=== PATIENT | female | born 1935 | race Caucasian/White ===

== ENCOUNTER → 2017-08-31 | Outpatient (CLI) | payer OTHER ==
[~2017-08-31] MED LIST: ASPI1TAB2 PO; CHOL1TAB2 PO; CORACAP6 PO; CRG625 PO; HYDR12.55 PO; LOSA100T65 PO; MULT-190 PO; MULT1TAB32 PO; NRV5 PO; OMEG10007 PO; OMEP20CA9 PO; PRAV40TA2 PO
--- NOTE | 2017-08-31 10:50 | DIAGNOSTIC IMAGING REPORT ---
GI SERIES W/AIR ROUTINE CLINICAL HISTORY: COUGH COMPARISON STUDY: None. FLUOROSCOPY TIME: 2.0 minutes. 25 images submitted. FINDINGS: The patient swallowed barium without difficulty. The esophagus is normal in course, caliber, and motility. No hiatus hernia. No gastroesophageal reflux. No gastric ulcerations. The duodenal bulb and duodenal C sweep are within normal limits. IMPRESSION: Normal upper GI series. Electronically signed by: Mango Joseph M.D. 08/31/2017 10:48 AM Dictated Date/Time: 08/31/2017 10:47 AM
== END | disposition home or self-care (01) ==
LOC: C.RAD 10:06
PROVIDERS: ATTEND Family Medicine
DX: R06.09 Other forms of dyspnea (principal); R05 Cough

== ENCOUNTER 2023-06-04 09:54 | Inpatient (IN) ==
[2023-06-04] MEDS ORDERED: ALBUT/IPRATROP 3MG/0.5MG NEB 3 ML VIAL NEB STA ×2 (10:30→12:24)
[2023-06-04] MEDS ORDERED: SODIUM CHLORIDE 0.9% 1,000 ML IV SCH (10:30)
[2023-06-04] MEDS ORDERED: ONDANSETRON INJ 2 MG/ML 2 ML VIAL IV STA (10:30)
[2023-06-04] MEDS ORDERED: methylPREDNISolone 125 MG/2 ML VIAL IV STA (10:30)
--- NOTE | 2023-06-04 10:43 | Emergency Department Note ---
Impression & Plan COVID, Hypoxia ED Provider Note Diagnosis: COVID, hypoxia, bronchospasms Disposition: Admission CHIEF COMPLAINT: Shortness of breath, nausea vomiting diarrhea HPI: Patient is an 88-year-old female presenting with complaint of shortness of breath. Patient states her symptoms started overnight. Patient states this time yesterday she was feeling of her normal health. Patient states she has been having nausea and vomiting with 2 episodes without any blood present. Patient has had also 2 episodes of diarrhea without blood present. Patient does not complain of any abdominal pain on presentation. Patient denies any fevers. Patient denies any sick contacts. Patient denies any active chest pain. PAST MEDICAL HISTORY: See Below PAST SURGICAL HISTORY: See Below SOCIAL HISTORY: See Below HOME MEDICATIONS: See Below ALLERGIES: See Below VITALS: See Below PHYSICAL EXAMINATION: GENERAL: Well appearing, well nourished, NAD, non-toxic. EYE EXAM: Normal conjunctiva. OROPHARYNX: Moist mucus membranes. Grossly normal dentition. NECK: Supple, LUNGS: Wheezing bilaterally HEART: NSR ABDOMEN: Abdomen soft, non-tender, normo-active bowel sounds, no masses, no rebound or guarding BACK: No CVA TTP. SKIN: No rashes and no bruising. UPPER EXTREMITIES: Upper extremities are grossly normal LOWER EXTREMITIES: Grossly normal, no edema. NEURO EXAM: A&O x3,, normal speech, moves all 4 extremities PSYCH: Cooperative MEDICAL DECISION MAKING: Reviewed external documents: Pulmonary office visit August 2020 for groundglass opacity follow-up History obtained from: Patient, neighbor bedside ER Course: Patient is a 88-year-old female presenting with shortness of breath. Patient states that last night she had a choking episode and then acutely felt short of breath. Patient in the emergency room had multiple episodes of bronchospasms where she would have desaturation of her oxygen levels. Patient responded well to nonrebreather oxygen support. Patient found to be COVID-positive. Patient was given DuoNebs and steroids. Patient has slightly elevated troponin with no signs of ischemia on EKG. Patient due to her hypoxia and COVID will be admitted to the hospital service further treatment and evaluation Labs (independently interpreted) are significant for: COVID-positive, no leukocytosis, no electrolyte abnormalities, slight elevation of troponin Imaging results (independently interpreted): Chest x-ray negative for pneumonia EKG interpretation (independently interpreted): Sinus rhythm no ST segment elevation or depression Medications given: DuoNeb, steroids Consultants: Hospitalist agreed except patient further treatment evaluation Triage Nursing notes reviewed and agree them. Vital Signs: reviewed and remarkable for: Hypoxia Past Med/Surg History Social History (Updated 06/04/23 @ 14:36 by Dorinda Paul PA-C) Smoking Status: Never smoker Second Hand Exposure: Yes ( smoked); Hx Alcohol Use: No Hx Substance Use: No Preferred Language: Macedonian marital status: / Current Living Situation: Alone Feels Safe at Home: Yes Allergies Allergies Allergy/AdvReac Type Severity Reaction Status Date / Time adhesive Allergy Unknown SKIN TEAR Verified 06/04/23 12:27 bee venom protein (honey bee) Allergy Unknown Verified 06/04/23 12:28 lisinopril AdvReac Unknown DRY MOUTH Verified 06/04/23 12:27 morphine AdvReac Unknown vomiting Verified 06/04/23 12:27 oxycodone AdvReac Unknown STRANGE Verified 06/04/23 12:27 DREAMS guaifenesin [From Mucinex] AdvReac vomiting, Verified 06/04/23 12:28 diarrhea Home Meds Home Medications Medication Instructions Recorded Confirmed calcium carbonate 600 mg calcium 0 mg PO DAILY 06/04/23 06/04/23 (1,500 mg) tablet (Calcium) carvedilol 6.25 mg tablet 3.125 mg PO QPM 06/04/23 06/04/23 carvedilol 6.25 mg tablet 6.25 mg PO QAM 06/04/23 06/04/23 diclofenac sodium 1 % topical gel 2 g topical DIRECTED PRN Pain 06/04/23 06/04/23 doxazosin 2 mg tablet 2 mg PO HS 06/04/23 06/04/23 losartan 50 mg tablet 50 mg PO DAILY 06/04/23 06/04/23 pravastatin 40 mg tablet 40 mg PO DAILY 06/04/23 06/04/23 vitamins A,C,U-bvaf-cgcscq 2,148 2 tab PO QAM 06/04/23 06/04/23 mcg-113 mg-45 mg-17.4 mg tablet (PreserVision AREDS) Results & Data (ED) Vital Signs Vital Signs - 24 hr 06/04/23 09:59 06/04/23 10:24 06/04/23 11:00 Temperature 36.8 C Temperature Source Oral Pulse Rate 74 67 68 Pulse Rate from SpO2 Sensor 68 Respiratory Rate 18 24 Respiratory Effort / Characteristics Non-Labored Spontaneous Respiratory Depth Normal Respiratory Pattern Regular Blood Pressure 112/84 Blood Pressure Mean 93 Blood Pressure Position Sitting Pulse Oximetry 94 99 Oxygen Delivery Method Room Air Nebulizer Oxygen Flow Rate Sepsis Recent Fever Within 48 Hours No Sepsis New/Unexplained Change in Mental Status No Sepsis Action Taken by Nursing No Action Required 06/04/23 11:00 06/04/23 11:30 06/04/23 11:32 Temperature Temperature Source Pulse Rate 70 76 Pulse Rate from SpO2 Sensor 70 73 Respiratory Rate 20 21 Respiratory Effort / Characteristics Respiratory Depth Respiratory Pattern Blood Pressure 152/68 H Blood Pressure Mean 112 Blood Pressure Position Pulse Oximetry 100 97 Oxygen Delivery Method Room Air Room Air Oxygen Flow Rate Sepsis Recent Fever Within 48 Hours Sepsis New/Unexplained Change in Mental Status Sepsis Action Taken by Nursing 06/04/23 11:32 06/04/23 12:00 06/04/23 12:00 Temperature Temperature Source Pulse Rate 73 Pulse Rate from SpO2 Sensor 72 Respiratory Rate 22 Respiratory Effort / Characteristics Respiratory Depth Respiratory Pattern Blood Pressure 171/78 H 144/69 H Blood Pressure Mean 94 119 Blood Pressure Position Pulse Oximetry 93 Oxygen Delivery Method Room Air Oxygen Flow Rate Sepsis Recent Fever Within 48 Hours Sepsis New/Unexplained Change in Mental Status Sepsis Action Taken by Nursing 06/04/23 12:15 06/04/23 12:15 06/04/23 12:30 Temperature Temperature Source Pulse Rate 69 67 Pulse Rate from SpO2 Sensor 69 66 Respiratory Rate 22 19 Respiratory Effort / Characteristics Respiratory Depth Respiratory Pattern Blood Pressure Blood Pressure Mean Blood Pressure Position Pulse Oximetry 100 59 L 99 Oxygen Delivery Method Non-rebreather Nasal Cannula Oxygen Flow Rate 4 Sepsis Recent Fever Within 48 Hours Sepsis New/Unexplained Change in Mental Status Sepsis Action Taken by Nursing 06/04/23 12:30 06/04/23 12:45 06/04/23 12:49 Temperature Temperature Source Pulse Rate 65 72 Pulse Rate from SpO2 Sensor 65 74 Respiratory Rate 20 22 Respiratory Effort / Characteristics Respiratory Depth Respiratory Pattern Blood Pressure 182/98 H Blood Pressure Mean 138 Blood Pressure Position Pulse Oximetry 100 99 Oxygen Delivery Method Oxygen Flow Rate Sepsis Recent Fever Within 48 Hours Sepsis New/Unexplained Change in Mental Status Sepsis Action Taken by Nursing 06/04/23 12:49 06/04/23 13:00 06/04/23 13:01 Temperature Temperature Source Pulse Rate 79 82 Pulse Rate from SpO2 Sensor 82 85 Respiratory Rate 21 21 Respiratory Effort / Characteristics Respiratory Depth Respiratory Pattern Blood Pressure 188/81 H Blood Pressure Mean 130 Blood Pressure Position Pulse Oximetry 97 97 Oxygen Delivery Method Oxygen Flow Rate Sepsis Recent Fever Within 48 Hours Sepsis New/Unexplained Change in Mental Status Sepsis Action Taken by Nursing 06/04/23 13:01 06/04/23 13:34 06/04/23 13:45 Temperature Temperature Source Pulse Rate 96 H 95 H Pulse Rate from SpO2 Sensor 98 H 96 H Respiratory Rate 17 24 Respiratory Effort / Characteristics Respiratory Depth Respiratory Pattern Blood Pressure 160/103 H Blood Pressure Mean 148 Blood Pressure Position Pulse Oximetry 96 94 Oxygen Delivery Method Oxygen Flow Rate Sepsis Recent Fever Within 48 Hours Sepsis New/Unexplained Change in Mental Status Sepsis Action Taken by Nursing 06/04/23 13:53 06/04/23 13:53 06/04/23 14:00 Temperature Temperature Source Pulse Rate 114 H 73 Pulse Rate from SpO2 Sensor 111 H 73 Respiratory Rate 18 20 Respiratory Effort / Characteristics Respiratory Depth Respiratory Pattern Blood Pressure 208/121 H Blood Pressure Mean 137 Blood Pressure Position Pulse Oximetry 100 100 Oxygen Delivery Method Oxygen Flow Rate Sepsis Recent Fever Within 48 Hours Sepsis New/Unexplained Change in Mental Status Sepsis Action Taken by Nursing 06/04/23 14:01 06/04/23 14:01 06/04/23 14:14 Temperature Temperature Source Pulse Rate 77 Pulse Rate from SpO2 Sensor 75 Respiratory Rate 25 H Respiratory Effort / Characteristics Respiratory Depth Respiratory Pattern Blood Pressure 171/71 H Blood Pressure Mean 101 Blood Pressure Position Pulse Oximetry 100 96 Oxygen Delivery Method Nasal Cannula Oxygen Flow Rate 3 Sepsis Recent Fever Within 48 Hours Sepsis New/Unexplained Change in Mental Status Sepsis Action Taken by Nursing 06/04/23 14:15 06/04/23 14:23 06/04/23 14:30 Temperature Temperature Source Pulse Rate 77 86 75 Pulse Rate from SpO2 Sensor 76 75 Respiratory Rate 20 17 Respiratory Effort / Characteristics Respiratory Depth Respiratory Pattern Blood Pressure Blood Pressure Mean Blood Pressure Position Pulse Oximetry 98 97 Oxygen Delivery Method Oxygen Flow Rate Sepsis Recent Fever Within 48 Hours Sepsis New/Unexplained Change in Mental Status Sepsis Action Taken by Nursing 06/04/23 14:30 06/04/23 14:45 06/04/23 15:00 Temperature Temperature Source Pulse Rate 84 88 Pulse Rate from SpO2 Sensor 84 85 Respiratory Rate 20 22 Respiratory Effort / Characteristics Respiratory Depth Respiratory Pattern Blood Pressure 177/75 H Blood Pressure Mean 95 Blood Pressure Position Pulse Oximetry 98 97 Oxygen Delivery Method Oxygen Flow Rate Sepsis Recent Fever Within 48 Hours Sepsis New/Unexplained Change in Mental Status Sepsis Action Taken by Nursing 06/04/23 15:00 06/04/23 15:15 Temperature Temperature Source Pulse Rate 95 H Pulse Rate from SpO2 Sensor 93 H Respiratory Rate 24 Respiratory Effort / Characteristics Respiratory Depth Respiratory Pattern Blood Pressure 191/82 H Blood Pressure Mean 117 Blood Pressure Position Pulse Oximetry 99 Oxygen Delivery Method Oxygen Flow Rate Sepsis Recent Fever Within 48 Hours Sepsis New/Unexplained Change in Mental Status Sepsis Action Taken by Nursing Laboratory Data 06/04/23 10:17 06/04/23 10:17 Lab Results 06/04/23 06/04/23 06/04/23 Range/Units 10:10 10:17 11:03 WBC 6.24 (4.8-10.8) K/ul RBC 4.51 (4.20-5.40) M/uL Hgb 13.2 (12.0-16.0) g/dl Hct 37.9 (37.0-47.0) % MCV 84.0 (80.0-100.0) fL MCH 29.3 (25.0-34.0) pg MCHC 34.8 (32.0-36.0) g/dL RDW Std Deviation 42.2 (36.4-46.3) fL RDW Coeff of Meggan 13.6 (11.5-14.5) % Plt Count 188 (130-400) K/uL MPV 9.4 (9.4-12.4) fL Immature Gran % (Auto) 0.3 % Neut % (Auto) 76.2 % Lymph % (Auto) 13.5 % School[place] % (Auto) 9.8 % Eos % (Auto) 0.0 % Baso % (Auto) 0.2 % Neut # (Auto) 4.76 (1.40-6.50) K/uL Lymph # (Auto) 0.84 L (1.20-3.40) K/uL [place] # (Auto) 0.61 H (0.11-0.59) K/uL Eos # (Auto) 0.00 (0.00-0.50) K/uL Baso # (Auto) 0.01 (0.00-0.20) K/uL Immature Gran # (Auto) 0.02 (0.01-0.20) K/uL ABG pH (7.35-7.45) ABG pCO2 (35-46) mmHg ABG pO2 (80-95) mmHg ABG HCO3 (19-24) mmol/L ABG O2 Saturation (90-95) % ABG Base Excess (-9-1.8) mEq/L Rodri Test (Pos) Oxygen Given Sodium 138 (136-145) mmol/L Potassium 4.3 (3.5-5.1) mmol/L Chloride 107 (98-107) mmol/L Carbon Dioxide 24 (21-32) mmol/L Anion Gap 7 (3-11) BUN 25 H (6-23) mg/dl Creatinine 1.31 H (0.6-1.2) mg/dl Est Cr Clr Drug Dosing Not Reportable Est GFR ( Amer) 42.3 ml/min Est GFR (Non-Af Amer) 36.5 ml/min BUN/Creatinine Ratio 19.1 (10-20) Glucose 118 H (70-99(Fasting)) mg/dl Lactate 0.9 (0.4-2.0) mmol/L Calcium 9.7 (8.6-10.3) mg/dl Magnesium 2.3 (1.7-2.4) mg/dl Total Bilirubin 0.5 (0.2-1.0) mg/dl Direct Bilirubin 0.0 (0-0.2) mg/dl AST 17 (13-39) U/L ALT 11 (7-52) U/L Alkaline Phosphatase 64 (34-104) U/L Troponin I High Sens 15.6 H (0-14) pg/ml Total Protein 6.8 (6.0-8.3) gm/dl Albumin 4.1 (3.4-5.0) gm/dl Procalcitonin < 0.05 (0-0.5) ng/ml SARS-CoV-2 (PCR) POSITIVE A* (Negative) Influenza Type A (PCR) Negative (Neg) Influenza Type B (PCR) Negative (Neg) RSV (RT-PCR) Negative (Neg) 06/04/23 Range/Units 14:20 WBC (4.8-10.8) K/ul RBC (4.20-5.40) M/uL Hgb (12.0-16.0) g/dl Hct (37.0-47.0) % MCV (80.0-100.0) fL MCH (25.0-34.0) pg MCHC (32.0-36.0) g/dL RDW Std Deviation (36.4-46.3) fL RDW Coeff of Meggan (11.5-14.5) % Plt Count (130-400) K/uL MPV (9.4-12.4) fL Immature Gran % (Auto) % Neut % (Auto) % Lymph % (Auto) % [place] % (Auto) % Eos % (Auto) % Baso % (Auto) % Neut # (Auto) (1.40-6.50) K/uL Lymph # (Auto) (1.20-3.40) K/uL [place] # (Auto) (0.11-0.59) K/uL Eos # (Auto) (0.00-0.50) K/uL Baso # (Auto) (0.00-0.20) K/uL Immature Gran # (Auto) (0.01-0.20) K/uL ABG pH 7.35 (7.35-7.45) ABG pCO2 37 (35-46) mmHg ABG pO2 98 H (80-95) mmHg ABG HCO3 20 (19-24) mmol/L ABG O2 Saturation 98.4 H (90-95) % ABG Base Excess -4.7 (-9-1.8) mEq/L Rodri Test Pos (Pos) Oxygen Given 3L Sodium (136-145) mmol/L Potassium (3.5-5.1) mmol/L Chloride (98-107) mmol/L Carbon Dioxide (21-32) mmol/L Anion Gap (3-11) BUN (6-23) mg/dl Creatinine (0.6-1.2) mg/dl Est Cr Clr Drug Dosing Est GFR ( Amer) ml/min Est GFR (Non-Af Amer) ml/min BUN/Creatinine Ratio (10-20) Glucose (70-99(Fasting)) mg/dl Lactate (0.4-2.0) mmol/L Calcium (8.6-10.3) mg/dl Magnesium (1.7-2.4) mg/dl Total Bilirubin (0.2-1.0) mg/dl Direct Bilirubin (0-0.2) mg/dl AST (13-39) U/L ALT (7-52) U/L Alkaline Phosphatase (34-104) U/L Troponin I High Sens 16.2 H (0-14) pg/ml Total Protein (6.0-8.3) gm/dl Albumin (3.4-5.0) gm/dl Procalcitonin (0-0.5) ng/ml SARS-CoV-2 (PCR) (Negative) Influenza Type A (PCR) (Neg) Influenza Type B (PCR) (Neg) RSV (RT-PCR) (Neg) Administered Medications Discontinued Medications Albuterol (Albut/Ipratrop 3mg/0.5mg Neb 3 Ml Vial) 3 ml NEB NOW STA; Protocol Stop: 06/04/23 10:31 Last Admin: 06/04/23 10:45 Dose: 3 ml Documented By: HS Albuterol (Albut/Ipratrop 3mg/0.5mg Neb 3 Ml Vial) 3 ml NEB NOW STA; Protocol Stop: 06/04/23 12:25 Last Admin: 06/04/23 12:48 Dose: 3 ml Documented By: YOUSUF Furosemide (Furosemide Inj 20 Mg/2 Ml Vial) 10 mg IV NOW STA Stop: 06/04/23 14:46 Last Admin: 06/04/23 15:33 Dose: 10 mg Documented By: YOUSUF Sodium Chloride (Nss) 1,000 mls @ 999 mls/hr IV .Q1H1M KIRA Stop: 06/04/23 11:30 Last Infusion: 06/04/23 12:41 Dose: Infused Documented By: Admin: 06/04/23 10:45 Dose: 999 mls/hr Documented By: KATHRINE Ioversol (Optiray 320 500ml) 112 ml IV ONCE ONE Stop: 06/04/23 13:27 Last Admin: 06/04/23 13:26 Dose: 112 ml Documented By: TOAN Methylprednisolone (Methylprednisolone 125 Mg/2 Ml Vial) 125 mg IV NOW STA Stop: 06/04/23 10:31 Last Admin: 06/04/23 10:45 Dose: 125 mg Documented By: KATHRINE Ondansetron HCl (Ondansetron Inj 2 Mg/Ml 2 Ml Vial) 4 mg IV NOW STA Stop: 06/04/23 10:31 Last Admin: 06/04/23 10:45 Dose: 4 mg Documented By: HS Imaging Data Radiologist's Impression: Chest X-Ray 06/04/23 10:30 XR chest 1V portable CLINICAL HISTORY: Sepsis TECHNIQUE: Single frontal radiograph of the chest was obtained. Comparison: Comparison is made to chest radiograph 10/26/2022 FINDINGS: No lines and tubes are seen. Cardiomegaly is noted. The aortic arch is calcified. The lungs are clear. No evidence of pleural effusion or pneumothorax. IMPRESSION: No acute abnormalities and in particular no radiographic evidence of pneumonia. ACT 112: Negative or not required by law. Electronically signed by: Mahendra Middleton M.D. 06/04/2023 10:46 AM Chest X-Ray 06/04/23 12:17 XR chest 1V portable CLINICAL HISTORY: acute hypoxia TECHNIQUE: Single frontal radiograph of the chest was obtained. Comparison: Comparison is made to chest radiograph 06/04/2023 FINDINGS: No lines and tubes are seen. Calcified aortic knob is seen. The lungs are clear. No evidence of pleural effusion or pneumothorax. IMPRESSION: Cardiomegaly without acute abnormality. In particular no evidence of pneumonia. ACT 112: Negative or not required by law. Electronically signed by: Mahendra Middleton M.D. 06/04/2023 1:27 PM Chest CTA 06/04/23 12:24 CHEST CTA for PULMONARY ARTERIES CT DOSE: 552.16 mGy.cm HISTORY: covid, hypoxia, r/o PE, room air 02 50% TECHNIQUE: Multiaxial CT images of the chest were performed following the intravenous administration of contrast to evaluate the pulmonary arteries. 3D/Maximal intensity projection images were also obtained. Sagittal and coronal reformations were also reviewed. A dose lowering technique was utilized adhering to the principles of ALARA. COMPARISON STUDY: Chest CTA 10/26/2022. FINDINGS: Focal 50% narrowing within the proximal left subclavian artery due to the calcified plaque. Normal caliber thoracic aorta with no evidence for a dissection. The heart remains mildly enlarged. No pleural or pericardial effusions. No filling defects within the pulmonary arteries to suggest a pulmonary embolus. No mediastinal or hilar lymphadenopathy. The visualized liver, spleen, and adrenal glands are unremarkable. Normal esophagus. No acute fractures identified. No pneumothorax. The central airways are patent. A few bibasilar linear and patchy densities favor subsegmental atelectasis/dependent change. Otherwise, no focal lung consolidations to suggest a pneumonia. IMPRESSION: 1. No evidence for a pulmonary embolus. 2. Bibasilar densities favor subsegmental atelectasis/dependent change. 3. Otherwise, no focal lung consolidations to suggest a pneumonia. 4. Mild cardiomegaly, unchanged ACT 112: Negative or not required by law. Electronically signed by: Mango Joseph M.D. 06/04/2023 1:42 PM Discharge Plan Visit Data Chief Complaint: Illness Stated Complaint: SOB, DIZZINESS, NAUSEA, VOMITING, DIARRHEA ED Provider: Cyrus Salazar Discharge Problem: COVID, Hypoxia Forms Stand Alone Forms: My [facility] Prescriptions Prescriptions: No Action losartan 50 mg tablet 50 mg PO DAILY carvedilol 6.25 mg tablet 6.25 mg PO QAM carvedilol 6.25 mg tablet 3.125 mg PO QPM pravastatin 40 mg tablet 40 mg PO DAILY doxazosin 2 mg tablet 2 mg PO HS diclofenac sodium [Voltaren] 1 % Gel 2 g TOPICAL DIRECTED PRN (Reason: Pain) calcium carbonate [Calcium 600] 600 mg calcium (1,500 mg) Tablet 0 mg PO DAILY PreserVision AREDS 2,148 mcg-113 mg-45 mg-17.4mg Tablet 2 tab PO QAM Rx Instructions: administer with AM meal Referrals Referrals: Nima Erickson MD [Primary Care Provider] -
--- NOTE | 2023-06-04 10:48 | XRay Report ---
XR chest 1V portable CLINICAL HISTORY: Sepsis TECHNIQUE: Single frontal radiograph of the chest was obtained. Comparison: Comparison is made to chest radiograph 10/26/2022 FINDINGS: No lines and tubes are seen. Cardiomegaly is noted. The aortic arch is calcified. The lungs are clear . No evidence of pleural effusion or pneumothorax. IMPRESSION: No acute abnormalities and in particular no radiographic evidence of pneumonia. ACT 112: Negative or not required by law. Electronically signed by: Mahendra Middleton M.D. 06/04/2023 10:46 AM
[2023-06-04 10:54] LABS: Basophils # (auto) 0.01 K/uL (0.00-0.20); Basophils % (auto) 0.2 %; Hematocrit (blood only) 37.9 % (37.0-47.0); Hemoglobin 13.2 g/dl (12.0-16.0); Immature Granulocytes # (auto) 0.02 K/uL (0.01-0.20); Immature Granulocytes % (auto) 0.3 %; Lymphocytes # (auto) 0.84 K/uL (1.20-3.40); Lymphocytes % (auto) 13.5 %; Mean Corpuscular Hemoglobin 29.3 pg (25.0-34.0); Mean Corpuscular Hgb Conc 34.8 g/dL (32.0-36.0); Mean Platelet Volume 9.4 fL (9.4-12.4); Monocytes # (auto) 0.61 K/uL (0.11-0.59); Monocytes % (auto) 9.8 %; Neutrophils # (auto) 4.76 K/uL (1.40-6.50); Neutrophils % (auto) 76.2 %; Platelet Count 188 K/uL (130-400); RDW Coefficient of Variation 13.6 % (11.5-14.5); RDW Standard Deviation 42.2 fL (36.4-46.3); Red Blood Count 4.51 M/uL (4.20-5.40); White Blood Count 6.24 K/ul (4.8-10.8)
[2023-06-04 11:12] LABS: Alanine Aminotransferase 11 U/L (7-52); Albumin Level 4.1 gm/dl (3.4-5.0); Alkaline Phosphatase 64 U/L (34-104); Anion Gap 7 (3-11); Aspartate Aminotransferase 17 U/L (13-39); BUN Creatinine Ratio 19.1 (10-20); Bilirubin,Total 0.5 mg/dl (0.2-1.0); Blood Urea Nitrogen 25 mg/dl (6-23); Calcium 9.7 mg/dl (8.6-10.3); Carbon Dioxide 24 mmol/L (21-32); Chloride 107 mmol/L (98-107); Est GFR (African American) 42.3 ml/min; Est GFR (Non-African American) 36.5 ml/min; Glucose 118 mg/dl (70-99(Fasting)); Magnesium 2.3 mg/dl (1.7-2.4); Potassium 4.3 mmol/L (3.5-5.1); Sodium 138 mmol/L (136-145); Total Protein 6.8 gm/dl (6.0-8.3)
[2023-06-04 11:16] LABS: Troponin I High Sensitivity 15.6 pg/ml (0-14)
[2023-06-04 11:30] LABS: Influenza A virus by PCR Negative (Neg); Influenza B virus by PCR Negative (Neg); RSV by PCR Negative (Neg)
[2023-06-04 11:41] LABS: SARS CoV2 RNA(COVID-19) Ceph POSITIVE (Negative)
[2023-06-04] MEDS ORDERED: OPTIRAY 320 500ml IV ONE (13:26)
--- NOTE | 2023-06-04 13:29 | XRay Report ---
XR chest 1V portable CLINICAL HISTORY: acute hypoxia TECHNIQUE: Single frontal radiograph of the chest was obtained. Comparison: Comparison is made to chest radiograph 06/04/2023 FINDINGS: No lines and tubes are seen. Calcified aortic knob is seen. The lungs are clear. No evidence of pleur al effusion or pneumothorax. IMPRESSION: Cardiomegaly without acute abnormality. In particular no evidence of pneumonia. ACT 112: Negative or not required by law. Electronically signed by: Mahendra Middleton M.D. 06/04/2023 1:27 PM
--- NOTE | 2023-06-04 13:43 | CT Scan Report ---
CHEST CTA for PULMONARY ARTERIES CT DOSE: 552.16 mGy.cm HISTORY: covid, hypoxia, r/o PE, room air 02 50% TECHNIQUE: Multiaxial CT images of the chest were performed following the intravenous administration of contrast to evaluate the pulmonary arteries. 3D/Maximal intensity projection images were also obta ined. Sagittal and coronal reformations were also reviewed. A dose lowering technique was utilized a dhering to the principles of ALARA. COMPARISON STUDY: Chest CTA 10/26/2022. FINDINGS: Focal 50% narrowing within the proximal left subclavian artery due to the calcified plaque. Normal caliber thoracic aorta with no evidence for a dissection. The heart remains mildly enlarged. No pleural or pericardial effusions. No filling defects within the pulmonary arteries to suggest a pu lmonary embolus. No mediastinal or hilar lymphadenopathy. The visualized liver, spleen, and adrenal g lands are unremarkable. Normal esophagus. No acute fractures identified. No pneumothorax. The central airways are patent. A few bibasilar linear and patchy densities favor subsegmental atelectasis/depen dent change. Otherwise, no focal lung consolidations to suggest a pneumonia. IMPRESSION: 1. No evidence for a pulmonary embolus. 2. Bibasilar densities favor subsegmental atelectasis/dependent change. 3. Otherwise, no focal lung consolidations to suggest a pneumonia. 4. Mild cardiomegaly, unchanged ACT 112: Negative or not required by law. Electronically signed by: Mango Joseph M.D. 06/04/2023 1:42 PM
[2023-06-04 14:31] LABS: Allen Test Pos (Pos); Base Excess ABG -4.7 mEq/L (-9-1.8); HCO3 ABG 20 mmol/L (19-24); Oxygen Saturation ABG 98.4 % (90-95); PCO2 ABG 37 mmHg (35-46); PO2 ABG 98 mmHg (80-95); pH ABG 7.35 (7.35-7.45)
--- NOTE | 2023-06-04 14:38 | History & Physical Report ---
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 Acute hypoxic respiratory failure Acute Covid-19 --Chest CTA: 1. No evidence for a pulmonary embolus.2. Bibasilar densities favor subsegmental atelectasis/dependent change.3. Otherwise, no focal lung consolidations to suggest a pneumonia.4. Mild cardiomegaly, unchanged continue oxygen IV dexamethasone 6mg daily, received 125mg IV solumedrol pulmonary hygeine with flutter valve, incentive spirometer Prn Albuteroal, pt states nebs tend to make her spasm more Muccinex, tessalon prn PT/OT IV remdesivir ordered given severity of illness Chronic HFpEF possible component of acute CHF on top viral illness give low dose lasix 10mg to naive pt to trial given no improvement with nebs daily weight, strict I and O CKD-3 chronic, stable bun/cr 25 and 1.31 baseline 1.2-1.3 HTN BP elevated, pt missed morning meds continue losartan, coreg HLD chronic, stable continue statin DVT ppx: SQ Heparin given renal fxn FULL CODE PCP: Dre Dispo: admit to PCU Pt was seen and examined in collaboration with Dr. Avendano, please see addendum History of Present Illness Chief Complaint: SOB, n/v/d x few days. 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 She has otherwise had ongoing sx for 1.5 weeks. "I just had no ambition." She chronically has a dry throat. She has been having increased SOB with exertion, even climbing a flight of steps along with a productive purulent cough. She has been having episodes of where she becomes acutely short of breath and having wheezing. She feels this in her throat. She is a stomach sleeper and denies any issues with this. She has had off and on hoarseness and voice change in the last week. Her voice tends to change when she gets sick. She denies any lower extremity swelling, PND, orthopnea. She denies f/c/s, dizziness, lightheaded, dysuria, increased urg/freq with urination, melena or hematochezia. She denies prior hx of COPD/Asthma. Previously she saw pulmonology, Dr. Hays for shortness of breath. No known sick contacts. She did have a one time episode of diarrhea and vomiting this morning, but otherwise this has resolved. She states she has had pneumonia 5 other times in the past. In ED patient would have episodes where she would desaturate. She will get acute episodes of wheezing and become short of breath. This would resolve with oxygen. Her CBC and CMP is unremarkable except for mild elevated creatinine at 1.30 which is her baseline. She did have a mildly elevated troponin at 15.6 and repeat in 2 hours was 16.2. Her procalcitonin was negative. She did test positive for SARS-CoV-2. Chest x-ray and chest CTA negative for PE and consolidation. CTA of chest did not subsegmental atelectasis. Pt jeffrey Patel is at bedside who helps elicit history. She lives alone in 2 story house. At baseline she is very independent. Allergies Allergy/AdvReac Type Severity Reaction Status Date / Time adhesive Allergy Unknown SKIN TEAR Verified 06/04/23 12:27 bee venom protein (honey bee) Allergy Unknown Verified 06/04/23 12:28 lisinopril AdvReac Unknown DRY MOUTH Verified 06/04/23 12:27 morphine AdvReac Unknown vomiting Verified 06/04/23 12:27 oxycodone AdvReac Unknown STRANGE Verified 06/04/23 12:27 DREAMS guaifenesin [From Mucinex] AdvReac vomiting, Verified 06/04/23 12:28 diarrhea Home Medications Medication Instructions Recorded Confirmed Type calcium carbonate 600 mg calcium 0 mg PO DAILY 06/04/23 06/04/23 History (1,500 mg) tablet (Calcium) carvedilol 6.25 mg tablet 3.125 mg PO QPM 06/04/23 06/04/23 History carvedilol 6.25 mg tablet 6.25 mg PO QAM 06/04/23 06/04/23 History diclofenac sodium 1 % topical gel 2 g topical DIRECTED PRN Pain 06/04/23 06/04/23 History doxazosin 2 mg tablet 2 mg PO HS 06/04/23 06/04/23 History losartan 50 mg tablet 50 mg PO DAILY 06/04/23 06/04/23 History pravastatin 40 mg tablet 40 mg PO DAILY 06/04/23 06/04/23 History vitamins A,C,J-bpvo-lharwo 2,148 2 tab PO QAM 06/04/23 06/04/23 History mcg-113 mg-45 mg-17.4 mg tablet (PreserVision AREDS) Past Med/Surg History Medical History (Updated 06/04/23 @ 17:34 by Dorinda Paul PA-C) Essential tremor HLD (hyperlipidemia) Chronic heart failure with preserved ejection fraction (HFpEF) Indeterminate pulmonary nodules Chronic renal disease, stage 3, moderately decreased glomerular filtration rate between 30-59 mL/min/1.73 square meter Chronic renal disease Hypertensive cardiovascular disease Diastolic dysfunction Aortic regurgitation Mitral regurgitation COPD (chronic obstructive pulmonary disease) with chronic bronchitis Surgical History (Updated 06/04/23 @ 15:46 by Dorinda Paul PA-C) Hx of hernia repair Hx of colonoscopy History of carpal tunnel surgery Family History Other Cancer Diabetes Social History (Updated 06/04/23 @ 14:36 by Dorinda Paul PA-C) Smoking Status: Never smoker Second Hand Exposure: Yes ( smoked); Hx Alcohol Use: No Hx Substance Use: No Preferred Language: Arabic Communication Ability: Effective Mesh Cutter Required: No Beliefs That Will Affect Care: None marital status: / Current Living Situation: Alone Other Information That Helps Us Care for You: No Feels Safe at Home: Yes Safety Concerns: Feels Safe At This Time Assistive Devices: Denture - Upper, Denture - Lower, Glasses and Hearing Aid - Bilateral Review of Systems Review of Systems: All systems reviewed & are unremarkable except as noted in HPI & below Physical Exam Physical Exam: please refer to Dr. Avendano addendum for physical exam findings. Results & Data Results & Data Vital Signs (Past 12 Hours) Vital Signs Temp Pulse Resp BP Pulse Ox O2 Del Method O2 Flow Rate 06/04/23 14:23 86 06/04/23 14:14 96 Nasal Cannula 3 06/04/23 14:01 77 25 H 100 06/04/23 14:01 171/71 H 06/04/23 14:00 73 20 100 06/04/23 13:53 208/121 H 06/04/23 13:53 114 H 18 100 06/04/23 13:45 95 H 24 94 06/04/23 13:34 96 H 17 96 06/04/23 13:01 160/103 H 06/04/23 13:01 82 21 97 06/04/23 13:00 79 21 97 06/04/23 12:49 188/81 H 06/04/23 12:49 72 22 99 06/04/23 12:45 65 20 100 06/04/23 12:30 182/98 H 06/04/23 12:30 67 19 99 06/04/23 12:15 69 22 100 Non-rebreather 06/04/23 12:00 73 22 93 Room Air 06/04/23 12:00 144/69 H 06/04/23 11:32 171/78 H 06/04/23 11:32 76 21 97 Room Air 06/04/23 11:30 70 20 100 Room Air 06/04/23 11:00 152/68 H 06/04/23 11:00 68 24 99 Nebulizer 06/04/23 10:24 67 06/04/23 09:59 36.8 C 74 18 112/84 94 Room Air Diagnostic Findings Chest X-Ray 06/04/23 10:30 XR chest 1V portable CLINICAL HISTORY: Sepsis TECHNIQUE: Single frontal radiograph of the chest was obtained. Comparison: Comparison is made to chest radiograph 10/26/2022 FINDINGS: No lines and tubes are seen. Cardiomegaly is noted. The aortic arch is calcified. The lungs are clear. No evidence of pleural effusion or pneumothorax. IMPRESSION: No acute abnormalities and in particular no radiographic evidence of pneumonia. ACT 112: Negative or not required by law. Electronically signed by: Mahendra Middleton M.D. 06/04/2023 10:46 AM Chest X-Ray 06/04/23 12:17 XR chest 1V portable CLINICAL HISTORY: acute hypoxia TECHNIQUE: Single frontal radiograph of the chest was obtained. Comparison: Comparison is made to chest radiograph 06/04/2023 FINDINGS: No lines and tubes are seen. Calcified aortic knob is seen. The lungs are clear. No evidence of pleural effusion or pneumothorax. IMPRESSION: Cardiomegaly without acute abnormality. In particular no evidence of pneumonia. ACT 112: Negative or not required by law. Electronically signed by: Mahendra Middleton M.D. 06/04/2023 1:27 PM Chest CTA 06/04/23 12:24 CHEST CTA for PULMONARY ARTERIES CT DOSE: 552.16 mGy.cm HISTORY: covid, hypoxia, r/o PE, room air 02 50% TECHNIQUE: Multiaxial CT images of the chest were performed following the intravenous administration of contrast to evaluate the pulmonary arteries. 3D/Maximal intensity projection images were also obtained. Sagittal and coronal reformations were also reviewed. A dose lowering technique was utilized adhering to the principles of ALARA. COMPARISON STUDY: Chest CTA 10/26/2022. FINDINGS: Focal 50% narrowing within the proximal left subclavian artery due to the calcified plaque. Normal caliber thoracic aorta with no evidence for a dissection. The heart remains mildly enlarged. No pleural or pericardial effusions. No filling defects within the pulmonary arteries to suggest a pulmonary embolus. No mediastinal or hilar lymphadenopathy. The visualized liver, spleen, and adrenal glands are unremarkable. Normal esophagus. No acute fractures identified. No pneumothorax. The central airways are patent. A few bibasilar linear and patchy densities favor subsegmental atelectasis/dependent change. Otherwise, no focal lung consolidations to suggest a pneumonia. IMPRESSION: 1. No evidence for a pulmonary embolus. 2. Bibasilar densities favor subsegmental atelectasis/dependent change. 3. Otherwise, no focal lung consolidations to suggest a pneumonia. 4. Mild cardiomegaly, unchanged ACT 112: Negative or not required by law. Electronically signed by: Mango Joseph M.D. 06/04/2023 1:42 PM Medications Administered Medication List Discontinued Medications Albuterol (Albut/Ipratrop 3mg/0.5mg Neb 3 Ml Vial) 3 ml NEB NOW STA; Protocol Stop: 06/04/23 10:31 Last Admin: 06/04/23 10:45 Dose: 3 ml Documented By: HS Albuterol (Albut/Ipratrop 3mg/0.5mg Neb 3 Ml Vial) 3 ml NEB NOW STA; Protocol Stop: 06/04/23 12:25 Last Admin: 06/04/23 12:48 Dose: 3 ml Documented By: YOUSUF Sodium Chloride (Nss) 1,000 mls @ 999 mls/hr IV .Q1H1M KIRA Stop: 06/04/23 11:30 Last Infusion: 06/04/23 12:41 Dose: Infused Documented By: Admin: 06/04/23 10:45 Dose: 999 mls/hr Documented By: HS Ioversol (Optiray 320 500ml) 112 ml IV ONCE ONE Stop: 06/04/23 13:27 Last Admin: 06/04/23 13:26 Dose: 112 ml Documented By: TOAN Methylprednisolone (Methylprednisolone 125 Mg/2 Ml Vial) 125 mg IV NOW STA Stop: 06/04/23 10:31 Last Admin: 06/04/23 10:45 Dose: 125 mg Documented By: HS Ondansetron HCl (Ondansetron Inj 2 Mg/Ml 2 Ml Vial) 4 mg IV NOW STA Stop: 06/04/23 10:31 Last Admin: 06/04/23 10:45 Dose: 4 mg Documented By: HS ECG Rate (beats per minute): 72 COVID-19 Results Results COVID-19 Adm Lab Results: RBC 4.51 M/uL (4.20-5.40) 06/04/23 WBC 6.24 K/ul (4.8-10.8) 06/04/23 Hgb 13.2 g/dl (12.0-16.0) 06/04/23 Hct 37.9 % (37.0-47.0) 06/04/23 Plt Count 188 K/uL (130-400) 06/04/23 Neutrophils (%) (Auto) 76.2 % 06/04/23 Lymphocytes (%) (Auto) 13.5 % 06/04/23 Monocytes # (Auto) 0.61 K/uL (0.11-0.59) H 06/04/23 Eosinophils # (Auto) 0.00 K/uL (0.00-0.50) 06/04/23 Immature Granulocyte % (Auto) 0.3 % 06/04/23 Neutrophils # (Auto) 4.76 K/uL (1.40-6.50) 06/04/23 Lymphocytes # (Auto) 0.84 K/uL (1.20-3.40) L 06/04/23 Monocytes # (Auto) 0.61 K/uL (0.11-0.59) H 06/04/23 Eosinophils # (Auto) 0.00 K/uL (0.00-0.50) 06/04/23 Basophils # (Auto) 0.01 K/uL (0.00-0.20) 06/04/23 Immature Granulocyte # (Auto) 0.02 K/uL (0.01-0.20) 3 Na 138 mmol/L (136-145) 06/04/23 K 4.3 mmol/L (3.5-5.1) 06/04/23 Cl 107 mmol/L (98-107) 06/04/23 CO2 24 mmol/L (21-32) 06/04/23 Anion Gap 7 (3-11) 06/04/23 BUN 25 mg/dl (6-23) H 06/04/23 Creatinine 1.31 mg/dl (0.6-1.2) H 06/04/23 BUN/Creatinine Ratio 19.1 (10-20) 06/04/23 Glucose Level 118 mg/dl (70-99(Fasting)) H 06/04/23 Ca 9.7 mg/dl (8.6-10.3) 06/04/23 Total Bilirubin 0.5 mg/dl (0.2-1.0) 06/04/23 Direct Bilirubin 0.0 mg/dl (0-0.2) 06/04/23 AST/SGOT 17 U/L (13-39) 06/04/23 ALT/SGPT 11 U/L (7-52) 06/04/23 Alkaline Phosphatase 64 U/L (34-104) 06/04/23 Total Protein 6.8 gm/dl (6.0-8.3) 06/04/23 Albumin 4.1 gm/dl (3.4-5.0) 06/04/23 Procalcitonin < 0.05 ng/ml (0-0.5) 06/04/23 COVID-19 PCR POSITIVE (Negative) A* 06/04/23 Influenza Virus Type A (PCR) Negative (Neg) 06/04/23 Influenza Virus Type B (PCR) Negative (Neg) 06/04/23 ABG pH 7.35 (7.35-7.45) 06/04/23 ABG pCO2 37 mmHg (35-46) 06/04/23 ABG pO2 98 mmHg (80-95) H 06/04/23 ABG HCO3 20 mmol/L (19-24) 06/04/23 ABG O2 Saturation 98.4 % (90-95) H 06/04/23 ABG Base Excess -4.7 mEq/L (-9-1.8) 06/04/23 Chest X-Ray 06/04/23 Code Status & VTE Plan Code Status FULL CODE Supervising Physician Co-Signing Physician Notes I have seen and discussed the case with the collaborating LIZZ. I agree with the above H&P. I have reviewed and confirmed the patients medical history, the findings on physical examination, and the patients diagnosis and treatment plan with Beverly ZAMUDIO and agree with the information documented. In short, Ms. 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 She is mostly with GARCIA and a rancorous cough on ambulation. She reports that nothing has really helped with her symptoms. CTA negative for PE and stable cardiomegaly. Duonebs precipitated increased coughing fit, prompting NRB with 8L; but seemed to respond to IV lasix and methylpred. #Acute hypoxic resp. failure, COVID -Start dexamethasone for hypoxia -Remdesivir IV (borderline symptom range, will trial given severity of symptoms) Rest of plan as above
[2023-06-04] MEDS ORDERED: FUROSEMIDE INJ 20 MG/2 ML VIAL IV STA (14:45)
[2023-06-04] MEDS ORDERED: carvediloL 6.25 MG TAB PO STA (15:35)
[2023-06-04] MEDS ORDERED: LOSARTAN POTASSIUM 50 MG TAB PO STA (15:35)
--- NOTE | 2023-06-04 16:19 | Electrocardiogram Report ---
Test Reason : Blood Pressure : / mmHG Vent. Rate : 072 BPM Atrial Rate : 000 BPM P-R Int : 000 ms QRS Dur : 076 ms QT Int : 412 ms P-R-T Axes : 000 -21 043 degrees QTc Int : 451 ms Poor data quality, interpretation may be adversely affected Artifact Sinus rhythm Abnormal ECG When compared with ECG of 26-OCT-2022 08:41, No significant change Confirmed by Nima Dunlap ([id number]) on 06/04/2023 4:18:35 PM Referred By: REFERRED SELF Confirmed By:Nima Dunlap
[2023-06-04] MEDS ORDERED: ACETAMINOPHEN 325 MG TAB PO PRN (16:48)
[2023-06-04] MEDS ORDERED: MAGNESIUM HYDROXIDE SUSP 30 ML UDC PO PRN (16:48)
[2023-06-04] MEDS ORDERED: BENZONATATE 100 MG CAPSULE PO PRN (16:48)
[2023-06-04] MEDS ORDERED: POLYETHYLENE (MIRALAX) 17 GM PACK PO PRN (16:48)
[2023-06-04] MEDS ORDERED: ALUMINUM/MAGNESIUM SUSP 30 ML UDC PO PRN (16:48)
[2023-06-04] MEDS ORDERED: ONDANSETRON INJ 2 MG/ML 2 ML VIAL IV PRN (16:48)
[2023-06-04] MEDS ORDERED: REMDESIVIR 200 MG in SODIUM CHLORIDE 0.9% 210 ML IV STA (17:41)
[2023-06-04] MEDS: carvediloL 3.125 MG TAB PO SCH (20:58)
[2023-06-04] MEDS: guaiFENesin 600 MG TABCR PO SCH (21:00)
[2023-06-04] MEDS: DOXAZosin MESYLATE TAB 2 MG TAB PO SCH (21:01)
[2023-06-04] MEDS: HEPARIN SOD 5,000 UNIT/0.5 ML VIAL SQ SCH (21:01)
[2023-06-04] MEDS: FLUTICASONE PROPIONATE NA SPR 16 GM BTL SCH (21:01)
[2023-06-04] MEDS ORDERED: MELATONIN 3 MG TAB PO PRN ×2 (21:19→21:24)
[2023-06-04 22:23] LABS: Appearance Urine Clear (Clear); Bacteria Urine Automated Negative (Negative); Bilirubin Urine Negative (Negative); Blood Urine Trace (Negative); Cast Urine Automated 0 /lpf (0-5); Color Urine Yellow; Glucose Urine UA Negative (Negative); Ketones Urine Negative (Negative); Leukocyte Esterase Urine Negative (Negative); Nitrite Urine Negative (Negative); Protein Urine Trace (Negative); RBC Urine Automated 0-4 /hpf (0-4); Specific Gravity Urine 1.022 (1.000-1.030); Urobilinogen Urine Negative (Negative); WBC Urine Automated 0 /hpf (0-5); pH Urine 5.5 (4.5-7.5)
[2023-06-05] MEDS: HEPARIN SOD 5,000 UNIT/0.5 ML VIAL SQ SCH ×3 (05:47→21:05)
[2023-06-05] MEDS: ALBUTEROL HFA 8 GM INHALER INH PRN ×2 (06:12→15:52)
[2023-06-05 07:46] LABS: Hematocrit (blood only) 37.7 % (37.0-47.0); Hemoglobin 12.7 g/dl (12.0-16.0); Immature Granulocytes # (auto) 0.01 K/uL (0.01-0.20); Immature Granulocytes % (auto) 0.2 %; Lymphocytes # (auto) 0.95 K/uL (1.20-3.40); Lymphocytes % (auto) 16.6 %; Mean Corpuscular Hemoglobin 29.1 pg (25.0-34.0); Mean Corpuscular Hgb Conc 33.7 g/dL (32.0-36.0); Mean Corpuscular Volume 86.3 fL (80.0-100.0); Mean Platelet Volume 9.9 fL (9.4-12.4); Monocytes % (auto) 12.2 %; Neutrophils # (auto) 4.08 K/uL (1.40-6.50); Platelet Count 189 K/uL (130-400); RDW Coefficient of Variation 13.9 % (11.5-14.5); RDW Standard Deviation 43.9 fL (36.4-46.3); Red Blood Count 4.37 M/uL (4.20-5.40); White Blood Count 5.74 K/ul (4.8-10.8)
[2023-06-05] MEDS: PRAVASTATIN SOD 40 MG TAB PO SCH (07:49)
[2023-06-05] MEDS: CEROVITE ADV FORMULA TAB PO SCH (07:49)
[2023-06-05] MEDS: guaiFENesin 600 MG TABCR PO SCH ×2 (07:50→20:59)
[2023-06-05] MEDS: LOSARTAN POTASSIUM 50 MG TAB PO SCH (07:50)
[2023-06-05] MEDS: FLUTICASONE PROPIONATE NA SPR 16 GM BTL SCH (07:50)
[2023-06-05] MEDS: dexAMETHasone 6 MG in SYRINGE 0 ML IV SCH (07:50)
[2023-06-05] MEDS: carvediloL 6.25 MG TAB PO SCH (07:50)
[2023-06-05 08:01] LABS: Albumin Globulin Ratio 1.6 (0.9-2); Albumin Level 3.9 gm/dl (3.4-5.0); BUN Creatinine Ratio 16.5 (10-20); Bilirubin,Total 0.3 mg/dl (0.2-1.0); Calcium 9.3 mg/dl (8.6-10.3); Est GFR (African American) 39.4 ml/min; Globulin 2.5 gm/dl (2.5-4.0); Magnesium 2.2 mg/dl (1.7-2.4); Potassium 4.4 mmol/L (3.5-5.1); Total Protein 6.4 gm/dl (6.0-8.3)
--- NOTE | 2023-06-05 08:56 | Electrocardiogram Report ---
Test Reason : Blood Pressure : / mmHG Vent. Rate : 073 BPM Atrial Rate : 073 BPM P-R Int : 152 ms QRS Dur : 082 ms QT Int : 398 ms P-R-T Axes : 054 -26 024 degrees QTc Int : 438 ms Normal sinus rhythm Normal ECG When compared with ECG of 04-JUN-2023 09:59, No significant change was found Confirmed by Nima Dunlap ([id number]) on 06/05/2023 8:56:04 AM Referred By: REFERRED SELF Confirmed By:Nima Dunlap
[2023-06-05] MEDS ORDERED: CHLORASEPTIC 1.4% SOLN 180 ML BTL MT PRN (09:05)
[2023-06-05 10:22] LABS: Estimated Average Glucose 123 mg/dl; Hemoglobin A1C 5.9 % (4.5-5.6)
[2023-06-05] MEDS: FAMOTIDINE 10 MG TABLET PO SCH ×2 (11:42→21:01)
--- NOTE | 2023-06-05 15:26 | Hospitalist Progress Note ---
Date of Service June 05, 2023 Assessment & Plan (1) Acute hypoxic respiratory failure: (2) COVID-19: (3) Elevated troponin: (4) Chronic renal disease, stage 3, moderately decreased glomerular filtration rate between 30-59 mL/min/1.73 square meter: (5) Chronic heart failure with preserved ejection fraction (HFpEF): (6) HTN (hypertension): (7) HLD (hyperlipidemia): Plan Patient is an 88 yr female with H/O Chronic HFpEF, HTN, HLD, exudative age- related macular degeneration of the left eye, GERD with esophagitis, CKD stage IIIb, essential tremor and JUAN MANUEL who presents to ED secondary to shortness of breath, nausea, vomiting, diarrhea and for a few days. Acute hypoxic respiratory failure Acute Covid-19 --Chest CTA: No evidence for a pulmonary embolus. Bibasilar densities favor subsegmental atelectasis/dependent change.. Otherwise, no focal lung cons olidations to suggest a pneumonia. Mild cardiomegaly, unchanged -- Serology positive for COVID-19. Negative for influenza, RSV -- Blood cultures negative to date Check CRP, procalcitonin Started on Remdesivir, Solu-Medrol Day #2 pulmonary hygiene with flutter valve, incentive spirometer Albuterol as needed PT/OT Weaned off of supplemental oxygen Will consider antibiotics if needed Chronic HFpEF Possible component of acute CHF on top viral illness Monitor daily weight, strict I and O Lasix as needed CKD-3 Baseline 1.2-1.3 Monitor renal function Avoid nephrotoxic agents as able HTN continue losartan, coreg Monitor BP Adjust medications as needed HLD chronic, stable continue statin Prediabetes HbA1c 5.9 DVT Px: SQ Heparin Code Status FULL CODE Disposition PT/OT prior to discharge Admission and Anticipated Discharge Date Admission Date: June 04, 2023 Subjective Patient is seen and examined at bedside States feeling better today Still has cough Dyspnea much improved No nausea, vomiting, abdominal pain, diarrhea today Saturating well on room air No other complaints Review of Systems Review of Systems: All systems reviewed & are unremarkable except as noted in Subjective Physical Exam Physical Exam: Physical Exam: Vitals signs as noted above General Appearance:Moderately built and nourished, no apparent distress, elderly Head: normocephalic, Atraumatic Eyes: normal inspection, EOMI Neck: supple, Trachea midline Respiratory/Chest: Decreased breath sounds, scattered rhonchi, No accessory muscle use Cardiovascular: S1, S2, No murmur Abdomen/GI:Soft, Non tender, Bowel sounds present Extremities/Musculoskeletal:normal inspection, no edema Neurologic/Psych:AAOX3, grossly no focal neurological deficits, +hearing impairment Skin: normal color, warm Results & Data Results & Data Vital Signs (Past 12 Hours) Vital Signs Temp Pulse Pulse Resp BP Pulse Ox O2 Del Method 06/05/23 14:48 36.6 C 57 L 14 155/73 H 95 Room Air 06/05/23 11:41 36.6 C 53 L 16 125/66 94 Room Air 06/05/23 08:00 Nasal Cannula 06/05/23 08:00 52 L 06/05/23 07:44 36.8 C 59 L 16 146/74 H 99 Nasal Cannula 06/05/23 06:12 18 98 Nasal Cannula O2 Flow Rate 06/05/23 14:48 06/05/23 11:41 06/05/23 08:00 2 06/05/23 08:00 06/05/23 07:44 2 06/05/23 06:12 3 Laboratory Results Short CBC 06/05/23 Range/Units 06:20 WBC 5.74 (4.8-10.8) K/ul Hgb 12.7 (12.0-16.0) g/dl Hct 37.7 (37.0-47.0) % Plt Count 189 (130-400) K/uL BMP 06/05/23 06:20 Sodium 140 Potassium 4.4 Chloride 108 H Carbon Dioxide 26 BUN 23 Creatinine 1.39 H Glucose 98 Calcium 9.3 Liver Function 06/05/23 Range/Units 06:20 Total Bilirubin 0.3 (0.2-1.0) mg/dl AST 16 (13-39) U/L ALT 12 (7-52) U/L Alkaline Phosphatase 53 (34-104) U/L Albumin 3.9 (3.4-5.0) gm/dl Urine 06/04/23 Range/Units 20:57 Urine Color Yellow Urine Appearance Clear (Clear) Urine pH 5.5 (4.5-7.5) Ur Specific Faith 1.022 (1.000-1.030) Urine Protein Trace H (Negative) Urine Glucose (UA) Negative (Negative)
[2023-06-05] MEDS ORDERED: FUROSEMIDE INJ 20 MG/2 ML VIAL IV ONE (15:32)
[2023-06-05] MEDS ORDERED: REMDESIVIR 100 MG in SODIUM CHLORIDE 0.9% 230 ML IV SCH (17:45)
[2023-06-05] MEDS: DOXAZosin MESYLATE TAB 2 MG TAB PO SCH (21:00)
[2023-06-05] MEDS: carvediloL 3.125 MG TAB PO SCH (21:00)
[2023-06-06] MEDS: HEPARIN SOD 5,000 UNIT/0.5 ML VIAL SQ SCH ×2 (05:23→12:51)
[2023-06-06 06:16] LABS: Hemoglobin 12.8 g/dl (12.0-16.0); Mean Corpuscular Hemoglobin 29.2 pg (25.0-34.0); Mean Corpuscular Hgb Conc 33.7 g/dL (32.0-36.0); Mean Corpuscular Volume 86.6 fL (80.0-100.0); Mean Platelet Volume 9.8 fL (9.4-12.4); Platelet Count 185 K/uL (130-400); RDW Coefficient of Variation 13.8 % (11.5-14.5); RDW Standard Deviation 44.2 fL (36.4-46.3); Red Blood Count 4.39 M/uL (4.20-5.40); White Blood Count 7.02 K/ul (4.8-10.8)
[2023-06-06 07:14] LABS: Calcium 9.3 mg/dl (8.6-10.3); Magnesium 2.2 mg/dl (1.7-2.4); Potassium 4.2 mmol/L (3.5-5.1)
[2023-06-06 07:20] LABS: C Reactive Protein 2.23 mg/dl (0-0.5); Creatinine Clr Calc Pharmacy 26.7 ml/min; Est GFR (African American) 37.4 ml/min; Est GFR (Non-African American) 32.3 ml/min
--- OUTSIDE RECORDS SUMMARY | 2023-06-06 07:22 | External Medical Summary | Summary of Care ---
Author Name Unknown Organization [facility] Address [address] [facility] [place] [address] Phone [phone] Care Team Providers Care Die Inspector Name Role Phone Nima Erickson MD Primary Care Provider [phone] Reason for Visit * Reason Onset Date Comments Follow Up Pt here for 6 mo nth follow up Medication Administration 04/10/2023 Flu an d/or Pneumo Inj Encounter Details Date Type Department Care Team Description 04/10/2023 Office Visit [facility] [address] [place] [address] Nima Erickson MD [address] [place] [address] Chronic heart failure with preserved ejection fraction (HCC)*; Dyslipidemia; Exudative age-related macular degeneration, left eye, with active choroidal neovascularization (HCC); Gastroesophageal reflux disease with esophagitis without hemorrhage; Stage 3b chronic kidney disease (HCC); Essential tremor; Overweight (BMI 25.0-29.9); Need for prophylactic vaccination and inoculation against influenza; HTN, goal below 150/90; Vitamin D deficiency Allergies Active Allergy Reactions Severity Noted Date Comments Adhesive Tape Other (Please comment) 10/04/2012 Pt reports "it took some skin off" Bee Venom 03/13/2022 Lisinopril Cough Low 03/27/2009 Morphine 08/29/2020 Other reaction(s): vomiting Guaifenesin Er Diarrhea,Nausea/vomi tin g,Neuro complications (Please comment) 09/08/2017 Oxycodone 08/29/2020 Other reaction(s): STRANGE DREAMS Oxycodone-Acetaminophe n Other (Please comment) 05/28/2010 [place] funny on medication documented as of this encounter (statuses as of 04/10/2023) Medications Medication Sig Dispensed Refills Start Date End Date Status CORAL CALCIUM 1000 (390 CA) MG PO TABS 1200 mg 1 tab daily 0 Active Multiple Vitamins-Minerals (PRESERVISION AREDS) Tablet Take 2 Tablets by mouth in the morning. 0 Active Diclofenac Sodium 1 % External Gel (Voltaren) Apply topically to affected area 2 g in the morning AND 2 g before bedtime. Apply to foot. 150 g 3 10/01/2021 Active hydroCHLOROthiazi de 12.5 MG Oral Capsule (Hydrodiuril) Take one tab 5 days/week 90 Capsule 3 10/01/2021 Active Pravastatin Sodium 40 MG Oral Tablet (Pravachol)Indica tions:Dyslipidemi a, goal to be determined Take 1 tablet by mouth once daily 100 Tablet 3 02/17/2022 Active Carvedilol 6.25 MG Oral Tablet (Coreg) Take one in the morning, 1/2 in the evening 135 Tablet 11 11/05/2022 Active Doxazosin Mesylate 2 MG Oral Tablet (Cardura)Indicati ons:Chronic heart failure with preserved ejection fraction (HCC) TAKE 2 TABLETS BY MOUTH AT BEDTIME 180 Tablet 3 03/03/2023 Active Losartan Potassium 50 MG Oral Tablet (Cozaar)Indicatio ns:HTN, goal below 150/90 Take 1 Tablet by mouth in the morning. 90 Tablet 3 04/10/2023 Active ASPIRIN 81 MG OR CHEW Take 1 Tablet by mouth every other day. 0 04/11/2003 3 Discontinued OMEGA-3 FATTY ACIDS 600 MG PO CAPS 2 tabs each day 0 01/27/2006 3 Discontinued Pantoprazole Sodium 40 MG Oral Tablet Delayed Release (Protonix)Indicat ions:Gastroesopha geal reflux disease with esophagitis without hemorrhage Take by mouth 1 Tablet in the morning. 30 minutes before the first meal of the day. Do not crush, split or chew the tablet. 30 Tablet 5 04/07/2022 3 Discontinued Losartan Potassium 50 MG Oral Tablet (Cozaar)Indicatio ns:HTN, goal below 150/90 Take 1 tablet by mouth once daily 90 Tablet 3 09/12/2022 3 Discontinued documented as of this encounter (statuses as of 04/10/2023) Active Problems Problem Noted Date Overweight (BMI 25.0-29.9) 10/06/2022 Stage 3b chronic kidney disease 05/28/20 Overview: Per CKD protocol - Based on GFR of 52.0 on 06/04/07. Exudative age-related macula r degeneration, left eye, with active choroidal neovascularization 06/27/2019 (HFpEF) heart failure with preserved eje ction fraction 11/24/2017 Gastroesophageal reflux disease with eso phagitis 11/24/2017 Dyslipidemia 06/28/2009 Overview: Per Lipid Taxonomy. HTN, goal below 150/90 06/30/2001 Essential tremor documented as of this encounter (statuses as of 04/10/2023) Resolved Problems Problem Noted Date Resolved Date Chronic heart failure with preserved ejection fr action 08/08/2022 10/06/2022 Hypertensive kidney disease with stage 3b chronic kidney disease 03/26/2022 04/07/2022 Mass of hand, left 02/01/2021 04/22/2021 Chronic kidney disease, stage 3b 11/27/2020 04/22/2021 Overview: Per CKD protocol Carpal tunnel syndrome, left 11/23/202010/2020 Trigger middle finger of left hand 11/23/2020 04/22/2021 Trigger finger of left thumb 11/23/202010/2020 Hypertensive heart and kidne y disease with chronic diastolic congestive heart failure and stage 3b chronic kidney disease 05/28/2020 04/22/2021 Overview: Per CKD protocol COPD, group C, by GOLD 2017 classification 09/2504/22/2021 Overview: Per COPD GOLD Classification COPD, mild 09/07/2019 09/29/2019 Overview: Per COPD GOLD Classification Primary open-angle glaucoma, bilateral, stage un specified 07/27/2019 10/06/2022 History of colon polyps 12/15/2018 09/14/19 20 Hypertensive heart and kidne y disease with chronic diastolic congestive heart failure and stage 3 chronic kidney disease 12/15/2018 05/31/2020 Overview: Per CKD protocol Non-rheumatic mitral regurgitation 06/07/2018 09/14/2019 Hx of actinic keratosis 03/10/2018 09/14/19 20 Hoarseness 10/19/2017 09/14/2019 GERD (gastroesophageal reflux disease) 5 12/04/2017 Hx of malignant melanoma 03/28/2013 020 Overview: L upper arm 0.35 mmm 09/2012 Historical. Hx of basal cell carcinoma 05/19/201109/14 Overview: L upper cutaneous lip - BCC, 09/2010 Incisional hernia 05/11/2008 02/19/2017 Kidney disease, chronic, stage III (GFR 30-59 ml /min) 08/12/2007 05/31/2020 Overview: Based on GFR of 52.0 on 06/04/07. ADVANCE DIRECTIVE INFORMATION 06/02/2006 Overview: Information given previously. BENIGN NEOPLASM LG BOWEL 04/03/2003 019 Mitral valve disorder 12/09/2002 08/16/2007 Overview: mod severe MR Aortic valve disorder 12/09/2002 08/16/2007 Overview: mild AI Ischemic mitral regurgitation 11/23/2002 Dyslipidemia, goal to be determined 07/14/2001 06/28/2009 Overview: Per Lipid Taxonomy. Edema 06/30/2001 08/12/2006 Menopause 06/19/1999 05/13/2006 Other specified glaucoma 020 Overview: More specific code in use. Aortic valve insufficiency 09/14 Mitral and aortic incompetence 0 04/07/2022 documented as of this encounter (statuses as of 04/10/2023) Immunizations Name Administration Dates Next Due COVID-19 mRNA, LNP-s, No Pre serve, 2-Dose Series (Moderna) 09/22/2020,08/18/2020 COVID-19, mRNA, LNP-s, PF, B ooster, 100mcg/0.5mg (Moderna) 09/30/2021,05/23/2021 Pneumococcal Conjugate Vacc, 13 Valent (Prevnar) 01/17/2020,08/03/2014 Pneumococcal Polysaccharide PPV23 (Pneumovax) 12/08/2006 Season Influenza, Quad, PF, Adjuvanted, 65+ Yrs, IM (FLUAD) 04/03/2020 Seasonal Influenza, PF, 6 mo ns & Above, IM , (Flulaval) 03/26/2018 Seasonal Influenza, Quadriva lent Hd (Fluzone Hd) 04/10/2023,04/07/2022,04/03/2021 Seasonal Influenza, Quadriva lent, No Preserve, IM 04/02/2017,04/18/2016 Seasonal Influenza, Split, I IV3, With Preserve, Inj 04/02/2015,03/27/2014,04/27/2013,04/22,04/17/2011,04/16/2010,03/28/2009 ,05/18/2008,04/26/2007,05/12/2006 Seasonal Influenza, Trivalen t, Adjuvanted, 65+ yrs 04/04/2019 TD, Preservative Free 09/29/2011 TDAP (age 10 and older)(Boostrix) 05/14/2018 Varicella Zoster Vaccine (Adult) 09/29/2011 Zoster Vaccine Recombinant (Shingrix) 06/25/2018 ,03/26/2018 documented as of this encounter Social History Tobacco Use Types Packs/Day Years Used Date Smoking Tobacco: Never Smokeless Tobacco: Never Alcohol Use Standard Drinks/Week Comments No 0 (1 standard drink = 0.6 oz pur e alcohol) Food Insecurity Answer Date Recorded Within the past 12 months, y ou worried that your food would run out before you got money to buy more. Never true 01/26/2023 Within the past 12 months, t he food you bought just didn't last and you didn't have money to get more. Never true 01/26/2023 Sex Assigned at Date Recorded Female 09/07/2019 8:[address] Job Start Date Occupation Industry Not on file Not on file Not on file documented as of this encounter Last Filed Vital Signs Vital Sign Reading Time Taken Comments Blood Pressure 122/58 04/10/2023 10:05 AM EDT Pulse 64 04/10/2023 10:05 AM EDT Temperature 36.2 C (97.2 F) 04/10/2023 10:05 AM E DT Respiratory Rate 18 04/10/2023 10:05 AM EDT Oxygen Saturation - - Inhaled Oxygen Concentration - - Weight 74.4 kg (164 lb) 04/10/2023 10:05 AM EDT Height 164.6 cm (5' 4.8") 04/10/2023 10:05 AM ED T Body Mass Index 27.46 04/10/2023 10:05 AM EDT documented in this encounter Progress Notes * Nima Erickson MD - 04/10/2023 2:02 PM EDT SUBJECTIVE: Katarina Peacock is a 87 year old female. Chief Complaint Patient presents with Follow Up Pt here for 6 month follow up Medication Administration Flu and/or Pneumo Inj HPI: Katarina is a very pleasant and active 87 year old female here for follow up on multiple medical issues. She walks 1-3 miles a day. No shortness of breath or chest pain. No palpitations. She is compliant with all of her medication. Labs and medications reviewed. 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 Stage 3b chronic kidney disease (HCC) N18.32 Overweight (BMI 25.0-29.9) E66.3 Current Outpatient Medications Medication Sig Dispense Refill CORAL CALCIUM 1000 (390 CA) MG PO TABS 1200 mg 1 tab daily Multiple Vitamins-Minerals (PRESERVISION AREDS) Tablet Take 2 Tablets by mouth in the morning. Diclofenac Sodium 1 % External Gel (Voltaren) Apply topically to affected area 2 g in the morning AND 2 g before bedtime. Apply to foot. 150 g 3 hydroCHLOROthiazide 12.5 MG Oral Capsule (Hydrodiuril) Take one tab 5 days/week 90 Capsule 3 Pravastatin Sodium 40 MG Oral Tablet (Pravachol) Take 1 tablet by mouth once daily 100 Tablet 3 Carvedilol 6.25 MG Oral Tablet (Coreg) Take one in the morning, 1/2 in the evening 135 Tablet 11 Doxazosin Mesylate 2 MG Oral Tablet (Cardura) TAKE 2 TABLETS BY MOUTH AT BEDTIME 180 Tablet 3 Losartan Potassium 50 MG Oral Tablet (Cozaar) Take 1 Tablet by mouth in the morning. 90 Tablet 3 No current facility-administered medications for this visit. Allergy: Review of patient's allergies indicates: Allergen Reactions Adhesive Tape Other (Please comment) Pt reports "it took some skin off" Bee Venom Morphine Other reaction(s): vomiting Mucinex [Guaifenesin Er] Diarrhea, Nausea/vomiting and Neuro complications (Please comment) Oxycodone Other reaction(s): STRANGE DREAMS Percocet [Oxycodone-Acetaminophen] Other (Please comment) [place] funny on medication Lisinopril Cough OBJECTIVE: BP 122/58 (BP Site: Left Arm, BP Position: Sitting, BP Cuff Size: Regular) | Pulse 64 | Temp 36.2 C (97.2 F) (Tympanic) | Resp 18 | Ht 1.646 m (5' 4.8") | Wt 74.4 kg (164 lb) | BMI 27.46 kg/m |BSA 1.84 m General: alert, healthy, and no distress Head: Normocephalic, No masses, lesions, tenderness or abnormalities Neck: supple, no adenopathy, no bruits, thyroid normal size, non-tender, without nodularity Lungs: chest symmetric with normal AP diameter, no chest deformities noted, no chest wall tenderness, lungs clear to auscultation Heart: regular rate & rhythm, no murmur, and no gallops Extremities: less than 2 second capillary refill, no joint deformities, effusion, or inflammation Neuro Exam: alert & oriented x 3 with fluent speech, no focal motor/sensory deficits, gait normal, reflexes normal and symmetric ASSESSMENT AND PLAN: (I50.32) Chronic heart failure with preserved ejection fraction (HCC) (primary encounter diagnosis) Plan: continue current rx and follow up with cardiology (E78.5) Dyslipidemia Plan: stable (H35.3221) Exudative age-related macular degeneration, left eye, with active choroidal neovascularization (HCC) Plan: stable (K21.00) Gastroesophageal reflux disease with esophagitis without hemorrhage Plan: stable (N18.32) Stage 3b chronic kidney disease (HCC) Plan: PHOSPHORUS, BASIC METABOLIC PANEL HTN - stable (G25.0) Essential tremor Plan: stable (E66.3) Overweight (BMI 25.0-29.9) Plan: healthy weight; active and walks daily (Z23) Need for prophylactic vaccination and inoculation against influenza Plan: INFLUENZA VACC, QUAD, HIGH DOSE (FLUZONE HD) Follow up in 6 month(s). No other complaints were offered at this time. Nima Erickson MD * Katherin Narayan LPN - 04/10/2023 10:03 AM EDT PRE - ADMINISTRATION DOCUMENTATION Are you experiencing any cold symptoms or fever? No Have you had Guillain-Elverson Syndrome (an illness that causes paralysis) within the last 6 weeks? No Have you had the flu shot in the past? YES Have you ever had a reaction to the flu shot? No Katherin Narayan LPN, 04/10/2023 10:03 AM Immunization Administration Documentation Time Out Procedure Performed: Yes Patient Identified (Ask Name/Date of ): Yes Does the patient have a fever greater than 101 degrees today? No Patient allergic to latex? No VFC Stock: No Immunization(s) verified: Yes, Immunization Name: Flu, VIS Sheet(s) given: Yes Verified Side and Site: Yes Verified Shot(s) with Parent(s)/Patient: Yes documented in this encounter Nursing Notes * Katherin Narayan LPN - 04/10/2023 10:05 AM EDT The patient has been properly identified by confirmation of name and date of . Chief Complaint Patient presents with Follow Up Pt here for 6 month follow up Medication Administration Flu and/or Pneumo Inj documented in this encounter Plan of Treatment Upcoming Encounters Date Type Specialty Care Team Description 07/29/2023 Office Visit Cardiology Kim Valerio CRNP [address] [place] [id number] 09/22/2023 Office Visit Dermatology Blanca Iyer PA-C [address] [place] [address] [place] [address] 01/29/2024 Nurse Only Ancillary Caesar, Nurse [facility] [address] [place] [address] Pending Results Name Type Priority Associated Diagnoses Date /Time PHOSPHORUS Lab Routine Stage 3b chronic kidney disease (HCC) 04/10/2023 10:32 AM EDT 25-HYDROXY VITAMIN D Lab Routine Vitamin D deficiency 04/10/2023 10:32 AM EDT Scheduled Orders Name Type Priority Associated Diagnoses Orde r Schedule PHOSPHORUS Lab Routine Stage 3b chronic kidney disease (HCC) Expected: 04/10/2023 (Approximate), Expires: 04/09/2024 25-HYDROXY VITAMIN D Lab Routine Vitamin D deficiency Expected: 04/10/2023 (Approximate), Expires: 04/09/2024 Health Maintenance Due Date Last Done Comments COVID-19 Vaccine (5 - Moderna series) 11/25/2021 09/30/2021, 05/23/2021, 09/22/2020, Additional history exists CKD PHOS USE SMARTSET 83931 04/07/202303/20, 04/03/2021, 04/19/2020, Additional history exists Depression Screening 01/27/2024 01/26/2023 Albumin/Creatinine Ratio 02/06/20242 023, 04/03/2021, 02/19/2017, Additional history exists CKD HGB USE SMARTSET 53380 02/06/202402/05, 02/05/2023, 11/13/2021, Additional history exists DTaP,Tdap,and Td Vaccines (2 - Td or Tdap) 05/14/2028 05/14/2018, 09/29/2011 Zoster Vaccines Completed 06/25/2018, 01/2018, 09/29/2011 Pneumococcal Vaccine: 65+ Years Completed 01/17/2020, 08/03/2014, 12/08/2006, Additional history exists Influenza Vaccine (FLU shot) Completed , 04/07/2022, 04/03/2021, Additional history exists GARDASIL-HPV IMMUNIZATION SERIES Aged Out No longer eligible based on patient's age to complete this topic Hepatitis B Aged Out No longer eligi ble based on patient's age to complete this topic MENINGOCOCCAL (MENACTRA/MENVEO) Aged Out No longer eligible based on patient's age to complete this topic documented as of this encounter Medical Devices Not on filedocumented as of this encounter Results * (ABNORMAL) BASIC METABOLIC PANEL (04/10/2023 10:32 AM EDT) BUN 33(H) 6 - 20 mg/dL 04/10/2023 11:47 AM EDT [facility] Creatinine 1.4(H) 0.5 - 1.0 mg/dL 04/10/2023 11:47 AM EDT [facility] Estimated Glomerular Filtration Rate 35(L) >=60 mL/min 04/10/2023 11:47 AM EDT [facility] Comment:eGFR is calculated b ased on the CKD-EPI 2020 equation Sodium 143 135 - 146 mmol/L 04/10/2023 11:47 AM EDT [facility] Potassium 4.9 3.5 - 5.1 mmol/L 04/10/2023 11:47 AM EDT [facility] Chloride 107 98 - 107 mmol/L 04/10/2023 11:47 AM EDT [facility] CO2 25 22 - 32 mmol/L 04/10/2023 11:47 AM EDT [facility] Anion Gap 11 7 - 15 mmol/L 04/10/2023 11:47 AM EDT [facility]10 Glucose 92 70 - 120 mg/dL 04/10/2023 11:47 AM EDT [facility]10 Calcium 9.9 8.4 - 10.2 mg/dL 04/10/2023 11:47 AM EDT [facility]10 Blood Venous blood specimen / Unknown Venipuncture / Unknown 04/10/2023 10:32 AM EDT 04/10/2023 10:32 AM EDT Nima Erickson MD LAB BLOOD ORDERAB LES [facility] [address] [place] [phone] documented in this encounter Visit Diagnoses Diagnosis Chronic heart failure with preserved ejection fraction (HCC)- Primary Dyslipidemia Other and unspecified hyperlipidemia Exudative age-related macular degeneration, left eye, with active choroidal neovascularization (HCC) Gastroesophageal reflux disease with esophagitis without hemorrhage Stage 3b chronic kidney disease (HCC) Essential tremor Essential and other specified forms of tremor Overweight (BMI 25.0-29.9) Overweight Need for prophylactic vaccination and inoculation against influenza HTN, goal below 150/90 Vitamin D deficiency Unspecified vitamin D deficiency documented in this encounter Care Teams Die Inspector Relationship Specialty Start Date End Date Nima Erickson MD [address] [place] [address] PCP - General Family Medicine 09/16/19 documented as of this encounter
--- OUTSIDE RECORDS SUMMARY | 2023-06-06 07:22 | External Medical Summary | Summary of Care ---
Author Name Unknown Organization [facility] Address [address] [place] [address] Phone [phone] Care Team Providers Care Records Clerk Name Role Phone Nima Erickson MD Primary Care Provider [phone] Reason for Visit * Reason Comments Outpatient Testing Encounter Details Date Type Department Care Team Description 04/10/2023 Laboratory Laboratory, [facility] [address] [place] [address] [facility] [address] [place] [address] Stage 3b chronic kidney disease (HCC); Vitamin D deficiency Allergies Active Allergy Reactions Severity Noted Date Comments Adhesive Tape Other (Please comment) 10/04/2012 Pt reports "it took some skin off" Bee Venom 03/13/2022 Lisinopril Cough Low 03/27/2009 Morphine 08/29/2020 Other reaction(s): vomiting Guaifenesin Er Diarrhea,Nausea/vomi tin g,Neuro complications (Please comment) 09/08/2017 Oxycodone 08/29/2020 Other reaction(s): STRANGE DREAMS Oxycodone-Acetaminophe n Other (Please comment) 05/28/2010 [place] funny on medication documented as of this [...] to foot. 150 g 3 10/01/2021 Active hydroCHLOROthiazide 12.5 MG Oral Capsule (Hydrodiuril) Take one tab 5 days/week 90 Capsule 3 10/01/2021 Active Pravastatin Sodium 40 MG Oral Tablet (Pravachol)Indicati ons:Dyslipidemia, goal to be determined Take 1 tablet by mouth once daily 100 Tablet 3 02/17/2022 Active Carvedilol 6.25 MG Oral Tablet (Coreg) Take one in the morning, 1/2 in the evening 135 Tablet 11 11/05/2022 Active Doxazosin Mesylate 2 MG Oral Tablet (Cardura)Indication s:Chronic heart failure with preserved ejection fraction (HCC) TAKE 2 TABLETS BY MOUTH AT BEDTIME 180 Tablet 3 03/03/2023 Active Losartan Potassium 50 MG Oral Tablet (Cozaar)Indications :HTN, goal below 150/90 Take 1 Tablet by mouth in the morning. 90 Tablet 3 04/10/2023 Active documented as of this encounter (statuses as [...] 11/24/2017 Dyslipidemia 06/28/2009 Overview: Per Lipid Taxonomy. Essential tremor documented as of this encounter [...] determined 07/14/2001 06/28/2009 Overview: Per Lipid Taxonomy. BENIGN HYPERTENSION 06/30/2001 08/16/2007 Edema 06/30/2001 08/12/2006 Menopause 06/19/1999 05/13/2006 Other [...] on file documented as of this encounter Plan of Treatment Upcoming Encounters Date Type Specialty Care Team Description 07/29/2023 Office Visit Cardiology Kim Valerio CRNP [address] [place] [phone] 09/22/2023 Office Visit Dermatology Blanca Iyer PA-C [address] [place] [address] [place] [phone] 01/29/2024 Nurse Only Ancillary Caesar, Nurse [facility] [address] [place] [address] Pending Results Name Type Priority Associated Diagnoses Date /Time PHOSPHORUS Lab Routine Stage 3b chronic kidney disease (HCC) 04/10/2023 10:32 AM EDT BASIC METABOLIC PANEL Lab Routine Stage 3b chronic kidney disease (HCC) 04/10/2023 10:32 AM EDT 25-HYDROXY VITAMIN D Lab Routine Vitamin D deficiency 04/10/2023 10:32 AM EDT Health Maintenance Due Date Last Done Comments COVID-19 Vaccine (5 - Moderna series) 11/25/2021 09/30/2021, 05/23/2021, 09/22/2020, Additional history exists CKD PHOS USE SMARTSET 57719 04/07/202303/20, 04/03/2021, 04/19/2020, Additional history exists Depression Screening 01/27/2024 01/26/2023 Albumin/Creatinine Ratio 02/06/2024 023, 04/03/2021, 02/19/2017, Additional history exists CKD HGB USE SMARTSET 57180 02/06/202402/05, 02/05/2023, 11/13/2021, Additional history exists DTaP,Tdap,and [...] Not on filedocumented as of this encounter Visit Diagnoses Diagnosis Stage 3b chronic kidney disease (HCC) Vitamin D deficiency Unspecified vitamin D deficiency documented in this encounter Care Teams Records Clerk Relationship Specialty Start Date End Date Nima Erickson MD [address] [place] [address] PCP - General Family Medicine 09/16/19 documented as of this encounter
--- OUTSIDE RECORDS SUMMARY | 2023-06-06 07:22 | External Medical Summary | Summary of Care ---
Author Name Unknown Organization [facility] Address [address] [place] [facility] [place] [place] [address] Phone [phone] Care Team Providers Care Contact Finger Assembler Name Role Phone Nima Erickson MD Primary Care Provider [phone] Reason for Visit * Reason Comments Lump Pt has lump on R for earm that she noticed a week ago. Pt also states lately she has "loss her confidence" pt appears to be anxious Encounter Details Date Type Department Care Team Description 04/21/2023 Office Visit Family Practice [facility] [address] [place] [address] Nima Erickson MD [address] [place] [address] Behavior concern* Allergies Active Allergy Reactions Severity Noted Date Comments Adhesive Tape Other (Please comment) 10/04/2012 Pt reports "it took some skin off" Bee Venom 03/13/2022 Lisinopril Cough Low 03/27/2009 Morphine 08/29/2020 Other reaction(s): vomiting Guaifenesin Er Diarrhea,Nausea/vomi tin g,Neuro complications (Please comment) 09/08/2017 Oxycodone 08/29/2020 Other reaction(s): STRANGE DREAMS Oxycodone-Acetaminophe n Other (Please comment) 05/28/2010 [place] funny on medication documented as of this encounter (statuses as of 04/21/2023) Medications Medication Sig Dispensed Refills Start Date [...] as of this encounter (statuses as of 04/21/2023) Active Problems Problem Noted Date JUAN MANUEL (generalized anxiety disorder) 04/21 Overweight (BMI 25.0-29.9) 10/06/2022 Stage 3b chronic [...] as of this encounter (statuses as of 04/21/2023) Resolved Problems Problem Noted Date Resolved Date [...] as of this encounter (statuses as of 04/21/2023) Immunizations Name Administration Dates Next Due COVID-19 mRNA, LNP-s, No Pre serve, 2-Dose Series (Moderna) 09/22/2020,08/18/2020 COVID-19, mRNA, LNP-s, PF, B ooster, 100mcg/0.5mg (Moderna) 09/30/2021,05/23/2021 Pneumococcal Conjugate Vacc, 13 Valent (Prevnar) 01/17/2020,08/03/2014 Pneumococcal Polysaccharide PPV23 (Pneumovax) 12/08/2006 SEASONAL INFLUENZA, PF, 6 M & Above, IM , (FLULAVAL or FLUZONE) 03/26/2018 Season Influenza, Quad, PF, Adjuvanted, 65+ Yrs, IM (FLUAD) 04/03/2020 Seasonal Influenza, Quadriva lent Hd (Fluzone Hd) [...] Sign Reading Time Taken Comments Blood Pressure 120/56 04/21/2023 3:13 PM EDT Pulse 64 04/21/2023 3:13 PM EDT Temperature 37.4 C (99.3 F) 04/21/2023 3:13 PM ED T Respiratory Rate 18 04/21/2023 3:13 PM EDT Oxygen Saturation - - Inhaled Oxygen Concentration - - Weight 75.3 kg (166 lb) 04/21/2023 3:13 PM EDT Height 164.6 cm (5' 4.8") 04/21/2023 3:13 PM EDT Body Mass Index 27.79 04/21/2023 3:13 PM EDT documented in this encounter Progress Notes * Nima Erickson MD - 04/21/2023 5:18 PM EDT SUBJECTIVE: Katarina R Armstrong is a 87 year old female. Chief Complaint Patient presents with Lump Pt has lump on R forearm that she noticed a week ago. Pt also states lately she has "loss her confidence" pt appears to be anxious HPI: Katarina is a pleasant 87 year old female who is very well known to me who is here today more or lessfor some reassurance. 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 It is not painful. Benign exam. In addition, she feels she has "less confidence" about doing some of the tasks she used to be able to do with more ease in the past. She denies anxiety or depression. She is quite active and walks 2 miles a day. I recently saw her for her routine exam. Patient Active Problem List Diagnosis Code HTN, goal below 150/90 I10 Essential tremor G25.0 Dyslipidemia E78.5 (HFpEF) heart failure with preserved ejection fraction (HCC) I50.30 Gastroesophageal reflux disease with esophagitis K21.00 Exudative age-related macular degeneration, left eye, with active choroidal neovascularization (HCC) H35.3221 Stage 3b chronic kidney disease (HCC) N18.32 Overweight (BMI 25.0-29.9) E66.3 JUAN MANUEL (generalized anxiety disorder) F41.1 Current Outpatient Medications Medication Sig Dispense Refill [...] STRANGE DREAMS Percocet [Oxycodone-Acetaminophen] Other (Please comment) [place] funny on medication Lisinopril Cough OBJECTIVE: BP 120/56 | Pulse 64 | Temp 37.4 C (99.3 F) (Tympanic) | Resp 18 | Ht 1.646 m (5' 4.8") | Wt 75.3 kg (166 lb) | BMI 27.79 kg/m | BSA 1.86 m Gen: nad Psych: initially anxious but consolable ASSESSMENT AND PLAN: (R46.89) Behavior concern (primary encounter diagnosis) Plan: long discussion with patient about expected activity level at her age and that her ability todo things that require fine motor skills may slowly decline over the next few years Follow up as needed. No other complaints were offered at this time. Nima Erickson MD documented in this encounter Nursing Notes * Katherin Narayan LPN - 04/21/2023 3:13 PM EDT The patient has been properly identified by confirmation of name and date of . Chief Complaint Patient presents with Lump Pt has lump on R forearm that she noticed a week ago. Pt also states lately she has "loss her confidence" pt appears to be anxious documented in this encounter Plan of Treatment Upcoming Encounters Date Type Specialty Care Team Description 07/29/2023 Office Visit Cardiology Kim Valerio CRNP [address] [place] [address] 09/22/2023 Office Visit Dermatology Blanca Iyer PA-C [address] [place] [address] [place] [id number] 01/29/2024 Nurse Only Ancillary Nurse [facility] [address] [place] [address] Health Maintenance Due Date Last Done Comments COVID-19 Vaccine ( season) 2023 09/30/2021, 05/23/2021, 09/22/2020, Additional history exists Depression Screening 01/27/2024 01/26/2023 Albumin/Creatinine Ratio 02/06/2024 023, 04/03/2021, 02/19/2017, Additional history exists CKD HGB USE SMARTSET 39474 02/06/202402/05, 02/05/2023, 11/13/2021, Additional history exists CKD PHOS USE SMARTSET 36958 04/10/202403/21, 04/07/2022, 04/03/2021, Additional history exists DTaP,Tdap,and Td Vaccines (2 [...] as of this encounter Visit Diagnoses Diagnosis Behavior concern- Primary Unspecified mental or behavioral problem documented in this encounter Care Teams Contact Finger Assembler Relationship Specialty Start Date End Date Nima Erickson MD [address] [place] [address] PCP - General Family Medicine 09/16/19 documented as of this encounter
--- OUTSIDE RECORDS SUMMARY | 2023-06-06 07:22 | External Medical Summary ---
Author Name Unknown Address Unknown Organization K01:[facility] [address] [place] [id number] Laboratory Report Ordering Provider Test Date Status YISEL LAZAR 04/10/2023 10:32:40 Final Observation Date Value Abnormality Reference (Units ) Status Phosphate 04/10/2023 10:32:40 4.0 2.5-4.8 (m g/dL) Final Performing Location [facility] - [address] [place] [id number]
--- OUTSIDE RECORDS SUMMARY | 2023-06-06 07:23 | External Medical Summary ---
Author Name Unknown Address Unknown Organization K0G:[facility] - [address] [place] [id number] Laboratory Report Ordering Provider Test Date Status YISEL LAZAR 04/10/2023 10:32:40 Final Observation Date Value Abnormality Reference (Units ) Status BUN 04/10/2023 10:32:40 33 Above high normal 6-20 (mg/dL) Final Creatinine 04/10/2023 10:32:40 1.4 Above high normal 0.5-1.0 (mg/dL) Final Glomerular filtration rate/1.73 sq M.predicted [Volume Rate/Area] in Serum, Plasma or Blood by Creatinine-based formula (CKD-EPI) 04/10/2023 10:32:40 35 Below low normal >=60 (mL/min) Final eGFR is calculated based on the CKD-EPI 2020 equation SODIUM 04/10/2023 10:32:40 143 135-146 (m mol/L) Final Potassium 04/10/2023 10:32:40 4.9 3.5-5.1 (m mol/L) Final Cl 04/10/2023 10:32:40 107 98-107 (mm ol/L) Final CO2 04/10/2023 10:32:40 25 22-32 (mmo l/L) Final Anion gap 04/10/2023 10:32:40 11 7-15 (mmol /L) Final Glucose 04/10/2023 10:32:40 92 70-120 (mg /dL) Final Calcium 04/10/2023 10:32:40 9.9 8.4-10.2 ( mg/dL) Final Performing Location [facility] [place] [id number]
--- OUTSIDE RECORDS SUMMARY | 2023-06-06 07:23 | External Medical Summary | Summary of Care ---
Author Name Unknown Organization [facility] Address [address] [place] [address] Phone [phone] Care Team Providers Care Sustainability Project Coordinator Name Role Phone Nima Erickson MD Primary Care Provider [phone] Reason for Visit * Reason Comments Skin Check 1 yr melanoma skin c heck. H/o SCC, AKs. Has some AKs on L jawline that's not fully resolved s/p cryotherapy. Encounter Details Date Type Department Care Team Description 03/26/2023 Office [facility] [address] [facility] [place] [address] Susan Cruz [facility] [address] [facility] [address] Scar conditions and fibrosis of skin*; History of malignant melanoma of skin; Skin neoplasm; Skin lesion Allergies Active Allergy Reactions Severity Noted Date Comments Adhesive Tape Other (Please comment) 10/04/2012 Pt reports "it took some skin off" Bee Venom 03/13/2022 Lisinopril Cough Low 03/27/2009 Morphine 08/29/2020 Other reaction(s): vomiting Guaifenesin Er Diarrhea,Nausea/vomi tin g,Neuro complications (Please comment) 09/08/2017 Oxycodone 08/29/2020 Other reaction(s): STRANGE DREAMS Oxycodone-Acetaminophe n Other (Please comment) 05/28/2010 [place] funny on medication documented as of this encounter (statuses as of 03/30/2023) Medications Medication Sig Dispensed Refills Start Date End Date Status ASPIRIN 81 MG OR CHEW Take 1 Tablet by mouth every other day. 0 04/11/2003 Active OMEGA-3 FATTY ACIDS 600 MG PO CAPS 2 tabs each day 0 01/27/2006 Activ e CORAL CALCIUM 1000 (390 CA) MG PO [...] once daily 100 Tablet 3 02/17/2022 Active Pantoprazole Sodium 40 MG Oral Tablet Delayed Release (Protonix)Indicatio ns:Gastroesophageal reflux disease with esophagitis without hemorrhage Take by mouth 1 Tablet in the morning. 30 minutes before the first meal of the day. Do not crush, split or chew the tablet. 30 Tablet 5 04/07/2022 Active Additional Information Patient not taking.Reported on 01/26/2023 Losartan Potassium 50 MG Oral Tablet (Cozaar)Indications :HTN, goal below 150/90 Take 1 tablet by mouth once daily 90 Tablet 3 09/12/2022 Active Carvedilol 6.25 MG Oral Tablet (Coreg) Take one in the morning, 1/2 in the evening 135 Tablet 11 11/05/2022 Active Doxazosin Mesylate 2 MG Oral Tablet (Cardura)Indication s:Chronic heart failure with preserved ejection fraction (HCC) TAKE 2 TABLETS BY MOUTH AT BEDTIME 180 Tablet 3 03/03/2023 Active documented as of this encounter (statuses as of 03/30/2023) Active Problems Problem Noted Date Overweight (BMI [...] as of this encounter (statuses as of 03/30/2023) Resolved Problems Problem Noted Date Resolved Date [...] as of this encounter (statuses as of 03/30/2023) Immunizations Name Administration Dates Next Due COVID-19 [...] Seasonal Influenza, Quadriva lent Hd (Fluzone Hd) 04/07/2022,04/03/2021 Seasonal Influenza, Quadriva lent, No Preserve, IM [...] on file documented as of this encounter Patient Instructions * Patient Instructions* Reg Monteiro MD - 03/26/2023 10:16 AM EDT SUNSCREEN USE AND SUN PROTECTION: 1. The best protection is sun avoidance. Seek shade if you can, especially between 9am to 5pm (peaksun hours). 2. Use sunscreen with a Sun Protection Factor (SPF) of 30 or more that protects from Ultraviolet A (UVA) and Ultraviolet B (UVB) wavelength light. This is referred to as broad spectrum sun protection. Unfortunately, even though the protection is broad it is not complete, therefore making sun avoidance the best protection. UVB and UVA have both been implicated in causing skin cancers. Older sunscreens only protected from UVB and sunscreens with added UVA protection should contain Titanium dioxide, Zinc oxide, Mexoryl or Parsol 1789, also known as Avobenzone. 3. Use sun protection daily. Apply 20-30 minutes before going out and reapply every 2 hours. No sunscreen is truly water ''proof'' and it will wash away with sweat, swimming and rubbing. 4. Wear tightly woven, loose fitting (cooler) long sleeved clothing, UV-blocking clothing is best and sun glasses (eyes need protection as well) and wide-brimmed hat (no straw hats with holes becauselight still gets through). HOW TO CHECK YOUR MOLES: 1. Check moles every month and have a relative/friend check your back if possible. The use of a handheld mirror can help as well. The most common place for melanoma in women are the back and legs, and for men is the back. 2. Look for the ABCD's of melanoma: Asymmetry (strange shape - not round or oval), Borders (notched, scalloped or irregular edges), Color (very black or multi-colored), Diameter (size greater than 5mm or the size greater than a pencil eraser). 3. Changes in old moles and growths of new ones in relation to the ABCD's are the most important factors. 4. Some people have many moles that fit the ABCD criteria. At times the best thing is to look for the ''Ugly Duckling'' mole - the one that stands out the most. 5. If there are any questions on a mole please do not hesitate in calling our office at [phone] to have it evaluated. documented in this encounter Progress Notes * Reg Monteiro MD - 03/26/2023 10:14 AM EDT Katarina Peacock [id number] Chief Complaint: Chief Complaint Patient presents with Skin Check 1 yr melanoma skin check. H/o SCC, AKs. Has some AKs on L jawline that's not fully resolved s/p cryotherapy. Katarina Peacock is a 87 year old female with history of malignant melanoma, seen today to be monitored for recurrence at previously treated sites and to be evaluated for the development of new lesions. 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 All other systems are negative for the problems addressed today. Integument: Other itching, bleeding, or changing skin lesions currently? No Constitutional: Change in overall health, weight, weakness, fatigue, fevers, sweats, chills? No Neurologic: New seizures, stroke, or other neurologic deficit? No Psychiatric: New confusion or mood change? No Gastrointestinal: New jaundice, abdominal pain, blood in stool? No Genitourinary: New blood in the urine? No Lymphatic: New enlarged nodes? No Cardiovascular: New chest pain or edema? No Respiratory: New cough or shortness of breath? No Past Medical History: Diagnosis Date Aortic valve insufficiency BENIGN NEOPLASM LG BOWEL 04/03/2003 Dyslipidemia, goal to be determined Essential and other specified forms of tremor History of colon polyps 12/15/2018 HTN, goal below 140/90 Hx of basal cell carcinoma 05/19/2011 L upper cutaneous lip - BCC, 09/2010 Mitral and aortic incompetence moderate 2+ 05/26 Overweight (BMI 25.0-29.9) 10/06/2022 Current Outpatient Medications Medication Sig Dispense Refill ASPIRIN 81 MG OR CHEW Take 1 Tablet by mouth every other day. OMEGA-3 FATTY ACIDS 600 MG PO CAPS 2 tabs each day 0 CORAL CALCIUM 1000 (390 CA) MG PO [...] by mouth once daily 100 Tablet 3 Pantoprazole Sodium 40 MG Oral Tablet Delayed Release (Protonix) Take by mouth 1 Tablet in the morning. 30 minutes before the first meal of the day. Do not crush, split or chew the tablet. (Patient not taking: Reported on 01/26/2023) 30 Tablet 5 Losartan Potassium 50 MG Oral Tablet (Cozaar) Take 1 tablet by mouth once daily 90 Tablet 3 Carvedilol 6.25 MG Oral Tablet (Coreg) Take one in the morning, 1/2 in the evening 135 Tablet 11 Doxazosin Mesylate 2 MG Oral Tablet (Cardura) TAKE 2 TABLETS BY MOUTH AT BEDTIME 180 Tablet 3 No current facility-administered medications for this visit. Past Surgical History: Procedure Laterality Date CARPAL TUNNEL SURGERY Left 11/28/2020 NEUROPLASTY MEDIAN NERVE AT CARPAL TUNNEL performed by Reg Elaine MD at [facility] COLONOSCOPY W/ BIOPSY (RECTUM) 08/15/08 repeat in 10 yrs EGD, FLEXIBLE, DIAGNOSTIC 11/07/2014 normal/ESOPHAGOGASTRODUODENOSCOPY (EGD), FLEXIBLE, TRANSORAL, DIAGNOSTIC performed by Precious Lobato MD at [facility] EGD, FLEXIBLE, DIAGNOSTIC 10/08/2017 Richardson's esophagitis/ESOPHAGOGASTRODUODENOSCOPY (EGD), FLEXIBLE, TRANSORAL, DIAGNOSTIC performed by Zak Barber MD at [facility] EXPLORATION OF ABDOMEN 12/01/12 Laparoscopy exploratory lap, removal atrium mesh, lysis of adhesive loop down the right lwoer quadrant, repair recurrent incisional hernia 12/01/12 Dr. Madrigal at [facility] [employer] Supervisor Jonah Monreal PA-C INCISIONAL HERNIA REPAIR, LAP, REDUCIBLE 11/23/12 Laparoscopic repair of hernia 11/23/12 Dr. Madrigal at [facility] [employer] Supervisor Jonah Monreal PA-C REPAIR INITIAL INCISIONAL OR VENTRAL HERNIA; REDUCIBLE 05/05/08 Resection of incarcerated fat and incisional hernia 05/05/[address] Madrigal TENDON SHEATH INCISION, FINGER Left 11/28/2020 TRIGGER FINGER RELEASE performed by Reg Elaine MD at [facility] Family History Problem Relation Age of Onset Heart Disorder Mother No Known Problems Father Lung Disorder Sister Allergies Sister from anaphylactic rxn Cancer Sister Blood Disorder Sister Heart Disorder Sister Diabetes Brother Social History Tobacco Use Smoking status: Never Smokeless tobacco: Never Vaping Use Vaping Use: Never used Substance Use Topics Alcohol use: No Drug use: No Review of patient's allergies indicates: Allergen Reactions Adhesive Tape Other (Please comment) Pt reports "it took some skin off" Bee Venom Morphine Other reaction(s): vomiting Mucinex [Guaifenesin Er] Diarrhea, Nausea/vomiting and Neuro complications (Please comment) Oxycodone Other reaction(s): STRANGE DREAMS Percocet [Oxycodone-Acetaminophen] Other (Please comment) [place] funny on medication Lisinopril Cough Physical Examination: Constitutional: Patient is well-appearing and in no acute distress. Eyes: No scleral icterus. ENT: No cyanosis of lips. No pigmented lesions in oral cavity detected. Respiratory: Normal respiratory effort. Psychiatric: Patient mood and behavior are appropriate to situation. Neuro: Patient is alert and oriented. No apparent weakness or focal signs. Lymph Nodes: Lymph nodes in head, neck, supraclavicular, axillary, and inguinal areas show no lymphadenopathy. Skin: Exam of the scalp, face, conjunctivae, oral mucosa, neck, chest, back, abdomen, and all four extremities is performed. All areas are normal except for the following findings. - Left cheek - pink smooth papule with few possible follicular plugging - Right forearm - angulated superficial ulceration with overlying crust - There is a well-healed primary site with no evidence of disease. Patient declined groin/buttock exam. ASSESSMENT and PLAN: History of Melanoma. - History was obtained regarding new or changing moles. - Patient counseled on self-examination for new or changing moles. - Advised age appropriate cancer screening The signs and symptoms of skin cancer were reviewed and the patient was advised to practice sun protection and sun avoidance, use daily sunscreen, and perform regular self-skin and lymph node exams on a monthly basis. I reviewed changes to watch for including changes in the A-B-C-D's, asymmetry of a lesion, changes in border, color or diameter as well as non healing lesions. I instructed the patie nt to call if any new lesions appear or current lesions change. Additional Problems: Scar - Well healed. No evidence of disease. Skin neoplasm A. Left cheek - pink smooth papule with few possible follicular plugging; AK vs SCC - Tangential biopsy of the lesion noted above to remove and confirm diagnosis. The procedure, risks, benefits, alternatives and expected outcomes were discussed with the patient and consent was obtained. Time out called. Patient identified, procedure verified, site identified and verified. Patient and staff present in agreement. Area prepped with alcohol and anesthetized using 0.2% ropivacaine. Shave of lesion performed. 20% AlCl and bandaging applied. Specimen sent to pathology. Patient instructed in routine post-op care. Skin lesion, right forearm - Favor traumatic. Advised let us know if does not resolve within 1 month to consider biopsy. Follow up high priority melanoma clinic 12 months. However, the patient should seek an early evaluation by a medical provider if any suspicious lesions develop. There were no barriers to learning and no other pain was related to today's visit. The patient demonstrates understanding of the visit and treatment. Patient evaluated with Dr. Cruz. Reg Monteiro MD 03/26/2023 10:16 AM CC: Ref: SELF[[id number]] NO STREET ADDRESS AVAILABLE None (office) None (fax) documented in this encounter Nursing Notes * HI Cordova - 03/26/2023 10:06 AM EDT Chief Complaint Patient presents with Skin Check 1 yr melanoma skin check. H/o SCC, AKs. Has some AKs on L jawline that's not fully resolved s/p cryotherapy. documented in this encounter Plan of Treatment Upcoming Encounters Date Type Specialty Care Team Description 04/10/2023 Office Visit Family Medicine Nima Erickson MD [address] [place] [id number] 04/15/2023 Office Visit Cardiology Claudette Stubbs PA-C [address] [place] [address] 09/22/2023 Office Visit Dermatology Blanca Iyer PA-C [address] [place] [address] [place] [address] 01/29/2024 Nurse Only Ancillary Maynard, Nurse Annual Wellness Dima [address] [place] [address] Health Maintenance Due Date Last Done Comments COVID-19 Vaccine (5 - Moderna series) 11/25/2021 09/30/2021, 05/23/2021, 09/22/2020, Additional history exists Influenza Vaccine (FLU shot) (#1) 2023 04/07/2022, 04/03/2021, 04/03/2020, Additional history exists CKD PHOS USE SMARTSET 94282 04/07/202303/20, 04/03/2021, 04/19/2020, Additional history exists Depression Screening 01/27/2024 01/26/2023 Albumin/Creatinine Ratio 02/06/2024 023, 04/03/2021, 02/19/2017, Additional history exists CKD HGB USE SMARTSET 35916 02/06/202402/05, 02/05/2023, 11/13/2021, Additional history exists DTaP,Tdap,and Td Vaccines (2 - Td or Tdap) 05/14/2028 05/14/2018, 09/29/2011 Zoster Vaccines Completed 06/25/2018, 01/2018, 09/29/2011 Pneumococcal Vaccine: 65+ Years Completed 01/17/2020, 08/03/2014, 12/08/2006, Additional history exists GARDASIL-HPV IMMUNIZATION SERIES Aged [...] Not on filedocumented as of this encounter Procedures Procedure Name Priority Date/Time Associated Diagnosis Comments SURGICAL PATHOLOGY Routine 03/26/2023 10 :44 AM EDT Skin neoplasm documented in this encounter Results * SURGICAL PATHOLOGY (03/26/2023 10:44 AM EDT) Final Diagnosis A. Skin, Left cheek, shave: Actinic keratosis, focally bowenoid. 03/27/2023 3:18 PM EDT [facility] Clinical History See Order Comments 03/27/2023 3:18 PM EDT [facility] Order Comments A. Left cheek - pink smooth papule with few possible follicular plugging; AK vs SCC 03/27/2023 3:18 PM EDT [facility] Gross Description A. Skin. shave Received in formalin with a container labeled with "Katarina Peacock", "[id number]", "1935" and " left cheek". Received is a 0.7 x 0.5 cm skin shave. The skin surface is bianchi to brown focally roughened and flaky. The underlying tissue is inked. The specimen is bisected and submitted in cassette A1. Gross By: MR 03/27/2023 3:18 PM EDT [facility] Sign Out Location Pathologist sign out performed at [facility] ([facility]), [address] [place] [address]. 03/27/2023 3:18 PM EDT [facility] Photographic images and diagrams represent etienne findings in this case; they are not intended to replace a complete review of the final diagnostic report. The following statement applies to Flow Cytometry, Histology, In situ Hybridization Assays and Molecular Genetics. This test was developed and performed at [facility] and its performance characteristics determined by [facility]. It has not been cleared or approved by the U.S. Food and Drug Administration. The FDA has determined that such clearance or approval is not necessary. This test is used for clinical purposes. It should not be regarded as investigational or for research. Special stains, including histochemical stains, and studies using immunologic and MARCELINA methodology (where applicable) are performed with appropriate positive and negative control reactions. 03/27/2023 3:18 PM EDT LABORATORY [facility] Tissue Skin structure / Unknown 03/26/2023 10:44 AM EDT 03/26/2023 10:44 AM EDT Comment:A. Left cheek - pink smooth papule with few possible follicular plugging; AK vs SCC Reg Monteiro MD LAB PATHOLO GY ORDERABLES [facility] [address] [place] [address] documented in this encounter Visit Diagnoses Diagnosis Scar conditions and fibrosis of skin- Primary Scar condition and fibrosis of skin History of malignant melanoma of skin Personal history of malignant melanoma of skin Skin neoplasm Neoplasm of unspecified nature of bone, soft tissue, and skin Skin lesion Unspecified disorder of skin and subcutaneous tissue documented in this encounter Care Teams Sustainability Project Coordinator Relationship Specialty Start Date End Date Nima Erickson MD [address] [place] [address] PCP - General Family Medicine 09/16/19 documented as of this encounter
--- OUTSIDE RECORDS SUMMARY | 2023-06-06 07:23 | External Medical Summary ---
Author Name Unknown Address Unknown Organization K01:[facility] - [address] [place] [address] Laboratory Report Ordering Provider Test Date Status YISEL LAZAR 02/05/2023 10:46:08 Final Observation Date Value Abnormality Reference (Units ) Status WBC, Total 02/05/2023 10:46:08 5.43 4.00-10.80 (K/uL) Final RBC 02/05/2023 10:46:08 4.45 3.85-5.15 (M/uL) Final Hemoglobin 02/05/2023 10:46:08 13.0 12.0-15.3 (g/dL) Final HCT 02/05/2023 10:46:08 40.2 36.0-45.2 (%) Final MCV 02/05/2023 10:46:08 90.3 81.5-97.5 (fL) Final MCH 02/05/2023 10:46:08 29.2 27.0-34.0 (pg) Final MCHC 02/05/2023 10:46:08 32.3 32.0-36.0 (g/dL) Final RDW 02/05/2023 10:46:08 14.3 11.5-15.5 (%) Final Platelets 02/05/2023 10:46:08 212 140-400 (K/uL) Final MPV 02/05/2023 10:46:08 9.9 6.6-11.1 (fL) Final Nucleated erythrocytes/100 leukocytes [Ratio] in Blood by Automated count 02/05/2023 10:46:08 0 <=0 (/100 WBCs) Final Performing Location [facility] - [address] [place] [address]
--- OUTSIDE RECORDS SUMMARY | 2023-06-06 07:23 | External Medical Summary | Summary of Care ---
Author Name Unknown Organization [facility] Address [address] [place] [address] Phone [phone] Care Team Providers Care Tube Builder Name Role Phone Nima Erickson MD Primary Care Provider [phone] Reason for Visit * Reason Onset Date Comments Test Results Biopsy 03/30/2023 Encounter Details Date Type Department Care Team Description 03/30/2023 Telephone Dermatology [facility] [address] [place] [address] Susan Cruz MD [address] [facility] [address] Test Results Biopsy Allergies Active Allergy Reactions Severity Noted Date Comments Adhesive Tape Other (Please comment) 10/04/2012 Pt reports "it took some skin off" Bee Venom 03/13/2022 Lisinopril Cough Low 03/27/2009 Morphine 08/29/2020 Other reaction(s): vomiting Guaifenesin Er Diarrhea,Nausea/vomi tin g,Neuro complications (Please comment) 09/08/2017 Oxycodone 08/29/2020 Other reaction(s): STRANGE DREAMS Oxycodone-Acetaminophe n Other (Please comment) 05/28/2010 [place] funny on medication documented as of this [...] on file documented as of this encounter Miscellaneous Notes * Telephone Encounter - Kristie Her LPN - 03/30/2023 12:44 PM EDT I called and spoke with Katarina and gave her results. She verbalized understanding Kristie Her LPN 03/30/2023 12:44 PM * Telephone Encounter - Kristie Her LPN - 03/30/2023 12:44 PM EDT ----- Message from Susan Cruz MD sent at 03/30/2023 10:31 AM EDT ----- Please let pt know precancer on face, will be monitored at her F/U visits Patient Phone Numbers A. Skin, Left cheek, shave: Actinic keratosis, focally bowenoid. documented in this encounter Plan of Treatment Upcoming Encounters Date Type Specialty Care Team Description 04/10/2023 Office Visit Family Medicine Nima Erickson MD [address] [place] [address] 04/15/2023 Office Visit Cardiology Claudette Stubbs PA-C [address] [place] [address] 09/22/2023 Office Visit Dermatology Blanca Iyer PA-C [address] [place] [address] [place] [address] 01/29/2024 Nurse Only Ancillary Caesar, Nurse Annual Wellness Dima [address] [place] [address] Health Maintenance Due Date Last Done Comments COVID-19 Vaccine (5 - Moderna series) 11/25/2021 09/30/2021, 05/23/2021, 09/22/2020, Additional history exists Influenza Vaccine (FLU shot) (#1) 2023 04/07/2022, 04/03/2021, 04/03/2020, Additional history exists CKD PHOS USE SMARTSET 91605 04/07/202303/20, 04/03/2021, 04/19/2020, Additional history exists Depression Screening 01/27/2024 01/26/2023 Albumin/Creatinine Ratio 02/06/2024 023, 04/03/2021, 02/19/2017, Additional history exists CKD HGB USE SMARTSET 52133 02/06/202402/05, 02/05/2023, 11/13/2021, Additional history exists DTaP,Tdap,and [...] Not on filedocumented as of this encounter Care Teams Tube Builder Relationship Specialty Start Date End Date Nima Erickson MD [address] [place] [address] PCP - General Family Medicine 09/16/19 documented as of this encounter
--- OUTSIDE RECORDS SUMMARY | 2023-06-06 07:23 | External Medical Summary | Summary of Care ---
Author Name Unknown Organization [facility] Address [address] [place] [address] Phone [phone] Care Team Providers Care Flake Miller Helper Name Role Phone Nima Erickson MD Primary Care Provider [phone] Reason for Visit * Reason Comments Outpatient Testing Encounter Details Date Type Department Care Team Description 02/05/2023 Laboratory Laboratory, [facility] [address] [place] [address] [facility] [address] [place] [address] Stage 3b chronic kidney disease (HCC) Allergies Active Allergy Reactions Severity Noted Date Comments Adhesive Tape Other (Please comment) 10/04/2012 Pt reports "it took some skin off" Bee Venom 03/13/2022 Lisinopril Cough Low 03/27/2009 Morphine 08/29/2020 Other reaction(s): vomiting Guaifenesin Er Diarrhea,Nausea/vomi tin g,Neuro complications (Please comment) 09/08/2017 Oxycodone 08/29/2020 Other reaction(s): STRANGE DREAMS Oxycodone-Acetaminophe n Other (Please comment) 05/28/2010 [place] funny on medication documented as of this encounter (statuses as of 02/05/2023) Medications Medication Sig Dispensed Refills Start Date End Date Status ASPIRIN 81 MG OR CHEW Take 1 Tablet by mouth every other day. 0 04/11/2003 Active OMEGA-3 FATTY ACIDS 600 MG PO CAPS 2 tabs each day 0 01/27/2006 Active CORAL CALCIUM 1000 (390 CA) MG PO TABS 1200 mg 1 tab daily 0 Active Multiple Vitamins-Minerals (PRESERVISION AREDS) Tablet Take 2 Tablets by mouth in the morning. 0 Active Diclofenac Sodium 1 % External Gel (Voltaren) Apply topically to affected area 2 g in the morning AND 2 g before bedtime. Apply to foot. 150 g 3 10/01/2021 Active hydroCHLOROthiazid e 12.5 MG Oral Capsule (Hydrodiuril) Take one tab 5 days/week 90 Capsule 3 10/01/2021 Active Pravastatin Sodium 40 MG Oral Tablet (Pravachol)Indicat ions:Dyslipidemia, goal to be determined Take 1 tablet by mouth once daily 100 Tablet 3 02/17/2022 Active Pantoprazole Sodium 40 MG Oral Tablet Delayed Release (Protonix)Indicati ons:Gastroesophage al reflux disease with esophagitis without hemorrhage Take by mouth 1 Tablet in the morning. 30 minutes before the first meal of the day. Do not crush, split or chew the tablet. 30 Tablet 5 04/07/2022 Active Additional Information Patient not taking.Reported on 01/26/2023 Doxazosin Mesylate 2 MG Oral Tablet (Cardura)Indicatio ns:Chronic heart failure with preserved ejection fraction (HCC) TAKE 2 TABLETS BY MOUTH AT BEDTIME 180 Tablet 1 06/18/2022 Active Losartan Potassium 50 MG Oral Tablet (Cozaar)Indication s:HTN, goal below 150/90 Take 1 tablet by mouth once daily 90 Tablet 3 09/12/2022 Active Carvedilol 6.25 MG Oral Tablet (Coreg) Take one in the morning, 1/2 in the evening 135 Tablet 11 11/05/2022 Active Cetirizine HCl 10 MG Oral Tablet (ZyrTEC)Indication s:Bee sting reaction, accidental or unintentional, initial encounter,Blister of left elbow, initial encounter Take 1 Tablet by mouth in the morning for 10 days. 10 Tablet 0 02/03/2023 02/13/2023 Active Triamcinolone Acetonide 0.5 % External Cream (Aristocort)Indica tions:Bee sting reaction, accidental or unintentional, initial encounter,Blister of left elbow, initial encounter Apply topically to affected area 2 times a day for 7 days. To affected area. 15 g 0 02/03/2023 02/10/2023 Active Cephalexin 500 MG Oral Capsule (Keflex)Indication s:Bee sting reaction, accidental or unintentional, initial encounter,Blister of left elbow, initial encounter Take 1 Capsule by mouth in the morning and 1 Capsule at noon and 1 Capsule before bedtime. Do all this for 5 days. 15 Capsule 0 02/03/2023 02/08/2023 Active documented as of this encounter (statuses as of 02/05/2023) Active Problems Problem Noted Date Overweight (BMI [...] as of this encounter (statuses as of 02/05/2023) Resolved Problems Problem Noted Date Resolved Date [...] as of this encounter (statuses as of 02/05/2023) Immunizations Name Administration Dates Next Due COVID-19 mRNA, LNP-s, No Pre serve, 2-Dose Series (Moderna) 09/22/2020,08/18/2020 Covid-19 Mrna, Lnp-s, No Pre serve, Booster (Moderna) 09/30/2021,05/23/2021 Pneumococcal Conjugate Vacc, 13 Valent (Prevnar) 01/17/2020,08/03/2014 Pneumococcal Polysaccharide PPV23 (Pneumovax) 12/08/2006 Seasonal Influenza, Quadriva lent Hd (Fluzone Hd) 04/07/2022,04/03/2021 Seasonal Influenza, Quadriva lent, No Preserve, 6 Mons & Above, IM 03/26/2018 Seasonal Influenza, Quadriva lent, No Preserve, Adjuvanted, 65+ Yrs, IM 04/03/2020 Seasonal Influenza, Quadriva lent, No Preserve, IM [...] Encounters Date Type Specialty Care Team Description 03/26/2023 [facility] [address] 04/10/2023 Office Visit Family Medicine Nima Erickson MD [address] [place] [address] 04/15/2023 Office Visit Cardiology Claudette Stubbs PA-C [address] [place] [address] 01/29/2024 Nurse Only Ancillary Maynard, Nurse [facility] [address] [place] [address] Pending Results Name Type Priority Associated Diagnoses Date /Time ALBUMIN / CREATININE RATIO, URINE Lab Routine Stage 3b chronic kidney disease (HCC) 02/05/2023 10:46 AM EDT CBC WITH WBC DIFFERENTIAL Lab Routine Stage 3b chronic kidney disease (HCC) 02/05/2023 10:46 AM EDT CBC Lab Routine Stage 3b chronic kidney disease (HCC) 02/05/2023 10:46 AM EDT DIFFERENTIAL, AUTOMATED Lab Routine Stage 3b chronic kidney disease (HCC) 02/05/2023 10:46 AM EDT Health Maintenance Due Date Last Done Comments COVID-19 Vaccine (5 - Moderna series) 11/25/2021 09/30/2021, 05/23/2021, 09/22/2020, Additional history exists Albumin/Creatinine Ratio 04/03/2022 021, 02/19/2017, 09/04/2011, Additional history exists CKD HGB USE SMARTSET 00156 11/13/202211/13, 11/13/2021, 04/03/2021, Additional history exists Influenza Vaccine (FLU shot) (#1) 2023 04/07/2022, 04/03/2021, 04/03/2020, Additional history exists CKD PHOS USE SMARTSET 08109 04/07/202303/20, 04/03/2021, 04/19/2020, Additional history exists Depression Screening, Annual for Pts 12 and Over 01/27/2024 01/26/2023 DTaP,Tdap,and Td Vaccines (2 - Td or [...] Diagnosis Stage 3b chronic kidney disease (HCC) documented in this encounter Care Teams Flake Miller Helper Relationship Specialty Start Date End Date Nima Erickson MD [address] [place] [address] PCP - General Family Medicine 09/16/19 documented as of this encounter
--- OUTSIDE RECORDS SUMMARY | 2023-06-06 07:23 | External Medical Summary | Summary of Care ---
Author Name Unknown Organization [facility] Address [address] [place] [address] Phone [phone] Care Team Providers Care Scrap Dealer Name Role Phone Nima Erickson MD Primary Care Provider [phone] Reason for Visit * Reason Comments Skin Check 1 yr melanoma skin c heck. H/o SCC, AKs. Has some AKs on L jawline that's not fully resolved s/p cryotherapy. Encounter Details Date Type Department Care Team Description 03/26/2023 [facility] [place] [address] [facility] [address] Scar conditions and fibrosis of skin*; History [...] DREAMS Oxycodone-Acetaminophe n Other (Please comment) 05/28/2010 [place] funny on medication documented as of this encounter (statuses as of 03/26/2023) Medications Medication Sig Dispensed Refills Start Date [...] as of this encounter (statuses as of 03/26/2023) Active Problems Problem Noted Date Overweight (BMI 25.0-29.9) 10/06/2022 Stage 3b chronic kidney disease 05/28/20 20 Overview: Per CKD protocol - Based on GFR of 52.0 on 06/04/07. Exudative age-related macula r degeneration, left eye, with active choroidal neovascularization 06/27/2019 (HFpEF) heart failure with preserved eje ction fraction 11/24/2017 Gastroesophageal reflux disease with eso phagitis 11/24/2017 Dyslipidemia 06/28/2009 Overview: Per Lipid Taxonomy. Essential tremor documented as of this encounter (statuses as of 03/26/2023) Resolved Problems Problem Noted Date Resolved Date [...] as of this encounter (statuses as of 03/26/2023) Immunizations Name Administration Dates Next Due COVID-19 [...] not hesitate in calling our office at [phone] to have it evaluated. documented in this encounter Progress Notes * Reg Monteiro MD - 03/26/2023 10:14 AM EDT Katarina Peacock [id number] Chief Complaint: Chief Complaint Patient presents with [...] TUNNEL performed by Reg Elaine MD at OR [facility] COLONOSCOPY W/ BIOPSY (RECTUM) 08/15/08 repeat in 10 yrs EGD, FLEXIBLE, DIAGNOSTIC 11/07/2014 normal/ESOPHAGOGASTRODUODENOSCOPY (EGD), FLEXIBLE, TRANSORAL, DIAGNOSTIC performed by Precious Lobato MD at ENDOSCOPY [facility] EGD, FLEXIBLE, DIAGNOSTIC 10/08/2017 Richardson's esophagitis/ESOPHAGOGASTRODUODENOSCOPY (EGD), FLEXIBLE, TRANSORAL, DIAGNOSTIC performed by Zak Barber MD at ENDOSCOPY [facility] EXPLORATION OF ABDOMEN 12/01/12 Laparoscopy exploratory lap, removal atrium mesh, lysis of adhesive loop down the right lwoer quadrant, repair recurrent incisional hernia 12/01/12 Dr. Madrigal at [facility] Seat Joiner Jonah Monreal PA-C INCISIONAL HERNIA REPAIR, LAP, REDUCIBLE 11/23/12 Laparoscopic repair of hernia 11/23/12 Dr. Madrigal at [facility] Se[employer] Joiner Jonah Monreal PA-C REPAIR INITIAL INCISIONAL OR VENTRAL HERNIA; REDUCIBLE 05/05/08 Resection of incarcerated fat and incisional hernia 05/05/[address] Madrigal TENDON SHEATH INCISION, FINGER Left 11/28/2020 TRIGGER FINGER RELEASE performed by Reg Elaine MD at [facility] Family History Problem Relation Age of Onset [...] STRANGE DREAMS Percocet [Oxycodone-Acetaminophen] Other (Please comment) [place] funny on medication Lisinopril Cough Physical Examination: [...] for including changes in the A-B-C-D's, asymmetry ofa lesion, changes in border, color or diameter as well as non healing lesions. I instructed the patient to call if any new lesions appear [...] Monteiro MD 03/26/2023 10:16 AM CC: Ref: SELF[[id number]] NO STREET ADDRESS AVAILABLE None (office) None [...] Medicine Nima Erickson MD [address] [address] 04/15/2023 Office Visit Cardiology Claudette Stubbs PA-C [address] [place] [address] 09/22/2023 Office Visit Dermatology Blanca Iyer PA-C [address] [place] [address] [place] [address] 01/29/2024 Nurse Only Ancillary Nurse Caesar [facility] [address] [place] [address] Pending Results Name Type Priority Associated Diagnoses Date /Time SURGICAL PATHOLOGY Pathology Routine Skin neoplasm 03/26/2023 10:44 AM EDT Health Maintenance Due Date Last Done Comments COVID-19 Vaccine (5 - Moderna series) 11/25/2021 09/30/2021, 05/23/2021, 09/22/2020, Additional history exists Influenza Vaccine (FLU shot) (#1) 2023 04/07/2022, 04/03/2021, 04/03/2020, Additional history exists CKD PHOS USE SMARTSET 94053 04/07/202303/20, 04/03/2021, 04/19/2020, Additional history exists Depression Screening, Annual for Pts 12 and Over 01/27/2024 01/26/2023 Albumin/Creatinine Ratio 02/06/2024 023, 04/03/2021, 02/19/2017, Additional history exists CKD HGB USE SMARTSET 43459 02/06/202402/05, 02/05/2023, 11/13/2021, Additional history exists DTaP,Tdap,and [...] as of this encounter Visit Diagnoses Diagnosis Scar conditions and fibrosis of skin- Primary Scar condition and fibrosis of skin History of malignant melanoma of skin Personal history of malignant melanoma of skin Skin neoplasm Neoplasm of unspecified nature of bone, soft tissue, and skin Skin lesion Unspecified disorder of skin and subcutaneous tissue documented in this encounter Care Teams Scrap Dealer Relationship Specialty Start Date End Date Nima Erickson MD [address] [place] [address] PCP - General Family Medicine 09/16/19 documented as of this encounter
--- OUTSIDE RECORDS SUMMARY | 2023-06-06 07:23 | External Medical Summary | Summary of Care ---
Author Name Unknown Organization [facility] Address [address] [place] [address] Phone [phone] Care Team Providers Care Insurance Policy Clerk Name Role Phone Nima Erickson MD Primary Care Provider [phone] Reason for Visit * Reason Comments Skin Check 1 yr melanoma skin c heck. H/o SCC, AKs. Has some AKs on L jawline that's not fully resolved s/p cryotherapy. Encounter Details Date Type Department Care Team Description 03/26/2023 [facility] [place] [address] [facility]an [facility] [address] [facility] [address] Scar conditions and fibrosis of skin*; History [...] DREAMS Oxycodone-Acetaminophe n Other (Please comment) 05/28/2010 [place] funny on medication documented as of this [...] Valent (Prevnar) 01/17/2020,08/03/2014 Pneumococcal Polysaccharide PPV23 (Pneumovax) 12/08/2006,05/18/2001 Season Influenza, Quad, PF, Adjuvanted, 65+ Yrs, IM (FLUAD) 04/03/2020 Seasonal Influenza, PF, 6 mo ns & Above, IM , (Flulaval) 03/26/2018 Seasonal Influenza, Quadriva lent Hd (Fluzone Hd) 04/07/2022,04/03/2021 Seasonal Influenza, Quadriva lent, No Preserve, IM 04/02/2017,04/18/2016 Seasonal Influenza, Split, I IV3, With Preserve, Inj 04/02/2015,03/27/2014,04/27/2013,04/22,04/17/2011,04/16/2010,03/28/2009 ,05/18/2008,04/26/2007,05/12/2006,04/20,05/07/2004,05/04/2003, 2,05/18/2001,04/19/2000 Seasonal Influenza, Trivalen t, Adjuvanted, 65+ yrs [...] not hesitate in calling our office at [phone] to have it evaluated. documented in this encounter Progress Notes * Susan Cruz MD - 03/30/2023 1:03 PM EDT I have discussed the patient's management with the medical trainee and agree with the note. Please refer to the documented findings and plan of care. This patient's visit today consisted of an evaluation and procedure. I was present and confirmed the findings of the history and exam, and was present for the entire procedure. Susan Cruz MD * Reg Monteiro MD - 03/26/2023 10:14 AM EDT Katarina Peacock [id number] Chief Complaint: Chief Complaint Patient presents with [...] performed by Reg Elaine MD at OR [facility] COLONOSCOPY W/ BIOPSY (RECTUM) 08/15/08 repeat in 10 yrs EGD, FLEXIBLE, DIAGNOSTIC 11/07/2014 normal/ESOPHAGOGASTRODUODENOSCOPY (EGD), FLEXIBLE, TRANSORAL, DIAGNOSTIC performed by Precious Lobato MD at ENDOSCOPY [facility] EGD, FLEXIBLE, DIAGNOSTIC 10/08/2017 Richardson's esophagitis/ESOPHAGOGASTRODUODENOSCOPY (EGD), FLEXIBLE, TRANSORAL, DIAGNOSTIC performed by Zak Barber MD at ENDOSCOPY [facility] EXPLORATION OF ABDOMEN 12/01/12 Laparoscopy exploratory lap, removal atrium mesh, lysis of adhesive loop down the right lwoer quadrant, repair recurrent incisional hernia 12/01/12 Dr. Madrigal at [facility] Computer Builder Jonah Monreal PA-C INCISIONAL HERNIA REPAIR, LAP, REDUCIBLE 11/23/12 Laparoscopic repair of hernia 11/23/12 Dr. Madrigal at [facility] [employer] Jonah Monreal PA-C REPAIR INITIAL INCISIONAL OR VENTRAL HERNIA; REDUCIBLE 05/05/08 Resection of incarcerated fat and incisional hernia 05/05/[address] Madrigal TENDON SHEATH INCISION, FINGER Left 11/28/2020 TRIGGER FINGER RELEASE performed by Reg Elaine MD at OR [facility] Family History Problem Relation Age of [...] STRANGE DREAMS Percocet [Oxycodone-Acetaminophen] Other (Please comment) [place] funny on medication Lisinopril Cough Physical Examination: [...] Monteiro MD 03/26/2023 10:16 AM CC: Ref: SELF[[id number]] NO STREET ADDRESS AVAILABLE None (office) None (fax) documented in this encounter Nursing Notes * Xochitl Ruiz, MED ASSIST - 03/26/2023 10:06 AM EDT Chief Complaint Patient presents with Skin Check 1 yr melanoma skin check. H/o SCC, AKs. Has some AKs on L jawline that's not fully resolved s/p cryotherapy. documented in this encounter Miscellaneous Notes * Result Encounter Note - Susan Cruz MD - 03/30/2023 10:31 AM EDT Please let pt know precancer on face, will be monitored at her F/U visits Patient Phone Numbers A. Skin, Left cheek, shave: Actinic keratosis, focally bowenoid. documented in this encounter Plan of Treatment Upcoming Encounters Date Type Specialty Care Team Description 04/10/2023 Office Visit Family Medicine Nima Erickson MD [address] [place] [place] [address] 04/15/2023 Office Visit Cardiology Claudette Stubbs PA-C [address] [place] [address] 09/22/2023 Office Visit Dermatology Blanca Iyer PA-C [address] [place] [address] [place] [address] 01/29/2024 Nurse Only Ancillary Maynard, Nurse [facility] [address] [place] [address] Health Maintenance Due Date Last Done Comments COVID-19 Vaccine (5 - Moderna series) 11/25/2021 09/30/2021, 05/23/2021, 09/22/2020, Additional history exists Influenza Vaccine (FLU shot) (#1) 2023 04/07/2022, 04/03/2021, 04/03/2020, Additional history exists CKD PHOS USE SMARTSET 45929 04/07/202303/20, 04/03/2021, 04/19/2020, Additional history exists Depression Screening 01/27/2024 01/26/2023 Albumin/Creatinine Ratio 02/06/2024 023, 04/03/2021, 02/19/2017, Additional history exists CKD HGB USE SMARTSET 29796 02/06/202402/05, 02/05/2023, 11/13/2021, Additional history exists DTaP,Tdap,and [...] focally bowenoid. 03/27/2023 3:18 PM EDT [facility] Clinical History See Order Comments 03/27/2023 3:18 PM EDT [facility] Order Comments A. Left cheek - pink smooth papule with few possible follicular plugging; AK vs SCC 03/27/2023 3:18 PM EDT [facility] Gross Description A. Skin. shave Received in formalin with a container labeled with "Katarina Peacock", "[id number]", "1935" and " left cheek". Received is a 0.7 x 0.5 cm skin shave. The skin surface is bianchi to brown focally roughened and flaky. The underlying tissue is inked. The specimen is bisected and submitted in cassette A1. Gross By: MR 03/27/2023 3:18 PM EDT LABORATORY [facility] Sign Out Location Pathologist sign out performed at [facility] ([facility]), [facility] [place] [address]. 03/27/2023 3:18 PM EDT LABORATORY [facility] Photographic images and diagrams represent etienne findings in this case; they are not intended to replace a complete review of the final diagnostic report. The following statement applies to Flow Cytometry, Histology, In situ Hybridization Assays and Molecular Genetics. This test was developed and performed at [facility] and its performance characteristics determined by [facility] [place]. It has not been cleared or approved [...] control reactions. 03/27/2023 3:18 PM EDT LABORATORY [facility] Tissue Skin structure / Unknown 03/26/2023 10:44 AM EDT 03/26/2023 10:44 AM EDT Comment:A. Left cheek - pink smooth papule with few possible follicular plugging; AK vs SCC Reg Monteiro MD LAB [facility]OL[facility] [place] [address] documented in this encounter Visit Diagnoses Diagnosis Scar conditions and fibrosis of skin- Primary Scar condition and fibrosis of skin History of malignant melanoma of skin Personal history of malignant melanoma of skin Skin neoplasm Neoplasm of unspecified nature of bone, soft tissue, and skin Skin lesion Unspecified disorder of skin and subcutaneous tissue documented in this encounter Care Teams Insurance Policy Clerk Relationship Specialty Start Date End Date Nima Erickson MD [address] [place] [address] PCP - General Family Medicine 09/16/19 documented as of this encounter
--- OUTSIDE RECORDS SUMMARY | 2023-06-06 07:23 | External Medical Summary ---
Author Name Unknown Address Unknown Organization [id number] - [address] [place] [address] Laboratory Report Ordering Provider Test Date Status YISEL LAZAR 04/10/2023 10:32:40 Final Deficient: <20 ng/mL
Ins ufficient: 20-29 ng/mL
Recommended/Optimum:30-50 ng/mL

Vitamin D intoxication is rare. If suspicious of Vitamin D toxicity, evaluation of serum Calcium and PTH is recommended. Observation Date Value Abnormality Reference (Units ) Status 25-OH Vitamin D total 04/10/2023 10:32:40 74 >19 (ng/mL) Final Performing Location [facility] - [address] [place] [address]
--- OUTSIDE RECORDS SUMMARY | 2023-06-06 07:23 | External Medical Summary | Summary of Care ---
Author Name Unknown Organization [facility] Address [address] [place] [facility] [address] Phone [phone] Care Team Providers Care Minibus Driver Name Role Phone Nima Erickson MD Primary Care Provider [phone] Reason for Visit * Reason Comments eRx-Medication Refill Encounter Details Date Type Department Care Team Description 03/03/2023 Refill Cardiology, [facility] [address] [place] [address] Robert Young MD [address] [place] [address] Chronic heart failure with preserved ejection fraction (HCC) Allergies Active Allergy Reactions Severity Noted Date Comments Adhesive Tape Other (Please comment) 10/04/2012 Pt reports "it took some skin off" Bee Venom 03/13/2022 Lisinopril Cough Low 03/27/2009 Morphine 08/29/2020 Other reaction(s): vomiting Guaifenesin Er Diarrhea,Nausea/vomi tin g,Neuro complications (Please comment) 09/08/2017 Oxycodone 08/29/2020 Other reaction(s): STRANGE DREAMS Oxycodone-Acetaminophe n Other (Please comment) 05/28/2010 [place] funny on medication documented as of this encounter (statuses as of 03/03/2023) Medications Medication Sig Dispensed Refills Start Date End Date Status ASPIRIN 81 MG OR CHEW Take 1 Tablet by mouth every other day. 0 04/11/2003 Active OMEGA-3 FATTY ACIDS 600 MG PO CAPS 2 tabs each day 0 01/27/2006 Active CORAL CALCIUM 1000 (390 CA) MG PO TABS 1200 mg 1 tab daily 0 Active Multiple Vitamins-Mineral s (PRESERVISION AREDS) Tablet Take 2 Tablets by mouth in the morning. 0 Active Diclofenac Sodium 1 % External Gel (Voltaren) Apply topically to affected area 2 g in the morning AND 2 g before bedtime. Apply to foot. 150 g 3 10/01/2021 Active hydroCHLOROthiaz andrews 12.5 MG Oral Capsule (Hydrodiuril) Take one tab 5 days/week 90 Capsule 3 10/01/2021 Active Pravastatin Sodium 40 MG Oral Tablet (Pravachol)Indic ations:Dyslipide lori, goal to be determined Take 1 tablet by mouth once daily 100 Tablet 3 02/17/2022 Active Pantoprazole Sodium 40 MG Oral Tablet Delayed Release (Protonix)Indica tions:Gastroesop hageal reflux disease with esophagitis without hemorrhage Take by mouth 1 Tablet in the morning. 30 minutes before the first meal of the day. Do not crush, split or chew the tablet. 30 Tablet 5 04/07/2022 Active Additional Information Patient not taking.Reported on 01/26/2023 Losartan Potassium 50 MG Oral Tablet (Cozaar)Indicati ons:HTN, goal below 150/90 Take 1 tablet by mouth once daily 90 Tablet 3 09/12/2022 Active Carvedilol 6.25 MG Oral Tablet (Coreg) Take one in the morning, 1/2 in the evening 135 Tablet 11 11/05/2022 Active Doxazosin Mesylate 2 MG Oral Tablet (Cardura)Indicat ions:Chronic heart failure with preserved ejection fraction (HCC) TAKE 2 TABLETS BY MOUTH AT BEDTIME 180 Tablet 3 03/03/2023 Active Doxazosin Mesylate 2 MG Oral Tablet (Cardura)Indicat ions:Chronic heart failure with preserved ejection fraction (HCC) TAKE 2 TABLETS BY MOUTH AT BEDTIME 180 Tablet 1 06/18/2022 3 Discontinued documented as of this encounter (statuses as of 03/03/2023) Active Problems Problem Noted Date Overweight (BMI [...] as of this encounter (statuses as of 03/03/2023) Resolved Problems Problem Noted Date Resolved Date [...] as of this encounter (statuses as of 03/03/2023) Immunizations Name Administration Dates Next Due COVID-19 [...] encounter Miscellaneous Notes * Telephone Encounter - AMBER King - 03/03/2023 12:45 PM EDT Signed Prescriptions: Disp Refills Doxazosin Mesylate 2 MG Oral Tablet (Cardu*180 Ta*3 Sig: TAKE 2 TABLETS BY MOUTH AT BEDTIME Authorizing Provider: SHARI GUZMÁN * Telephone Encounter - Joshua Rainey RN - 03/03/2023 12:39 PM EDTPending Prescriptions: Disp Refills Doxazosin Mesylate 2 MG Oral Tablet (Cardu*180 Ta*3 Sig: TAKE 2 TABLETS BY MOUTH AT BEDTIME * Telephone Encounter - Joshua Rainey RN - 03/03/2023 12:37 PM EDT Pending Prescriptions: Disp Refills Doxazosin Mesylate 2 MG Oral Tablet (Card*180 Ta*3 Sig: TAKE 2 TABLETS BY MOUTH AT BEDTIME Last Visit: 11/05/2022 (in office), Visit date not found (telemedicine) Next Visit: 04/15/2023 Last medication order date: 06/18/2022 Have you choosen a preferred pharm yes 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 Stage 3b chronic kidney disease (HCC) N18.32 Overweight (BMI 25.0-29.9) E66.3 Labs: Lab Results Component Value Date/Time CREATININE - [facility] 1.5 (H) 04/07/2022 11:49 AM CREATININE - [facility] 1.2 (H) 04/19/2020 09:55 AM CREATININE, RANDOM URINE - [facility] 199 02/05/2023 10:46 AM CREATININE, RANDOM URINE - [facility] 134 02/19/2017 01:17 PM Lab Results Component Value Date/Time POTASSIUM - [facility] 4.5 04/07/2022 11:49 AM POTASSIUM - [facility] 3.9 04/19/2020 09:55 AM Lab Results Component Value Date/Time TSH - [facility] 3.66 11/13/2021 10:19 AM TSH - [facility] 3.49 03/23/2015 03:30 PM Lab Results Component Value Date/Time LDL CHOLESTEROL (CALCULATED) - [facility] 77 11/01/2020 08:40 AM LDL CHOLESTEROL (CALCULATED) - [facility] 71 09/04/2011 10:46 AM LDL CHOLESTEROL (CALCULATED) - [facility] 51 12/02/2010 09:09 AM LDL CHOLESTEROL (DIRECT MEASURE) - [facility] 53 08/27/2017 11:23 AM LDL CHOLESTEROL (DIRECT MEASURE) - [facility] 75 08/18/2016 02:59 PM Lab Results Component Value Date/Time ALT - [facility] 18 09/23/2021 04:28 PM ALT - [facility] 18 04/19/2020 09:55 AM Hemoglobin AIC Results: No results found for: HEMOGLOBIN A1C documented in this encounter Plan of Treatment Upcoming Encounters Date Type Specialty Care Team Description 03/26/2023 Office Visit Dermatology Susan Cruz MD [address] [place] [address] [place] [address] 04/10/2023 Office Visit Family Medicine Nima Erickson MD [address] [place] [address] 04/15/2023 Office Visit Cardiology Claudette Stubbs PA-C [address] [place] [address] 01/29/2024 Nurse Only Erin Maynard, Nurse [facility] [address] [place] [address] Health Maintenance Due Date Last Done Comments COVID-19 Vaccine (5 - Moderna series) 11/25/2021 09/30/2021, 05/23/2021, 09/22/2020, Additional history exists Influenza Vaccine (FLU shot) (#1) 2023 04/07/2022, 04/03/2021, 04/03/2020, Additional history exists CKD PHOS USE SMARTSET 42544 04/07/202303/20, 04/03/2021, 04/19/2020, Additional history exists Depression Screening, Annual for Pts 12 and Over 01/27/2024 01/26/2023 Albumin/Creatinine Ratio 02/06/2024 023, 04/03/2021, 02/19/2017, Additional history exists CKD HGB USE SMARTSET 01610 02/06/202402/05, 02/05/2023, 11/13/2021, Additional history exists DTaP,Tdap,and [...] as of this encounter Visit Diagnoses Diagnosis Chronic heart failure with preserved ejection fraction (HCC) documented in this encounter Care Teams Minibus Driver Relationship Specialty Start Date End Date Nima Erickson MD [address] [place] [address] PCP - General Family Medicine 09/16/19 documented as of this encounter
--- OUTSIDE RECORDS SUMMARY | 2023-06-06 07:24 | External Medical Summary | Summary of Care ---
Author Name Unknown Organization [facility] Address [address] [facility] [address] Phone [phone] Care Team Providers Care Airfield Operations Specialist Name Role Phone Nima Erickson MD Primary Care Provider [phone] Reason for Visit * Reason Onset Date Comments Advice 02/03/2023 Bee sting Encounter Details Date Type Department Care Team Description 02/03/2023 Telephone Family Practice [facility] [address] [place] [address] Nima Erickson MD [address] [place] [id number] Advice (Bee sting) Allergies Active Allergy Reactions Severity Noted Date Comments Adhesive Tape Other (Please comment) 10/04/2012 Pt reports "it took some skin off" Bee Venom 03/13/2022 Lisinopril Cough Low 03/27/2009 Morphine 08/29/2020 Other reaction(s): vomiting Guaifenesin Er Diarrhea,Nausea/vomi tin g,Neuro complications (Please comment) 09/08/2017 Oxycodone 08/29/2020 Other reaction(s): STRANGE DREAMS Oxycodone-Acetaminophe n Other (Please comment) 05/28/2010 [place] funny on medication documented as of this encounter (statuses as of 02/03/2023) Medications Medication Sig Dispensed Refills Start Date [...] as of this encounter (statuses as of 02/03/2023) Active Problems Problem Noted Date Overweight (BMI [...] as of this encounter (statuses as of 02/03/2023) Resolved Problems Problem Noted Date Resolved Date [...] as of this encounter (statuses as of 02/03/2023) Immunizations Name Administration Dates Next Due COVID-19 [...] encounter Miscellaneous Notes * Telephone Encounter - Kiersten Sarmiento LPN - 02/03/2023 4:20 PM EDT Provider to address: NA Reason for Call: Advice (Bee sting) Contact: Telephone Call Contact Type: Information Outcome: Patient informed. Seen at [facility] today. No further concerns. Total Time including non face to face (minutes): 5 * Telephone Encounter - Katherin Narayan LPN - 02/03/2023 2:18 PM EDT Called pt, let message for a return call Per Dr. Erickson, apply ice and/ or topical benadryl. * Telephone Encounter - JOSE Abebe - 02/03/2023 9:13 AM EDT Patient stung by a hornet yesterday. Water blisters have formed where she was stung. Requesting to speak with a nurse. documented in this encounter Plan of Treatment Upcoming Encounters Date Type Specialty Care Team Description 03/26/2023 Office Visit Dermatology Susan Cruz MD [address] [facility] [place] [address] 04/10/2023 Office Visit Family Medicine Nima Erickson MD [address] [facility] [place] [address] 04/15/2023 Office Visit Cardiology Claudette Stubbs PA-C [address] [place] [address] 01/29/2024 Nurse Only Ancillary Caesar Nurse [facility] [address] [place] [address] Health Maintenance Due Date Last Done Comments COVID-19 Vaccine (5 - Moderna series) 11/25/2021 09/30/2021, 05/23/2021, 09/22/2020, Additional history exists Albumin/Creatinine Ratio 04/03/2022 021, 02/19/2017, 09/04/2011, Additional history exists CKD HGB USE SMARTSET 63916 11/13/202211/13, 11/13/2021, 04/03/2021, Additional history exists Influenza Vaccine (FLU shot) (#1) 2023 04/07/2022, 04/03/2021, 04/03/2020, Additional history exists CKD PHOS USE SMARTSET 63127 04/07/202303/20, 04/03/2021, 04/19/2020, Additional history exists Depression [...] filedocumented as of this encounter Care Teams Airfield Operations Specialist Relationship Specialty Start Date End Date Nima Erickson MD [address] [place] [address] PCP - General Family Medicine 09/16/19 documented as of this encounter
--- OUTSIDE RECORDS SUMMARY | 2023-06-06 07:24 | External Medical Summary | Summary of Care ---
Author Name Unknown Organization [facility] Address [address] [facility] [place] [address] Phone [phone] Care Team Providers Care Tuckpointer Name Role Phone Nima Erickson MD Primary Care Provider [phone] Reason for Visit * Reason Comments Bee Sting Left arm Encounter Details Date Type Department Care Team Description 02/03/2023 Convenient Care Visit [facility] [address] [facility] [place] [place] [address] Chance Knight PA-C [address] [facility] [place] [address] Bee sting reaction, accidental or unintentional, initial encounter*; Blister of left elbow, initial encounter Allergies Active Allergy Reactions Severity Noted Date Comments Adhesive Tape Other (Please comment) 10/04/2012 Pt reports "it took some skin off" Bee Venom 03/13/2022 Lisinopril Cough Low 03/27/2009 Morphine 08/29/2020 Other reaction(s): vomiting Guaifenesin Er Diarrhea,Nausea/vomi tin g,Neuro complications (Please comment) 09/08/2017 Oxycodone 08/29/2020 Other reaction(s): STRANGE DREAMS Oxycodone-Acetaminophe n Other (Please comment) 05/28/2010 [place] funny on medication documented as of this [...] Date Smoking Tobacco: Never Smokeless Tobacco: Never Tobacco Cessation:Counseling Given: Not Answered Alcohol Use Standard Drinks/Week Comments No 0 [...] Sign Reading Time Taken Comments Blood Pressure 144/60 02/03/2023 2:38 PM EDT Pulse 62 02/03/2023 2:38 PM EDT Temperature 37.4 C (99.3 F) 02/03/2023 2:38 PM ED T Respiratory Rate 18 02/03/2023 2:38 PM EDT Oxygen Saturation 97% 02/03/2023 2:38 PM EDT Inhaled Oxygen Concentration - - Weight 77.2 kg (170 lb 3.2 oz) 02/03/2023 2:38 P M EDT Height 164.6 cm (5' 4.8") 02/03/2023 2:38 PM EDT Body Mass Index 28.5 02/03/2023 2:38 PM EDT documented in this encounter Progress Notes * Chance Knight PA-C - 02/03/2023 2:39 PM EDT [address] [place] [address] Name:Katarina Peacock Date: 02/03/2023 Time: 2:39 PM Chief complaint: Chief Complaint Patient presents with Bee Sting Left arm HPI: Katarina Peacock is a 87 year old female who presents to [facility] today for acute visit. Visit date not found (in office), Visit date not found (telemedicine) ASSESSMENT: Bee sting reaction, accidental or unintentional, initial encounter (Primary) - Cetirizine HCl 10 MG Oral Tablet (ZyrTEC); Take 1 Tablet by mouth in the morning for 10 days. - Triamcinolone Acetonide 0.5 % External Cream (Aristocort); Apply topically to affected area 2 times a day for 7 days. To affected area. - Cephalexin 500 MG Oral Capsule (Keflex); Take 1 Capsule by mouth in the morning and 1 Capsule at noon and 1 Capsule before bedtime. Do all this for 5 days. Blister of left elbow, initial encounter - Cetirizine HCl 10 MG Oral Tablet (ZyrTEC); Take 1 Tablet by mouth in the morning for 10 days. - Triamcinolone Acetonide 0.5 % External Cream (Aristocort); Apply topically to affected area 2 times a day for 7 days. To affected area. - Cephalexin 500 MG Oral Capsule (Keflex); Take 1 Capsule by mouth in the morning and 1 Capsule at noon and 1 Capsule before bedtime. Do all this for 5 days. Follow Up: Return if symptoms worsen or fail to improve. Supportive treatment discussed with patient in detail. Acute sx: here for evaluation of bee sting. Patient reports 2 day h/o left arm bee sting with redness and blistering of the skin. No fever/chills. No lip and tongue swelling. No ST/difficulty swallowing. No breathing issues. Review of Systems: All other systems normal/negative. 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 Stage 3b chronic kidney disease (HCC) N18.32 Overweight (BMI 25.0-29.9) E66.3 Past Medical History: Diagnosis Date Aortic valve insufficiency BENIGN NEOPLASM LG BOWEL 04/03/2003 Dyslipidemia, goal to be determined Essential and other specified forms of tremor History of colon polyps 12/15/2018 HTN, goal below 140/90 Hx of basal cell carcinoma 05/19/2011 L upper cutaneous lip - [facility], 09/2010 Mitral and aortic incompetence moderate 2+ 05/26 Overweight (BMI 25.0-29.9) 10/06/2022 Social History Socioeconomic History Marital status: Tobacco Use Smoking status: Never Smokeless tobacco: Never Vaping Use Vaping Use: Never used Substance and Sexual Activity Alcohol use: No Drug use: No Sexual activity: Not Currently Partners: Male Comment: Chepe Social Determinants of Health Food Insecurity: No Food Insecurity Worried About Running Out of Food in the Last Year: Never true Ran Out of Food in the Last Year: Never true Family History Problem Relation Age of Onset Heart Disorder Mother No Known Problems Father Lung Disorder Sister Allergies Sister from anaphylactic rxn Cancer Sister Blood Disorder Sister Heart Disorder Sister Diabetes Brother Current Outpatient Medications Medication Sig Dispense Refill [...] by mouth once daily 100 Tablet 3 Doxazosin Mesylate 2 MG Oral Tablet (Cardura) TAKE 2 TABLETS BY MOUTH AT BEDTIME 180 Tablet 1 Losartan Potassium 50 MG Oral Tablet (Cozaar) Take 1 tablet by mouth once daily 90 Tablet 3 Carvedilol 6.25 MG Oral Tablet (Coreg) Take one in the morning, 1/2 in the evening 135 Tablet 11 Cetirizine HCl 10 MG Oral Tablet (ZyrTEC) Take 1 Tablet by mouth in the morning for 10 days. 10Tablet 0 Triamcinolone Acetonide 0.5 % External Cream (Aristocort) Apply topically to affected area 2 times a day for 7 days. To affected area. 15 g 0 Cephalexin 500 MG Oral Capsule (Keflex) Take 1 Capsule by mouth in the morning and 1 Capsule atnoon and 1 Capsule before bedtime. Do all this for 5 days. 15 Capsule 0 Pantoprazole Sodium 40 MG Oral Tablet Delayed Release (Protonix) Take by mouth 1 Tablet in the morning. 30 minutes before the first meal of the day. Do not crush, split or chew the tablet. (Patient not taking: Reported on 01/26/2023) 30 Tablet 5 No current facility-administered medications for this visit. Review of patient's allergies indicates: Allergen Reactions Adhesive Tape Other (Please comment) Pt reports "it took some skin off" Bee Venom Morphine Other reaction(s): vomiting Mucinex [Guaifenesin Er] Diarrhea, Nausea/vomiting and Neuro complications (Please comment) Oxycodone Other reaction(s): STRANGE DREAMS Percocet [Oxycodone-Acetaminophen] Other (Please comment) [place] funny on medication Lisinopril Cough PHYSICAL EXAMINATION: Most Recent Vital Signs: BP 144/60 | Pulse 62 | Temp 37.4 C (99.3 F) (Tympanic) | Resp 18 | Ht 1.646 m (5' 4.8") | Wt 77.2 kg (170 lb 3.2 oz) | SpO2 97% | BMI 28.50 kg/m | BSA 1.88 m BP Readings from Last 3 Encounters: 02/03/23 144/60 01/26/23 140/60 11/05/22 128/46 Wt Readings from Last 3 Encounters: 02/03/23 77.2 kg (170 lb 3.2 oz) 01/26/23 76.7 kg (169 lb) 11/05/22 75.3 kg (166 lb) General: alert, healthy, no distress, well nourished and well developed Neck: supple, no adenopathy, no bruits, thyroid normal size, non-tender, without nodularity Heart: regular rate & rhythm Lungs: chest symmetric with normal AP diameter, no chest deformities noted, normal respiratory rateand rhythm, lungs clear to auscultation Extremities: 1.5 cm x 1.5 cm area of erythema and blistering area of the left lateral arm near the elbow. Neuro Exam: alert & oriented x 3 with fluent speech, no focal motor/sensory deficits, gait normal The following labs were reviewed today: None I spent a total of 20-29 minutes (exact time 20 mins) on the date of service in preparation, delivery, and documentation of the care provided to Katarina Peacock excluding any time spent in the performance of separately billed services. Chance Knight PA-C [address] [place] [address] 02/03/2023 2:39 PM documented in this encounter Nursing Notes * Kaleb Luther LPN - 02/03/2023 2:42 PM EDT Katarina Peacock is a 87 year old female who presents to walk-in clinic today complaining of Chief Complaint Patient presents with Bee Sting Left arm How lon02-01-23 Tried: Pt accompanied by: self documented in this encounter Plan of Treatment Upcoming Encounters Date Type Specialty Care Team Description 03/26/2023 Office Visit Dermatology Susan Cruz MD [address] [place] [address], [place] [address] 04/10/2023 Office Visit Family Medicine Nima Erickson MD [address] [place] [address] 04/15/2023 Office Visit Cardiology Claudette Stubbs PA-C [address] [place] [address] 01/29/2024 Nurse Only Ancillary Caesar, Nurse [facility] [address] [place] [address] Health Maintenance Due Date Last Done Comments COVID-19 Vaccine (5 - Moderna series) 11/25/2021 09/30/2021, 05/23/2021, 09/22/2020, Additional history exists Albumin/Creatinine Ratio 04/03/2022 021, 02/19/2017, 09/04/2011, Additional history exists CKD HGB USE SMARTSET 78036 11/13/202211/13, 11/13/2021, 04/03/2021, Additional history exists Influenza Vaccine (FLU shot) (#1) 2023 04/07/2022, 04/03/2021, 04/03/2020, Additional history exists CKD PHOS USE SMARTSET 12210 04/07/202303/20, 04/03/2021, 04/19/2020, Additional history exists Depression [...] as of this encounter Visit Diagnoses Diagnosis Bee sting reaction, accidental or unintentional, initial encounter- Primary Blister of left elbow, initial encounter documented in this encounter Care Teams Tuckpointer Relationship Specialty Start Date End Date Nima Erickson MD [address] [place] [address] PCP - General Family Medicine 09/16/19 documented as of this encounter
--- OUTSIDE RECORDS SUMMARY | 2023-06-06 07:24 | External Medical Summary | Summary of Care ---
Author Name Unknown Organization [facility] Address [address] [place] [address] Phone [phone] Care Team Providers Care Beer Maker Name Role Phone Nima Erickson MD Primary Care Provider [phone] Reason for Visit * Reason Onset Date Comments Adult Annual Wellness Visit, Subsequent Visit Encounter Details Date Type Department Care Team Description 01/26/2023 Nurse Only Ancillary [facility] [address] [place] [address] [facility], Nurse Annual Wellness [facility] [address] [place] [address] Adult Annual Wellness Visit, Subsequent Visit Allergies Active Allergy Reactions Severity Noted Date Comments Adhesive Tape Other (Please comment) 10/04/2012 Pt reports "it took some skin off" Bee Venom 03/13/2022 Lisinopril Cough Low 03/27/2009 Morphine 08/29/2020 Other reaction(s): vomiting Guaifenesin Er Diarrhea,Nausea/vomi tin g,Neuro complications (Please comment) 09/08/2017 Oxycodone 08/29/2020 Other reaction(s): STRANGE DREAMS Oxycodone-Acetaminophe n Other (Please comment) 05/28/2010 [place] funny on medication documented as of this encounter (statuses as of 01/26/2023) Medications Medication Sig Dispensed Refills Start Date [...] 01/26/2023 Doxazosin Mesylate 2 MG Oral Tablet (Cardura)Indicati [...] the evening 135 Tablet 11 11/05/2022 Active VITAMIN D 1000 UNITS PO CAPS 2000 mg 1 tab daily 0 3 Discontinue d(Patient preference/ discontinua tion) Magnesium Oxide 200 MG TABS Take by mouth. Take 1 tab every other day 0 3 Discontinue d(Patient preference/ discontinua tion) documented as of this encounter (statuses as of 01/26/2023) Active Problems Problem Noted Date Overweight (BMI [...] as of this encounter (statuses as of 01/26/2023) Resolved Problems Problem Noted Date Resolved Date [...] 10/06/2022 History of colon polyps 12/15/2018 09/14/19 Hypertensive heart and kidne y disease with [...] as of this encounter (statuses as of 01/26/2023) Immunizations Name Administration Dates Next Due COVID-19 [...] Sign Reading Time Taken Comments Blood Pressure 140/60 01/26/2023 11:02 AM EDT Pulse 56 01/26/2023 11:02 AM EDT Temperature 37.2 C (98.9 F) 01/26/2023 11:02 AM E DT Respiratory Rate - - Oxygen Saturation - - Inhaled Oxygen Concentration - - Weight 76.7 kg (169 lb) 01/26/2023 11:02 AM EDT Height 163.8 cm (5' 4.5") 01/26/2023 11:02 AM ED T Body Mass Index 28.56 01/26/2023 11:02 AM EDT documented in this encounter Patient Instructions * Patient Instructions* Emily Padilla RN - 01/26/2023 10:55 AM EDT Hi Ms. Peacock, As your primary care physician, I know that regular visits with my patients who have several chronic conditions can go a long way in helping you stay healthy. Many times, the clinic team and I are in touch with you and/or other care team members between office visits to adjust medications, discuss any changes in your health, and review our care plan to make sure it is still meeting your needs. I am dedicated to helping you take a more active role in your overall care. It is important that there are resources available to you, so I created a personalized plan of care with a Health Calendar for you, which is included on the next page of this letter. Below is a list that summarizes your electronic health record: Health Maintenance Due: Health Maintenance Due Topic Date Due COVID-19 Vaccine (5 - Moderna series) 11/25/2021 Albumin/Creatinine Ratio 04/03/2022 CKD HGB USE SMARTSET 61524 11/13/2022 Depression Screening, Annual for Pts 12 and Over 01/13/2023 Current Medication List: (as of Visit date not found (in office), Visit date not found (telemedicine) ) Current Outpatient Medications Medication Sig Dispense Refill ASPIRIN 81 MG OR CHEW Take 1 Tablet by mouth every other day. OMEGA-3 FATTY ACIDS 600 MG PO CAPS 2 tabs each day 0 CORAL CALCIUM 1000 (390 CA) MG PO TABS 1200 mg 1 tab daily VITAMIN D 1000 UNITS PO CAPS 2000 mg 1 tab daily Multiple Vitamins-Minerals (PRESERVISION AREDS) Tablet Take 2 Tablets by mouth in the morning. Magnesium Oxide 200 MG TABS Take by mouth. Take 1 tab every other day (Patient not taking: Reported on 11/05/2022) Diclofenac Sodium 1 % External Gel (Voltaren) [...] or chew the tablet. 30 Tablet 5 Doxazosin Mesylate 2 MG Oral Tablet (Cardura) TAKE 2 TABLETS BY MOUTH AT BEDTIME 180 Tablet 1 Losartan Potassium 50 MG Oral Tablet (Cozaar) Take 1 tablet by mouth once daily 90 Tablet 3 Carvedilol 6.25 MG Oral Tablet (Coreg) Take one in the morning, 1/2 in the evening 135 Tablet 11 No current facility-administered medications for this visit. Current List of Allergies: (as of Visit date not found (in office), Visit date not found (telemedicine) ) Review of patient's allergies indicates: Allergen Reactions Adhesive Tape Other (Please comment) Pt reports "it took some skin off" Bee Venom Morphine Other reaction(s): vomiting Mucinex [Guaifenesin Er] Diarrhea, Nausea/vomiting and Neuro complications (Please comment) Oxycodone Other reaction(s): STRANGE DREAMS Percocet [Oxycodone-Acetaminophen] Other (Please comment) [place] funny on medication Lisinopril Cough Most Recent Lab Results: Results for orders placed or performed in visit on 07/31/22 SURGICAL PATHOLOGY Result Value Ref Range Final Diagnosis A. 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 Clinical History See Order Comments Order Comments L cheek - bilobed scaly eroded pink plaque, about 8 mm- NMSC vs. [place] Gross Description A. Skin. shave Received in formalin with a container labeled with "Katarina Peacock", "[id number]" and "1935" and " left cheek". Received is a 0.5 x 0.4 cm skin shave. The skin surface is bianchi to acosta, firm, slightly raised throughout. The underlying tissue is inked. The specimen is bisected and submitted in cassette A1. Gross By: GAETANO Armando Sign Out Location Pathologist sign out performed at [facility] ([facility] [address] [place] [address]. Photographic images and diagrams represent etienne findings in this case; they are not intended to replace a complete review of the final diagnostic report. The following statement applies to Flow Cytometry, Histology, In situ Hybridization Assays and Molecular Genetics. This test was developed and performed at [facility] and its performance characteristics determined by [facility]. It has not been cleared or approved by the U.S. Food and Drug Administration. The FDA has determined that such clearance or approval is not necessary. This test is used for clinical purposes. It should not be regarded as investigationalor for research. Special stains, including histochemical stains, and studies using immunologic and MARCELINA methodology (where applicable) are performed with appropriate positive and negative control reactions. *Note: Due to a large number of results and/or encounters for the requested time period, some results have not been displayed. A complete set of results can be found in Results Review. Sincerely, Nima Erickson MD 01/26/2023 [facility]) Calendar (as of Visit date not found (in office), Visit date not found (telemedicine) ) Care needs Care needs Last completed Due next COVID-19 Vaccine (5 - Moderna series) 09/30/2021 11/25/2021 Urine albumin/creatinine test 04/03/2021 04/03/2022 Flu vaccine (recommended) (1) 04/07/2022 03/20/2023 Diphtheria, tetanus & pertussis vaccines (2 - Td or Tdap) 05/14/2018 05/14/2028 As you look over the recommended services, be sure to check with your insurance company to determine what's covered. [facility] is a great tool that helps you review your medical record online, including test results, doctor notes and your health summary. You can also schedule appointments with me and other members of your care team, request prescription refills and ask for advice related to your medical conditions at [email or web address]. Patient Instructions - Fall Prevention (This education is for all patients over 65 regardless of symptoms) Remember to take your current medications as prescribed. In order to prevent falls, you are encouraged to: Exercise Utilize assistive/adaptive devices Avoid multifocal lenses when walking Avoid hazards in home Maintain a regular toileting schedule Any questions please contact our office. Preventing Falls in the Home (This education is for all patients over 65 regardless of symptoms) As you get older, falls are more likely. Thats because your reaction time slows. Your muscles and joints may also get stiffer, making them less flexible. Illness, medications, and vision changes can also affect your balance. A fall could leave you unable to live on your own. To make your home safer, follow these tips: Floors Put nonskid pads under area rugs Remove throw rugs Replace worn floor coverings Tack carpets firmly to each step on carpeted stairs. Put nonskid strips on the edges of uncarpeted stairs Keep floors and stairs free of clutter and cords Arrange furniture so there are clear pathways Clean up any spills right away Bathrooms Install grab bars in the tub or shower Apply nonskid strips or put a nonskid rubber mat in the tub or shower Sit on a bath chair to bathe Use bathmats with nonskid backing Lighting Keep a flashlight in each room Put a nightlight along the pathway between the bedroom and the bathroom Ana Patient Education Copyright 2009 - 2010 Ana except where otherwise noted Kegel Exercises Kegel exercises dont require special clothing or equipment. Theyre easy to learn and simple to do. And if you do them right, no one can tell youre doing them, so they can be done almost anywhere. Your doctor, nurse, or physical therapist can answer any questions you have and help you get started. A Weak Pelvic Floor The pelvic floor muscles may weaken due to aging, and vaginal childbirth, injury, surgery, chronic cough, or lack of exercise. If the pelvic floor is weak, your bladder and other pelvic organs may sag out of place. The urethra may also open too easily and allow urine to leak out. Kegel exercises can help you strengthen your pelvic floor muscles so they can better support the pelvic organs and control urine flow. How Kegel Exercises Are Done Try each of the Kegel exercises described below. When youre doing them, try not to move your leg, buttock, or stomach muscles. While youre urinating, try to stop the flow of urine. Start and stop it as often as you can. Contract as if you were stopping your urine stream, but do it when youre not urinating. Tighten your rectum as if trying not to pass gas. Contract your anus, but dont move your buttocks. Helpful Hints Do your Kegels as often as you can. The more you do them, the faster youll feel the results. Pick an activity you do often as a reminder. For instance, do your Kegels every time you sit down. Tighten your pelvic floor before you sneeze, get up from a chair, cough, laugh, or lift. This protects your pelvic floor from injury and can help prevent urine leakage. Try to hold each Kegel for a slow count to five. You probably wont be able to hold them for thatlong at first, but keep practicing. It will get easier as your pelvic floor gets stronger. Eventually, special weights that you place in your vagina may be recommended to help make your Kegels even more effective. Ana Patient Education Copyright 2008 - 2010 Ana except where otherwise noted. documented in this encounter Progress Notes * Emily Padilla RN - 01/26/2023 10:55 AM EDT Adult Annual Wellness Visit: Katarina Peaccok is a 87 year old female who presents for an Adult Annual Wellness Visit. Depression Screening: Did the patient complete the screening questionnaire for Depression? Yes Is the patient's total score for Depression 15 or greater? No, no further intervention needed, unless requested by patient. Did the patient answer positively to the suicide question? No, no further intervention needed, unless requested by patient. In general, compared to other people your age, what would you say that your health is? Very Good Ht Readings from Last 1 Encounters: 01/26/23 1.638 m (5' 4.5") Wt Readings from Last 1 Encounters: 01/26/23 76.7 kg (169 lb) Body Mass Index: BMI Less than 30 Body mass index is 28.56 kg/m. BP Readings from Last 1 Encounters: 01/26/23 140/60 Medical/Surgical/Family History Reviewed: Yes Past Medical History: Diagnosis Date Aortic valve insufficiency BENIGN NEOPLASM LG BOWEL 04/03/2003 Dyslipidemia, goal to be determined Essential and other specified forms of tremor History of colon polyps 12/15/2018 HTN, goal below 140/90 Hx of basal cell carcinoma 05/19/2011 L upper cutaneous lip - BCC, 09/2010 Mitral and aortic incompetence moderate 2+ 11 Overweight (BMI 25.0-29.9) 10/06/2022 Past Surgical History: Procedure Laterality Date CARPAL TUNNEL SURGERY Left 11/28/2020 NEUROPLASTY MEDIAN NERVE AT CARPAL TUNNEL performed by Reg Elaine MD at [facility] COLONOSCOPY W/ BIOPSY (RECTUM) 08/15/08 repeat in 10 yrs EGD, FLEXIBLE, DIAGNOSTIC 11/07/2014 normal/ESOPHAGOGASTRODUODENOSCOPY (EGD), FLEXIBLE, TRANSORAL, DIAGNOSTIC performed by Precious Lobato MD at [facility] EGD, FLEXIBLE, DIAGNOSTIC 10/08/2017 Richardson's esophagitis/ESOPHAGOGASTRODUODENOSCOPY (EGD), FLEXIBLE, TRANSORAL, DIAGNOSTIC performed by Zak Barber MD at ENDOSCOPY [facility] EXPLORATION OF ABDOMEN 12/01/12 Laparoscopy exploratory lap, removal atrium mesh, lysis of adhesive loop down the right lwoer quadrant, repair recurrent incisional hernia 12/01/12 Dr. Madrigal at [facility] Instrument Repair Technician Jonah Monreal PA-C INCISIONAL HERNIA REPAIR, LAP, REDUCIBLE 11/23/12 Laparoscopic repair of hernia 11/23/12 Dr. Madrigal at [facility] Instrument Repair Technician Jonah Monreal PA-C REPAIR INITIAL INCISIONAL OR VENTRAL HERNIA; REDUCIBLE 05/05/08 Resection of incarcerated fat and incisional hernia 05/05/[address] Madrigal TENDON SHEATH INCISION, FINGER Left 11/28/2020 TRIGGER FINGER RELEASE performed by Reg Elaine MD at [facility] Family History Problem Relation Age of Onset Heart Disorder Mother No Known Problems Father Lung Disorder Sister Allergies Sister from anaphylactic rxn Cancer Sister Blood Disorder Sister Heart Disorder Sister Diabetes Brother Has patient ever had cancer? History of cancer, type: malignant melanoma and location: LUE Social History Tobacco Use Smoking status: Never Smokeless tobacco: Never Substance Use Topics Alcohol use: No Vaping/E-Cigarette Use Vaping/E-Cigarette Use Never User Vaping/E-Cigarette Substances Vaping/E-Cigarette Devices Tobacco/Alcohol screening completed today? Yes Hospital Care: Admissions (within the last year): Not Applicable ER within 30 days: No Does the patient have an Advance Directives/Living Will? Yes Last Physical Exam: Last physical exam: 10/2022 Does patient see primary provider regularly? Yes Does patient see other providers? Yes, Specialist Patient Care Team updated? Yes Review of patient's allergies indicates: Allergen Reactions Adhesive Tape Other (Please comment) Pt reports "it took some skin off" Bee Venom Morphine Other reaction(s): vomiting Mucinex [Guaifenesin Er] Diarrhea, Nausea/vomiting and Neuro complications (Please comment) Oxycodone Other reaction(s): STRANGE DREAMS Percocet [Oxycodone-Acetaminophen] Other (Please comment) [place] funny on medication Lisinopril Cough Immunization History Administered Date(s) Administered COVID-19 mRNA, LNP-s, No Preserve, 2-Dose Series (Moderna) 08/18/2020, 09/22/2020 Covid-19 Mrna, Lnp-s, No Preserve, Booster (Moderna) 05/23/2021, 09/30/2021 Pneumococcal Conjugate Vacc, 13 Valent (Prevnar) 08/03/2014, 01/17/2020 Pneumococcal Polysaccharide PPV23 (Pneumovax) 05/18/2001, 12/08/2006 Seasonal Influenza, Quadrivalent Hd (Fluzone Hd) 04/03/2021, 04/07/2022 Seasonal Influenza, Quadrivalent, No Preserve, 6 Mons & Above, IM 03/26/2018 Seasonal Influenza, Quadrivalent, No Preserve, Adjuvanted, 65+ Yrs, IM 04/03/2020 Seasonal Influenza, Quadrivalent, No Preserve, IM 04/18/2016, 04/02/2017 Seasonal Influenza, Split, IIV3, With Preserve, Inj 04/19/2000, 05/18/2001, 05/04/2002, 05/04/2003, 05/07/2004, 05/14/2005, 05/12/2006, 04/26/2007, 05/18/2008, 03/28/2009, 04/16/2010, 04/17/2011,04/22/2012, 04/27/2013, 03/27/2014, 04/02/2015 Seasonal Influenza, Trivalent, Adjuvanted, 65+ yrs 04/04/2019 TD, Preservative Free 09/29/2011 TDAP (age 10 and older)(Boostrix) 05/14/2018 Varicella Zoster Vaccine (Adult) 09/29/2011 Zoster Vaccine Recombinant (Shingrix) 03/26/2018, 06/25/2018 Current Outpatient Medications Medication Sig Dispense Refill [...] 1/2 in the evening 135 Tablet 11 Pantoprazole Sodium 40 MG Oral Tablet Delayed Release (Protonix) Take by mouth 1 Tablet in the morning. 30 minutes before the first meal of the day. Do not crush, split or chew the tablet. (Patient not taking: Reported on 01/26/2023) 30 Tablet 5 No current facility-administered medications for this visit. 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 Stage 3b chronic kidney disease (HCC) N18.32 Overweight (BMI 25.0-29.9) E66.3 Medication Compliance: Patient is able to obtain all of her medications? Yes Patient takes medications as prescribed? Yes Patient manages own medications: Yes Patient uses a pill box? Yes, refill(s) completed by self Dental Exam: Not Applicable Eye Screening: Yes: Every 6 months Are you having trouble with hearing? No Do you use an assistive device to help your hearing? Yes Exercise Screening: daily excercise Nutrition Assessment: Eats a balanced diet and Eats three meals a day Pain Screening: Are you having any pain? No Sleep Screening Tool 'STOP': 1. Do you snore? No 2. Do you feel fatigued during the day? No 3. Do you wake up feeling like you haven't slept? No 4. Have you been told you stop breathing at night? No 5. Do you gasp for air or choke while sleeping? No 6. Have you been told you have Sleep Apnea? No 7. Do you have high blood pressure or are on medication(s) to control high blood pressure? Yes SCORE: If you check YES to two or more questions, make a referral for Obstructive Sleep Apnea Patient and Caregiver Support System: Patient lives alone Means of Transportation: Drives. Not a concern. Patient lives in Two Story - How many stairs: approx 16 with a railing Community Resources: Not Applicable Functional Status and ADL Skills: Has patient ever had an amputation? No Functional Assessment: 90- Able to carry on normal activity, minor symptoms of disease Ambulation: Patient ambulates without assistive device. Independent Dressing: Gets clothes and dresses without any assistance: Independent Able to move freely in chair or bed including turning over: Independent Repositioning (bed or chair): Not applicable Transfers: Independent Toileting: Goes to bathroom, uses toilet, arranges clothes and returns without any assistance: Independent Toileting: continent of bladder and continent of bowel Feeding: Self Bathing: Self; tub/shower Requires none assistance with ADLs. Instrumental ADL's: Shopping: Independent Housekeeping: Independent Handling Finances: Independent DME Vendor Name: Not Applicable Fall Risk Assessment: Can the patient demonstrate that she can stand from a sitting position? Yes Has the patient had a fall within the last 6 months? No Does the patient have a problem with her gait or balance? No Does the patient take 4 or more prescription medicines? Yes Does the patient use sedatives or narcotics? No Fall Risk Factors Present: Uses more than 4 medications Older than age 70 Oqf-Mt-ayc-Go Test: Time began at 1100. Patient stood from sitting position and walked approximately 10 feet, returned and sat down. Total time for cwy-dl-nic-go test was 10 seconds. Yfb-Ps-oww-Go Test completed? Yes Gender Specific Preventative Plan: Health Maintenance Topic Date Due COVID-19 Vaccine (5 - Moderna series) 11/25/2021 Albumin/Creatinine Ratio 04/03/2022 CKD HGB USE SMARTSET 69635 11/13/2022 Influenza Vaccine (FLU shot) (1) 03/20/2023 CKD PHOS USE SMARTSET 23853 04/07/2023 Depression Screening, Annual for Pts 12 and Over 01/27/2024 DTaP,Tdap,and Td Vaccines (2 - Td or Tdap) 05/14/2028 Zoster Vaccines Completed Pneumococcal Vaccine: 65+ Years Completed Hepatitis B Aged Out MENINGOCOCCAL (MENACTRA/MENVEO) Aged Out GARDASIL-HPV IMMUNIZATION SERIES Aged Out Follow Up/ Referrals/Handouts: No further action needed Routine general medical examination at a health care facility (Primary) Risk and functional assessment AWV completed today Chronic heart failure with preserved ejection fraction (HCC) - Med reconciliation completed and compliance discussed. - pt to continue present medications. Stage 3b chronic kidney disease (HCC) - Med reconciliation completed and compliance discussed. - pt to continue present medications. Creatinine Results: Lab Results Component Value Date/Time CREATININE - [facility] 1.5 (H) 04/07/2022 11:49 AM CREATININE - [facility] 1.4 (H) 11/13/2021 10:19 AM CREATININE - [facility] 1.7 (H) 09/23/2021 04:28 PM CREATININE - [facility] 1.2 (H) 04/19/2020 09:55 AM CREATININE - [facility] 1.2 (H) 06/27/2019 04:25 PM CREATININE - [facility] 1.2 (H) 12/22/2018 09:44 AM CREATININE, RANDOM URINE - [facility] 132 04/03/2021 11:26 AM CREATININE, RANDOM URINE - [facility] 134 02/19/2017 01:17 PM CREATININE, RANDOM URINE - [facility] 126 09/04/2011 12:32 PM CREATININE, RANDOM URINE - [facility] 154 08/16/2007 10:08 AM Essential tremor -continue following with pcp Dyslipidemia - Med reconciliation completed and compliance discussed. - pt to continue present medications. Lipid Panel Results: Results for orders placed or performed in visit on 12/02/10 LIPID PANEL Result Value Ref Range HOURS FASTING 12 hours Triglycerides 78 60 - 245 mg/dL Cholesterol 137 <200 mg/dL HDL Cholesterol 70 (H) 40 - 59 mg/dL Cholesterol-HDL Ratio 2.0 LDL Cholesterol 51 0 - 129 mg/dL Results for orders placed or performed in visit on 11/01/20 LIPID PANEL WITH DIRECT LDL IF TG IS HIGH Result Value Ref Range Triglycerides 65 <=174 mg/dL Cholesterol 167 <200 mg/dL HDL Cholesterol 77 >49 mg/dL Non-HDL Cholesterol 90 <=159 mg/dL LDL Cholesterol 77 <=129 mg/dL Gastroesophageal reflux disease with esophagitis without hemorrhage - Med reconciliation completed and compliance discussed. - pt to continue present medications. Exudative age-related macular degeneration, left eye, with active choroidal neovascularization (HCC) -continue following with ophthalmology Follow Up: Return in 1 year (on 01/27/2024) for 12 month Subsequent Adult Wellness Visit. | For: 12 month Subsequent Adult Wellness Visit | Check-out note: 12 month Subsequent Adult Wellness Visit Would patient like to schedule next AWV visit? Yes Emily Padilla RN AD8 Dementia Screening Interview Person answering questions: patient Remember, "Yes, a change" indicates that there has been a change in the last several years caused by cognitive (thinking and memory) problems 1. Problems with judgement (eg: problems making decisions, bad financial decisions, problems with thinking). No (0) 2. Less interest in hobbies/activities. No (0) 3. Repeats the same things over and over (questions, stories, or statements). No (0) 4. Trouble learning how to use a tool, appliance, or gadget (eg: VCR, computer, microwave, remote control). No (0) 5. Forgets correct month or year. No (0) 6. Trouble handling complicated financial affairs (eg: balancing checkbook, income taxes, paying bills). No (0) 7. Trouble remembering appointments. No (0) 8. Daily problems with thinking and/or memory. No (0) TOTAL AD8: 0 - AD8 Dementia Screening Score The final score is a sum of the number items marked "Yes, A Change". 0 - 1: Normal cognition; 2 or greater: Cognitive impairments is likely to be present - further testing required documented in this encounter Miscellaneous Notes * Pt Handout (on AVS) - Emily Padilla RN - 01/26/2023 11:31 AM EDT Images from the original note were not included. 12097 Preventing Falls: Staying Active Staying active is one of the best things you can do to prevent falls. Keep in mind that doing too little can be as risky as doing too much. That's because not being active can make you weaker and more likely to fall. But how much can you do safely? Start easy. Slowly work up to doing more. Talk with your healthcare provider about safe ways for you to stay active. Stay active, stay connected Staying connected with other people can help lower your risk of falls. One way it does this is by helping to keep you from feeling isolated and depressed. Find a social activity you enjoy. Make it part of your weekly or daily routine: Join a club or visit a senior center. Go to sikh services. Organize a potE-LeatherGroupk or game of cards. Garden with your neighbor. Have a friend join you to go walking outdoors or in the mall. How exercise helps The list of benefits from exercise just keeps getting longer. And, as you age, you can keep reapingthose rewards. Balance, flexibility, strength, and endurance all come from exercise. They all play a role in preventing falls. It's never too late to start exercising. Try organized activities. You can find these at senior centers, health clubs, or even at a episcopalian, nondenominational, or jehovah's witness. This approachmay work best if you've never exercised in the past or if you need company to get motivated. But you can exercise on your own if you prefer. Try an exercise video or walk in the park. Last Reviewed Date: 06/19/202219994548-8938 [employer]. All rights reserved. This information is not intended as a substitute for professional medical care. Always follow your healthcare professional's instructions. * Pt Handout (on AVS) - Emily Padilla RN - 01/26/2023 11:30 AM EDT 86384 Preventing Falls: How to Prepare and What to Do Falling is not something you want to think about. But it can make a big difference to plan ahead. If you're prepared, you'll know how to get help. And you'll be less likely to panic if you fall. Thismeans you'll be able to do what's needed to get help right away. How to prepare Have someone check on you daily, either in person or by phone. Keep a list of emergency numbers near the phone. Always have a way to call for help. Keep a cell phone with you at all times. Or talk with your healthcare provider about how to set up a home monitoring service. This involves wearing a small device around your neck or wrist. If you fall, you can press the button on the device. This alerts emergency responders. Talk with your healthcare provider about an exercise program that's right for you. Regular exercise may reduce the risk of falling and the risk for injury related to a fall. Have good lighting in your home. Don't use throw rugs, because they can raise your risk of tripping and falling. Add grab bars in the bathroom to help reduce the risk of falling. Small changes canmake your home safer. Talk with your healthcare provider about making your home safer. What to do if you fall Above all, try to stay calm: If you start to fall, try to relax your body. This will reduce the impact of the fall. After you fall, press your monitor button, or use your phone to call for help. Don't sierra to get up. First, make sure you're not hurt. Roll onto your side, then crawl to a chair. Pull yourself up onto the chair slowly. Get checked if you struck your head, lost consciousness, were confused afterward, or have any other concerns for injury. Tell your healthcare provider that you fell. They can check you for injuries as needed, try to determine what made you fall, and help prevent you from falling again. A note to family and friends If you're with a loved one when they start to fall, don't try to stop the fall. Ease the person to the floor carefully, so neither of you gets hurt. Don't leave the person alone. And don't try to move them, especially if they may have hurt their head or neck. Check for injuries. If help is needed right away, call 911. Last Reviewed Date: 06/19/202219993447-1736 [employer]. All rights reserved. This information is not intended as a substitute for professional medical care. Always follow your healthcare professional's instructions. * Pt Handout (on AVS) - Emily Padilla RN - 01/26/2023 11:30 AM EDT Images from the original note were not included. 00858 Exercises to Prevent Falls Certain types of exercises may help make you less likely to fall. Try the ones below or do other exercises that your healthcare provider suggests. Depending on your health, you may need to start slowly. Don't let that stop you. Even small amountsof exercise can help you. Talk with your healthcare provider before starting any exercise program. Improve balance Many types of exercise can help improve balance. Arti chi and yoga are good examples. Here's anotherone to try. You can do it anytime and almost anywhere. Stand next to a counter or solid support. Push yourself up onto your tiptoes. Hold for 5 seconds. If you start to lose your balance, hold on to the counter. Rest and repeat 5 times. Work up to holding for 20 to 30 seconds, if you can. Increase flexibility Being more flexible makes it easier for you to move around safely. Try exercises like the seatedhamstring stretch. o Sit in a chair and put one foot on a stool. o Straighten your leg and reach with both hands down either side of your leg. Reach as far down your leg as you can. o Hold for about 20 seconds. o Go back to the starting position. Then repeat 5 times. Switch legs. o o Build strength o Resistance exercises help build strength. You can do them without equipment. Or you can use weights, elastic bands, or special machines. One such exercise is called the biceps curl. You can hold a 1-pound weight or even a can of soup. Do this exercise at least 3 times a week. Strive for every day. Sit up straight in a chair. Keep your elbow close to your body and your wrist straight. Bend your arm, moving your hand up to your shoulder. Then slowly lower your arm. Repeat 5 times. Switch to the other arm. Build your staying power Aerobic exercises make your heart and lungs stronger so you can keep moving longer. Walking and swimming are 2 of the best types of exercises you can do. Using a stationary bike is great, too. Find an aerobic exercise that you enjoy. Start slowly and build up. Even 5 minutes is helpful. Aim for a goal of 30 minutes, at least 3 times a week. You don't have to do 30 minutes in 1 session. Break it up and walk a little throughout the day. Starting out safely and slowly Start easy. Slowly work up to doing more. Talk with your healthcare provider about the best exercises for you. Call senior centers or health clubs about exercise programs. If needed, have a family member watch you walk every so often to check your stability. Exercise with a friend. Choose an activity you both enjoy. Be sure to gently warm up and cool down. Drink fluids, such as water, to stay hydrated. If your provider recommended that you limit fluids, ask them how much is OK to drink while exercising. Consider arti chi or yoga to strengthen your balance. Try exercises that you can do anytime, anywhere. Here are 2 examples. Have someone with you whenyou first try these: o Practice walking by placing one foot right in front of the other. o Stand up and sit down 10 times. Repeat this throughout the day. Last Reviewed Date: 05/20/202219991016-5025 [employer]. All rights reserved. This information is not intended as a substitute for professional medical care. Always follow your healthcare professional's instructions. documented in this encounter Plan of Treatment Upcoming Encounters Date Type Specialty Care Team Description 03/26/2023 Office Visit Dermatology Susan Cruz MD [address] [place] [address], [place] [address] 04/10/2023 Office Visit Family Medicine Nima Erickson MD [address] [place] [address] 04/15/2023 Office Visit Cardiology Claudette Stubbs PA-C [address] [place] [address] 01/29/2024 Nurse Only Ancillary Maynard, Nurse [facility] [address] [place] [address] Health Maintenance Due Date Last Done Comments COVID-19 Vaccine (5 - Moderna series) 11/25/2021 09/30/2021, 05/23/2021, 09/22/2020, Additional history exists Albumin/Creatinine Ratio 04/03/2022 021, 02/19/2017, 09/04/2011, Additional history exists CKD HGB USE SMARTSET 65520 11/13/202211/13, 11/13/2021, 04/03/2021, Additional history exists Influenza Vaccine (FLU shot) (#1) 2023 04/07/2022, 04/03/2021, 04/03/2020, Additional history exists CKD PHOS USE SMARTSET 61924 04/07/202303/20, 04/03/2021, 04/19/2020, Additional history exists Depression [...] as of this encounter Visit Diagnoses Diagnosis Routine general medical examination at a health care facility- Primary Risk and functional assessment Screening for unspecified condition Chronic heart failure with preserved ejection fraction (HCC) Stage 3b chronic kidney disease (HCC) Essential tremor Essential and other specified forms of tremor Dyslipidemia Other and unspecified hyperlipidemia Gastroesophageal reflux disease with esophagitis without hemorrhage Exudative age-related macular degeneration, left eye, with active choroidal neovascularization (HCC) documented in this encounter Care Teams Beer Maker Relationship Specialty Start Date End Date Nima Erickson MD [address] [place] [address] PCP - General Family Medicine 09/16/19 documented as of this encounter
--- OUTSIDE RECORDS SUMMARY | 2023-06-06 07:24 | External Medical Summary ---
Author Name Unknown Address Unknown Organization K01:[facility] [place] [address] [facility] [address] Laboratory Report Ordering Provider Test Date Status YISEL LAZAR 02/05/2023 10:46:08 Final Normal: <30 mg/g creatinine< br/>High: 30-300 mg/g creatinine
Very High: >300 mg/g creatinine
Nephrotic: >2200 mg/g creatinine Observation Date Value Abnormality Reference (Units ) Status Albumin, Urine 02/05/2023 10:46:08 <1.20 (mg/dL) Final Creatinine, Urine 02/05/2023 10:46:08 199 (mg/dL) Final Albumin/Creatinine [Mass Ratio] in Urine 02/05/2023 10:46:08 <6 <30 (mg/g Creat) Final Performing Location [facility] [place] - [address] [place] [address]
--- OUTSIDE RECORDS SUMMARY | 2023-06-06 07:24 | External Medical Summary | Summary of Care ---
Author Name Unknown Organization [facility] Address [address] [facility] [address] Phone [phone] Care Team Providers Care Fur Trimming Machine Operator Name Role Phone Nima Erickson MD Primary Care Provider [phone] Reason for Visit * Reason Onset Date Comments Outpatient Testing 01/26/2023 Encounter Details Date Type Department Care Team Description 01/26/2023 Telephone Family Practice [facility] [address] [place] [address] Nima Erickson MD [address] [place] [address] Outpatient Testing Allergies Active Allergy Reactions Severity Noted Date Comments Adhesive Tape Other (Please comment) 10/04/2012 Pt reports "it took some skin off" Bee Venom 03/13/2022 Lisinopril Cough Low 03/27/2009 Morphine 08/29/2020 Other reaction(s): vomiting Guaifenesin Er Diarrhea,Nausea/vomi tin g,Neuro complications (Please comment) 09/08/2017 Oxycodone 08/29/2020 Other reaction(s): STRANGE DREAMS Oxycodone-Acetaminophe n Other (Please comment) 05/28/2010 [place] funny on medication documented as of this [...] 01/26/2023 Doxazosin Mesylate 2 MG Oral Tablet (Cardura)Indication [...] the evening 135 Tablet 11 11/05/2022 Active documented as of this encounter (statuses [...] encounter Miscellaneous Notes * Telephone Encounter - Emily Padilla RN - 01/26/2023 1:40 PM EDT myg message sent to pt * Telephone Encounter - Nima Erickson MD - 01/26/2023 11:49 AM EDT Thank you. Nothing else other than what is due needs to be ordered. Tks! * Telephone Encounter - Emily Padilla RN - 01/26/2023 11:46 AM EDT Provider to address: Katarina has an appt with you in Mar and would like to have labs drawn prior tothat appt. I have ordered what is due per her HM. Please add any others and route message back to me so I can contact her. Reason for Call: Outpatient Testing Contact: In Clinic Contact Type: Orders Outcome: see above Face to face time spent with Patient (minutes): 0 Total Time including non face to face (minutes): 10 documented in this encounter Plan of Treatment Upcoming Encounters Date Type Specialty Care Team Description 03/26/2023 Office Visit Dermatology Susan Cruz MD [address] [place] [address] [place] [address] 04/10/2023 Office Visit Family Medicine Nima Erickson MD [address] [place] [address] 04/15/2023 Office Visit Cardiology Claudette Stubbs PA-C [address] [place] [address] 01/29/2024 Nurse Only Ancillary Maynard, Nurse Annual [facility] [address] [place] [address] Scheduled Orders Name Type Priority Associated Diagnoses Orde r Schedule ALBUMIN / CREATININE RATIO, URINE Lab Routine Stage 3b chronic kidney disease (HCC) Expected: 01/26/2023 (Approximate), Expires: 01/26/2024 CBC WITH WBC DIFFERENTIAL Lab Routine Stage 3b chronic kidney disease (HCC) Expected: 01/26/2023 (Approximate), Expires: 01/27/2024 Health Maintenance Due Date Last Done Comments COVID-19 Vaccine (5 - Moderna series) 11/25/2021 09/30/2021, 05/23/2021, 09/22/2020, Additional history exists Albumin/Creatinine Ratio 04/03/2022 021, 02/19/2017, 09/04/2011, Additional history exists CKD HGB USE SMARTSET 49797 11/13/202211/13, 11/13/2021, 04/03/2021, Additional history exists Influenza Vaccine (FLU shot) (#1) 2023 04/07/2022, 04/03/2021, 04/03/2020, Additional history exists CKD PHOS USE SMARTSET 28042 04/07/202303/20, 04/03/2021, 04/19/2020, Additional history exists Depression [...] Diagnoses Diagnosis Stage 3b chronic kidney disease (HCC)- Primary documented in this encounter Care Teams Fur Trimming Machine Operator Relationship Specialty Start Date End Date Nima Erickson MD [address] [place] [address] PCP - General Family Medicine 09/16/19 documented as of this encounter
--- OUTSIDE RECORDS SUMMARY | 2023-06-06 07:24 | External Medical Summary | Summary of Care ---
Author Name Unknown Organization [facility] Address [address] [place] [address] Phone [phone] Care Team Providers Care Shank Pinner Name Role Phone Nima Erickson MD Primary Care Provider [phone] Reason for Visit * Reason Comments Follow Up 2 month follow up on left cheek. Denies concerns. Encounter Details Date Type Department Care Team Description 12/02/2022 Office Visit [facility] Surgery [facility] [address] [place] [address] Jodi Horan MD [address] [place] [address] Scar*; Actinic keratosis Allergies Active Allergy Reactions Severity Noted Date Comments Adhesive Tape Other (Please comment) 10/04/2012 Pt reports "it took some skin off" Bee Venom 03/13/2022 Lisinopril Cough Low 03/27/2009 Morphine 08/29/2020 Other reaction(s): vomiting Guaifenesin Er Diarrhea,Nausea/vomi tin g,Neuro complications (Please comment) 09/08/2017 Oxycodone 08/29/2020 Other reaction(s): STRANGE DREAMS Oxycodone-Acetaminophe n Other (Please comment) 05/28/2010 [place] funny on medication documented as of this encounter (statuses as of 12/08/2022) Medications Medication Sig Dispensed Refills Start Date End Date Status ASPIRIN 81 MG OR CHEW Take 1 Tablet by mouth every other day. 0 04/11/2003 Active OMEGA-3 FATTY ACIDS 600 MG PO CAPS 2 tabs each day 0 01/27/2006 Activ e CORAL CALCIUM 1000 (390 CA) MG PO TABS 1200 mg 1 tab daily 0 Active VITAMIN D 1000 UNITS PO CAPS 2000 mg 1 tab daily 0 Active Multiple Vitamins-Minerals (PRESERVISION AREDS) Tablet Take 2 Tablets by mouth in the morning. 0 Active Magnesium Oxide 200 MG TABS Take by mouth. Take 1 tab every other day 0 Active Diclofenac Sodium 1 % External Gel (Voltaren) Apply topically to affected area 2 g in the morning AND 2 g before bedtime. Apply to foot. 150 g 3 10/01/2021 Active hydroCHLOROthiazide 12.5 MG Oral Capsule (Hydrodiuril) Take one tab 5 days/week 90 Capsule 3 10/01/2021 Active Pravastatin Sodium 40 MG Oral Tablet (Pravachol)Indicatio ns:Dyslipidemia, goal to be determined Take 1 tablet by mouth once daily 100 Tablet 3 02/17/2022 Active Pantoprazole Sodium 40 MG Oral Tablet Delayed Release (Protonix)Indication s:Gastroesophageal reflux disease with esophagitis without hemorrhage Take by mouth 1 Tablet in the morning. 30 minutes before the first meal of the day. Do not crush, split or chew the tablet. 30 Tablet 5 04/07/2022 Active Doxazosin Mesylate 2 MG Oral Tablet (Cardura)Indications :Chronic heart failure with preserved ejection fraction (HCC) TAKE 2 TABLETS BY MOUTH AT BEDTIME 180 Tablet 1 06/18/2022 Active Losartan Potassium 50 MG Oral Tablet (Cozaar)Indications: HTN, goal below 150/90 Take 1 tablet by mouth once daily 90 Tablet 3 09/12/2022 Active Carvedilol 6.25 MG Oral Tablet (Coreg) Take one in the morning, 1/2 in the evening 135 Tablet 11 11/05/2022 Active documented as of this encounter (statuses as of 12/08/2022) Active Problems Problem Noted Date Overweight (BMI [...] as of this encounter (statuses as of 12/08/2022) Resolved Problems Problem Noted Date Resolved Date [...] as of this encounter (statuses as of 12/08/2022) Immunizations Name Administration Dates Next Due COVID-19 mRNA, LNP-s, No Pre serve, 2-Dose Series (Moderna) 09/22/2020,08/18/2020 Covid-19 Mrna, Lnp-s, No Pre serve, Booster (Moderna) 09/30/2021,05/23/2021 Pneumococcal Conjugate Vacc, 13 Valent (Prevnar) 08/03/2014 Pneumococcal Polysaccharide PPV23 (Pneumovax) 12/08/2006 Seasonal Influenza, [...] got money to buy more. Never true 01/13/2022 Within the past 12 months, t he food you bought just didn't last and you didn't have money to get more. 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 Two thick areasof scar tissue persist but are not particularly bothersome to the patient. Overall, she is happy with the outcome of the scar. She also asks about scaly spots on her left cheek. EXAM Limited exam of face completed: Well healed scar on left cheek. Thick areas of scar tissue at superior aspect and midpoint of the scar Thin pink papule with rough gritty scale located on the left cheek PLAN 1. Scar, left cheek - Well healed, no further intervention needed, patient satisfied with outcome thus far - Encouraged scar massage; offered intralesional Kenalog for areas of thick scar, which patient declined today 2. Actinic Keratosis, left cheek - A total of 1 lesion was treated with cryotherapy. - The patient was counseled on the premalignant nature of these lesions, and they were treated withcryotherapy today which the patient is agreeable to. The risks, benefits, indications, alternatives, and complications were discussed, and consent was obtained. The patient was encouraged to contact me with any further questions or concerns. Jodi Horan MD Associate, Mohs Micrographic Surgery & Dermatologic Surgery 12/02/2022 documented in this encounter Nursing Notes * Brionna Ortiz LPN - 12/02/2022 2:48 PM EDT Patient identified by name and date. Chief Complaint Patient presents with Follow Up 2 month follow up on left cheek. Denies concerns. documented in this encounter Plan of Treatment Upcoming Encounters Date Type Specialty Care Team Description 01/26/2023 Nurse Only Ancillary Caesar, Nurse Annual [facility] [address] [place] [address] 02/06/2023 Office Visit Family Medicine Demetrice Gaines MD [address] [place] [address] 03/26/2023 Office Visit Dermatology Susan Cruz MD [address] [place] [address] 04/10/2023 Office Visit Family Medicine Nima Erickson MD [address] [place] [address] 04/15/2023 Office Visit Cardiology Claudette Stubbs PA-C [address] [place] [address] Health Maintenance Due Date Last Done Comments COVID-19 Vaccine (5 - Booster for Moderna series) 11/25/2021 09/30/2021, 05/23/2021, 09/22/2020, Additional history exists Albumin/Creatinine Ratio 04/03/2022 021, 02/19/2017, 09/04/2011, Additional history exists CKD HGB USE SMARTSET 59218 11/13/202211/13, 11/13/2021, 04/03/2021, Additional history exists Depression Screening, Annual for Pts 12 and Over 01/13/2023 01/13/2022 CKD PHOS USE SMARTSET 88072 04/07/202303/20, 04/03/2021, 04/19/2020, Additional history exists DTaP,Tdap,and Td Vaccines (2 - Td or Tdap) 05/14/2028 05/14/2018, 09/29/2011 Pneumococcal Vaccine: 65+ Years Completed 08/03/2014, 12/08/2006, 05/18/2001 Zoster Vaccines Completed 06/25/2018, 01/2018, 09/29/2011 Influenza Vaccine (FLU shot) Completed , 04/03/2021, 04/03/2020, Additional history exists GARDASIL-HPV IMMUNIZATION SERIES Aged [...] as of this encounter Visit Diagnoses Diagnosis Scar- Primary Scar condition and fibrosis of skin Actinic keratosis documented in this encounter Care Teams Shank Pinner Relationship Specialty Start Date End Date Nima Erickson MD [address] [place] [address] PCP - General Family Medicine 09/16/19 documented as of this encounter
--- OUTSIDE RECORDS SUMMARY | 2023-06-06 07:24 | External Medical Summary ---
Author Name Unknown Address Unknown Organization K01:[facility] [address] [facility] [place] [place] [address] Laboratory Report Ordering Provider Test Date Status NAGIYISEL 02/05/2023 10:46:08 Final Observation Date Value Abnormality Reference (Units ) Status SYNC LEUKOCYTES IN BLOOD BY AUTOMATED COUNT 02/05/2023 10:46:08 5.43 4.00-10.80 (K/uL) Final Segs 02/05/2023 10:46:08 58.7 40.0-75.0 (%) Final Lymphs % 02/05/2023 10:46:08 26.7 18.0-42.0 (%) Final Monos 02/05/2023 10:46:08 9.9 1.0-11.0 (%) Final Eosinophils 02/05/2023 10:46:08 3.9 0.0-6.0 (%) Final Basos 02/05/2023 10:46:08 0.6 0.0-2.0 (%) Final Immature Granulocyte, Percent 02/05/2023 10:46:08 0.2 0.0-2.0 (%) Final Absolute Segs 02/05/2023 10:46:08 3.19 1.80-7.70 (K/uL) Final Lymphs, absolute 02/05/2023 10:46:08 1.45 1.00-4.80 (K/ul) Final Monos, Abs 02/05/2023 10:46:08 0.54 0.00-1.10 (K/uL) Final Eos, Abs 02/05/2023 10:46:08 0.21 0.00-0.70 (K/uL) Final Basos, Abs 02/05/2023 10:46:08 0.03 0.00-0.20 (K/uL) Final Immature Granulocytes, Number 02/05/2023 10:46:08 0.01 0.00-0.20 (K/uL) Final Performing Location [facility]ATORY [facility] - [address] [facility] [address]
[2023-06-06] MEDS: guaiFENesin 600 MG TABCR PO SCH (07:44)
[2023-06-06] MEDS: FAMOTIDINE 10 MG TABLET PO SCH (07:44)
[2023-06-06] MEDS: CEROVITE ADV FORMULA TAB PO SCH (07:44)
[2023-06-06] MEDS: PRAVASTATIN SOD 40 MG TAB PO SCH (07:45)
[2023-06-06] MEDS: carvediloL 6.25 MG TAB PO SCH (07:45)
[2023-06-06] MEDS: FLUTICASONE PROPIONATE NA SPR 16 GM BTL SCH (07:45)
[2023-06-06] MEDS: LOSARTAN POTASSIUM 50 MG TAB PO SCH (07:45)
[2023-06-06] MEDS: dexAMETHasone 6 MG in SYRINGE 0 ML IV SCH (07:45)
[2023-06-06] MEDS ORDERED: DOXYCYCLINE HYCLATE 100 MG CAP PO SCH (09:30)
--- NOTE | 2023-06-06 15:13 | Hospitalist Progress Note ---
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 Acute hypoxic respiratory failure Acute Covid-19 --Chest CTA: No evidence for a pulmonary embolus. Bibasilar densities favor subsegmental atelectasis/dependent change.. Otherwise, no focal lung cons olidations to suggest a pneumonia. Mild cardiomegaly, unchanged -- Serology positive for COVID-19. Negative for influenza, RSV -- Blood cultures negative to date CRP elevated, normal procalcitonin Started on Remdesivir, Solu-Medrol Day #3 Pulmonary hygiene with flutter valve, incentive spirometer Albuterol as needed PT/OT Weaned off of supplemental oxygen Empirically started on doxycycline Clinically improved Plan to discharge home today Chronic HFpEF Possible component of acute CHF on top viral illness Monitor daily weight, strict I and O Lasix as needed CKD-3 Baseline 1.2-1.3 Monitor renal function Avoid nephrotoxic agents as able HTN continue losartan, coreg Monitor BP Adjust medications as needed HLD chronic, stable continue statin Prediabetes HbA1c 5.9 DVT Px: SQ Heparin Code Status FULL CODE Disposition Home Admission and Anticipated Discharge Date Admission Date: June 04, 2023 Subjective Patient is seen and examined at bedside States she feels ready to be discharged Only minimal cough No other complaints Saturating well on room air Denies any chest pain, dyspnea, dizziness, nausea, vomiting, abdominal pain Had PT OT evaluation earlier today Review of Systems Review of Systems: All systems reviewed & are unremarkable except as noted in Subjective Physical Exam Physical Exam: Physical Exam: Vitals signs as noted above General Appearance:Moderately built and nourished, no apparent distress, elderly Head: normocephalic, Atraumatic Eyes: normal inspection, EOMI Neck: supple, Trachea midline Respiratory/Chest: Decreased breath sounds, CTA, No accessory muscle use Cardiovascular: S1, S2, No murmur Abdomen/GI:Soft, Non tender, Bowel sounds present Extremities/Musculoskeletal:normal inspection, no edema Neurologic/Psych:AAOX3, grossly no focal neurological deficits, +hearing impairment Skin: normal color, warm Results & Data Results & Data Vital Signs (Past 12 Hours) Vital Signs Temp Pulse Pulse Pulse Resp BP Pulse Ox 06/06/23 11:58 36.5 C 53 L 17 125/69 94 06/06/23 07:45 06/06/23 07:45 46 L 06/06/23 07:38 37.1 C 55 L 16 178/72 H 94 O2 Del Method 06/06/23 11:58 Room Air 06/06/23 07:45 Room Air 06/06/23 07:45 06/06/23 07:38 Room Air Laboratory Results Short CBC 06/06/23 Range/Units 05:23 WBC 7.02 (4.8-10.8) K/ul Hgb 12.8 (12.0-16.0) g/dl Hct 38.0 (37.0-47.0) % Plt Count 185 (130-400) K/uL BMP 06/06/23 05:23 Sodium 140 Potassium 4.2 Chloride 107 Carbon Dioxide 27 BUN 29 H Creatinine 1.45 H Glucose 84 Calcium 9.3
--- NOTE | 2023-06-06 15:49 | Discharge Summary ---
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 She has otherwise had ongoing sx for 1.5 weeks. "I just had no ambition." She chronically has a dry throat. She has been having increased SOB with exertion, even climbing a flight of steps along with a productive purulent cough. She has been having episodes of where she becomes acutely short of breath and having wheezing. She feels this in her throat. She is a stomach sleeper and denies any issues with this. She has had off and on hoarseness and voice change in the last week. Her voice tends to change when she gets sick. She denies any lower extremity swelling, PND, orthopnea. She denies f/c/s, dizziness, lightheaded, dysuria, increased urg/freq with urination, melena or hematochezia. She denies prior hx of COPD/Asthma. Previously she saw pulmonology, Dr. Hays for shortness of breath. No known sick contacts. She did have a one time episode of diarrhea and vomiting this morning, but otherwise this has resolved. She states she has had pneumonia 5 other times in the past. In ED patient would have episodes where she would desaturate. She will get acute episodes of wheezing and become short of breath. This would resolve with oxygen. Her CBC and CMP is unremarkable except for mild elevated creatinine at 1.30 which is her baseline. She did have a mildly elevated troponin at 15.6 and repeat in 2 hours was 16.2. Her procalcitonin was negative. She did test positive for SARS-CoV-2. Chest x-ray and chest CTA negative for PE and consolidation. CTA of chest did not subsegmental atelectasis. Pt jeffrey Patel is at bedside who helps elicit history. She lives alone in 2 story house. At baseline she is very independent. Principal Diagnosis Acute hypoxic respiratory failure COVID-19 infection Discharge Data Allergies Allergy/AdvReac Type Severity Reaction Status Date / Time adhesive Allergy Unknown SKIN TEAR Verified 06/04/23 12:27 bee venom protein (honey bee) Allergy Unknown Verified 06/04/23 12:28 lisinopril AdvReac Unknown DRY MOUTH Verified 06/04/23 12:27 morphine AdvReac Unknown vomiting Verified 06/04/23 12:27 oxycodone AdvReac Unknown STRANGE Verified 06/04/23 12:27 DREAMS guaifenesin [From Mucinex] AdvReac vomiting, Verified 06/04/23 12:28 diarrhea Consultations 06/04/23 14:19 ED Decision to Admit Stat Procedures Performed Laboratory Results WBC 7.02 K/ul (4.8-10.8) 06/06/23 05:23 RBC 4.39 M/uL (4.20-5.40) 06/06/23 05:23 Hgb 12.8 g/dl (12.0-16.0) 06/06/23 05:23 Hct 38.0 % (37.0-47.0) 06/06/23 05:23 MCV 86.6 fL (80.0-100.0) 06/06/23 05:23 MCH 29.2 pg (25.0-34.0) 06/06/23 05:23 MCHC 33.7 g/dL (32.0-36.0) 06/06/23 05:23 RDW Std Deviation 44.2 fL (36.4-46.3) 06/06/23 05:23 RDW Coeff of Meggan 13.8 % (11.5-14.5) 06/06/23 05:23 Plt Count 185 K/uL (130-400) 06/06/23 05:23 MPV 9.8 fL (9.4-12.4) 06/06/23 05:23 Immature Gran % (Auto) 0.2 % 06/05/23 06:20 Neut % (Auto) 71.0 % 06/05/23 06:20 Lymph % (Auto) 16.6 % 06/05/23 06:20 Daniels % (Auto) 12.2 % 06/05/23 06:20 Eos % (Auto) 0.0 % 06/05/23 06:20 Baso % (Auto) 0.0 % 06/05/23 06:20 Neut # (Auto) 4.08 K/uL (1.40-6.50) 06/05/23 06:20 Lymph # (Auto) 0.95 K/uL (1.20-3.40) L 06/05/23 06:20 Daniels # (Auto) 0.70 K/uL (0.11-0.59) H 06/05/23 06:20 Eos # (Auto) 0.00 K/uL (0.00-0.50) 06/05/23 06:20 Baso # (Auto) 0.00 K/uL (0.00-0.20) 06/05/23 06:20 Immature Gran # (Auto) 0.01 K/uL (0.01-0.20) 06/05/23 06:20 ABG pH 7.35 (7.35-7.45) 06/04/23 14:20 ABG pCO2 37 mmHg (35-46) 06/04/23 14:20 ABG pO2 98 mmHg (80-95) H 06/04/23 14:20 ABG HCO3 20 mmol/L (19-24) 06/04/23 14:20 ABG O2 Saturation 98.4 % (90-95) H 06/04/23 14:20 ABG Base Excess -4.7 mEq/L (-9-1.8) 06/04/23 14:20 Rodri Test Pos (Pos) 06/04/23 14:20 Oxygen Given 3L 06/04/23 14:20 Sodium 140 mmol/L (136-145) 06/06/23 05:23 Potassium 4.2 mmol/L (3.5-5.1) 06/06/23 05:23 Chloride 107 mmol/L (98-107) 06/06/23 05:23 Carbon Dioxide 27 mmol/L (21-32) 06/06/23 05:23 Anion Gap 6 (3-11) 06/06/23 05:23 BUN 29 mg/dl (6-23) H 06/06/23 05:23 Creatinine 1.45 mg/dl (0.6-1.2) H 06/06/23 05:23 Est Cr Clr Drug Dosing 26.7 ml/min 06/06/23 05:23 Est GFR ( Amer) 37.4 ml/min 06/06/23 05:23 Est GFR (Non-Af Amer) 32.3 ml/min 06/06/23 05:23 BUN/Creatinine Ratio 20.0 (10-20) 06/06/23 05:23 Glucose 84 mg/dl (70-99(Fasting)) 06/06/23 05:23 Estimat Average Glucose 123 mg/dl 06/05/23 06:20 Hemoglobin A1c 5.9 % (4.5-5.6) H 06/05/23 06:20 Lactate 0.9 mmol/L (0.4-2.0) 06/04/23 11:03 Calcium 9.3 mg/dl (8.6-10.3) 06/06/23 05:23 Magnesium 2.2 mg/dl (1.7-2.4) 06/06/23 05:23 Total Bilirubin 0.3 mg/dl (0.2-1.0) 06/05/23 06:20 Direct Bilirubin 0.0 mg/dl (0-0.2) 06/04/23 10:17 AST 16 U/L (13-39) 06/05/23 06:20 ALT 12 U/L (7-52) 06/05/23 06:20 Alkaline Phosphatase 53 U/L (34-104) 06/05/23 06:20 Troponin I High Sens 16.2 pg/ml (0-14) H 06/04/23 14:20 C-Reactive Protein 2.23 mg/dl (0-0.5) H 06/06/23 05:23 B-Natriuretic Peptide 91 pg/ml (0-100) 06/04/23 10:17 Total Protein 6.4 gm/dl (6.0-8.3) 06/05/23 06:20 Albumin 3.9 gm/dl (3.4-5.0) 06/05/23 06:20 Globulin 2.5 gm/dl (2.5-4.0) 06/05/23 06:20 Albumin/Globulin Ratio 1.6 (0.9-2) 06/05/23 06:20 Procalcitonin < 0.05 ng/ml (0-0.5) 06/06/23 05:23 Urine Color Yellow 06/04/23 20:57 Urine Appearance Clear (Clear) 06/04/23 20:57 Urine pH 5.5 (4.5-7.5) 06/04/23 20:57 Ur Specific [place] 1.022 (1.000-1.030) 06/04/23 20:57 Urine Protein Trace (Negative) H 06/04/23 20:57 Urine Glucose (UA) Negative (Negative) 06/04/23 20:57 Urine Ketones Negative (Negative) 06/04/23 20:57 Urine Blood Trace (Negative) H 06/04/23 20:57 Urine Nitrite Negative (Negative) 06/04/23 20:57 Urine Bilirubin Negative (Negative) 06/04/23 20:57 Urine Urobilinogen Negative (Negative) 06/04/23 20:57 Ur Leukocyte Esterase Negative (Negative) 06/04/23 20:57 Urine WBC (Auto) 0 /hpf (0-5) 06/04/23 20:57 Urine RBC (Auto) 0-4 /hpf (0-4) 06/04/23 20:57 U Hyaline Cast (Auto) 0 /lpf (0-5) 06/04/23 20:57 U Epithel Cells (Auto) 5-10 /lpf (0-5) H 06/04/23 20:57 Urine Bacteria (Auto) Negative (Negative) 06/04/23 20:57 SARS-CoV-2 (PCR) POSITIVE (Negative) A* 06/04/23 10:10 Influenza Type A (PCR) Negative (Neg) 06/04/23 10:10 Influenza Type B (PCR) Negative (Neg) 06/04/23 10:10 RSV (RT-PCR) Negative (Neg) 06/04/23 10:10 Impressions Chest X-Ray 06/04/23 12:17 XR chest 1V portable CLINICAL HISTORY: acute hypoxia TECHNIQUE: Single frontal radiograph of the chest was obtained. Comparison: Comparison is made to chest radiograph 06/04/2023 FINDINGS: No lines and tubes are seen. Calcified aortic knob is seen. The lungs are clear. No evidence of pleural effusion or pneumothorax. IMPRESSION: Cardiomegaly without acute abnormality. In particular no evidence of pneumonia. ACT 112: Negative or not required by law. Electronically signed by: Mahendra Middleton M.D. 06/04/2023 1:27 PM Chest CTA 06/04/23 12:24 CHEST CTA for PULMONARY ARTERIES CT DOSE: 552.16 mGy.cm HISTORY: covid, hypoxia, r/o PE, room air 02 50% TECHNIQUE: Multiaxial CT images of the chest were performed following the intravenous administration of contrast to evaluate the pulmonary arteries. 3D/Maximal intensity projection images were also obtained. Sagittal and coronal reformations were also reviewed. A dose lowering technique was utilized adhering to the principles of ALARA. COMPARISON STUDY: Chest CTA 10/26/2022. FINDINGS: Focal 50% narrowing within the proximal left subclavian artery due to the calcified plaque. Normal caliber thoracic aorta with no evidence for a dissection. The heart remains mildly enlarged. No pleural or pericardial effusions. No filling defects within the pulmonary arteries to suggest a pulmonary embolus. No mediastinal or hilar lymphadenopathy. The visualized liver, spleen, and adrenal glands are unremarkable. Normal esophagus. No acute fractures identified. No pneumothorax. The central airways are patent. A few bibasilar linear and patchy densities favor subsegmental atelectasis/dependent change. Otherwise, no focal lung consolidations to suggest a pneumonia. IMPRESSION: 1. No evidence for a pulmonary embolus. 2. Bibasilar densities favor subsegmental atelectasis/dependent change. 3. Otherwise, no focal lung consolidations to suggest a pneumonia. 4. Mild cardiomegaly, unchanged ACT 112: Negative or not required by law. Electronically signed by: Mango Joseph M.D. 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 Acute hypoxic respiratory failure Acute Covid-19 --Chest CTA: No evidence for a pulmonary embolus. Bibasilar densities favor subsegmental atelectasis/dependent change.. Otherwise, no focal lung consolidations to suggest a pneumonia. Mild cardiomegaly, unchanged -- Serology positive for COVID-19. Negative for influenza, RSV -- Blood cultures negative to date CRP elevated, normal procalcitonin Started on Remdesivir, Solu-Medrol Day #3 Pulmonary hygiene with flutter valve, incentive spirometer Albuterol as needed PT/OT Weaned off of supplemental oxygen Empirically started on doxycycline Clinically improved Plan to discharge home today Chronic HFpEF Possible component of acute CHF on top viral illness Monitor daily weight, strict I and O Lasix as needed CKD-3 Baseline 1.2-1.3 Monitor renal function Avoid nephrotoxic agents as able HTN continue losartan, coreg Monitor BP Adjust medications as needed HLD chronic, stable continue statin Prediabetes HbA1c 5.9 DVT Px: SQ Heparin Code Status FULL CODE Disposition Home Total Time Total Time Spent Total Time Spent (In Minutes): 54 minutes Discharge Plan Discharge Items Patient Disposition: Home - Self-Care Reason For Visit: ACUTE HYPOXIC RESP FAILURE; COVID Discharge Diagnosis: Acute hypoxic respiratory failure COVID-19 infection Activity: Per Instructions section Exercise/Sports: Wait until after follow-up appointment Non-emergency contact: Primary Care Provider Call non-emergency contact if: you have any medication questions, your symptoms worsen, your pain is concerning for you and you have a fever Follow-up/Referrals: Nima Erickson MD [Primary Care Provider] - Diet: Heart Healthy Addtl Attending Provider Instructions: Follow-up with your primary care physician in 1 week Seek immediate medical attention if your symptoms reoccur or worsen Please take all medications as instructed on discharge list below. Please call if you have any questions or problems. You can reach a [facility] hospitalist on duty at [facility] 24 hours a day by calling [phone] Home Isolation COVID-19 Instructions The following information about Home Isolation is from the CDC Website: https://www.cdc.gov/coronavirus/2019-ncov/hcp/vkeiavyy-lpsknjl-rjyxbl.html Stay home except to get medical care People who are mildly ill with COVID-19 are able to isolate at home during their illness. You should restrict activities outside your home, except for getting medical care. Do not go to work, school, or public areas. Avoid using public transportation, ride-sharing, or taxis. Separate yourself from other people and animals in your home People: As much as possible, you should stay in a specific room and away from other people in your home. Also, you should use a separate bathroom, if available. Animals: You should restrict contact with pets and other animals while you are sick with COVID-19, just like you would around other people. Although there have not been reports of pets or other animals becoming sick with COVID-19, it is still recommended that people sick with COVID-19 limit contact with animals until more information is known about the virus. When possible, have another member of your household care for your animals while you are sick. If you are sick with COVID-19, avoid contact with your pet, including petting, snuggling, being kissed or licked, and sharing food. If you must care for your pet or be around animals while you are sick, wash your hands before and after you interact with pets and wear a face mask. Call ahead before visiting your doctor If you have a medical appointment, call the healthcare provider and tell them that you have or may have COVID-19. This will help the healthcare providers office take steps to keep other people from getting infected or exposed. Wear a face mask You should wear a face mask when you are around other people (e.g., sharing a room or vehicle) or pets and before you enter a healthcare providers office. If you are not able to wear a face mask (for example, because it causes trouble breathing), then people who live with you should not stay in the same room with you, or they should wear a face mask if they enter your room. Cover your coughs and sneezes Cover your mouth and nose with a tissue when you cough or sneeze. Throw used tissues in a lined trash can. Immediately wash your hands with soap and water for at least 20 seconds or, if soap and water are not available, clean your hands with an alcohol-based hand coal bagger that contains at least 60% alcohol. Clean your hands often Wash your hands often with soap and water for at least 20 seconds, especially after blowing your nose, coughing, or sneezing; going to the bathroom; and before eating or preparing food. If soap and water are not readily available, use an alcohol-based hand coal bagger with at least 60% alcohol, covering all surfaces of your hands and rubbing them together until they feel dry. Soap and water are the best option if hands are visibly dirty. Avoid touching your eyes, nose, and mouth with unwashed hands. Avoid sharing personal household items You should not share dishes, drinking glasses, cups, eating utensils, towels, or bedding with other people or pets in your home. After using these items, they should be washed thoroughly with soap and water. Clean all high-touch surfaces everyday High touch surfaces include counters, tabletops, doorknobs, bathroom fixtures, toilets, phones, keyboards, tablets, and bedside tables. Also, clean any surfaces that may have blood, stool, or body fluids on them. Use a household cleaning spray or wipe, according to the label instructions. Labels contain instructions for safe and effective use of the cleaning product including precautions you should take when applying the product, such as wearing gloves and making sure you have good ventilation during use of the product. Monitor your symptoms Seek prompt medical attention if your illness is worsening (e.g., difficulty breathing).Beforeseeking care, call your healthcare provider and tell them that you have, or are being evaluated for, COVID-19. Put on a face mask before you enter the facility. These steps will help the healthcare providers office to keep other people in the office or waiting room from getting infected or exposed. Ask your healthcare provider to call the local or state health department. Persons who are placed under active monitoring or facilitated self- monitoring should follow instructions provided by their local health department or occupational health professionals, as appropriate. When working with your local health department check their available hours. If you have a medical emergency and need to call 911, notify the dispatch personnel that you have, or are being evaluated for COVID-19. If possible, put on a face mask before emergency medical services arrive. Discontinuing home isolation Patients with confirmed COVID-19 should remain under home isolation precautions until the risk of secondary transmission to others is thought to be low. The decision to discontinue home isolation precautions should be made on a case-by- case basis, in consultation with healthcare providers and state and local health departments. Pending Studies at Discharge: Yes Studies:: Blood Cultures Stand-Alone Forms: [facility] [place], Smoking Cessation Medications and DC Order Prescriptions: New doxycycline hyclate 100 mg Capsule 100 mg PO BID Qty: 9 0RF albuterol sulfate [Ventolin HFA] 90 mcg/actuation Hfa Aerosol Inhaler 2 puff inhalation Q4H PRN (Reason: shortness of breath or wheezing) Qty: 8.5 0RF fluticasone propionate 50 mcg/actuation [place],Suspension 2 spray NA DAILY 10 Days Qty: 16 0RF benzonatate 100 mg Capsule 100 mg PO Q8H PRN (Reason: cough) Qty: 30 0RF Continued losartan 50 mg tablet 50 mg PO DAILY carvedilol 6.25 mg tablet 6.25 mg PO QAM carvedilol 6.25 mg tablet 3.125 mg PO QPM pravastatin 40 mg tablet 40 mg PO DAILY doxazosin 2 mg tablet 2 mg PO HS diclofenac sodium [Voltaren] 1 % Gel 2 g TOPICAL DIRECTED PRN (Reason: Pain) calcium carbonate [Calcium 600] 600 mg calcium (1,500 mg) Tablet 0 mg PO DAILY PreserVision AREDS 2,148 mcg-113 mg-45 mg-17.4mg Tablet 2 tab PO QAM Rx Instructions: administer with AM meal Discharge Orders: Discharge Order (Routine); Ordered 06/06/23 Ordered By: Chuck Chau Admission Data Admit Date/Time: 06/04/23 14:40 Attending Provider: Chuck Chau Admit Provider: Rolanda Avendano Primary Care Provider: Nima Erickson Other Providers: Rolanda Avendano
--- OUTSIDE RECORDS SUMMARY | 2023-06-06 16:43 | External Medical Summary | Summary of Care ---
Author Name Unknown Organization [facility] Address [address] [facility] [place] [address] Phone [phone] Care Team Providers Care Office Analyst Name Role Phone Nima Erickson MD Primary Care Provider [phone] Reason for Visit * Reason Comments eRx-Medication Refill Encounter Details Date Type Department Care Team (Late st Contact Info) Description 06/03/2023 Refill Cardiology, [facility] [address] [place] [address] Pat Young MD [address] [place] [address] Dyslipidemia, goal to be determined Allergies Active Allergy Reactions Criticality Noted Date Comments Adhesive Tape Other (Please comment) 10/04/2012 Pt reports "it took some skin off" Bee Venom 03/13/2022 Lisinopril Cough Low 03/27/2009 Morphine 08/29/2020 Other reaction(s): vomiting Guaifenesin Er Diarrhea,Nausea/vomi ti ng,Neuro complications (Please comment) 09/08/2017 Oxycodone 08/29/2020 Other reaction(s): STRANGE DREAMS Oxycodone-Acetaminoph en Other (Please comment) 05/28/2010 [place] funny on medication documented as of this encounter (statuses as of 06/04/2023) Medications Medication Sig Dispensed Refills Start Date [...] 5 days/week 90 Capsule 3 10/01/2021 Active Carvedilol 6.25 MG Oral Tablet (Coreg) Take one in the morning, 1/2 in the evening 135 Tablet 11 11/05/2022 Active Doxazosin Mesylate 2 MG Oral Tablet (Cardura)Indicat ions:Chronic heart failure with preserved ejection fraction (HCC) TAKE 2 TABLETS BY MOUTH AT BEDTIME 180 Tablet 3 03/03/2023 Active Losartan Potassium 50 MG Oral Tablet (Cozaar)Indicati ons:HTN, goal below 150/90 Take 1 Tablet by mouth in the morning. 90 Tablet 3 04/10/2023 Active Pravastatin Sodium 40 MG Oral Tablet (Pravachol)Indic ations:Dyslipide lori, goal to be determined Take 1 tablet by mouth once daily 90 Tablet 3 06/04/2023 Active Pravastatin Sodium 40 MG Oral Tablet (Pravachol)Indic ations:Dyslipide lori, goal to be determined Take 1 tablet by mouth once daily 100 Tablet 3 02/17/2022 3 Discontinued documented as of this encounter (statuses as of 06/04/2023) Active Problems Problem Noted Date Diagnosed Date JUAN MANUEL (generalized anxiety disorder) 04/21/2023 Overweight (BMI 25.0-29.9) 10/06/2022 Stage 3b chronic kidney disease 05/28/2020 Overview: Per CKD protocol - Based on GFR of 52.0 on 06/04/07. Exudative age-related macula r degeneration, left eye, with active choroidal neovascularization 06/27/2019 (HFpEF) heart failure with preserved ejection fr action 11/24/2017 Gastroesophageal reflux disease with esophagitis 11/24/2017 Dyslipidemia 06/28/2009 Overview: Per Lipid Taxonomy. HTN, goal below 150/90 06/30/2001 Essential tremor documented as of this encounter (statuses as of 06/04/2023) Resolved Problems Problem Noted Date Diagnosed Date Resolved Date Chronic heart failure with p reserved ejection fraction 08/08/2022 10/06/2022 Hypertensive kidney disease with stage 3b chronic kidney disease 03/26/2022 04/07/2022 Mass of hand, left 02/01/2021 Chronic kidney disease, stage 3b 11/27/2020 04/22/2021 Overview: Per CKD protocol Carpal tunnel syndrome, left 11/23/2020 04/22/2021 Trigger middle finger of left hand 11/23/2020 04/22/2021 Trigger finger of left thumb 11/23/2020 04/22/2021 Hypertensive heart and kidne y disease with chronic diastolic congestive heart failure and stage 3b chronic kidney disease 05/28/202010/2020 Overview: Per CKD protocol COPD, group C, by GOLD 2017 classification 09/26/2019 04/22/2021 Overview: Per COPD GOLD Classification COPD, mild 09/07/2019 09/29/2019 Overview: Per COPD GOLD Classification Primary open-angle glaucoma, bilateral, stage unspecified 07/27/2019 10/06/2022 History of colon polyps 12/15/201808/21 Hypertensive heart and kidne y disease with chronic diastolic congestive heart failure and stage 3 chronic kidney disease 12/15/201805/31 Overview: Per CKD protocol Non-rheumatic mitral regurgitation 06/07/2018 09/14/2019 Hx of actinic keratosis 03/10/201808/21 Hoarseness 10/19/2017 09/14/2019 GERD (gastroesophageal reflux disease) 10/16/2014 12/04/2017 Hx of malignant melanoma 03/28/2013 Overview: L upper arm 0.35 mmm 09/2012 Historical. Hx of basal cell carcinoma 05/19/2011 0 09/14/2019 Overview: L upper cutaneous lip - BCC, 09/2010 Incisional hernia 05/11/2008 02/19/2017 Kidney disease, chronic, sta ge III (GFR 30-59 ml/min) 08/12/2007 05/31/2020 Overview: Based on GFR of 52.0 on 06/04/07. ADVANCE DIRECTIVE INFORMATION 06/02/2006 09/14/2019 Overview: Information given previously. BENIGN NEOPLASM LG BOWEL 04/03/2003 Mitral valve disorder 12/09/20022007 Overview: mod severe MR Aortic valve disorder 12/09/20022007 Overview: mild AI Ischemic mitral regurgitation 11/23/2002 01/10/2016 Dyslipidemia, goal to be determined 07/14/2001 06/28/2009 Overview: Per Lipid Taxonomy. Edema 06/30/2001 08/12/2006 Menopause 06/19/1999 05/13/2006 Other specified glaucoma Overview: More specific code in use. Aortic valve insufficiency 0 09/14/2019 Mitral and aortic incompetence 04/07/2022 documented as of this encounter (statuses as of 06/04/2023) Immunizations Name Administration Dates Next Due COVID-19 [...] drink = 0.6 oz pur e alcohol) PHQ-2 Answer Date Recorded PHQ Adult Total Score 0 01/26/2023 Hunger Vital Sign Answer Date Recorded Within the past 12 months, y ou worried that your food would run out before you got the money to buy more. Never true 01/27/20 23 Within the past 12 months, t he food you bought just didn't last and you didn't have money to get more. Never true 01/26/2023 Sex and Gender Information Value Date Recorded Sex Assigned at Female 09/07/2019 8:46 AM EST Gender Identity Female 09/07/2019 8:46 AM EST Sexual Orientation Straight 09/07/2019 8: 46 AM EST Job Start Date Occupation Industry Not on file Not on file Not on file documented as of this encounter Miscellaneous Notes * Telephone Encounter - Pat Young MD - 06/04/2023 12:24 PM ESTSigned Prescriptions: Disp Refills Pravastatin Sodium 40 MG Oral Tablet (Prav*90 Tab*3 Sig: Take 1 tablet by mouth once daily Authorizing Provider: PAT YOUNG * Telephone Encounter - Paty Perez COT - 06/04/2023 8:52 AM ESTPending Prescriptions: Disp Refills Pravastatin Sodium 40 MG Oral Tablet (Prav*90 Tab*3 Sig: Take 1 tablet by mouth once daily * Telephone Encounter - Paty Perez COT - 06/04/2023 8:52 AM EST Did you pend patient's preferred pharmacy and medication before forwarding?yes Pharmacy: [facility] Pending Prescriptions: Disp Refills Pravastatin Sodium 40 MG Oral Tablet (Pra*90 Tab*3 Sig: Take 1 tablet by mouth once daily Last Visit: 11/05/2022 (in office), Visit date not found (telemedicine) Next Visit: 07/29/2023 If no future appointments scheduled, and last appointment is greater than a year ago, please schedule patient for a follow-up appointment Last date the medication was ordered: 02-17-2022 Is this request for a controlled substance?No Urine Drug Screen:No results found. However, due to the size of the patient record, not all encounters were searched. Please check Results Review for a complete set of results. Patient Phone Numbers Labs: Lab Results Component Value Date/Time CREAT 1.4 (H) 04/10/2023 10:32 AM CREAT 1.2 (H) 04/19/2020 09:55 AM POTASSIUM 4.9 04/10/2023 10:32 AM POTASSIUM 3.9 04/19/2020 09:55 AM TSH 3.66 11/13/2021 10:19 AM TSH 3.49 03/23/2015 03:30 PM LDLCALC 77 11/01/2020 08:40 AM LDLCALC 71 09/04/2011 10:46 AM LDLDIRECT 53 08/27/2017 11:23 AM ALT 18 09/23/2021 04:28 PM ALT 18 04/19/2020 09:55 AM documented in this encounter Plan of Treatment Upcoming Encounters Date Type Department Care Team (Late st Contact Info) Description 07/29/2023 1:30 PM EST Office Visit Cardiology, [facility] [address] [facility] [place] [address] Kim Valerio CRNP [address] [place] [address] 09/22/2023 1:20 PM EST Office Visit Dermatology[address] [place] [address] Blanca Iyer PA-C [address] [place] [address] [place] [address] 01/29/2024 11:00 AM EDT Nurse Only Ancillary [facility] [address] [facility] [place] [address] [facility], Nurse Annual Wellness [facility] [address] [facility] [place] [address] Health Maintenance Due Date Last Done Comments COVID-19 Vaccine ( season) 2023 09/30/2021, 05/23/2021, 09/22/2020, Additional history exists Depression Screening 01/27/2024 01/26/2023 Albumin/Creatinine Ratio 02/06/2024 023, 04/03/2021, 02/19/2017, Additional history exists CKD HGB USE SMARTSET 65111 02/06/202402/05, 02/05/2023, 11/13/2021, Additional history exists CKD PHOS USE SMARTSET 81143 04/10/202403/21, 04/07/2022, 04/03/2021, Additional history exists DTaP,Tdap,and [...] as of this encounter Visit Diagnoses Diagnosis Dyslipidemia, goal to be determined Other and unspecified hyperlipidemia documented in this encounter Care Teams Office Analyst Relationship Specialty Start Date End Date Nima Erickson MD [address] [place] [address] PCP - General Family Medicine 09/16/19 documented as of this encounter
== END 2023-06-06 17:18 | disposition home or self-care (01) | DRG 177 ==
LOC: ED 09:54 → 2S 14:40 → SUATTDRO 14:40 → 2S 18:14

== ENCOUNTER 2024-01-11 14:39 | Inpatient (IN) ==
--- NOTE | 2024-01-11 14:49 | ED Triage Note ---
Date of Service January 11, 2024 Provider in Triage Author: Mara Hammer History of Present Illness This patient was briefly evaluated while in triage. An abbreviated physical exam was performed. This patient is a 88-year-old Female who presents to the ED for evaluation of shortness of breath. Pt. presents via ambulance. Was at [facility] and referred to ED due to SOB. Pt. had Duoneb treatment in office. Pt. states SOB started last night and worsening all day. Physical Exam VITALS: Vitals are noted on the nurse's note and reviewed by myself. GENERAL: This is an 88 year old female, in no acute distress, nondiaphoretic, well-developed well-nourished. SKIN: No obvious rashes, edema, erythema HEAD: Normocephalic atraumatic. EYES: Conjunctivae without injection, sclerae without icterus. NECK: No JVD. LUNGS: Diffuse wheezing and diminished lung sounds with retractions and accessory muscle use. MUSCULOSKELETAL: Presents in a wheelchair. NEURO: Patient was alert and oriented to person place and time. No focal neurol ogical deficits. Initial orders for labs and / or imaging were placed and patient was placed in the waiting area until a bed is available. Please see further documentation for the full ED course.
[2024-01-11] MEDS: methylPREDNISolone 125 MG/2 ML VIAL IV STA (15:23)
[2024-01-11] MEDS: ALBUT/IPRATROP 3MG/0.5MG NEB 3 ML VIAL INH STA (15:27)
--- NOTE | 2024-01-11 15:32 | Emergency Department Note ---
Impression & Plan SOB (shortness of breath), Stridor, Cough, Failure of outpatient treatment ED Provider Note NAME: IRIS ZAVALA AGE: 88 SEX: F : 1935 ARRIVES VIA: Ambulance INFORMANT: [Patient][ems] ED PROVIDER(S): [Mauricio Burris MD] CHIEF COMPLAINT: Shortness of breath HISTORY OF PRESENT ILLNESS: The patient is an 88-year-old female who has been sick for around a week. She has had a cough and congestion and has had some shortness of breath. No fever. The patient was ordered for some Tessalon by her doctors office as well as a Z- Uziel however, she never filled the Z-Uziel. She has felt worse in the last 24 hours and has noticed some extra noise when she tries to breathe. She went to the [facility] office today, there was concern for pneumonia, PE or CHF, she was sent by ambulance for evaluation. Prior to arrival, she was given an albuterol neb. The patient has had pneumonia 9 times previously. PMHx/PSHx/Social Hx: See Below PHYSICAL EXAM: GENERAL: Patient is in no acute distress. HEENT: No acute trauma, normocephalic atraumatic, mucous membranes moist, no nasal congestion. NECK: The patient does appear to have stridor with deep inhalation and with episodes of coughing. At rest, there is no stridor. There is no adenopathy or tracheal shift LUNGS: Fairly clear, equal breath sounds, no obvious respiratory distress. She is clearly short of breath with coughing spells. HEART: Mildly bradycardic, regular rhythm, no obvious murmur. ABDOMEN: Soft, nontender, no peritonitis. EXTREMITIES: No cyanosis, full range of motion of all the joints without pain or difficulty. NEUROLOGIC: Oriented x 3, no acute motor or sensory deficits, no focal weakness. SKIN: No jaundice, no diaphoresis. DIFFERENTIAL DIAGNOSIS: Bronchitis or pneumonia, airway narrowing, parainfluenza, epiglottitis, viral illness, among others. EMERGENCY DEPARTMENT PROCEDURES: MEDICAL DECISION MAKING: There is no leukocytosis or concerning anemia. There is a normal platelet count. VBG did not show any significant acidosis or CO2 retention. Lactic acid level was not elevated making severe sepsis less likely. There was no coagulopathy. The creatinine was slightly elevated, no electrolyte abnormality in need of emergent correction. No concerning liver enzyme elevation. BNP was not elevated making CHF unlikely. ECG showed a sinus bradycardia, no obvious ischemia. Cardiac enzyme testing x 1 was not consistent with acute cardiac injury. Chest film did not show pneumonia, CHF or pneumothorax. Soft tissue neck film did not show any evidence of airway narrowing. Respiratory bio fire is currently pending. On exam, the patient was stridorous with any exertion or coughing. She appeared short of breath when coughing. The patient presents for increasing dyspnea/shortness of breath. She has been sick for over a week. She has failed outpatient treatment. She will require a hospital stay. The patient was given IV Decadron and IV Solu-Medrol. She received IV cefepime as empiric antibiotic coverage. I did attempt an epinephrine nebulizer however, the patient felt this made her worse and it was discontinued. A DuoNeb was ordered, however, the patient did poorly with this treatment and the DuoNeb was discontinued. CT imaging of the neck and chest were ordered, these results are pending. The patient is in need of a hospital stay. She is not stable for discharge given her dyspnea and stridor. I did speak with case management, the on-call hospitalist was consulted. Prior/Outside records/notes reviewed: Today's EMS notes describing her presentation and transport to this hospital. ECG per my interpretation: Indication was shortness of breath. The ECG shows a sinus bradycardia with a rate of 55. There is no acute ST elevation, no PVCs. The QTc is 397. Continuous Cardiac Monitoring per my interpretation: An order was placed for continuous cardiac monitoring. The monitor shows a rate of 61 with normal sinus rhythm. Imaging/x-ray results per my interpretation: Chest x-ray does not show pneumonia or CHF. There was no pneumothorax. Soft tissue neck film did not show any significant airway narrowing Chronic Medical/Social conditions affecting care: Advanced age. Care/Management discussed with: Case management, the on-call hospitalist. Level of care consideration(s): After review of the information above and other included data: --I believe the patient requires escalation of care to admission Critical Care Note: I have personally spent 42 minutes of critical care time in the direct management of this patient. This includes bedside care, interpretation of diagnostic studies, and testing, discussion with consultants, patient, and family members, and other required patient management activities. This 42 minutes is in excess of all separately billable procedures. DISPOSITION: Admission Past Med/Surg History Problem List (Updated 01/11/24 @ 17:04 by Mauricio Burris MD) Failure of outpatient treatment (Acute) Cough (Acute) Stridor (Acute) SOB (shortness of breath) (Acute) Elevated troponin COVID-19 Acute hypoxic respiratory failure COPD (chronic obstructive pulmonary disease) with chronic bronchitis (Acute) Chronic renal disease, stage 3, moderately decreased glomerular filtration rate between 30-59 mL/min/1.73 square meter Essential tremor HLD (hyperlipidemia) HTN (hypertension) Chronic heart failure with preserved ejection fraction (HFpEF) Ground glass opacity present on imaging of lung Medical History Indeterminate pulmonary nodules Chronic renal disease Hypertensive cardiovascular disease Diastolic dysfunction Aortic regurgitation Mitral regurgitation Surgical History (Updated 06/04/23 @ 15:46 by Dorinda Paul PA-C) Hx of hernia repair Hx of colonoscopy History of carpal tunnel surgery Family History Other Cancer Diabetes Social History Smoking Status: Never smoker Second Hand Exposure: Yes ( smoked); Hx Alcohol Use: No Hx Substance Use: No Preferred Language: Kuwaiti Communication Ability: Effective Miner Assistant Required: No Beliefs That Will Affect Care: None marital status: / Current Living Situation: Alone Feels Safe at Home: Yes Assistive Devices: None Allergies Allergies Allergy/AdvReac Type Severity Reaction Status Date / Time adhesive Allergy Unknown SKIN TEAR Verified 06/04/23 12:27 bee venom protein (honey bee) Allergy Unknown Verified 06/04/23 12:28 lisinopril AdvReac Unknown DRY MOUTH Verified 06/04/23 12:27 morphine AdvReac Unknown vomiting Verified 06/04/23 12:27 oxycodone AdvReac Unknown STRANGE Verified 06/04/23 12:27 DREAMS guaifenesin [From Mucinex] AdvReac vomiting, Verified 06/04/23 12:28 diarrhea Home Meds Home Medications Medication Instructions Recorded Confirmed calcium carbonate (Calcium 600) 0 mg PO DAILY 06/04/23 06/04/23 carvedilol 6.25 mg tablet 3.125 mg PO QPM 06/04/23 06/04/23 carvedilol 6.25 mg tablet 6.25 mg PO QAM 06/04/23 06/04/23 diclofenac sodium 1 % topical gel 2 g topical DIRECTED PRN Pain 06/04/23 06/04/23 doxazosin 2 mg tablet 2 mg PO HS 06/04/23 06/04/23 losartan 50 mg tablet 50 mg PO DAILY 06/04/23 06/04/23 pravastatin 40 mg tablet 40 mg PO DAILY 06/04/23 06/04/23 vitamins A,C,D-ljbw-jembav 2,148 2 tab PO QAM 06/04/23 06/04/23 mcg-113 mg-45 mg-17.4 mg tablet (PreserVision AREDS) Previous Rx's Medication Instructions Recorded albuterol sulfate 90 mcg/actuation 2 puff inhalation Q4H PRN 06/06/23 aerosol inhaler (Ventolin HFA) shortness of breath or wheezing #8.5 grams benzonatate 100 mg capsule 100 mg PO Q8H PRN cough #30 caps 06/06/23 doxycycline hyclate 100 mg capsule 100 mg PO BID #9 caps 06/06/23 Results & Data (ED) Vital Signs Vital Signs - 24 hr 01/11/24 14:45 01/11/24 15:17 01/11/24 15:25 Temperature 36.8 C Temperature Source Temporal Artery Scan Pulse Rate 61 Pulse Rate [Apical] 57 L Pulse Rhythm Regular Pulse Strength Normal Respiratory Rate 20 20 Respiratory Effort / Characteristics Labored Spontaneous Gasping/Agonal Tripoding Spontaneous Gasping/Agonal Respiratory Depth Normal Deep Respiratory Pattern Gasping Agonal Blood Pressure 162/72 H Blood Pressure [Left Arm] 193/66 H Blood Pressure Mean 102 Blood Pressure Mean [Left Arm] 108 Blood Pressure Position Sitting Blood Pressure Position [Left Arm] Semi-fowlers Pulse Oximetry 100 98 Oxygen Delivery Method Nasal Cannula Room Air Room Air Oxygen Flow Rate 2 Sepsis Recent Fever Within 48 Hours No Sepsis New/Unexplained Change in Mental Status No Sepsis Action Taken by Nursing No Action Required 01/11/24 15:33 01/11/24 15:38 01/11/24 15:41 Temperature Temperature Source Pulse Rate 52 L Pulse Rate [Apical] Pulse Rhythm Pulse Strength Respiratory Rate 22 25 H Respiratory Effort / Characteristics Respiratory Depth Respiratory Pattern Blood Pressure Blood Pressure [Left Arm] Blood Pressure Mean Blood Pressure Mean [Left Arm] Blood Pressure Position Blood Pressure Position [Left Arm] Pulse Oximetry 97 98 Oxygen Delivery Method Room Air Room Air Room Air Oxygen Flow Rate 98 Sepsis Recent Fever Within 48 Hours Sepsis New/Unexplained Change in Mental Status Sepsis Action Taken by Nursing 01/11/24 16:03 01/11/24 17:00 Temperature Temperature Source Pulse Rate 66 Pulse Rate [Apical] 62 Pulse Rhythm Pulse Strength Respiratory Rate 22 Respiratory Effort / Characteristics Spontaneous Short of Breath Respiratory Depth Respiratory Pattern Regular Blood Pressure Blood Pressure [Left Arm] 158/80 H Blood Pressure Mean Blood Pressure Mean [Left Arm] 106 Blood Pressure Position Blood Pressure Position [Left Arm] Pulse Oximetry 97 Oxygen Delivery Method Room Air Oxygen Flow Rate Sepsis Recent Fever Within 48 Hours Sepsis New/Unexplained Change in Mental Status Sepsis Action Taken by Custodial Medications Current Medication List: was personally reviewed by me Laboratory Data Attestation: I reviewed the patient's lab results. 01/11/24 16:15 01/11/24 16:15 Lab Results 01/11/24 01/11/24 Range/Units 16:15 16:39 WBC 7.85 (4.8-10.8) K/ul RBC 4.78 (4.20-5.40) M/uL Hgb 13.9 (12.0-16.0) g/dl Hct 40.8 (37.0-47.0) % MCV 85.4 (80.0-100.0) fL MCH 29.1 (25.0-34.0) pg MCHC 34.1 (32.0-36.0) g/dL RDW Std Deviation 42.6 (36.4-46.3) fL RDW Coeff of Meggan 13.6 (11.5-14.5) % Plt Count 260 (130-400) K/uL MPV 9.4 (9.4-12.4) fL Immature Gran % (Auto) 0.4 % Neut % (Auto) 64.8 % Lymph % (Auto) 27.8 % Armstrong % (Auto) 5.9 % Eos % (Auto) 0.8 % Baso % (Auto) 0.3 % Neut # (Auto) 5.10 (1.40-6.50) K/uL Lymph # (Auto) 2.18 (1.20-3.40) K/uL Armstrong # (Auto) 0.46 (0.11-0.59) K/uL Eos # (Auto) 0.06 (0.00-0.50) K/uL Baso # (Auto) 0.02 (0.00-0.20) K/uL Immature Gran # (Auto) 0.03 (0.01-0.20) K/uL PT 10.6 (9.0-12.0) Seconds INR 1.0 (0.9-1.1) APTT 26 (21-31) Seconds PTT Ratio 1.0 VBG pH 7.34 L (7.36-7.41) VBG pCO2 43 (38-50) mmHg VBG pO2 20 mmHg VBG HCO3 23 mmol/L VBG O2 Saturation < 60.0 % VBG Base Excess -2.6 mEq/L Sodium 140 (136-145) mmol/L Potassium 4.8 (3.5-5.1) mmol/L Chloride 110 H (98-107) mmol/L Carbon Dioxide 24 (21-32) mmol/L Anion Gap 6 (3-11) BUN 34 H (6-23) mg/dl Creatinine 1.36 H (0.6-1.2) mg/dl Est Cr Clr Drug Dosing Not Reportable Est GFR ( Amer) 40.5 ml/min Est GFR (Non-Af Amer) 34.9 ml/min BUN/Creatinine Ratio 25.0 H (10-20) Glucose 98 (70-99(Fasting)) mg/dl Lactate 1.0 (0.4-2.0) mmol/L Calcium 9.6 (8.6-10.3) mg/dl Magnesium 2.2 (1.7-2.4) mg/dl Total Bilirubin 0.5 (0.2-1.0) mg/dl AST 21 (13-39) U/L ALT 12 (7-52) U/L Alkaline Phosphatase 59 (34-104) U/L Troponin I High Sens 13.9 (0-14) pg/ml B-Natriuretic Peptide 85 (0-100) pg/ml Total Protein 6.9 (6.0-8.3) gm/dl Albumin 4.2 (3.4-5.0) gm/dl Globulin 2.7 (2.5-4.0) gm/dl Albumin/Globulin Ratio 1.6 (0.9-2) Administered Medications Discontinued Medications Albuterol (Albut/Ipratrop 3mg/0.5mg Neb 3 Ml Vial) 12 ml INH ONE STA Stop: 01/11/24 14:51 Last Admin: 01/11/24 15:27 Dose: Not Given Documented By: LUKAS Dexamethasone Sodium Phosphate (DexamethasonePf 10 Mg/Ml Vial) 10 mg IV NOW ONE Stop: 01/11/24 15:23 Last Admin: 01/11/24 16:24 Dose: Not Given Documented By: LUKAS Dexamethasone Sodium Phosphate (DexamethasonePf 10 Mg/Ml Vial) 5 mg IV NOW ONE Stop: 01/11/24 15:30 Last Admin: 01/11/24 15:35 Dose: 5 mg Documented By: MARTA Epinephrine (Racepinephrine 2.25% Nebu Soln 0.5 Ml Vial) 0.5 ml NEB NOW STA Stop: 01/11/24 15:23 Last Admin: 01/11/24 15:33 Dose: 0.5 ml Documented By: GHISLAINE Cefepime HCl (Maxipime) 2,000 mg in 20 mls @ 5 mls/min IV NOW STA; Protocol Stop: 01/11/24 15:25 Last Admin: 01/11/24 17:12 Dose: 5 mls/min Documented By: MARTA Methylprednisolone (Methylprednisolone 125 Mg/2 Ml Vial) 60 mg IV NOW STA Stop: 01/11/24 14:51 Last Admin: 01/11/24 15:23 Dose: 60 mg Documented By: LUKAS Imaging Data Radiologist's Impression: Chest X-Ray 01/11/24 14:50 TWO VIEW CHEST CLINICAL HISTORY: Dyspnea. FINDINGS: PA and lateral chest radiographs are compared to chest x-ray and chest CT dated 06/04/2023. The heart is mildly enlarged noting atherosclerotic calcification of the thoracic aorta. The pulmonary vasculature is noncongested. Chronic interstitial thickening similar to previous. Minimal atelectasis is noted at the lung bases. The lungs and pleural spaces are otherwise clear. There is no pneumothorax. The skeletal structures are osteopenic. The bony thorax appears intact. IMPRESSION: Cardiomegaly with no active disease in the chest. ACT 112: Negative or not required by law. Electronically signed by: Mauricio Bui M.D. 01/11/2024 4:03 PM Soft Tissue Neck X-Ray 01/11/24 15:22 XR soft tissue neck CLINICAL HISTORY: stridor COMPARISON STUDY: No previous studies for comparison. FINDINGS: The epiglottis is normal. Prevertebral soft tissues are unremarkable. No radiopaque foreign bodies are identified. IMPRESSION: Unremarkable radiographs of the neck. ACT 112: Negative or not required by law. Electronically signed by: Billy Christensen M.D. 01/11/2024 4:17 PM Discharge Plan Visit Data Chief Complaint: Shortness of Breath/Dyspnea ED Provider: Mauricio Burris Discharge Problem: SOB (shortness of breath), Stridor, Cough, Failure of outpatient treatment Patient Disposition: Admitted As Inpatient Condition: Fair Forms Stand Alone Forms: [facility] Prescriptions Prescriptions: No Action losartan 50 mg tablet 50 mg PO DAILY carvedilol 6.25 mg tablet 6.25 mg PO QAM carvedilol 6.25 mg tablet 3.125 mg PO QPM pravastatin 40 mg tablet 40 mg PO DAILY doxazosin 2 mg tablet 2 mg PO HS diclofenac sodium 1 % Gel 2 g TOPICAL DIRECTED PRN (Reason: Pain) calcium carbonate [Calcium 600] 600 mg calcium (1,500 mg) Tablet 0 mg PO DAILY PreserVision AREDS 2,148 mcg-113 mg-45 mg-17.4mg Tablet 2 tab PO QAM Rx Instructions: administer with AM meal doxycycline hyclate 100 mg Capsule 100 mg PO BID Qty: 9 0RF albuterol sulfate [Ventolin HFA] 90 mcg/actuation Hfa Aerosol Inhaler 2 puff inhalation Q4H PRN (Reason: shortness of breath or wheezing) Qty: 8.5 0RF benzonatate 100 mg Capsule 100 mg PO Q8H PRN (Reason: cough) Qty: 30 0RF Referrals Referrals: Nima Erickson MD [Primary Care Provider] - Discharge Problem: Cough Qualifiers: Cough type: acute Qualified Code(s): R05.1 - Acute cough
[2024-01-11] MEDS: RACEPINEPHRINE 2.25% NEBU SOLN 0.5 ML VIAL NEB STA (15:33)
[2024-01-11] MEDS: dexAMETHasone**PF** 10 MG/ML VIAL IV ONE ×2 (15:35→16:24)
--- NOTE | 2024-01-11 16:05 | XRay Report ---
TWO VIEW CHEST CLINICAL HISTORY: Dyspnea. FINDINGS: PA and lateral chest radiographs are compared to chest x-ray and chest CT dated 06/04/2023. The heart is mildly enlarged noting atherosclerotic calcification of the thoracic aorta. The pulmona ry vasculature is noncongested. Chronic interstitial thickening similar to previous. Minimal atelecta sis is noted at the lung bases. The lungs and pleural spaces are otherwise clear. There is no pneumot horax. The skeletal structures are osteopenic. The bony thorax appears intact. IMPRESSION: Cardiomegaly with no active disease in the chest. ACT 112: Negative or not required by law. Electronically signed by: Mauricio Bui M.D. 01/11/2024 4:03 PM
--- NOTE | 2024-01-11 16:18 | XRay Report ---
XR soft tissue neck CLINICAL HISTORY: stridor COMPARISON STUDY: No previous studies for comparison. FINDINGS: The epiglottis is normal. Prevertebral soft tissues are unremarkable. No radiopaque foreign bodies are identified. IMPRESSION: Unremarkable radiographs of the neck. ACT 112: Negative or not required by law. Electronically signed by: Billy Christensen M.D. 01/11/2024 4:17 PM
[2024-01-11 16:44] LABS: Basophils # (auto) 0.02 K/uL (0.00-0.20); Basophils % (auto) 0.3 %; Eosinophils # (auto) 0.06 K/uL (0.00-0.50); Eosinophils % (auto) 0.8 %; Hematocrit (blood only) 40.8 % (37.0-47.0); Hemoglobin 13.9 g/dl (12.0-16.0); Immature Granulocytes # (auto) 0.03 K/uL (0.01-0.20); Immature Granulocytes % (auto) 0.4 %; Lymphocytes # (auto) 2.18 K/uL (1.20-3.40); Lymphocytes % (auto) 27.8 %; Mean Corpuscular Hemoglobin 29.1 pg (25.0-34.0); Mean Corpuscular Hgb Conc 34.1 g/dL (32.0-36.0); Mean Corpuscular Volume 85.4 fL (80.0-100.0); Mean Platelet Volume 9.4 fL (9.4-12.4); Monocytes # (auto) 0.46 K/uL (0.11-0.59); Monocytes % (auto) 5.9 %; Neutrophils % (auto) 64.8 %; Platelet Count 260 K/uL (130-400); RDW Coefficient of Variation 13.6 % (11.5-14.5); RDW Standard Deviation 42.6 fL (36.4-46.3); Red Blood Count 4.78 M/uL (4.20-5.40); White Blood Count 7.85 K/ul (4.8-10.8)
[2024-01-11 16:52] LABS: Base Excess VBG -2.6 mEq/L; HCO3 VBG 23 mmol/L; Oxygen Saturation VBG < 60.0 %; PCO2 VBG 43 mmHg (38-50); PO2 VBG 20 mmHg; pH VBG 7.34 (7.36-7.41)
[2024-01-11 17:05] LABS: Alanine Aminotransferase 12 U/L (7-52); Albumin Globulin Ratio 1.6 (0.9-2); Albumin Level 4.2 gm/dl (3.4-5.0); Alkaline Phosphatase 59 U/L (34-104); Anion Gap 6 (3-11); Aspartate Aminotransferase 21 U/L (13-39); Bilirubin,Total 0.5 mg/dl (0.2-1.0); Blood Urea Nitrogen 34 mg/dl (6-23); Calcium 9.6 mg/dl (8.6-10.3); Carbon Dioxide 24 mmol/L (21-32); Chloride 110 mmol/L (98-107); Est GFR (African American) 40.5 ml/min; Est GFR (Non-African American) 34.9 ml/min; Globulin 2.7 gm/dl (2.5-4.0); Glucose 98 mg/dl (70-99(Fasting)); Magnesium 2.2 mg/dl (1.7-2.4); Potassium 4.8 mmol/L (3.5-5.1); Sodium 140 mmol/L (136-145); Total Protein 6.9 gm/dl (6.0-8.3)
[2024-01-11 17:12] LABS: Troponin I High Sensitivity 13.9 pg/ml (0-14)
[2024-01-11] MEDS: CEFEPIME 2,000 MG/20 ML VIAL IV STA (17:12)
[2024-01-11] MEDS: ALBUT/IPRATROP 3MG/0.5MG NEB 3 ML VIAL NEB STA (17:18)
[2024-01-11 17:24] LABS: Partial Thromboplastin Time 26 Seconds (21-31); Prothrombin Time 10.6 Seconds (9.0-12.0)
[2024-01-11 17:40] LABS: Adenovirus PCR Not Detected (NotDetected); Bordetella parapertussis PCR Not Detected (NotDetected); Bordetella pertussis PCR Not Detected (NotDetected); Chlamydia pneumoniae PCR Not Detected (NotDetected); Coronavirus 229E PCR Not Detected (NotDetected); Coronavirus CoV-2 (COVID19)PCR Not Detected (NotDetected); Coronavirus HKU1 PCR Not Detected (NotDetected); Coronavirus NL63 PCR Not Detected (NotDetected); Coronavirus OC43PCR Not Detected (NotDetected); Human Metapneumovirus PCR Not Detected (NotDetected); Influenza A PCR Not Detected (NotDetected); Influenza B PCR Not Detected (NotDetected); Mycoplasma pneumoniae PCR Not Detected (NotDetected); Parainfluenza Virus 1 PCR Not Detected (NotDetected); Parainfluenza Virus 2 PCR Not Detected (NotDetected); Parainfluenza Virus 3 PCR Not Detected (NotDetected); Parainfluenza Virus 4 PCR Not Detected (NotDetected); Respiratory Syncytial VirusPCR Not Detected (NotDetected); Rhinovirus/Enterovirus PCR DETECTED (NotDetected)
--- NOTE | 2024-01-11 17:44 | History & Physical Report ---
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 Acute bronchitis due to rhinovirus shortness of breath admit to medical telemetry --CTA chest and CT neck pending --CXR w/o acute abnormality Biofire: Rhinovirus pulmonary toilet with albuterol nebs, budesonide nebs, flutter valve, ISP Empiric IV azithromycin 500mg x 3 days and IV Rocephin 2g Q24hr IV soludmedrol 40mg q8, taper down accordingly currently no oxygen requirement HTN chronic, stable continue losartan and coreg HLD chronic, stable continue statin CKD3 chronic, stable baseline 1.4 will give gentle hydration x 1 L due to contrasted study Chronic HFpEF daily weight, intake and output heart healthy diet continue coreg, losartan pt not on diuretics, currently euvolemic DVT ppx: Heparin SQ Dispo: admit to med tele FULL CODE PCP: Dre Pt was seen and examined in collaboration with Dr. Torres, please see addendum A total of 76 minutes was spent coordinating, documenting, and providing care for this patient excluding time spent in the performance of separately billed services. This included personally viewing all current laboratories and imaging studies, medication reconciliation, outpatient chart review, and discussion with specialists. History of Present Illness Chief Complaint: SOB x 1 day; URI x 1 week, referred by PCP. 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 Outpatient medical records were reviewed. She was seen by PCP clinic today due to URI symptoms x 1 week. Approximately 1 week ago she had been prescribed Tessalon Perles as well as azithromycin but she did not take the azithromycin. Over the past 24 hours she notes increasing shortness of breath and her oxygen saturations were noted to be at 93% with increased respiratory rate, audible wheezing and stridor in the clinic. She was therefore referred to ED for further evaluation. At bedside pt reports URI sx x 1 week. She has a cough that is productive and thick and purulent. She has no known sick contacts. She lives alone. She denies rhinorrhea. She feels her breathing is made worse with lying down. She denies much change in dyspnea with ambulation. She denies f/c/s, sore throat, chest pain, n/v/d, abd pain. She feels her sx are better than when she came to the ED. She has had decreased appetite. She has had similar sx in past when diagnosed with PNA. She reports hx of PNA 9 times in the past. She denies any hx of structural lung disease. She denies tobacco or alcohol use. Allergies Allergy/AdvReac Type Severity Reaction Status Date / Time adhesive Allergy Unknown SKIN TEAR Verified 06/04/23 12:27 bee venom protein (honey bee) Allergy Unknown Verified 06/04/23 12:28 lisinopril AdvReac Unknown DRY MOUTH Verified 06/04/23 12:27 morphine AdvReac Unknown vomiting Verified 06/04/23 12:27 oxycodone AdvReac Unknown STRANGE Verified 06/04/23 12:27 DREAMS guaifenesin [From Mucinex] AdvReac vomiting, Verified 06/04/23 12:28 diarrhea Home Medications Medication Instructions Recorded Confirmed Type carvedilol 6.25 mg tablet 3.125 mg PO QPM 06/04/23 01/11/24 History carvedilol 6.25 mg tablet 6.25 mg PO QAM 06/04/23 01/11/24 History losartan 50 mg tablet 50 mg PO QAM 06/04/23 01/11/24 History pravastatin 40 mg tablet 40 mg PO DAILY 06/04/23 01/11/24 History vitamins A,C,L-xfte-dokvom 2,148 2 tab PO QAM 06/04/23 01/11/24 History mcg-113 mg-45 mg-17.4 mg tablet (PreserVision AREDS) albuterol sulfate 90 mcg/actuation 2 puff inhalation Q4H PRN 06/06/23 01/11/24 Rx aerosol inhaler (Ventolin HFA) shortness of breath or wheezing #8.5 grams azithromycin 250 mg tablet See Rx Instructions .Route .COMPLEX 01/11/24 01/11/24 History benzonatate 100 mg capsule 100 mg PO TID PRN cough 01/11/24 01/11/24 History calcium carbonate 1,200 mg PO DAILY 01/11/24 01/11/24 History Past Med/Surg History Problem List (Updated 01/11/24 @ 18:29 by Dorinda Paul PA-C) Acute bronchitis due to Rhinovirus Acute bronchitis Failure of outpatient treatment (Acute) Cough (Acute) Stridor (Acute) SOB (shortness of breath) (Acute) Elevated troponin COVID-19 Acute hypoxic respiratory failure Chronic renal disease, stage 3, moderately decreased glomerular filtration rate between 30-59 mL/min/1.73 square meter Essential tremor HLD (hyperlipidemia) HTN (hypertension) Chronic heart failure with preserved ejection fraction (HFpEF) Ground glass opacity present on imaging of lung Medical History (Updated 01/11/24 @ 18:29 by Dorinda Paul PA-C) Indeterminate pulmonary nodules Chronic renal disease Hypertensive cardiovascular disease Diastolic dysfunction Aortic regurgitation Mitral regurgitation Surgical History Hx of hernia repair Hx of colonoscopy History of carpal tunnel surgery Family History Other Cancer Diabetes Social History Smoking Status: Never smoker Second Hand Exposure: Yes ( smoked); Hx Alcohol Use: No Hx Substance Use: No Preferred Language: Welsh Communication Ability: Effective Entry Level Accountant Required: No Beliefs That Will Affect Care: None marital status: / Current Living Situation: Alone Feels Safe at Home: Yes Assistive Devices: None Review of Systems Review of Systems: All systems reviewed & are unremarkable except as noted in HPI & below Physical Exam Physical Exam: please refer to Dr. Torres addendum for physical exam findings. Results & Data Results & Data Vital Signs (Past 12 Hours) Vital Signs Temp Pulse Pulse Resp BP BP Pulse Ox 01/11/24 17:00 62 22 158/80 H 97 01/11/24 16:03 66 01/11/24 15:41 01/11/24 15:38 52 L 25 H 98 01/11/24 15:33 22 97 01/11/24 15:25 01/11/24 15:17 57 L 20 193/66 H 98 01/11/24 14:45 36.8 C 61 20 162/72 H 100 O2 Del Method O2 Flow Rate 01/11/24 17:00 Room Air 01/11/24 16:03 01/11/24 15:41 Room Air 98 01/11/24 15:38 Room Air 01/11/24 15:33 Room Air 01/11/24 15:25 Room Air 01/11/24 15:17 Room Air 01/11/24 14:45 Nasal Cannula 2 Diagnostic Findings Chest X-Ray 01/11/24 14:50 TWO VIEW CHEST CLINICAL HISTORY: Dyspnea. FINDINGS: PA and lateral chest radiographs are compared to chest x-ray and chest CT dated 06/04/2023. The heart is mildly enlarged noting atherosclerotic calcification of the thoracic aorta. The pulmonary vasculature is noncongested. Chronic interstitial thickening similar to previous. Minimal atelectasis is noted at the lung bases. The lungs and pleural spaces are otherwise clear. There is no pneumothorax. The skeletal structures are osteopenic. The bony thorax appears intact. IMPRESSION: Cardiomegaly with no active disease in the chest. ACT 112: Negative or not required by law. Electronically signed by: Mauricio Bui M.D. 01/11/2024 4:03 PM Soft Tissue Neck X-Ray 01/11/24 15:22 XR soft tissue neck CLINICAL HISTORY: stridor COMPARISON STUDY: No previous studies for comparison. FINDINGS: The epiglottis is normal. Prevertebral soft tissues are unremarkable. No radiopaque foreign bodies are identified. IMPRESSION: Unremarkable radiographs of the neck. ACT 112: Negative or not required by law. Electronically signed by: Billy Christensen M.D. 01/11/2024 4:17 PM Medications Administered Medication List Discontinued Medications Albuterol (Albut/Ipratrop 3mg/0.5mg Neb 3 Ml Vial) 12 ml INH ONE STA Stop: 01/11/24 14:51 Last Admin: 01/11/24 15:27 Dose: Not Given Documented By: LUKAS Dexamethasone Sodium Phosphate (DexamethasonePf 10 Mg/Ml Vial) 10 mg IV NOW ONE Stop: 01/11/24 15:23 Last Admin: 01/11/24 16:24 Dose: Not Given Documented By: LUKAS Dexamethasone Sodium Phosphate (DexamethasonePf 10 Mg/Ml Vial) 5 mg IV NOW ONE Stop: 01/11/24 15:30 Last Admin: 01/11/24 15:35 Dose: 5 mg Documented By: MARTA Epinephrine (Racepinephrine 2.25% Nebu Soln 0.5 Ml Vial) 0.5 ml NEB NOW STA Stop: 01/11/24 15:23 Last Admin: 01/11/24 15:33 Dose: 0.5 ml Documented By: GHISLAINE Cefepime HCl (Maxipime) 2,000 mg in 20 mls @ 5 mls/min IV NOW STA; Protocol Stop: 01/11/24 15:25 Last Admin: 01/11/24 17:12 Dose: 5 mls/min Documented By: MARTA Methylprednisolone (Methylprednisolone 125 Mg/2 Ml Vial) 60 mg IV NOW STA Stop: 01/11/24 14:51 Last Admin: 01/11/24 15:23 Dose: 60 mg Documented By: LUKAS ECG Additional Comments: I have independently reviewed and interpreted patient's admitting EKG which revealed: 55 SB, no st t wave change noted Code Status & VTE Plan Code Status FULL CODE Supervising Physician Co-Signing Physician Notes Patient was seen and examined independently at bedside. Chart reviewed. Case discussed with Dorinda ZAMUDIO and agree with the documentation above. In summary, this is a 88 year old female who presented to the ED with shortness of breath along with yellow phlegm. Seen in the clinic and found to have audible wheezing and stridor for which she was sent to the ED. Given steroids and nebs with improvement in symptoms. Biofire with rhino virus positive. CXR negative for acute abnormality. CT neck and chest pending. Will admit for acute bronchitis due to rhino virus infection and start on supportive treatment. Continue empiric ABx for now pending CT chest and sputum clx results. On exam- Labs-General: Sitting comfortably in bed, not in distress, on room air HEENT: EOMI, ALEXANDER, MMM Chest: Clear breath sounds bilaterally, no wheezes or crackles CVS: Regular rate and rhythm, normal heart sounds, no murmur Abdomen: Soft, non tender, not distended, normal bowel sounds Neuro: Awake, alert, oriented, conversing well, non focal Extremities: No cyanosis, clubbing or edema Rest as per the note above.
--- OUTSIDE RECORDS SUMMARY | 2024-01-11 18:30 | External Medical Summary | Summary of Care ---
Author Name Unknown Organization [facility] Address [address] [facility] [place] [address] Phone [phone] Care Team Providers Care Pipeline Technician Name Role Phone Nima Erickson MD Primary Care Provider [phone] Reason for Visit * Reason Onset Date Comments Appointment 09/30/2023 Cardio Encounter Details Date Type Department Care Team (Late st Contact Info) Description 09/30/2023 Telephone Cardiology, [facility] [address] [place] [address] Robert Young MD [address] [place] [place] [id number] Appointment (Cardio ) Allergies Active Allergy Reactions Criticality Noted Date Comments Adhesive Tape Other (Please comment) 10/04/2012 Pt reports "it took some skin off" Bee Venom 03/13/2022 Lisinopril Cough Low 03/27/2009 Morphine 08/29/2020 Other reaction(s): vomiting Guaifenesin Er Diarrhea,Nausea/vomi ti ng,Neuro complications (Please comment) 09/08/2017 Oxycodone 08/29/2020 Other reaction(s): STRANGE DREAMS Oxycodone-Acetaminoph en Other (Please comment) 05/28/2010 [place] funny on medication documented as of this encounter (statuses as of 09/30/2023) Medications Medication Sig Dispensed Refills Start Date End Date Status CORAL CALCIUM 1000 (390 CA) MG PO TABS 1200 mg 1 tab daily 0 Active Multiple Vitamins-Minerals (PRESERVISION AREDS) Tablet Take 2 Tablets by mouth in the morning. 0 Active hydroCHLOROthiazide 12.5 MG Oral Capsule (Hydrodiuril) [...] (Cozaar)Indications: HTN, goal below 150/90 Take 1 Tablet by mouth in the morning. 90 Tablet 3 04/10/2023 Active Pravastatin Sodium 40 MG Oral Tablet (Pravachol)Indicatio ns:Dyslipidemia, goal to be determined Take 1 tablet by mouth once daily 90 Tablet 3 06/04/2023 Active Fluticasone Propionate HFA 110 MCG/ACT Inhalation Aerosol (Flovent HFA) Inhale 2 Puffs by mouth in the morning and 2 Puffs before bedtime. 12 g 1 06/16/2023 Active documented as of this encounter (statuses as of 09/30/2023) Active Problems Problem Noted Date Diagnosed Date [...] as of this encounter (statuses as of 09/30/2023) Resolved Problems Problem Noted Date Diagnosed Date [...] and stage 3b chronic kidney disease 05/28/2020 1010/2020 Overview: Per CKD protocol COPD, group C, [...] as of this encounter (statuses as of 09/30/2023) Immunizations Name Administration Dates Next Due COVID-19 mRNA, LNP-s, No Pre serve, 2-Dose Series (Moderna) 09/22/2020,08/18/2020 COVID-19, mRNA, LNP-s, PF, B ooster, 100mcg/0.5mg (Moderna) 09/30/2021,05/23/2021 Pneumococcal Conjugate Vacc, 13 Valent (Prevnar) 01/17/2020,08/03/2014 Pneumococcal Polysaccharide PPV23 (Pneumovax) 12/08/2006 Season Influenza, Quad, PF, Adjuvanted, 65+ Yrs, IM (FLUAD) 04/03/2020 Seasonal Influenza, PF, 6 M & above, IM , (FluLaval or Fluzone) 03/26/2018 Seasonal Influenza, Quadriva lent Hd (Fluzone [...] encounter Miscellaneous Notes * Telephone Encounter - Martha Knight OSA - 09/30/2023 1:[address] young pt lost to follow up Please call to schedule documented in this encounter Plan of Treatment Upcoming Encounters Date Type Department Care Team (Late st Contact Info) Description 10/21/2023 10:20 AM EDT Office Visit Family Practice [facility] [address] [place] [address] Nima Erickson MD [address] [place] [address] 01/29/2024 11:00 AM EDT [facility] [address] [facility] [place] [address] Maynard, Nurse [facility] [address] [facility] [place] [address] 03/24/2024 1:20 PM EDT [address] [address] Blanca Iyer PA-C [address] [place] [address] [place] [address] Health Maintenance Due Date Last Done Comments COVID-19 Vaccine ( season) 2023 09/30/2021, 05/23/2021, 09/22/2020, Additional history exists Depression Screening 01/27/2024 01/26/2023 Albumin/Creatinine Ratio 02/06/2024 023, 04/03/2021, 02/19/2017, Additional history exists CKD HGB USE SMARTSET 67982 02/06/202402/05, 02/05/2023, 11/13/2021, Additional history exists CKD PHOS USE SMARTSET 32411 04/10/202403/21, 04/07/2022, 04/03/2021, Additional history exists DTaP,Tdap,and [...] filedocumented as of this encounter Care Teams Pipeline Technician Relationship Specialty Start Date End Date Nima Erickson MD [address] [place] [address] PCP - General Family Medicine 09/16/19 documented as of this encounter
--- OUTSIDE RECORDS SUMMARY | 2024-01-11 18:30 | External Medical Summary | Summary of Care ---
Author Name Unknown Organization [facility] Address [address] [facility] [place] [address] Phone [phone] Care Team Providers Care Joinery Patternmaker Name Role Phone Nima Erickson MD Primary Care Provider [phone] [phone] Reason for Visit * Reason Comments Follow Up Pt here with neighbo r, pt c/o insomnia, memory issues and states has loss obstructive lump on R eye Encounter Details Date Type Department Care Team (Late st Contact Info) Description 10/21/2023 10:20 AM EDT Office Visit Family Practice [facility] [address] [place] [address] Nima Erickson MD [address] [place] [address] HTN, goal below 150/90*; Chronic heart failure with preserved ejection fraction (HCC); Dyslipidemia; Stage 3b chronic kidney disease (HCC); JUAN MANUEL (generalized anxiety disorder); Essential tremor Allergies Active Allergy Reactions Criticality Noted Date Comments Adhesive Tape Other (Please comment) 10/04/2012 Pt reports "it took some skin off" Bee Venom 03/13/2022 Lisinopril Cough Low 03/27/2009 Morphine 08/29/2020 Other reaction(s): vomiting Guaifenesin Er Diarrhea,Nausea/vomi ti ng,Neuro complications (Please comment) 09/08/2017 Oxycodone 08/29/2020 Other reaction(s): STRANGE DREAMS Oxycodone-Acetaminoph en Other (Please comment) 05/28/2010 [place] funny on medication documented as of this encounter (statuses as of 10/22/2023) Medications Medication Sig Dispensed Refills Start Date End Date Status CORAL CALCIUM 1000 (390 CA) MG PO TABS 1200 mg 1 tab daily 0 Active Multiple Vitamins-Minerals (PRESERVISION AREDS) Tablet Take 2 Tablets by mouth in the morning. 0 Active hydroCHLOROthiazid e 12.5 MG Oral Capsule (Hydrodiuril) Take one tab 5 days/week 90 Capsule 3 10/01/2021 Active Carvedilol 6.25 MG Oral Tablet (Coreg) Take one in the morning, 1/2 in the evening 135 Tablet 11 11/05/2022 Active Doxazosin Mesylate 2 MG Oral Tablet (Cardura)Indicatio ns:Chronic heart failure with preserved ejection fraction (HCC) TAKE 2 TABLETS BY MOUTH AT BEDTIME 180 Tablet 3 03/03/2023 Active Losartan Potassium 50 MG Oral Tablet (Cozaar)Indication s:HTN, goal below 150/90 Take 1 Tablet by [...] before bedtime. 12 g 1 06/16/2023 Active Azithromycin 250 MG Oral Tablet (Zithromax Z-Uziel) Take two tablets by mouth on first day, then 1 tablet daily until gone 6 Tablet 0 10/21/2023 Active Erythromycin 5 MG/GM Ophthalmic Ointment Instill into eye 4 times a day for 10 days. Apply to affected eye(s) until redness and discharge resolved. 3.5 g 1 10/21/2023 10/31/2023 Active documented as of this encounter (statuses as of 10/22/2023) Active Problems Problem Noted Date Diagnosed Date [...] as of this encounter (statuses as of 10/22/2023) Resolved Problems Problem Noted Date Diagnosed Date [...] as of this encounter (statuses as of 10/22/2023) Immunizations Name Administration Dates Next Due COVID-19 [...] Sign Reading Time Taken Comments Blood Pressure 134/72 10/21/2023 10:41 AM EDT Pulse 72 10/21/2023 10:41 AM EDT Temperature 36.6 C (97.8 F) 10/21/2023 10:41 AM E DT Respiratory Rate 18 10/21/2023 10:41 AM EDT Oxygen Saturation 96% 10/21/2023 10:41 AM EDT Inhaled Oxygen Concentration - - Weight - - Height - - Body Mass Index - - documented in this encounter Progress Notes * Nima Erickson MD - 10/22/2023 2:22 PM EDT SUBJECTIVE: Katarina Peacock is a 88 year old female. Chief Complaint Patient presents with Follow Up Pt here with neighbor, pt c/o insomnia, memory issues and states has loss obstructive lump on R eye HPI: Routine follow up. She has the normal age-expected forgetfulness. She is here today with a concerned neighbor who wonders if Katarina has Alzheimer's. I advised that clinically she does not and that itis normal for someone her age to have some forgetfulness. I think neighbor is frustrated that patient is not cognitively able to function at the level of someone in their 40s. I did a lot of education today which was greatly needed. Katarina still walks 2 miles a day. Patient Active Problem List Diagnosis Code HTN, [...] 2 Tablets by mouth in the morning. hydroCHLOROthiazide 12.5 MG Oral Capsule (Hydrodiuril) Take one tab 5 days/week 90 Capsule 3 Carvedilol 6.25 MG Oral Tablet (Coreg) Take one in the morning, 1/2 in the evening 135 Tablet 11 Doxazosin Mesylate 2 MG Oral Tablet (Cardura) TAKE 2 TABLETS BY MOUTH AT BEDTIME 180 Tablet 3 Losartan Potassium 50 MG Oral Tablet (Cozaar) Take 1 Tablet by mouth in the morning. 90 Tablet 3 Pravastatin Sodium 40 MG Oral Tablet (Pravachol) Take 1 tablet by mouth once daily 90 Tablet 3 Fluticasone Propionate HFA 110 MCG/ACT Inhalation Aerosol (Flovent HFA) Inhale 2 Puffs by mouth in the morning and 2 Puffs before bedtime. 12 g 1 Azithromycin 250 MG Oral Tablet (Zithromax Z-Uziel) Take two tablets by mouth on first day, then 1 tablet daily until gone 6 Tablet 0 Erythromycin 5 MG/GM Ophthalmic Ointment Instill into eye 4 times a day for 10 days. Apply to affected eye(s) until redness and discharge resolved. 3.5 g 1 No current facility-administered medications for this visit. Allergy: Review of patient's allergies indicates: Allergen Reactions Adhesive Tape Other (Please comment) Pt reports "it took some skin off" Bee Venom Morphine Other reaction(s): vomiting Mucinex [Guaifenesin Er] Diarrhea, Nausea/vomiting and Neuro complications (Please comment) Oxycodone Other reaction(s): STRANGE DREAMS Percocet [Oxycodone-Acetaminophen] Other (Please comment) [place] funny on medication Lisinopril Cough OBJECTIVE: BP 134/72 | Pulse 72 | Temp 36.6 C (97.8 F) (Tympanic) | Resp 18 | SpO2 96% General: alert, healthy, and no distress Head: [...] deficits, gait normal, reflexes normal and symmetric Skin: skin color, texture, turgor are normal, no rashes or significant lesions ASSESSMENT AND PLAN: (I10) HTN, goal below 150/90 (primary encounter diagnosis) Plan: stable (I50.32) Chronic heart failure with preserved ejection fraction (HCC) Plan: stable (E78.5) Dyslipidemia Plan: continues to tolerate pravastatin (N18.32) Stage 3b chronic kidney disease (HCC) Plan: stable (F41.1) JUAN MANUEL (generalized anxiety disorder) Plan: stable (G25.0) Essential tremor Plan: mild Follow up in 6 month(s). No other complaints were offered at this time. Nima Erickson MD documented in this encounter Nursing Notes * Katherin Narayan LPN - 10/21/2023 10:40 AM EDT The patient has been properly identified by confirmation of name and date of . Chief Complaint Patient presents with Follow Up Pt here with neighbor, pt c/o insomnia, memory issues and states has loss obstructive lump on R eye documented in this encounter Plan of Treatment Upcoming Encounters Date Type Department Care Team (Late st Contact Info) Description 01/20/2024 11:30 AM EDT Office Visit Cardiology, [facility] [address] [address] Robert Young MD [address] [place] [address] 01/22/2024 10:20 AM EDT Office Visit Family Practice [facility] [address] [address] Nima Erickson MD [address] [place] [address] 01/29/2024 11:00 AM EDT Nurse Only Ancillary [facility] [address] [address] Maynard, Nurse Annual Wellness [facility] [address] [address] 03/24/2024 1:20 PM EDT Office Visit Dermatology, [address] [place] [address] Blanca Iyer PA-C [address] [place] [address] [place] [address] Health Maintenance Due Date Last Done Comments COVID-19 Vaccine (2022- season) 2023 09/30/2021, 05/23/2021, 09/22/2020, Additional history exists Depression Screening 01/27/2024 01/26/2023 Albumin/Creatinine Ratio 02/06/2024 023, 04/03/2021, 02/19/2017, Additional history exists CKD HGB USE SMARTSET 37291 02/06/202402/05, 02/05/2023, 11/13/2021, Additional history exists CKD PHOS USE SMARTSET 92702 04/10/202403/21, 04/07/2022, 04/03/2021, Additional history exists DTaP,Tdap,and [...] as of this encounter Visit Diagnoses Diagnosis HTN, goal below 150/90- Primary Chronic heart failure with preserved ejection fraction (HCC) Dyslipidemia Other and unspecified hyperlipidemia Stage 3b chronic kidney disease (HCC) JUAN MANUEL (generalized anxiety disorder) Generalized anxiety disorder Essential tremor Essential and other specified forms of tremor documented in this encounter Care Teams Joinery Patternmaker Relationship Specialty Start Date End Date Nima Erickson MD [address] [place] [address] PCP - General Family Medicine 09/16/19 documented as of this encounter
--- OUTSIDE RECORDS SUMMARY | 2024-01-11 18:30 | External Medical Summary | Summary of Care ---
Author Name Unknown Organization [facility] Address [address] [facility] [place] [address] Phone [phone] Care Team Providers Care Audio Visual Specialist Name Role Phone Nima Erickson MD Primary Care Provider [phone] Reason for Visit * Reason Comments Cold Symptoms Pt c/o cough, conges tion and sinus pressure for 4 days Encounter Details Date Type Department Care Team (Late st Contact Info) Description 01/06/2024 10:00 AM EDT Office Visit [facility] [address] [place] [id number] Nima Erickson MD [address] [place] [id number] Subacute pansinusitis* Allergies Active Allergy Reactions Criticality Noted Date Comments Adhesive Tape Other (Please comment) 10/04/2012 Pt reports "it took some skin off" Bee Venom 03/13/2022 Lisinopril Cough Low 03/27/2009 Morphine 08/29/2020 Other reaction(s): vomiting Guaifenesin Er Diarrhea,Nausea/vomi ti ng,Neuro complications (Please comment) 09/08/2017 Oxycodone 08/29/2020 Other reaction(s): STRANGE DREAMS Oxycodone-Acetaminoph en Other (Please comment) 05/28/2010 [place] funny on medication documented as of this encounter (statuses as of 01/06/2024) Medications Medication Sig Dispensed Refills Start Date End Date Status CORAL CALCIUM 1000 (390 CA) MG PO TABS 1200 mg 1 tab daily Active Multiple Vitamins-Minerals (PRESERVISION AREDS) Tablet Take 2 Tablets by mouth in the morning. Active hydroCHLOROthiazi de 12.5 MG Oral Capsule [...] before bedtime. 12 g 1 06/16/2023 Active prednisoLONE Acetate 1 % Ophthalmic Suspension (Pred Forte) INSTILL 1 DROP INTO LEFT EYE 4 TIMES DAILY FOR 7 DAYS 12/07/2023 Active Azithromycin 250 MG Oral Tablet (Zithromax Z-Uziel) Take two tablets by mouth on first day, then 1 tablet daily until gone 6 Tablet 01/06/2024 Active Benzonatate 100 MG Oral Capsule (Tesli Reynolds) Take 1 Capsule by mouth 3 times a day as needed for Cough. Do not cut, crush, or chew. 50 Capsule 1 01/06/2024 Active Azithromycin 250 MG Oral Tablet (Zithromax Z-Uziel) Take two tablets by mouth on first day, then 1 tablet daily until gone 6 Tablet 10/21/2023 01/06/2024 Discontinued documented as of this encounter (statuses as of 01/06/2024) Active Problems Problem Noted Date Diagnosed Date Exudative age-related macular degeneration of le ft eye 11/26/2023 JUAN MANUEL (generalized anxiety disorder) 04/21/2023 Overweight [...] as of this encounter (statuses as of 01/06/2024) Resolved Problems Problem Noted Date Diagnosed Date [...] and stage 3b chronic kidney disease 05/28/2020 10/0 10/2020 Overview: Per CKD protocol COPD, group C, by GOLD 2017 classification 09/26/2019 04/22/2021 Overview: Per COPD GOLD Classification COPD, mild 09/07/2019 09/29/2019 Overview: Per COPD GOLD Classification Primary open-angle glaucoma, bilateral, stage unspecified 07/27/2019 10/06/2022 History of colon polyps 12/15/2018 02/12/2019 Hypertensive heart and kidne y disease with [...] as of this encounter (statuses as of 01/06/2024) Immunizations Name Administration Dates Next Due COVID-19 [...] money to get more. Never true 01/26/2023 Childcare Answer Date Recorded Do you feel overwhelmed with taking care of a child, family member or friend? No 01/26/2023 Does your family need help f inding childcare? (Household - for ages 0-17 years) Not on file 01/26/2023 Clothing Answer Date Recorded Have you been unable to get clothing when it was really needed? No 01/26/2023 Is your family able to get c lothes or diapers when needed? (Household - for ages 0-17 years) Not on file 01/26/2023 Personal Safety Answer Date Recorded Do you feel unsafe or have concerns for your saf ety? No 01/26/2023 Do you have concerns for you r family's safety? (Household - for ages 0-17 years) Not on file 01/26/2023 Utilities Answer Date Recorded Do you have trouble paying y our heating, water, or electric bill? No 01/26/2023 Is your family able to pay t he heat, water, or electric bill? (Household - for ages 0-17 years) Not on file 01/26/2023 Does your family have access to good internet? (Household - for ages 0-17 years) Not on file 01/26/2023 Employment Status Answer Date Recorded Are you unemployed or without regular income? No 01/26/2023 Does the household have a re lar source of income? (Household - for ages 0-17 years) Not on file 01/26/2023 Social Connections Answer Date Recorded How often do you feel lonely or isolated from th ose around you? Rarely 01/26/2023 Financial Resource Strain Answer Date R ecorded Do you have any trouble payi ng for your medications, or do you think you might in the future? No 01/26/2023 Does your family have troubl e paying for medicine? (Household - for ages 0-17 years) Not on file 01/26/2023 Transportation Needs Answer Date Record ed READ ONLY Do you have troubl e getting a ride to medical visits or work? Never True 01/26/2023 Does your family have a hard time getting a ride to doctors visits? (Household - for ages 0-17 years) Not on file 01/26/2023 Has lack of transportation k ept you from medical appointments, meetings, work, or from getting things needed for daily living? Check all that apply. (Adult - for ages 18 years and over) Not on file 01/26/2023 Do you (or your family) have trouble finding or paying for a ride (transportation)? (Household - for ages 0-17 years) Not on file 01/26/2023 Housing Stability Answer Date Recorded Do you currently live in a s helter or have no steady place to sleep at night? No 01/26/2023 READ ONLY Do you think you a re at risk of becoming homeless? No 01/26/2023 Does your family worry about paying for your home or becoming homeless? (Household - for ages 0-17 years) Not on file 0 01/26/2023 Are you homeless or worried that you might be in the future? (Adult - for ages 18 years and over) Not on file Are you (or your family) levy eless or worried that you might be in the future? (Household - for ages 0-17 years) Not on file Food Insecurity Answer Date Recorded Do you need food for this week? No 01/26/2023 Are you able to get enough f ood for your family? (Household - for ages 0-17 years) Not on file 01/26/2023 Does your family need food t his week? (Household - for ages 0-17 years) Not on file 01/26/2023 Do you always have enough fo od for your family? (Household - for ages 0-17 years) Not on file 01/26/2023 Sex and Gender Information Value Date Recorded Sex Assigned at Female 09/07/2019 8:46 AM EST Gender Identity Female 09/07/2019 8:46 AM EST Sexual Orientation Straight 09/07/2019 8: 46 AM EST Job Start Date Occupation Industry Not on file Not on file Not on file documented as of this encounter Last Filed Vital Signs Vital Sign Reading Time Taken Comments Blood Pressure 130/56 01/06/2024 9:37 AM EDT Pulse 64 01/06/2024 9:37 AM EDT Temperature 36.6 C (97.8 F) 01/06/2024 9:37 AM ED T Respiratory Rate 18 01/06/2024 9:37 AM EDT Oxygen Saturation 97% 01/06/2024 9:37 AM EDT Inhaled Oxygen Concentration - - Weight 72.6 kg (160 lb) 01/06/2024 9:37 AM EDT Height 164.6 cm (5' 4.8") 01/06/2024 9:37 AM EDT Body Mass Index 26.79 01/06/2024 9:37 AM EDT documented in this encounter Progress Notes * Nima Erickson MD - 01/06/2024 9:57 AM EDT SUBJECTIVE: Katarina Peacock is a 88 year old female. Chief Complaint Patient presents with Cold Symptoms Pt c/o cough, congestion and sinus pressure for 4 days HPI: Productive cough, sinus pressure x 4 days. No fevers/chills. No increased shortness of breath. Patient Active Problem List Diagnosis HTN, goal below 150/90 Essential tremor Dyslipidemia (HFpEF) heart failure with preserved ejection fraction (HCC) Gastroesophageal reflux disease with esophagitis Exudative age-related macular degeneration, left eye, with active choroidal neovascularization (HCC) Stage 3b chronic kidney disease (HCC) Overweight (BMI 25.0-29.9) JUAN MANUEL (generalized anxiety disorder) Exudative age-related macular degeneration of left eye (HCC) Current Outpatient Medications Medication Sig Dispense Refill [...] 2 Puffs before bedtime. 12 g 1 prednisoLONE Acetate 1 % Ophthalmic Suspension (Pred Forte) INSTILL 1 DROP INTO LEFT EYE 4 TIMES DAILY FOR 7 DAYS Azithromycin 250 MG Oral Tablet (Zithromax Z-Uziel) Take two tablets by mouth on first day, then 1 tablet daily until gone 6 Tablet 0 Benzonatate 100 MG Oral Capsule (Tessalon Perlharoon) Take 1 Capsule by mouth 3 times a day as needed for Cough. Do not cut, crush, or chew. 50 Capsule 1 No current facility-administered medications for this visit. Allergy: Review of patient's allergies indicates: Allergen Reactions Adhesive Tape Other (Please comment) Pt reports "it took some skin off" Bee Venom Morphine Other reaction(s): vomiting Mucinex [Guaifenesin Er] Diarrhea, Nausea/vomiting and Neuro complications (Please comment) Oxycodone Other reaction(s): STRANGE DREAMS Percocet [Oxycodone-Acetaminophen] Other (Please comment) [place] funny on medication Lisinopril Cough OBJECTIVE: BP 130/56 | Pulse 64 | Temp 36.6 C (97.8 F) (Tympanic) | Resp 18 | Ht 1.646 m (5' 4.8") | Wt 72.6 kg (160 lb) | SpO2 97% | BMI 26.79 kg/m | BSA 1.82 m Gen: aao x 3, nad Nose: boggy nasal mucosa, clear rhinorrhea Lungs: ctab Heart: rrr, no mrg Skin: no rashes ASSESSMENT AND PLAN: (J01.40) Subacute pansinusitis (primary encounter diagnosis) Plan: usually does well with azithromycin so will prescribe that along with tessalon Follow up as needed. No other complaints were offered at this time. Nima Erickson MD documented in this encounter Nursing Notes * Katherin Narayan LPN - 01/06/2024 9:37 AM EDT The patient has been properly identified by confirmation of name and date of . Chief Complaint Patient presents with Cold Symptoms Pt c/o cough, congestion and sinus pressure for 4 days documented in this encounter Plan of Treatment Upcoming Encounters Date Type Department Care Team (Late st Contact Info) Description 01/13/2024 12:20 PM EDT Office Visit [address] [place] [address] Nima Erickson MD [address] [facility] [place] [address] 01/20/2024 11:30 AM EDT Office Visit Cardiology, [facility] [place] [address] Robert Young MD [address] [facility] [place] [address] 01/29/2024 11:00 AM EDT Nurse Only Ancillary [facility] [address] [facility] [place] [address] [facility], Nurse Annual Wellness [facility] [address] [facility] [place] [address] 03/18/2024 11:40 AM EDT Office Visit Family Practice [facility] [address] [facility] [place] [address] Nima Erickson MD [address] [place] [address] 03/24/2024 1:20 PM EDT Office Visit [address], [place] [id number] Blanca Iyer, PA-Vitor [address] [place] [address] [place] [address] Health Maintenance Due Date Last Done Comments COVID-19 Vaccine ( season) 2023 09/30/2021, 05/23/2021, 09/22/2020, Additional history exists Depression Screening 01/27/2024 01/26/2023 Albumin/Creatinine Ratio 02/06/2024 023, 04/03/2021, 02/19/2017, Additional history exists CKD HGB USE SMARTSET 51764 02/06/202402/05, 02/05/2023, 11/13/2021, Additional history exists CKD PHOS USE SMARTSET 25712 04/10/202403/21, 04/07/2022, 04/03/2021, Additional history exists DTaP,Tdap,and [...] as of this encounter Visit Diagnoses Diagnosis Subacute pansinusitis- Primary documented in this encounter Care Teams Audio Visual Specialist Relationship Specialty Start Date End Date Nima Erickson MD [address] [place] [address] PCP - General Family Medicine 09/16/19 documented as of this encounter
--- OUTSIDE RECORDS SUMMARY | 2024-01-11 18:30 | External Medical Summary | Summary of Care ---
Author Name Unknown Organization [facility] Address [address] [place] [address] Phone [phone] Care Team Providers Care Tobacco Stripper Hand Name Role Phone Nima Erickson MD Primary Care Provider [phone] Reason for Referral * Evaluate & Treat - Unlimited Visits (Within 10 days (routine)) - Authorized Specialty Diagnoses / Procedures Referred By Contact Referred To Contact Cardiovascular Medicine / Cardiology Diagnoses Chronic heart failure with preserved ejection fraction (HCC) Nima Erickson MD [address] [employer] [place] [id number] Referral ID Status Reason Start Date Expiration Date Visits Requested Visits Authorized [id number] Authorized Specialty Services Required 09/30/2023 999 999 Question Answer Referral Priority Within 10 days (routine) Where should this appointment be scheduled? [facility] To which of the following clinics are you referring your patient? General Cardiology Clinic Reason for Visit * Reason Comments Hypertension Dizziness With movement Encounter Details Date Type Department Care Team (Late st Contact Info) Description 09/30/2023 12:40 PM EDT Office Visit Family Practice [facility] [address] [place] [address] Nima Erickson MD [address] [place] [address] HTN, goal below 150/90*; Chronic heart failure with preserved ejection fraction (HCC); Essential tremor; JUAN MANUEL (generalized anxiety disorder); Dyslipidemia; Stage 3b chronic kidney disease (HCC) Allergies Active Allergy Reactions Criticality Noted Date Comments Adhesive Tape Other (Please comment) 10/04/2012 Pt reports "it took some skin off" Bee Venom 03/13/2022 Lisinopril Cough Low 03/27/2009 Morphine 08/29/2020 Other reaction(s): vomiting Guaifenesin Er Diarrhea,Nausea/vomi ti ng,Neuro complications (Please comment) 09/08/2017 Oxycodone 08/29/2020 Other reaction(s): STRANGE DREAMS Oxycodone-Acetaminoph en Other (Please comment) 05/28/2010 [place] funny on medication documented as of this encounter (statuses as of 09/30/2023) Medications Medication Sig Dispensed Refills Start Date End Date Status CORAL CALCIUM 1000 (390 CA) MG PO TABS 1200 mg 1 tab daily 0 Active Multiple Vitamins-Mineral s (PRESERVISION AREDS) Tablet Take 2 Tablets by mouth in the morning. 0 Active hydroCHLOROthiaz andrews 12.5 MG Oral Capsule [...] before bedtime. 12 g 1 06/16/2023 Active Diclofenac Sodium 1 % External Gel (Voltaren) Apply topically to affected area 2 g in the morning AND 2 g before bedtime. Apply to foot. 150 g 3 10/01/2021 09/30/2023 Discontinued (Discharged) predniSONE 20 MG Oral Tablet (Deltasone) Take 4 tabs daily for 2 days, 3 tabs daily for 2 days, 2 tabs daily for 2 days, 1 tab daily for 2 days 20 Tablet 0 06/16/2023 09/30/2023 Discontinued (Discharged) documented as of this encounter (statuses as [...] Sign Reading Time Taken Comments Blood Pressure 154/72 09/30/2023 11:28 AM EDT Pulse 64 09/30/2023 11:28 AM EDT Temperature 37.6 C (99.7 F) 09/30/2023 11:28 AM E DT Respiratory Rate 20 09/30/2023 11:28 AM EDT Oxygen Saturation - - Inhaled Oxygen Concentration - - Weight 72.6 kg (160 lb) 09/30/2023 11:28 AM EDT Height - - Body Mass Index 26.79 06/16/2023 10:51 AM EST documented in this encounter Progress Notes * Nima Erickson MD - 09/30/2023 11:56 AM EDT SUBJECTIVE: Katarina Peacock is a 88 year old female. Chief Complaint Patient presents with Hypertension Dizziness With movement HPI: Routine follow up. Feels well. She still walks 2 miles a day. She was not aware that she missed hercardiology appointment on July 29. She has no future appointments scheduled with cardiology either so I have to get that straightened out today. I reviewed her current medication list. Her bloodwork is up to date. Patient Active Problem List Diagnosis Code HTN, [...] 2 Puffs before bedtime. 12 g 1 No current facility-administered medications for this visit. Allergy: Review of patient's allergies indicates: Allergen Reactions Adhesive Tape Other (Please comment) Pt reports "it took some skin off" Bee Venom Morphine Other reaction(s): vomiting Mucinex [Guaifenesin Er] Diarrhea, Nausea/vomiting and Neuro complications (Please comment) Oxycodone Other reaction(s): STRANGE DREAMS Percocet [Oxycodone-Acetaminophen] Other (Please comment) [place] funny on medication Lisinopril Cough OBJECTIVE: BP 154/72 (BP Site: Left Arm, BP Position: Sitting, BP Cuff Size: Regular) | Pulse 64 | Temp 37.6 C (99.7 F) (Tympanic) | Resp 20 | Wt 72.6 kg (160 lb) | BMI 26.79 kg/m | BSA 1.82 m General: alert, healthy, and no distress Head: Normocephalic, No masses, lesions, tenderness or abnormalities Lungs: chest symmetric with normal AP diameter, [...] below 150/90 (primary encounter diagnosis) Plan: stable on current rx (I50.32) Chronic heart failure with preserved ejection fraction (HCC) Plan: CARDIOLOGY REFERRAL OP (G25.0) Essential tremor Plan: mild/stable (F41.1) JUAN MANUEL (generalized anxiety disorder) Plan: stable (E78.5) Dyslipidemia Plan: continue pravastatin (N18.32) Stage 3b chronic kidney disease (HCC) Plan: stable; avoid NSAIDs Follow up in 6 month(s). No other complaints were offered at this time. Nima Erickson MD documented in this encounter Nursing Notes * Yoel Hodge RN - 09/30/2023 11:30 AM EDT Chief Complaint Patient presents with Hypertension Dizziness With movement documented in this encounter Plan of Treatment Upcoming Encounters Date Type Department Care Team (Late st Contact Info) Description 10/21/2023 10:20 AM EDT Office Visit Family Practice [facility] [address] [place] [address] Nima Erickson MD [address] [place] [address] 01/29/2024 11:00 AM EDT Nurse Only Ancillary [facility] [address] [place] [address] [place] Nurse Annual Wellness [facility] [address] [place] [address] 03/24/2024 1:20 PM EDT Office Visit Dermatology, [place] [address] [facility] [place] [address] Blanca Iyer PA-C [address] [place] [address] [place] [address] Scheduled Referrals Name Type Priority Associated Diagnoses Orde r Schedule CARDIOLOGY REFERRAL OP Referral Within 10 days (routine) Chronic heart failure with preserved ejection fraction (HCC) Ordered: 09/30/2023 Health Maintenance Due Date Last Done Comments COVID-19 Vaccine ( season) 2023 09/30/2021, 05/23/2021, 09/22/2020, Additional history exists Depression Screening 01/27/2024 01/26/2023 Albumin/Creatinine Ratio 02/06/2024 023, 04/03/2021, 02/19/2017, Additional history exists CKD HGB USE SMARTSET 35252 02/06/202402/05, 02/05/2023, 11/13/2021, Additional history exists CKD PHOS USE SMARTSET 06984 04/10/202403/21, 04/07/2022, 04/03/2021, Additional history exists DTaP,Tdap,and [...] heart failure with preserved ejection fraction (HCC) Essential tremor Essential and other specified forms of tremor JUAN MANUEL (generalized anxiety disorder) Generalized anxiety disorder Dyslipidemia Other and unspecified hyperlipidemia Stage 3b chronic kidney disease (HCC) documented in this encounter Care Teams Tobacco Stripper Hand Relationship Specialty Start Date End Date Nima Erickson MD [address] [place] [place] [address] PCP - General Family Medicine 09/16/19 documented as of this encounter
--- OUTSIDE RECORDS SUMMARY | 2024-01-11 18:30 | External Medical Summary | Summary of Care ---
Author Name Unknown Organization [facility] Address [address] [place] [address] Phone [phone] Care Team Providers Care General Matcher Name Role Phone Nima Erickson MD Primary Care Provider [phone] Reason for Referral * Evaluate & Treat - Unlimited Visits (Within 10 days (routine)) - Authorized Specialty Diagnoses / Procedures Referred By Contac t Referred To Contact Physical Therapy / Physical Medicine And Rehab Diagnoses Hip pain, left Blanca De Dios DO [address] [place] [address] Referral ID Status Reason Start Date Expiration Date Visits Requested Visits Authorized [id number] Authorized Specialty Services Required 11/26/2023 999 999 Question Answer Referral Priority Within 10 days (routine) Where should this appointment be scheduled? [facility] Reason for Visit * Reason Comments Acute Pt being seen for c/ o Lt hip pain and doing steps causes a lot of pain. Has had this for a week and no injury as far as she knows. Encounter Details Date Type Department Care Team (Late st Contact Info) Description 11/26/2023 9:00 AM EDT Office Visit [facility] [address] [place] [address] Blanca De Dios DO [address] [place] [address] Hip pain, left*; Exudative age-related macular degeneration of left eye, unspecified stage (HCC) Allergies Active Allergy Reactions Criticality Noted Date Comments Adhesive Tape Other (Please comment) 10/04/2012 Pt reports "it took some skin off" Bee Venom 03/13/2022 Lisinopril Cough Low 03/27/2009 Morphine 08/29/2020 Other reaction(s): vomiting Guaifenesin Er Diarrhea,Nausea/vomi ti ng,Neuro complications (Please comment) 09/08/2017 Oxycodone 08/29/2020 Other reaction(s): STRANGE DREAMS Oxycodone-Acetaminoph en Other (Please comment) 05/28/2010 [place] funny on medication documented as of this encounter (statuses as of 11/26/2023) Medications Medication Sig Dispensed Refills Start Date End Date Status CORAL CALCIUM 1000 (390 CA) MG PO TABS 1200 mg 1 tab daily 0 Activ e Multiple Vitamins-Minerals (PRESERVISION AREDS) Tablet Take 2 Tablets by mouth in the morning. 0 Active hydroCHLOROthiazid e 12.5 MG Oral Capsule (Hydrodiuril) Take one tab 5 days/week 90 Capsule 3 10/01/2021 Active Additional Information Patient not taking.Reported on 11/26/2023 Carvedilol 6.25 MG Oral Tablet (Coreg) Take one in the morning, 1/2 in the evening 135 Tablet 11 11/05/2022 Active Doxazosin Mesylate 2 MG Oral Tablet (Cardura)Indicatio ns:Chronic heart failure with preserved ejection fraction (HCC) TAKE 2 TABLETS BY MOUTH AT BEDTIME 180 Tablet 3 03/03/2023 Active Additional Information Patient not taking.Reported on 11/26/2023 Losartan Potassium 50 MG Oral Tablet (Cozaar)Indication [...] before bedtime. 12 g 1 06/16/2023 Active Additional Information Patient not taking.Reported on 11/26/2023 Azithromycin 250 MG Oral Tablet (Zithromax Z-Uziel) Take two tablets by mouth on first day, then 1 tablet daily until gone 6 Tablet 0 10/21/2023 Active documented as of this encounter (statuses as of 11/26/2023) Active Problems Problem Noted Date Diagnosed Date [...] as of this encounter (statuses as of 11/26/2023) Resolved Problems Problem Noted Date Diagnosed Date [...] as of this encounter (statuses as of 11/26/2023) Immunizations Name Administration Dates Next Due COVID-19 [...] Sign Reading Time Taken Comments Blood Pressure 130/50 11/26/2023 8:58 AM EDT Pulse 60 11/26/2023 8:58 AM EDT Temperature 37 C (98.6 F) 11/26/2023 8:58 AM EDT Respiratory Rate 16 11/26/2023 8:58 AM EDT Oxygen Saturation - - Inhaled Oxygen Concentration - - Weight 73.5 kg (162 lb) 11/26/2023 8:58 AM EDT Height 164.6 cm (5' 4.8") 11/26/2023 8:58 AM EDT Body Mass Index 27.12 11/26/2023 8:58 AM EDT documented in this encounter Progress Notes * Blanca De Dios, - 11/26/2023 9:02 AM EDT Subjective: Katarina Peacock is a 88 year old female. Chief Complaint Patient presents with Acute Pt being seen for c/o Lt hip pain and doing steps causes a lot of pain. Has had this for a week andno injury as far as she knows. There are no exam notes on file for this visit. HPI: This is a 88 year old female with PMHx as below presents with acute illness Pmhx macular degeneration ophthal following Health Maintenance Due Topic Date Due COVID-19 Vaccine ( season) 2023 Albumin/Creatinine Ratio 02/06/2024 Patient Active Problem List Diagnosis Code HTN, goal below 150/90 I10 Essential tremor G25.0 Dyslipidemia E78.5 (HFpEF) heart failure with preserved ejection fraction (HCC) I50.30 Gastroesophageal reflux disease with esophagitis K21.00 Exudative age-related macular degeneration, left eye, with active choroidal neovascularization (HCC) H35.3221 Stage 3b chronic kidney disease (HCC) N18.32 Overweight (BMI 25.0-29.9) E66.3 JUAN MANUEL (generalized anxiety disorder) F41.1 Exudative age-related macular degeneration of left eye ([facility]) H35.3220 Current Outpatient Medications Medication Sig Dispense Refill CORAL CALCIUM 1000 (390 CA) MG PO TABS 1200 mg 1 tab daily Multiple Vitamins-Minerals (PRESERVISION AREDS) Tablet Take 2 Tablets by mouth in the morning. Carvedilol 6.25 MG Oral Tablet (Coreg) Take one in the morning, 1/2 in the evening 135 Tablet 11 Losartan Potassium 50 MG Oral Tablet (Cozaar) Take 1 Tablet by mouth in the morning. 90 Tablet 3 Pravastatin Sodium 40 MG Oral Tablet (Pravachol) Take 1 tablet by mouth once daily 90 Tablet 3 hydroCHLOROthiazide 12.5 MG Oral Capsule (Hydrodiuril) Take one tab 5 days/week (Patient not taking: Reported on 11/26/2023) 90 Capsule 3 Doxazosin Mesylate 2 MG Oral Tablet (Cardura) TAKE 2 TABLETS BY MOUTH AT BEDTIME (Patient not taking: Reported on 11/26/2023) 180 Tablet 3 Fluticasone Propionate HFA 110 MCG/ACT Inhalation Aerosol (Flovent HFA) Inhale 2 Puffs by mouth in the morning and 2 Puffs before bedtime. (Patient not taking: Reported on 11/26/2023) 12 g 1 Azithromycin 250 MG Oral Tablet (Zithromax Z-Uziel) Take two tablets by mouth on first day, then 1 tablet daily until gone 6 Tablet 0 No current facility-administered medications for this visit. Past Medical History: Diagnosis Date Aortic valve insufficiency BENIGN NEOPLASM LG BOWEL 04/03/2003 Dyslipidemia, goal to be determined Essential and other specified forms of tremor JUAN MANUEL (generalized anxiety disorder) 04/21/2023 History of colon polyps 12/15/2018 HTN, goal below 140/90 Hx of basal cell carcinoma 05/19/2011 L upper cutaneous lip - BCC, 09/2010 Mitral and aortic incompetence moderate 2+ 11/07 Overweight (BMI 25.0-29.9) 10/06/2022 Past Surgical History: Procedure Laterality Date CARPAL TUNNEL SURGERY Left 11/28/2020 NEUROPLASTY MEDIAN NERVE AT CARPAL TUNNEL performed by Reg Elaine MD at [facility] COLONOSCOPY W/ BIOPSY (RECTUM) 08/15/08 repeat in 10 yrs EGD, FLEXIBLE, DIAGNOSTIC 11/07/2014 normal/ESOPHAGOGASTRODUODENOSCOPY (EGD), FLEXIBLE, TRANSORAL, DIAGNOSTIC performed by Precious Lobato MD at [facility] EGD, FLEXIBLE, DIAGNOSTIC 10/08/2017 Richardson's esophagitis/ESOPHAGOGASTRODUODENOSCOPY (EGD), FLEXIBLE, TRANSORAL, DIAGNOSTIC performed by Zak Barber MD at [facility] EXPLORATION OF ABDOMEN 12/01/12 Laparoscopy exploratory lap, removal atrium mesh, lysis of adhesive loop down the right lwoer quadrant, repair recurrent incisional hernia 12/01/12 Dr. Madrigal at [facility] [employer] Jonah Monreal PA-C INCISIONAL HERNIA REPAIR, LAP, REDUCIBLE 11/23/12 Laparoscopic repair of hernia 11/23/12 Dr. Madrigal at [facility] [employer] Jonah Monreal PA-C REPAIR INITIAL INCISIONAL OR VENTRAL HERNIA; REDUCIBLE 05/05/08 Resection of incarcerated fat and incisional hernia 05/05/[address] Madrigal TENDON SHEATH INCISION, FINGER Left 11/28/2020 TRIGGER FINGER RELEASE performed by Reg Elaine MD at [facility] Review of patient's allergies indicates: Allergen Reactions Adhesive Tape Other (Please comment) Pt reports "it took some skin off" Bee Venom Morphine Other reaction(s): vomiting Mucinex [Guaifenesin Er] Diarrhea, Nausea/vomiting and Neuro complications (Please comment) Oxycodone Other reaction(s): STRANGE DREAMS Percocet [Oxycodone-Acetaminophen] Other (Please comment) [place] funny on medication Lisinopril Cough Family History Problem Relation Age of Onset Heart Disorder Mother No Known Problems Father Lung Disorder Sister Allergies Sister from anaphylactic rxn Cancer Sister Blood Disorder Sister Heart Disorder Sister Diabetes Brother Family Status Relation Status Mo Fa Sis Alive Sis Alive Sis Sis Sis Sis Bro Bro Social History Socioeconomic History Marital status: Spouse name: Not on file Number of children: Not on file Years of education: Not on file Highest education level: Not on file Occupational History Not on file Tobacco Use Smoking status: Never Smokeless tobacco: Never Vaping Use Vaping Use: Never used Substance and Sexual Activity Alcohol use: No Drug use: No Sexual activity: Not Currently Partners: Male Comment: Chepe Other Topics Concern Not on file Social History Narrative Not on file Social Determinants of Health Financial Resource Strain: Not on file Food Insecurity: No Food Insecurity (01/26/2023) Hunger Vital Sign Worried About Running Out of Food in the Last Year: Never true Ran Out of Food in the Last Year: Never true Transportation Needs: Not on file Physical Activity: Not on file Stress: Not on file Social Connections: Not on file Intimate Partner Violence: Not on file Housing Stability: Not on file Review of Systems: As per HPI all other ROS negative. Wt Readings from Last 3 Encounters: 11/26/23 73.5 kg (162 lb) 09/30/23 72.6 kg (160 lb) 06/16/23 72.6 kg (160 lb) Results for orders placed or performed in visit on 04/10/23 PHOSPHORUS Result Value Ref Range Phosphorus 4.0 2.5 - 4.8 mg/dL BASIC METABOLIC PANEL Result Value Ref Range BUN 33 (H) 6 - 20 mg/dL Creatinine 1.4 (H) 0.5 - 1.0 mg/dL Estimated Glomerular Filtration Rate 35 (L) >=60 mL/min Sodium 143 135 - 146 mmol/L Potassium 4.9 3.5 - 5.1 mmol/L Chloride 107 98 - 107 mmol/L CO2 25 22 - 32 mmol/L Anion Gap 11 7 - 15 mmol/L Glucose 92 70 - 120 mg/dL Calcium 9.9 8.4 - 10.2 mg/dL 25-HYDROXY VITAMIN D Result Value Ref Range 25-Hydroxy Vitamin D 74 >19 ng/mL *Note: Due to a large number of results and/or encounters for the requested time period, some results have not been displayed. A complete set of results can be found in Results Review. OBJECTIVE: Physical Exam: BP 130/50 | Pulse 60 | Temp 37 C (98.6 F) (Tympanic) | Resp 16 | Ht 1.646 m (5' 4.8") | Wt 73.5kg (162 lb) | BMI 27.12 kg/m | BSA 1.83 m General: alert, healthy, and no distress Heart: regular rate & rhythm and pos CARLOS Lungs: lungs clear to auscultation Back: no costovertebral angle tenderness, range of motion is normal Extremities: no joint deformities, effusion, or inflammation Hip pain, left (Primary) - XR HIP UNILAT 2-3 VIEWS INCLUDING AP PELVIS - XR L SPINE AP AND LATERAL - PHYSICAL THERAPY REFERRAL OP Exudative age-related macular degeneration of left eye, unspecified stage ([facility]) Follow Up: Return if symptoms worsen or fail to improve. Blanca De Dios DO documented in this encounter Plan of Treatment Upcoming Encounters Date Type Department Care Team (Late st Contact Info) Description 01/20/2024 11:30 AM EDT Office Visit Cardiology, [facility] [address] [place] [address] Robert Young MD [address] [place] [address] 01/22/2024 10:20 AM EDT Office Visit [facility] [address] [place] [address] Nima Erickson MD [address] [place] [address] 01/29/2024 11:00 AM EDT Nurse Only Ancillary [facility] [address] [place] [address] [facility], Nurse Annual Wellness [facility] [address] [place] [address] 03/18/2024 11:40 AM EDT Office Visit [facility] [address] [facility] [place] [address] Nima Erickson MD [address] [place] [address] 03/24/2024 1:20 PM EDT [facility] [place] [id number] [facility] [place] [id number] Blanca Iyer PA-C [address] [place] [address] [place] [id number] Pending Results Name Type Priority Associated Diagnoses Date /Time XR HIP UNILAT 2-3 VIEWS INCLUDING AP PELVIS Medical Imaging Routine Hip pain, left 11/26/2023 9:38 AM EDT XR L SPINE AP AND LATERAL Medical Imaging Routine Hip pain, left 11/26/2023 9:38 AM EDT Scheduled Referrals Name Type Priority Associated Diagnoses Orde r Schedule PHYSICAL THERAPY REFERRAL OP Referral Within 10 days (routine) Hip pain, left Ordered: 11/26/2023 Health Maintenance Due Date Last Done Comments COVID-19 Vaccine ( season) 2023 09/30/2021, 05/23/2021, 09/22/2020, Additional history exists Depression Screening 01/27/2024 01/26/2023 Albumin/Creatinine Ratio 02/06/2024 023, 04/03/2021, 02/19/2017, Additional history exists CKD HGB USE SMARTSET 47673 02/06/202402/05, 02/05/2023, 11/13/2021, Additional history exists CKD PHOS USE SMARTSET 23064 04/10/202403/21, 04/07/2022, 04/03/2021, Additional history exists DTaP,Tdap,and [...] as of this encounter Visit Diagnoses Diagnosis Hip pain, left- Primary Pain in joint, pelvic region and thigh Exudative age-related macular degeneration of left eye, unspecified stage (HCC) documented in this encounter Care Teams General Matcher Relationship Specialty Start Date End Date Nima Erickson MD [address] [place] [address] PCP - General Family Medicine 09/16/19 documented as of this encounter
[2024-01-11] MEDS: OPTIRAY 320 125ml IV ONE (18:40)
--- NOTE | 2024-01-11 18:45 | Electrocardiogram Report ---
Test Reason : Blood Pressure : / mmHG Vent. Rate : 055 BPM Atrial Rate : 055 BPM P-R Int : 154 ms QRS Dur : 076 ms QT Int : 416 ms P-R-T Axes : 093 -24 032 degrees QTc Int : 397 ms Sinus bradycardia Otherwise normal ECG When compared with ECG of 04-JUN-2023 15:58, No significant change was found Confirmed by Nima Dunlap ([id number]) on 01/11/2024 6:44:42 PM Referred By: Confirmed By:Nima Dunlap
--- NOTE | 2024-01-11 19:33 | CT Scan Report ---
CT OF THE NECK WITH IV CONTRAST CLINICAL HISTORY: Stridor. COMPARISON STUDY: Neck radiographs performed earlier today. TECHNIQUE: Following IV administration of 117 mL of Optiray, helical axial images of the neck were o btained. Sagittal and coronal reconstructions were viewed. Automated exposure control was utilized for the study. A dose lowering technique was utilized adhering to the principles of ALARA. FINDINGS: Visualized portions of the intracranial contents are unremarkable. The parotid and submand ibular glands are normal. The epiglottis is normal. There is no prevertebral edema. No fluid collecti ons within the neck are present. No enlarged cervical lymph nodes are noted. No radiopaque foreign félix dies are identified. Please note that the chest CT will be reported separately. No mucosal lesions ar e identified by CT. IMPRESSION: 1. No acute process within the neck. 2. No cervical lymphadenopathy. No fluid collections within the neck. No radiopaque foreign bodies. ACT 112: Negative or not required by law. Electronically signed by: Billy Christensen M.D. 01/11/2024 7:31 PM
--- NOTE | 2024-01-11 19:39 | CT Scan Report ---
CT ANGIOGRAPHY OF THE CHEST, PULMONARY EMBOLUS PROTOCOL CLINICAL HISTORY: Respiratory difficulty. Evaluate for pulmonary embolus. COMPARISON STUDY: Chest CT June 04, 2023 and chest radiograph performed earlier today. TECHNIQUE: Following IV administration of 117 mL of Optiray, helical axial images of the chest were o btained utilizing the pulmonary embolus protocol. Maximal intensity projections and sagittal and cor onal reformats were viewed on an independent 3D workstation. IV contrast was administered without co mplication. Automated exposure control was utilized for the study. A dose lowering technique was ut ilized adhering to the principles of ALARA. FINDINGS: No pulmonary emboli are identified. There is slight dilatation of the central pulmonary ar teries. There is mild cardiomegaly. No pericardial effusion is present. No enlarged thoracic lymph no de identified. There is no pneumothorax or pleural effusion. Central airways are patent. There is no consolidation. A 4 mm ill-defined nodular opacity within the right upper lobe on image 174 of 243 is new since prior CT. No acute fractures within the bony structures are noted. Visualized portions of t he upper abdomen are unremarkable. IMPRESSION: 1. No pulmonary emboli identified. 2. No consolidation to suggest pneumonia. Tiny 4 mm ill-defined nodular opacity within the right uppe r lobe may reflect bronchiolitis. This is likely benign. ACT 112: Negative or not required by law. Electronically signed by: Billy Christensen M.D. 01/11/2024 7:37 PM
[2024-01-11] MEDS ORDERED: POLYETHYLENE (MIRALAX) 17 GM PACK PO PRN (22:13)
[2024-01-11] MEDS ORDERED: ONDANSETRON INJ 2 MG/ML 2 ML VIAL IV PRN (22:13)
[2024-01-11] MEDS ORDERED: ACETAMINOPHEN 325 MG TAB PO PRN (22:13)
[2024-01-11] MEDS ORDERED: FAMOTIDINE 20 MG TAB PO PRN (22:13)
--- OUTSIDE RECORDS SUMMARY | 2024-01-11 22:22 | External Medical Summary | Summary of Care ---
Author Name Unknown Organization [facility] Address [address] [facility] [place] [address] Phone [phone] Care Team Providers Care Director Instrumentation Name Role Phone Nima Erickson MD Primary Care Provider [phone] Reason for Visit * Reason Comments Acute Pt states that she i s here for a worsening cough, heavy breathing, SOB and wheezing. 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, unspecified CKD stage, unspecified heart failure type (HCC) Allergies Active Allergy Reactions Criticality Noted Date Comments Adhesive Tape Other (Please comment) 10/04/2012 Pt reports "it took some skin off" Bee Venom 03/13/2022 Lisinopril Cough Low 03/27/2009 Morphine 08/29/2020 Other reaction(s): vomiting Guaifenesin Er Diarrhea,Nausea/vomi ti ng,Neuro complications (Please comment) 09/08/2017 Oxycodone 08/29/2020 Other reaction(s): STRANGE DREAMS Oxycodone-Acetaminoph en Other (Please comment) 05/28/2010 Pettus funny on medication documented as of this encounter (statuses as of 01/11/2024) Medications Medication Sig Dispensed Refills Start Date End Date Status CORAL CALCIUM 1000 (390 CA) MG PO TABS 1200 mg 1 tab daily Active Multiple Vitamins-Mineral s (PRESERVISION AREDS) Tablet Take 2 Tablets by mouth in the morning. Active hydroCHLOROthiaz andrews 12.5 MG Oral Capsule [...] once daily 90 Tablet 3 06/04/2023 Active prednisoLONE Acetate 1 % Ophthalmic Suspension (Pred Forte) INSTILL 1 DROP INTO LEFT EYE 4 TIMES DAILY FOR 7 DAYS 12/07/2023 Active Benzonatate 100 MG Oral Capsule (Tessalon Perles) Take 1 Capsule by mouth 3 times a day as needed for Cough. Do not cut, crush, or chew. 50 Capsule 1 01/06/2024 Active Fluticasone Propionate HFA 110 MCG/ACT Inhalation Aerosol (Flovent HFA) Inhale 2 Puffs by mouth in the morning and 2 Puffs before bedtime. 12 g 1 06/16/2023 01/11/2024 Discontinued (Patient preference/d iscontinuati on) Erythromycin 5 MG/GM Ophthalmic Ointment Instill into eye 4 times a day for 10 days. Apply to affected eye(s) until redness and discharge resolved. 3.5 g 1 10/21/2023 01/11/2024 Discontinued (Medication List Clean Up) Azithromycin 250 MG Oral Tablet (Zithromax Z-Uziel) Take two tablets by mouth on first day, then 1 tablet daily until gone 6 Tablet 01/06/2024 01/11/2024 Discontinued (Medication List Clean Up) Hospital, Clinic, or Other Facility Administered Medication Ordered Dose Route Frequency Start Date End Date Status albuterol-ipratropium (Duoneb) inhalation solution 3 mLIndications:Shortness of breath 3 mL NEBULIZER ONCE 01/11/2024 01/11/2024 Ended documented as of this encounter (statuses as of 01/11/2024) Active Problems Problem Noted Date Diagnosed Date Hypertensive heart disease w ith congestive heart failure and chronic kidney disease 01/11/2024 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 (Household - for ages [...] Sign Reading Time Taken Comments Blood Pressure 126/62 01/11/2024 1:10 PM EDT Pulse 58 01/11/2024 1:10 PM EDT Temperature 36.8 C (98.2 F) 01/11/2024 1:10 PM ED T Respiratory Rate 16 01/11/2024 1:10 PM EDT Oxygen Saturation 96% 01/11/2024 1:10 PM EDT Inhaled Oxygen Concentration - - Weight 73.8 kg (162 lb 12.8 oz) 01/11/2024 1:10 PM EDT Height 162.6 cm (5' 4") 01/11/2024 1:10 PM EDT Body Mass Index 27.94 01/11/2024 1:10 PM EDT documented in this encounter Progress Notes * Grant So MD - 01/11/2024 1:31 PM EDT Images from the original note were not included. Assessment and Plan Concern for pneumonia. Rule out HF exacerbation, PE. EMS transport to [facility] for emergent management and treatment. 1. Shortness of breath - albuterol-ipratropium (Duoneb) inhalation solution 3 mL 2. HTN, goal below 150/90 3. Stage 3b chronic kidney disease (HCC) 4. 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 History of Present Illness The patient is an 88 year old female with past medical history of dyslipidemia, HFpEF, HTN, GERD, CKD3b, JUAN MANUEL who presents for acute. 88-year-old female presents for an acute visit. She has been sick for about a week at this point. She was seen last week by PCP and prescribe Tessalon and azithromycin, however, she did not realize the azithromycin was prescribed and she did not pick it up. Over the last 24 hours she notes significant worsening of shortness of breath. She was now in moderate respiratory distress with oxygen saturation at 93% and respiratory rate of 26-28. There is audible wheezing/stridor. Lungs are tight with wheezing in all 4 quadrants. Physical Exam Vitals: 01/11/24 1310 Temp: 36.8 C (98.2 F) Pulse: 58 Resp: 16 SpO2: 96% BP: 126/62 BMI: 27.93 Physical Exam Physical Exam Vitals reviewed. Constitutional: General: She is in acute distress. Cardiovascular: Rate and Rhythm: Normal rate and regular rhythm. Pulmonary: Comments: Increased work of breathing. Stridor. Wheezing in all 4 quadrants. This note has been completed in part utilizing [employer] Speech Voice Recognition Software. Due to technical limitations of the software, grammatical errors, random word insertions, prounoun errors, and incomplete sentences may occur. Any formal questions or concerns about the content, text, or information contained within the body of this dictation should be directly addressed to the provider for clarification. documented in this encounter Nursing Notes * Rosa Elena Stokes LPN - 01/11/2024 1:10 PM EDT Katarina Peacock is a 88 year old female who presents today for Chief Complaint Patient presents with Acute Pt states that she is here for a worsening cough, heavy breathing, SOB and wheezing. Pt states thatissues started last night documented in this encounter Plan of Treatment Upcoming Encounters Date Type Department Care Team (Late st Contact Info) Description 01/13/2024 12:20 PM EDT Office Visit Family Practice [facility] [address] [address] Nima Erickson MD [address] [address] 01/20/2024 11:30 AM EDT Office Visit Cardiology, [facility] [address] [address] Robert Young MD [address] [address] 01/29/2024 11:00 AM EDT Nurse Only Ancillary [facility] [address] [facility] [address] [place] [address] Caesar, Nurse Annual Wellness [facility] [address] [facility] [place] [place] [address] 03/18/2024 11:40 AM EDT Office Visit Family Practice [facility] [address] [facility] [place] [place] [address] Nima Erickson MD [address] [facility] [place] [id number] 03/24/2024 1:20 PM EDT Office Visit [address] [address] Blanca Iyer, PA-C [address] [place] [address] [address] [address] Health Maintenance Due Date Last Done Comments COVID-19 Vaccine (2022- season) 2023 09/30/2021, 05/23/2021, 09/22/2020, Additional history exists Depression Screening 01/27/2024 01/26/2023 Albumin/Creatinine Ratio 02/06/2024 023, 04/03/2021, 02/19/2017, Additional history exists CKD HGB USE SMARTSET 68039 02/06/202402/05, 02/05/2023, 11/13/2021, Additional history exists CKD PHOS USE SMARTSET 08003 04/10/202403/21, 04/07/2022, 04/03/2021, Additional history exists DTaP,Tdap,and [...] as of this encounter Visit Diagnoses Diagnosis Shortness of breath- Primary HTN, goal below 150/90 Stage 3b chronic kidney disease (HCC) 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, unspecified CKD stage, unspecified heart failure type (HCC) documented in this encounter Administered Medications Inactive Administered Medications - up to 3 most recent administrations Medication Order MAR Action Action Date Dose Rate Site albuterol-ipratropium (Duoneb) inhalation solution 3 mL 3 mL, Nebulizer, ONCE, On 01/11/24 at 1430, For 1 dose, 3 mL = 0.5 mg ipratropium/ 2.5 mg albuterol Given 01/11/2024 1:49 PM EDT 3 mL documented in this encounter Care Teams Director Instrumentation Relationship Specialty Start Date End Date Nima Erickson MD [address] [facility] [place] [place] [id number] PCP - General Family Medicine 09/16/19 documented as of this encounter
[2024-01-11] MEDS: ALBUTEROL 0.083% NEBU SOLN 3 ML VIAL NEB SCH (22:33)
[2024-01-11] MEDS: BUDESONIDE 0.5 MG/2 ML VIAL (PULMICORT) NEB SCH (22:34)
[2024-01-11] MEDS: cefTRIAXone SODIUM 2,000 MG/50 ML BAG IV SCH (22:51)
[2024-01-11] MEDS: SODIUM CHLORIDE 0.9% 1,000 ML IV SCH (22:51)
[2024-01-11] MEDS: BENZONATATE 100 MG CAPSULE PO PRN (22:51)
[2024-01-11] MEDS: carvediloL 3.125 MG TAB PO SCH (22:56)
[2024-01-11] MEDS: HEPARIN SOD 5,000 UNIT/0.5 ML VIAL SQ SCH (22:56)
[2024-01-12] MEDS: AZITHROMYCIN 500 MG in DEXTROSE 5% 250 ML IV SCH (00:07)
[2024-01-12 06:54] LABS: Basophils # (auto) 0.01 K/uL (0.00-0.20); Basophils % (auto) 0.1 %; Hematocrit (blood only) 37.8 % (37.0-47.0); Immature Granulocytes # (auto) 0.04 K/uL (0.01-0.20); Immature Granulocytes % (auto) 0.5 %; Lymphocytes # (auto) 1.14 K/uL (1.20-3.40); Lymphocytes % (auto) 14.8 %; Mean Corpuscular Hgb Conc 34.4 g/dL (32.0-36.0); Mean Corpuscular Volume 84.2 fL (80.0-100.0); Mean Platelet Volume 9.5 fL (9.4-12.4); Monocytes # (auto) 0.24 K/uL (0.11-0.59); Monocytes % (auto) 3.1 %; Neutrophils # (auto) 6.25 K/uL (1.40-6.50); Neutrophils % (auto) 81.5 %; Platelet Count 232 K/uL (130-400); RDW Coefficient of Variation 13.4 % (11.5-14.5); RDW Standard Deviation 41.4 fL (36.4-46.3); Red Blood Count 4.49 M/uL (4.20-5.40); White Blood Count 7.68 K/ul (4.8-10.8)
[2024-01-12 07:14] LABS: Alanine Aminotransferase 10 U/L (7-52); Albumin Globulin Ratio 1.5 (0.9-2); Albumin Level 3.7 gm/dl (3.4-5.0); Alkaline Phosphatase 53 U/L (34-104); Anion Gap 9 (3-11); Aspartate Aminotransferase 15 U/L (13-39); Bilirubin,Total 0.3 mg/dl (0.2-1.0); Blood Urea Nitrogen 31 mg/dl (6-23); Calcium 9.1 mg/dl (8.6-10.3); Carbon Dioxide 20 mmol/L (21-32); Chloride 110 mmol/L (98-107); Est GFR (African American) 45.2 ml/min; Globulin 2.5 gm/dl (2.5-4.0); Glucose 120 mg/dl (70-99(Fasting)); Magnesium 2.1 mg/dl (1.7-2.4); Potassium 4.2 mmol/L (3.5-5.1); Sodium 139 mmol/L (136-145); Total Protein 6.2 gm/dl (6.0-8.3)
--- NOTE | 2024-01-12 07:38 | Hospitalist Progress Note ---
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 Pt lives alone. Acute bronchitis due to rhinovirus: shortness of breath: admit to med tele --CTA chest negative for PE/PNA. Tiny 4 mm ill-defined nodular opacity within the right upper lobe may reflect bronchiolitis --Soft tissue neck: no acute abnormalities. --CXR w/o acute abnormality Biofire: Rhinovirus + Droplet precautions pulmonary toileting with albuterol nebs, budesonide nebs, flutter valve, Incentive spirometry Stop Rocephin; continue IV azithromycin 500mg x 3 days Received IV steroids in ED; stop for now Remains on Room Air Suspect 1-2 day admission HTN: chronic, stable continue losartan and coreg HLD: chronic, stable continue statin CKD3: chronic, stable serum creatinine 1.24; baseline 1.3-1.4 Chronic HFpEF: daily weight, intake and output heart healthy diet continue coreg, losartan pt not on diuretics, currently euvolemic Disposition: PCP: Dr. Erickson Code Status: Full Code VTE Prophylaxis: Heparin SQ A total of 62 minutes was spent coordinating, documenting, and providing care for this patient excluding time spent in the performance of separately billed services. This included personally viewing all current laboratories and imaging studies, medication reconciliation, outpatient chart review, and discussion with specialists. This patient was seen in collaboration with Dr. Child. Admission and Anticipated Discharge Date Admission Date: January 11, 2024 Supervising Physician Co-Signing Physician Notes Patient seen and examined independently. Discussed with above provider She reports that she is feeling much better CTA chest rules out pneumonia symptoms; discontinued ceftriaxone and history reviewed PT OT eval as patient lives alone Discussed with patient's nephew at bedside. Answer questions/queries I have reviewed the advanced practitioner's documentation, and I agree with, and take responsibility for the plan of care I spent a total of 20 minutes coordinating, documenting, and providing care for this patient excluding time spent in the performance of separately billed services. All of the aforementioned completed while collaborating with the assigned advanced practitioner for a full treatment plan Subjective Pt sitting in the ED in her hospital bed in no apparent distress Reports feeling much better than when she came to the ED Pt denies chest pain, fever, chills, palpitations Pt nephewJorge and his at bedside (they are POA) Pt states adequate oral intake Just finished a nebulizer treatment when I saw her. Review of Systems Review of Systems: Neuro: (-) Falls, trauma, slurred speech HEENT: (-) JOVEL, dizziness, dysphagia, visual or auditory changes CV: (-) CP, palpitations, swelling Resp: (-) SOB; improving and feels so much better GI: (-) appetite changes, N/V/D, bowel changes : (-) urinary changes Skin: (-) rashes Psych: (-) anxiety, depression Physical Exam Physical Exam: Neuro: AAOx4, PERRLA, no aphagia, memory changes, CNII-XII grossly intact HEENT: head normocephalic, moist mucus membranes CV: S1/S2, (-) M/G/R, (-) edema, cap refill < 3 seconds Resp: Lungs CTA in all caba. On RA GI: Abdomen S/NT/ND, Ax4 bowel sounds, (-) CVA tenderness Musculoskeletal: 5/5 B/L UE strength, 5/5 B/L LE strength. No gait disturbance Skin: (-) rashes , (-) erythema. Psych: euthymic mood Results & Data Results & Data Vital Signs (Past 12 Hours) Vital Signs Pulse Pulse Resp BP Pulse Ox Pulse Ox O2 Del Method 01/12/24 07:10 55 L 18 96 Room Air 01/12/24 06:00 54 L 16 123/68 93 Room Air 01/12/24 05:00 63 16 101/80 95 Room Air 01/12/24 04:00 52 L 14 122/61 98 Room Air 01/12/24 03:00 60 16 95 Room Air 01/12/24 01:40 58 L 16 176/79 H 98 Room Air 01/12/24 01:20 Room Air 01/12/24 00:23 16 162/75 H 92 Room Air 01/12/24 00:22 98 01/11/24 23:35 65 01/11/24 22:34 55 L 16 96 Room Air 01/11/24 22:33 55 L 16 162/85 H 99 Room Air O2 Del Method 01/12/24 07:10 01/12/24 06:00 01/12/24 05:00 01/12/24 04:00 01/12/24 03:00 01/12/24 01:40 01/12/24 01:20 01/12/24 00:23 01/12/24 00:22 Room Air 01/11/24 23:35 01/11/24 22:34 01/11/24 22:33 Laboratory Results Short CBC 01/11/24 01/12/24 Range/Units 16:15 06:00 WBC 7.85 7.68 (4.8-10.8) K/ul Hgb 13.9 13.0 (12.0-16.0) g/dl Hct 40.8 37.8 (37.0-47.0) % Plt Count 260 232 (130-400) K/uL BMP 01/11/24 01/12/24 16:15 06:00 Sodium 140 139 Potassium 4.8 4.2 Chloride 110 H 110 H Carbon Dioxide 24 20 L BUN 34 H 31 H Creatinine 1.36 H 1.24 H Glucose 98 120 H Calcium 9.6 9.1 Liver Function 01/11/24 01/12/24 Range/Units 16:15 06:00 Total Bilirubin 0.5 0.3 (0.2-1.0) mg/dl AST 21 15 (13-39) U/L ALT 12 10 (7-52) U/L Alkaline Phosphatase 59 53 (34-104) U/L Albumin 4.2 3.7 (3.4-5.0) gm/dl Diagnostic Findings Chest CTA 01/11/24 17:10 CT ANGIOGRAPHY OF THE CHEST, PULMONARY EMBOLUS PROTOCOL CLINICAL HISTORY: Respiratory difficulty. Evaluate for pulmonary embolus. COMPARISON STUDY: Chest CT June 04, 2023 and chest radiograph performed earlier today. TECHNIQUE: Following IV administration of 117 mL of Optiray, helical axial images of the chest were obtained utilizing the pulmonary embolus protocol. Maximal intensity projections and sagittal and coronal reformats were viewed on an independent 3D workstation. IV contrast was administered without complication. Automated exposure control was utilized for the study. A dose lowering technique was utilized adhering to the principles of ALARA. FINDINGS: No pulmonary emboli are identified. There is slight dilatation of the central pulmonary arteries. There is mild cardiomegaly. No pericardial effusion is present. No enlarged thoracic lymph node identified. There is no pneumothorax or pleural effusion. Central airways are patent. There is no consolidation. A 4 mm ill-defined nodular opacity within the right upper lobe on image 174 of 243 is new since prior CT. No acute fractures within the bony structures are noted. Visualized portions of the upper abdomen are unremarkable. IMPRESSION: 1. No pulmonary emboli identified. 2. No consolidation to suggest pneumonia. Tiny 4 mm ill-defined nodular opacity within the right upper lobe may reflect bronchiolitis. This is likely benign. ACT 112: Negative or not required by law. Electronically signed by: Billy Christensen M.D. 01/11/2024 7:37 PM
[2024-01-12] MEDS ORDERED: methylPREDNISolone 125 MG/2 ML VIAL IV SCH (08:00)
[2024-01-12] MEDS: methylPREDNISolone 40 MG in SYRINGE 0 ML IV SCH (08:35)
[2024-01-12] MEDS: PRAVASTATIN SOD 40 MG TAB PO SCH (08:35)
[2024-01-12] MEDS: LOSARTAN POTASSIUM 50 MG TAB PO SCH (08:35)
[2024-01-12] MEDS: CALCIUM CARBONATE 1250MG TAB PO SCH (08:36)
[2024-01-12] MEDS: carvediloL 6.25 MG TAB PO SCH (08:36)
[2024-01-12] MEDS ORDERED: NON-FORMULARY MEDICATION (Vitamins A,C,E-Zinc-Copper [Preservision Areds] 2,148 mcg-113 mg PO SCH (09:00)
[2024-01-12] MEDS: MELATONIN 3 MG TAB PO PRN (20:43)
[2024-01-12 21:18] LABS: Appearance Urine Clear (Clear); Bacteria Urine Automated None Seen (None Seen); Bilirubin Urine Negative (Negative); Blood Urine Negative (Negative); Cast Urine Automated 0-2 /lpf (0-2); Color Urine Yellow; Epithelial Cell Urine Auto 0-2 /hpf (0-2); Glucose Urine UA Negative (Negative); Ketones Urine Trace (Negative); Leukocyte Esterase Urine Negative (Negative); Nitrite Urine Negative (Negative); Protein Urine Trace (Negative); RBC Urine Automated 0-2 /hpf (0-2); Specific Gravity Urine 1.032 (1.000-1.030); Urobilinogen Urine Negative (Negative); WBC Urine Automated 0-5 /hpf (0-5); pH Urine 5.5 (4.5-7.5)
[2024-01-13 08:00] LABS: Basophils # (auto) 0.02 K/uL (0.00-0.20); Basophils % (auto) 0.2 %; Eosinophils # (auto) 0.02 K/uL (0.00-0.50); Eosinophils % (auto) 0.2 %; Hematocrit (blood only) 38.7 % (37.0-47.0); Hemoglobin 13.1 g/dl (12.0-16.0); Immature Granulocytes # (auto) 0.05 K/uL (0.01-0.20); Immature Granulocytes % (auto) 0.4 %; Lymphocytes % (auto) 18.5 %; Mean Corpuscular Hemoglobin 28.7 pg (25.0-34.0); Mean Corpuscular Hgb Conc 33.9 g/dL (32.0-36.0); Mean Corpuscular Volume 84.9 fL (80.0-100.0); Mean Platelet Volume 9.8 fL (9.4-12.4); Monocytes # (auto) 0.76 K/uL (0.11-0.59); Monocytes % (auto) 6.1 %; Neutrophils # (auto) 9.28 K/uL (1.40-6.50); Neutrophils % (auto) 74.6 %; Platelet Count 242 K/uL (130-400); RDW Coefficient of Variation 13.9 % (11.5-14.5); RDW Standard Deviation 43.4 fL (36.4-46.3); Red Blood Count 4.56 M/uL (4.20-5.40); White Blood Count 12.43 K/ul (4.8-10.8)
[2024-01-13 08:12] LABS: BUN Creatinine Ratio 20.6 (10-20); Calcium 9.1 mg/dl (8.6-10.3); Creatinine Clr Calc Pharmacy 32.1 ml/min; Est GFR (African American) 44.4 ml/min; Est GFR (Non-African American) 38.3 ml/min; Potassium 4.1 mmol/L (3.5-5.1)
[2024-01-13] MEDS: bisacodyL 5 MG TABEC PO ONE (10:24)
[2024-01-13] MEDS: DOCUSATE SODIUM 100 MG CAP PO SCH (10:24)
--- NOTE | 2024-01-13 12:17 | Hospitalist Progress Note ---
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 Pt lives alone. Acute bronchitis due to rhinovirus: shortness of breath: admit to [facility] tele --CTA chest negative for PE/PNA. Tiny 4 mm ill-defined nodular opacity within the right upper lobe may reflect bronchiolitis --Soft tissue neck: no acute abnormalities. --CXR w/o acute abnormality Biofire: Rhinovirus + Droplet precautions pulmonary toileting with albuterol nebs, budesonide nebs, flutter valve, Incentive spirometry Stop Rocephin; continue IV azithromycin 500mg x 3 days Received IV steroids in ED; will give Solumedrol 40mg x 1 now and start oral prednisone daily for additional 3 days Remains on Room Air Leukocytosis expect related to steroids monitor Constipation continue colace give Dulcolax x 1 now HTN: chronic, stable continue losartan and coreg HLD: chronic, stable continue statin CKD3: chronic, stable serum creatinine 1.24; baseline 1.3-1.4 Chronic HFpEF: daily weight, intake and output heart healthy diet continue coreg, losartan pt not on diuretics, currently euvolemic Disposition: likely discharge to home tomorrow PCP: Dr. Erickson Code Status: Full Code VTE Prophylaxis: Heparin SQ Pt was seen and examined in collaboration with Dr. Jose, please see addendum A total of 46 min was spent coordinating, documenting, and providing care for this patient excluding time spent in the performance of separately billed services. This included personally viewing all current laboratories and imaging studies, medication reconciliation, outpatient chart review, and discussion with specialists. Admission and Anticipated Discharge Date Admission Date: January 11, 2024 Supervising Physician Co-Signing Physician Notes Patient seen and examined independently. Discussed with above provider She reports that she is feeling much better, now cough mostly dry, occasionally w/ light yellow sputum. CTA chest rules out pneumonia symptoms; discontinued ceftriaxone and history reviewed. Will do short course of steroid for bronchiolitis. PT OT eval as patient lives alone I have reviewed the advanced practitioner's documentation, and I agree with, and take responsibility for the plan of care I spent a total of 20 minutes coordinating, documenting, and providing care for this patient excluding time spent in the performance of separately billed services. All of the aforementioned completed while collaborating with the assigned advanced practitioner for a full treatment plan Subjective Pt was seen and examined in room 278-2. F/U Bronchiolitis. She is feeling much better today. She feels her breathing is at baseline. She still has a cough. No BM in 2-3 days. Denies f/c/s, chest pain, sob, n/v/d. Review of Systems Review of Systems: All systems reviewed & are unremarkable except as noted in HPI & below Physical Exam Physical Exam: Gen: WD/WN, Elderly, F, NAD, A&O x3 HEENT: Normocephalic, atraumatic, conjunctivae moist, sclerae anicteric, mucous membranes moist. Lung: Clear to Auscultation bilaterally, no rales/rhonchi, scant exp wheeze Heart: Regular rate, regular rhythm, no murmurs, rubs, or gallops Abdomen: Soft, NT, ND +BS x 4 Extremities: No edema Skin: Warm, no rash, negative turgor. Results & Data Results & Data Vital Signs (Past 12 Hours) Vital Signs Temp Pulse Pulse Resp BP BP Pulse Ox 01/13/24 12:02 36.5 C 61 18 152/67 H 94 01/13/24 10:43 60 20 98 01/13/24 08:01 49 L 01/13/24 07:39 36.8 C 65 16 168/51 H 97 01/13/24 07:24 60 18 98 01/13/24 03:30 36.6 C 58 L 18 127/66 97 O2 Del Method 01/13/24 12:02 Room Air 01/13/24 10:43 Room Air 01/13/24 08:01 01/13/24 07:39 Room Air 01/13/24 07:24 Room Air 01/13/24 03:30 Room Air Medications Administered Current Inpatient Medications Acetaminophen (Acetaminophen 325 Mg Tab) 650 mg PO Q4H PRN PRN Reason: Pain or Fever Stop: 02/10/24 22:12 Albuterol (Albuterol 0.083% Nebu Soln 3 Ml Vial) 2.5 mg NEB QIDR KIRA; Protocol Stop: 02/10/24 22:12 Last Admin: 01/13/24 10:42 Dose: 2.5 mg Benzonatate (Benzonatate 100 Mg Capsule) 100 mg PO TID PRN PRN Reason: cough Stop: 02/10/24 22:12 Last Admin: 01/13/24 10:24 Dose: 100 mg Budesonide (Budesonide 0.5 Mg/2 Ml Vial (Pulmicort)) 0.[address] [facility] Stop: 02/10/24 22:12 Last Admin: 01/13/24 07:23 Dose: 0.5 mg Calcium Carbonate (Calcium Carbonate 1250mg Tab) [address] [facility] Stop: 02/11/24 08:59 Last Admin: 01/13/24 10:24 Dose: 1 tab Carvedilol (Carvedilol 6.25 Mg Tab) 6.[address] [facility] Stop: 02/11/24 08:59 Last Admin: 01/13/24 10:27 Dose: Not Given Carvedilol (Carvedilol 3.125 Mg Tab) 3.[address] [facility] Stop: 02/10/24 22:12 Last Admin: 01/12/24 20:45 Dose: Not Given Docusate Sodium (Docusate Sodium 100 Mg Cap) [address] [facility] Stop: 02/12/24 09:14 Last Admin: 01/13/24 10:24 Dose: 100 mg Famotidine (Famotidine 20 Mg Tab) 20 mg PO DAILY PRN PRN Reason: Heartburn Stop: 02/10/24 22:12 Heparin Sodium (Porcine) (Heparin Sod 5,000 Unit/0.5 Ml Vial) 5,000 units SQ Q8 KIRA Stop: 02/10/24 22:12 Last Admin: 01/13/24 05:17 Dose: 5,000 units Azithromycin 500 mg/ Dextrose 255 mls @ 125 mls/hr IV Q24H [facility] Stop: 01/14/24 00:33 Last Infusion: 01/12/24 22:58 Dose: Infused Methylprednisolone 40 mg/ (Syringe) 0.64 mls @ 1.5 mls/min IV NOW ONE Stop: 01/13/24 12:46 Losartan Potassium (Losartan Potassium 50 Mg Tab) [address] [facility] Stop: 02/11/24 08:59 Last Admin: 01/13/24 10:25 Dose: 50 mg Melatonin (Melatonin 3 Mg Tab) 6 mg PO HS PRN PRN Reason: Sleep Stop: 02/10/24 22:12 Last Admin: 01/12/24 20:43 Dose: 6 mg Ondansetron HCl (Ondansetron Inj 2 Mg/Ml 2 Ml Vial) 4 mg IV Q6H PRN PRN Reason: Nausea Stop: 02/10/24 22:12 Polyethylene Glycol (Polyethylene (Miralax) 17 Gm Pack) 17 gm PO DAILY PRN PRN Reason: Constipation Stop: 02/10/24 22:12 Pravastatin Sodium (Pravastatin Sod 40 Mg Tab) 40 mg PO DAILY KIRA Stop: 02/11/24 08:59 Last Admin: 01/13/24 10:25 Dose: 40 mg Prednisone (Prednisone 20 Mg Tab) [address] [facility] Stop: 01/16/24 09:01
[2024-01-13] MEDS ORDERED: methylPREDNISolone 125 MG/2 ML VIAL IV STA (12:23)
[2024-01-13] MEDS: methylPREDNISolone 40 MG in SYRINGE 0 ML IV ONE (13:35)
[2024-01-14 07:07] LABS: Basophils # (auto) 0.02 K/uL (0.00-0.20); Basophils % (auto) 0.2 %; Eosinophils # (auto) 0.01 K/uL (0.00-0.50); Eosinophils % (auto) 0.1 %; Hematocrit (blood only) 38.1 % (37.0-47.0); Hemoglobin 13.1 g/dl (12.0-16.0); Immature Granulocytes # (auto) 0.05 K/uL (0.01-0.20); Immature Granulocytes % (auto) 0.5 %; Lymphocytes # (auto) 1.92 K/uL (1.20-3.40); Lymphocytes % (auto) 17.9 %; Mean Corpuscular Hemoglobin 29.1 pg (25.0-34.0); Mean Corpuscular Hgb Conc 34.4 g/dL (32.0-36.0); Mean Corpuscular Volume 84.7 fL (80.0-100.0); Mean Platelet Volume 9.7 fL (9.4-12.4); Monocytes # (auto) 0.76 K/uL (0.11-0.59); Monocytes % (auto) 7.1 %; Neutrophils # (auto) 7.96 K/uL (1.40-6.50); Neutrophils % (auto) 74.2 %; Platelet Count 206 K/uL (130-400); RDW Coefficient of Variation 13.9 % (11.5-14.5); RDW Standard Deviation 43.5 fL (36.4-46.3); White Blood Count 10.72 K/ul (4.8-10.8)
[2024-01-14 07:29] LABS: BUN Creatinine Ratio 17.2 (10-20); Calcium 9.2 mg/dl (8.6-10.3); Creatinine Clr Calc Pharmacy 33.2 ml/min; Est GFR (African American) 46.1 ml/min; Est GFR (Non-African American) 39.8 ml/min; Potassium 4.3 mmol/L (3.5-5.1)
[2024-01-14] MEDS: predniSONE 20 MG TAB PO SCH (10:05)
--- NOTE | 2024-01-14 12:47 | Hospitalist Progress Note ---
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 Pt lives alone. Acute bronchitis due to rhinovirus: shortness of breath: admit to med tele --CTA chest negative for PE/PNA. Tiny 4 mm ill-defined nodular opacity within the right upper lobe may reflect bronchiolitis --Soft tissue neck: no acute abnormalities. --CXR w/o acute abnormality Biofire: Rhinovirus + Droplet precautions pulmonary toileting with albuterol nebs, budesonide nebs, flutter valve, Incentive spirometry Stop Rocephin; continue azithromycin, received 3 days IV, will give additional 500mg x 2 more days Received IV steroids, now on prednisone 20mg daily for additional 2 days Remains on Room Air Leukocytosis expect related to steroids resolved Constipation continue colace received ducolax on 01/13, will start daily miralax today HTN: chronic, stable mildly elevated likely 2/2 steroids continue losartan and coreg HLD: chronic, stable continue statin CKD3: chronic, stable serum creatinine 1.24; baseline 1.3-1.4 Chronic HFpEF: daily weight, intake and output heart healthy diet continue coreg, losartan pt not on diuretics, currently euvolemic Disposition: Pt stable to discharge, discussed with sandi Cooney who would like her to remain admitted 1 more day given age and lives alone. I am okay with this. She did a 2 step which was negative for oxygen requirement, 97% with exertion. Plan to discharge tomorrow 01/14. PCP: Dr. Erickson Code Status: Full Code VTE Prophylaxis: Heparin SQ Pt was seen and examined in collaboration with Dr. Jose, please see addendum A total of 55 min was spent coordinating, documenting, and providing care for this patient excluding time spent in the performance of separately billed services. This included personally viewing all current laboratories and imaging studies, medication reconciliation, outpatient chart review, and discussion with specialists. Admission and Anticipated Discharge Date Admission Date: January 11, 2024 Supervising Physician Co-Signing Physician Notes Patient was seen by above provider, discussed w/ me. Not seen/evaluated by myself. Subjective Pt was seen and examined in room 278-2. F/U Bronchiolitis. She feels good today. She feels her breathing is back to baseline. She denies f/c/s, chest pain, sob, n/v/d. Discussed with Sandi Cooney over the phone. SHe is concerned given pt lives alone and would like her to stay one more day as she witnessed her being SOB yesterday. No BM yet. Review of Systems Review of Systems: All systems reviewed & are unremarkable except as noted in HPI & below Physical Exam Physical Exam: Gen: WD/WN, Elderly, F, NAD, A&O x3 HEENT: Normocephalic, atraumatic, conjunctivae moist, sclerae anicteric, mucous membranes moist. Lung: Clear to Auscultation bilaterally, no w/r/r Heart: Regular rate, regular rhythm, no murmurs, rubs, or gallops Abdomen: Soft, NT, ND +BS x 4 Extremities: No edema Skin: Warm, no rash, negative turgor. Results & Data Results & Data Vital Signs (Past 12 Hours) Vital Signs Temp Pulse Pulse Pulse Pulse Resp Resp 01/14/24 11:30 36.6 C 68 18 01/14/24 10:39 97 H 77 18 01/14/24 10:38 77 18 01/14/24 08:32 53 L 01/14/24 07:24 68 18 01/14/24 06:14 36.4 C L 58 L 18 01/14/24 03:21 36.2 C L 60 18 Resp BP Pulse Ox Pulse Ox Pulse Ox O2 Del Method 01/14/24 11:30 149/65 H 96 Room Air 01/14/24 10:39 18 97 97 01/14/24 10:38 97 Room Air 01/14/24 08:32 01/14/24 07:24 96 Room Air 01/14/24 06:14 153/70 H 97 Room Air 01/14/24 03:21 152/71 H 97 Room Air Laboratory Results Short CBC 01/14/24 Range/Units 06:43 WBC 10.72 (4.8-10.8) K/ul Hgb 13.1 (12.0-16.0) g/dl Hct 38.1 (37.0-47.0) % Plt Count 206 (130-400) K/uL BMP 01/14/24 06:43 Sodium 142 Potassium 4.3 Chloride 112 H Carbon Dioxide 25 BUN 21 Creatinine 1.22 H Glucose 96 Calcium 9.2 Medications Administered Current Inpatient Medications Acetaminophen (Acetaminophen 325 Mg Tab) 650 mg PO Q4H PRN PRN Reason: Pain or Fever Stop: 02/10/24 22:12 Albuterol (Albuterol 0.083% Nebu Soln 3 Ml Vial) 2.5 mg NEB QIDR [facility]; Protocol Stop: 02/10/24 22:12 Last Admin: 01/14/24 10:37 Dose: 2.5 mg Benzonatate (Benzonatate 100 Mg Capsule) 100 mg PO TID PRN PRN Reason: cough Stop: 02/10/24 22:12 Last Admin: 01/13/24 20:29 Dose: 100 mg Budesonide (Budesonide 0.5 Mg/2 Ml Vial (Pulmicort)) 0.5 mg NEB BIDR [facility] Stop: 02/10/24 22:12 Last Admin: 01/14/24 07:24 Dose: 0.5 mg Calcium Carbonate (Calcium Carbonate 1250mg Tab) 1 tab PO DAILY [facility] Stop: 02/11/24 08:59 Last Admin: 01/14/24 10:03 Dose: 1 tab Carvedilol (Carvedilol 6.25 Mg Tab) 6.25 mg PO QAM [facility] Stop: 02/11/24 08:59 Last Admin: 01/14/24 10:04 Dose: Not Given Carvedilol (Carvedilol 3.125 Mg Tab) 3.125 mg PO QPM [facility] Stop: 02/10/24 22:12 Last Admin: 01/13/24 20:29 Dose: Not Given Docusate Sodium (Docusate Sodium 100 Mg Cap) 100 mg PO BID [facility] Stop: 02/12/24 09:14 Last Admin: 01/14/24 10:04 Dose: 100 mg Famotidine (Famotidine 20 Mg Tab) 20 mg PO DAILY PRN PRN Reason: Heartburn Stop: 02/10/24 22:12 Heparin Sodium (Porcine) (Heparin Sod 5,000 Unit/0.5 Ml Vial) 5,000 units SQ Q8 [facility] Stop: 02/10/24 22:12 Last Admin: 01/14/24 05:25 Dose: 5,000 units Losartan Potassium (Losartan Potassium 50 Mg Tab) 50 mg PO QAM [facility] Stop: 02/11/24 08:59 Last Admin: 01/14/24 10:04 Dose: 50 mg Melatonin (Melatonin 3 Mg Tab) 6 mg PO HS PRN PRN Reason: Sleep Stop: 02/10/24 22:12 Last Admin: 01/13/24 20:29 Dose: 6 mg Ondansetron HCl (Ondansetron Inj 2 Mg/Ml 2 Ml Vial) 4 mg IV Q6H PRN PRN Reason: Nausea Stop: 02/10/24 22:12 Polyethylene Glycol (Polyethylene (Miralax) 17 Gm Pack) 17 gm PO DAILY PRN PRN Reason: Constipation Stop: 02/10/24 22:12 Polyethylene Glycol (Polyethylene (Miralax) 17 Gm Pack) 17 gm PO DAILY [facility] Stop: 02/13/24 12:44 Pravastatin Sodium (Pravastatin Sod 40 Mg Tab) 40 mg PO DAILY [facility] Stop: 02/11/24 08:59 Last Admin: 01/14/24 10:04 Dose: 40 mg Prednisone (Prednisone 20 Mg Tab) 20 mg PO DAILY [facility] Stop: 01/16/24 09:01 Last Admin: 01/14/24 10:05 Dose: 20 mg
[2024-01-14] MEDS: POLYETHYLENE (MIRALAX) 17 GM PACK PO SCH (14:28)
[2024-01-15 08:24] VITALS: RESP 16
[2024-01-15] MEDS: AZITHROMYCIN 250 MG TAB PO SCH (09:12)
[2024-01-15] MEDS: bisacodyL 5 MG TABEC PO ONE (10:57)
[2024-01-15] MEDS ORDERED: ALBUTEROL 0.083% NEBU SOLN 3 ML VIAL NEB PRN (11:21)
[2024-01-15 11:44] VITALS: TEMP 97.9; O2SAT 94
--- NOTE | 2024-01-15 12:00 | Discharge Summary ---
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 Pt lives alone. Acute bronchitis due to rhinovirus: shortness of breath: admit to med tele --CTA chest negative for PE/PNA. Tiny 4 mm ill-defined nodular opacity within the right upper lobe may reflect bronchiolitis --Soft tissue neck: no acute abnormalities. --CXR w/o acute abnormality Biofire: Rhinovirus + Droplet precautions pulmonary toileting with albuterol nebs, budesonide nebs, flutter valve, Incentive spirometry Will complete Azithromycin 500mg and oral prednisone 20mg for 1 additional day Will discharge with prn albuterol inhaler, on day of discharge lungs are CTAB w/o wheeze/stridor and sx have mostly resolved she will be discharged to home in good condition, sandi Cooney was updated and she agrees Pt has not yet moved her bowels on day of discharge so she will be sent home with stool softeners until they start to move Leukocytosis expect related to steroids resolved Constipation continue colace at discharge received ducolax on 01/13, and 01/14 HTN: chronic, stable mildly elevated likely 2/2 steroids continue losartan and coreg HLD: chronic, stable continue statin CKD3: chronic, stable serum creatinine 1.24; baseline 1.3-1.4 Chronic HFpEF: daily weight, intake and output heart healthy diet continue coreg, losartan pt not on diuretics, currently euvolemic Disposition: Pt stable to discharge, will be discharged home today with sandi Cooney who was called and updated on patients current condition PCP: Dr. Erickson Code Status: Full Code Pt was seen and examined in collaboration with Dr. Jose, please see addendum Notes For Next Care Provider Admitted for acute bronchiolitis 2/2 rhinovirus. She was treated empirically with IV antibiotics, oral steroids and inhaled nebulizers. Symptoms gradually improved and resolved. Ensure her bowels are moving regular at hospital follow up as she did not move them while hospitalized; however she was discharged on stool softeners. Abdomen benign at discharge and passing gas. Medication Changes From Visit New Medications: * Azithromycin 500mg take one pill by mouth for 1 more day, next dose is due 01/16/24. * Prednisone 20mg, take one pill by mouth for 1 more day, next dose is due 01/16/24. * Colace 100mg one tablet by mouth twice daily. Please continue to take this until your bowels are moving regularly and then you can stop. * Albuterol inhaler, 1-2 puffs every 4 hours as needed for Short of breath of wheezing Continue all other medications as prescribed. 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 Outpatient medical records were reviewed. She was seen by PCP clinic today due to URI symptoms x 1 week. Approximately 1 week ago she had been prescribed Tessalon Perles as well as azithromycin but she did not take the azithromycin. Over the past 24 hours she notes increasing shortness of breath and her oxygen saturations were noted to be at 93% with increased respiratory rate, audible wheezing and stridor in the clinic. She was therefore referred to ED for further evaluation. At bedside pt reports URI sx x 1 week. She has a cough that is productive and thick and purulent. She has no known sick contacts. She lives alone. She denies rhinorrhea. She feels her breathing is made worse with lying down. She denies much change in dyspnea with ambulation. She denies f/c/s, sore throat, chest pain, n/v/d, abd pain. She feels her sx are better than when she came to the ED. She has had decreased appetite. She has had similar sx in past when diagnosed with PNA. She reports hx of PNA 9 times in the past. She denies any hx of structural lung disease. She denies tobacco or alcohol use. Admission Exam Per Admitting Provider General: Sitting comfortably in bed, not in distress, on room air HEENT: EOMI, ALEXANDER, MMM Chest: Clear breath sounds bilaterally, no wheezes or crackles CVS: Regular rate and rhythm, normal heart sounds, no murmur Abdomen: Soft, non tender, not distended, normal bowel sounds Neuro: Awake, alert, oriented, conversing well, non focal Extremities: No cyanosis, clubbing or edema Discharge Exam Gen: WD/WN, Elderly, F, NAD, A&O x3 HEENT: Normocephalic, atraumatic, conjunctivae moist, sclerae anicteric, mucous membranes moist. Lung: Clear to Auscultation bilaterally, no w/r/r Heart: Regular rate, regular rhythm, no murmurs, rubs, or gallops Abdomen: Soft, NT, ND +BS x 4 Extremities: No edema Skin: Warm, no rash, negative turgor. Updated Medication List Medication Instructions Recorded Confirmed Type carvedilol 6.25 mg tablet 3.125 mg PO QPM 06/04/23 01/11/24 History carvedilol 6.25 mg tablet 6.25 mg PO QAM 06/04/23 01/11/24 History losartan 50 mg tablet 50 mg PO QAM 06/04/23 01/11/24 History pravastatin 40 mg tablet 40 mg PO DAILY 06/04/23 01/11/24 History vitamins A,C,A-aklu-lzniss 2,148 2 tab PO QAM 06/04/23 01/11/24 History mcg-113 mg-45 mg-17.4 mg tablet (PreserVision AREDS) benzonatate 100 mg capsule 100 mg PO TID PRN cough 01/11/24 01/11/24 History calcium carbonate 1,200 mg PO DAILY 01/11/24 01/11/24 History albuterol sulfate 90 mcg/actuation 2 puff inhalation Q4H PRN 01/15/24 Rx aerosol inhaler (Ventolin HFA) shortness of breath or wheezing #8.5 grams azithromycin 250 mg tablet 500 mg (2 x 250 mg) PO QAM #1 tab 01/15/24 Rx docusate sodium 100 mg capsule 100 mg PO BID #30 caps 01/15/24 Rx prednisone 20 mg tablet 20 mg PO DAILY #1 tab 01/15/24 Rx Hospital Stay Data Consultations 01/11/24 17:25 ED Decision to Admit Stat Diagnostic Imagining Performed Chest X-Ray 01/11/24 14:50 TWO VIEW CHEST CLINICAL HISTORY: Dyspnea. FINDINGS: PA and lateral chest radiographs are compared to chest x-ray and chest CT dated 06/04/2023. The heart is mildly enlarged noting atherosclerotic calcification of the thoracic aorta. The pulmonary vasculature is noncongested. Chronic interstitial thickening similar to previous. Minimal atelectasis is noted at the lung bases. The lungs and pleural spaces are otherwise clear. There is no pneumothorax. The skeletal structures are osteopenic. The bony thorax appears intact. IMPRESSION: Cardiomegaly with no active disease in the chest. ACT 112: Negative or not required by law. Electronically signed by: Mauricio Bui M.D. 01/11/2024 4:03 PM Soft Tissue Neck X-Ray 01/11/24 15:22 XR soft tissue neck CLINICAL HISTORY: stridor COMPARISON STUDY: No previous studies for comparison. FINDINGS: The epiglottis is normal. Prevertebral soft tissues are unremarkable. No radiopaque foreign bodies are identified. IMPRESSION: Unremarkable radiographs of the neck. ACT 112: Negative or not required by law. Electronically signed by: Billy Christensen M.D. 01/11/2024 4:17 PM Chest CTA 01/11/24 17:10 CT ANGIOGRAPHY OF THE CHEST, PULMONARY EMBOLUS PROTOCOL CLINICAL HISTORY: Respiratory difficulty. Evaluate for pulmonary embolus. COMPARISON STUDY: Chest CT June 04, 2023 and chest radiograph performed earlier today. TECHNIQUE: Following IV administration of 117 mL of Optiray, helical axial images of the chest were obtained utilizing the pulmonary embolus protocol. Maximal intensity projections and sagittal and coronal reformats were viewed on an independent 3D workstation. IV contrast was administered without complication. Automated exposure control was utilized for the study. A dose lowering technique was utilized adhering to the principles of ALARA. FINDINGS: No pulmonary emboli are identified. There is slight dilatation of the central pulmonary arteries. There is mild cardiomegaly. No pericardial effusion is present. No enlarged thoracic lymph node identified. There is no pneumothorax or pleural effusion. Central airways are patent. There is no consolidation. A 4 mm ill-defined nodular opacity within the right upper lobe on image 174 of 243 is new since prior CT. No acute fractures within the bony structures are noted. Visualized portions of the upper abdomen are unremarkable. IMPRESSION: 1. No pulmonary emboli identified. 2. No consolidation to suggest pneumonia. Tiny 4 mm ill-defined nodular opacity within the right upper lobe may reflect bronchiolitis. This is likely benign. ACT 112: Negative or not required by law. Electronically signed by: Billy Christensen M.D. 01/11/2024 7:[address] 01/11/24 17:10 CT OF THE NECK WITH IV CONTRAST CLINICAL HISTORY: Stridor. COMPARISON STUDY: Neck radiographs performed earlier today. TECHNIQUE: Following IV administration of 117 mL of Optiray, helical axial images of the neck were obtained. Sagittal and coronal reconstructions were viewed. Automated exposure control was utilized for the study. A dose lowering technique was utilized adhering to the principles of ALARA. FINDINGS: Visualized portions of the intracranial contents are unremarkable. The parotid and submandibular glands are normal. The epiglottis is normal. There is no prevertebral edema. No fluid collections within the neck are present. No enlarged cervical lymph nodes are noted. No radiopaque foreign bodies are identified. Please note that the chest CT will be reported separately. No mucosal lesions are identified by CT. IMPRESSION: 1. No acute process within the neck. 2. No cervical lymphadenopathy. No fluid collections within the neck. No radiopaque foreign bodies. ACT 112: Negative or not required by law. Electronically signed by: Billy Christensen M.D. 01/11/2024 7:31 PM Pending Results Patient Have Any Pending Studies at Discharge: No Discharge Instructions Given to Patient (Per Discharging Provider) MEDICATION CHANGES: New Medications: * Azithromycin 500mg take one pill by mouth for 1 more day, next dose is due 01/16/24. * Prednisone 20mg, take one pill by mouth for 1 more day, next dose is due 01/16/24. * Colace 100mg one tablet by mouth twice daily. Please continue to take this until your bowels are moving regularly and then you can stop. * Albuterol inhaler, 1-2 puffs every 4 hours as needed for Short of breath of wheezing Continue all other medications as prescribed. SUMMARY OF TEST RESULTS: You were hospitalized secondary to acute inflammation of your lower airways causing bronchitis due to a rhinovirus infection. Rhinovirus is a viral infection that circulates in the community and causes symptoms known as the common cold. You were treated with antibiotics, nebulizers and steroids and your symptoms improved. PENDING TEST RESULTS: None RECOMMENDATIONS FOR FOLLOW-UP: Please follow-up with your primary care provider upon discharge from hospital. It is recommended that you continue to take the stool softener, Colace, twice daily until your bowels are moving regularly. I anticipate whenever you return home and return to your normal diet and activity that your bowels will likely start to move. If you develop abdominal pain, nausea or vomiting and have still not moved your bowels please report back to ED immediately; however, I do not anticipate this will happen. It is recommended that you increase your daily intake of probiotoic, i.e. yogurt, due to recently being on antibiotics. You can also purchase a probiotic over the counter to take for 1 week to help protect your Gut Health due to recently taking antibiotics. OTHER INSTRUCTIONS: Seek medical attention if you have: * temperature above 101 * chest pain or trouble breathing * abdominal pain, nausea, vomiting * diarrhea, dark stools or bloody stools * any unanswered questions or concerns Call 911 if symptoms are severe. Please take good care of yourself. It has been a pleasure taking care of you. Please take care of yourself. If you have any questions regarding your recent hospitalization please contact [facility] and request [facility] @ [phone]. Dorinda Paul PA-C Total Time Total Time Spent Total Time Spent (In Minutes): 45 minutes Supervising Physician Co-Signing Physician Notes Patient seen and examined independently. Discussed with above provider She reports that she is feeling much better, now cough mostly dry, sometimes scant clear sputum. Cough has improved significantly. CTA chest rules out pneumonia symptoms; discontinued ceftriaxone and history reviewed. Will do short course of steroid for bronchiolitis. Pt to complete azithromycin course. PT OT eval as patient lives alone Pt is hemodynamically stable and would like to go home. I have reviewed the advanced practitioner's documentation, and I agree with, and take responsibility for the plan of care I spent a total of 20 minutes coordinating, documenting, and providing care for this patient excluding time spent in the performance of separately billed services. All of the aforementioned completed while collaborating with the assigned advanced practitioner for a full treatment plan Home Health Attestation I certify that this patient is under my care and that I, or a physicians photographer assistant working with me, had a face to-face encounter that meets the home health [id number] encounter requirements with this patient. The encounter with the patient was in whole, or in part, for the following med ical condition, which is the primary reason for home health care (list medical condition): COPD exacerbation I certify that, based on my findings, the following services are medically necessary home health services: My clinical findings support the need for the above services because: Home Safety Assessment OT Assess ADL Status and Restore Function w ADLs PT Assessment for Endurance / Balance / Strength PT Eval for Safety and Mobility PT Eval for Safety, Gait Training, Assistive Devices PT Gait and Balance Training, Strengthening and Safety Further, I certify that my clinical findings support that this patient is homebound (i.e. absences from home require considerable and taxing effort and are for medical reasons or congregation services or infrequently or of short duration when for other reasons) because: Poor Endurance; SOB Minimal Exertion Certification for Home Health Services: Based on the above findings, I certify that this patient is confined to the home and needs intermittent fpc care, physical therapy and/or speech therapy or continues to need occupational therapy. The patient is under my care, and I have initiated the establishment of the plan of care. This patient will be followed by a physician who will periodically review the plan of care.
[2024-01-15 12:11] VITALS: BP 137/71; PULSE 69
== END 2024-01-15 14:04 | disposition home health service (06) | DRG 202 ==
LOC: ED 14:39 → EDINP 17:39 → SUATTDRO 17:39 → 2N 22:14

== ENCOUNTER 2024-04-23 09:19 | Inpatient (IN) ==
--- OUTSIDE RECORDS SUMMARY | 2024-04-23 09:23 | External Medical Summary | Summary of Care ---
Author Name Unknown Organization [facility] Address [address] [facility] [place] [address] Phone [phone] Care Team Providers Care Green Promotions Specialist Name Role Phone Nima Erickson MD Primary Care Provider [phone] Reason for Visit * Reason Onset Date Comments Advice 01/19/2024 Encounter Details Date Type Department Care Team (Late st Contact Info) Description 01/19/2024 Telephone Family Practice [facility] [address] [place] [address] Nima Erickson MD [address] [place] [address] Advice Allergies Active Allergy Reactions Criticality Noted Date Comments Adhesive Tape Other (Please comment) 10/04/2012 Pt reports "it took some skin off" Bee Venom 03/13/2022 Lisinopril Cough Low 03/27/2009 Morphine 08/29/2020 Other reaction(s): vomiting Guaifenesin Er Diarrhea,Nausea/vomi ti ng,Neuro complications (Please comment) 09/08/2017 Oxycodone 08/29/2020 Other reaction(s): STRANGE DREAMS Oxycodone-Acetaminoph en Other (Please comment) 05/28/2010 [place] funny on medication documented as of this encounter (statuses as of 04/19/2024) Medications Medication Sig Dispensed Refills Start Date End Date Status CORAL CALCIUM 1000 (390 CA) MG PO TABS 1200 mg 1 tab daily Active Multiple Vitamins-Minerals (PRESERVISION AREDS) Tablet Take 2 Tablets by mouth in the morning. Active hydroCHLOROthiazide 12.5 MG Oral Capsule (Hydrodiuril) Take one tab 5 days/week 90 Capsule 3 10/01/2021 Active Doxazosin Mesylate 2 MG Oral Tablet (Cardura)Indications :Chronic heart failure with preserved ejection fraction (HCC) TAKE 2 TABLETS BY MOUTH AT BEDTIME 180 Tablet 3 03/03/2023 Active Losartan Potassium 50 MG Oral Tablet (Cozaar)Indications: HTN, goal below 150/90 Take 1 Tablet by mouth in the morning. 90 Tablet 3 04/10/2023 Active Ventolin HFA 108 (90 Base) MCG/ACT Inhalation Aerosol Solution Inhale 2 Puffs by mouth every 4 hours as needed for Wheezing. 01/19/2024 Active Benzonatate 100 MG Oral Capsule (Tessalon Perles)Indications:H istory of viral pneumonia Take 1 Capsule by mouth 3 times a day as needed for Cough. Do not cut, crush, or chew. 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 01/11/2024 01/19/2024 Chronic heart failure with p reserved ejection [...] 09/14/2019 GERD (gastroesophageal reflux disease) 10/16/2014 12/04/2017 Incisional hernia 05/11/2008 02/19/2017 Kidney disease, chronic, [...] as of this encounter (statuses as of 04/19/2024) Immunizations Name Administration Dates Next Due COVID-19 mRNA, LNP-s, No Pre serve, 2-Dose Series (Moderna) 09/22/2020,08/18/2020 COVID-19, MRNA-LNP, 23-24, P F, 30 MCG/0.3 mL, 12 YRS AND ABOVE, IM (Ultora-Comirnat) 04/22/2023 COVID-19, mRNA, LNP-s, PF, B ooster, 100mcg/0.5mg (Moderna) 09/30/2021,05/23/2021 Pneumococcal Conjugate Vacc, 13 Valent (Prevnar) 01/17/2020,08/03/2014 Pneumococcal Polysaccharide PPV23 (Pneumovax) 12/08/2006 Season Influenza, Quad, PF, Adjuvanted, 65+ Yrs, IM (FLUAD) 04/03/2020 Seasonal Influenza Vac., MDV , IM, 0.5 mL (Fluzone) 04/02/2015,03/27/2014,04/27/2013,04/22,04/17/2011,04/16/2010,03/28/2009 ,05/18/2008,04/26/2007,05/12/2006 Seasonal Influenza, PF, 6 M & above, IM , (FluLaval or Fluzone) 03/26/2018 Seasonal Influenza, Quadriva lent Hd (Fluzone Hd) 04/10/2023,04/07/2022,04/03/2021 Seasonal Influenza, Quadriva lent, No Preserve, IM 04/02/2017,04/18/2016 Seasonal Influenza, Trivalen t, Adjuvanted, 65+ YRS, PF, (Fluad) 04/04/2019 TD, Preservative Free 09/29/2011 TDAP (age [...] Date Recorded PHQ Adult Total Score 0 01/29/2024 Hunger Vital Sign Answer Date Recorded Within [...] y our heating, water, or electric bill? (Adult - for ages 18 years and over) Not on file 01/28/2024 Is your family able to pay t he heat, water, or electric bill? (Household - for ages 0-17 years) Not on file 01/28/2024 Does your family have access to good internet? (Household - for ages 0-17 years) Not on file 01/28/2024 Employment Status Answer Date Recorded Are you unemployed or without regular income? No 01/26/2023 Does the household have a re gular source of income? (Household - for ages 0-17 years) Not on file 01/26/2023 Social Connections Answer Date Recorded How often do you feel lonely or isolated from those around you? (Adult - for ages 18 years and over) Not on file 01/28/2024 Financial Resource Strain Answer Date R ecorded [...] encounter Miscellaneous Notes * Telephone Encounter - Sharon Herrera LPN - 01/19/2024 2:52 PM EDT Anabel, PT from [facility] is calling. States that the pt was at [facility] and was D/C with a HH PT referral but the pt is completely independent and HH will not be picking the pt up for services. MIKKI. * Telephone Encounter - Michael Howe OSA - 01/19/2024 2:43 PM EDT Reason for patient's call: calling in regarding the patient Caller was transferred to [facility] at the nurse line. documented in this encounter Plan of Treatment Upcoming Encounters Date Type Department Care Team (Late st Contact Info) Description 07/22/2024 11:00 AM EST Cardiac Studies Cardiac Studies, [facility] [address] [facility] [place] [address] 09/19/2024 11:40 AM EST Office Visit Family Practice [facility] [address] [facility] [place] [address] Nima Erickson MD [address] [facility] [place] [address] 02/01/2025 11:00 AM EDT Nurse Only Ancillary [facility] [address] [facility] [place] [address] [facility], Nurse Annual Wellness [facility] [address] [facility] [place] [address] 04/18/2025 11:00 AM EDT Office Visit [address] [address] Blanca Iyer PA-C [address] [place] [address] [place] [address] Health Maintenance Due Date Last Done Comments Albumin/Creatinine Ratio 02/06/2024 023, 04/03/2021, 02/19/2017, Additional history exists Influenza Vaccine (FLU shot) (#1) 2024 04/10/2023, 04/07/2022, 04/03/2021, Additional history exists CKD PHOS USE SMARTSET 18699 04/10/202403/21, 04/07/2022, 04/03/2021, Additional history exists CKD HGB USE SMARTSET 99416 01/10/202501/10, 02/05/2023, 02/05/2023, Additional history exists Adult Wellness Visit 01/28/2025 01/29/2024, 01/26/2023, 01/13/2022 Depression Screening 01/28/2025 01/29/2024 DTap/Tdap Vaccines (2 - Td or Tdap) 05/14/2028 05/14/2018, 09/29/2011 Zoster Vaccines Completed 06/25/2018, 01/2018, 09/29/2011 Pneumococcal Vaccine: 65+ Years Completed 01/17/2020, 08/03/2014, 12/08/2006, Additional history exists COVID-19 Vaccine Discontinued 04/22/2023, , 05/23/2021, Additional history exists HPV (Gardasil) Vaccine Aged Out No lo nger eligible based on patient's age to complete this topic Hepatitis B Vaccine Aged Out No longe r eligible based on patient's age to complete this topic MENINGOCOCCAL (MENACTRA/MENVEO) Aged Out No longer eligible based on patient's age to complete this topic documented as of this encounter Medical Devices Not on filedocumented as of this encounter Care Teams Green Promotions Specialist Relationship Specialty Start Date End Date Nima Erickson MD [address] [facility] [place] [address] PCP - General Family Medicine 09/16/19 documented as of this encounter
--- OUTSIDE RECORDS SUMMARY | 2024-04-23 09:23 | External Medical Summary | Summary of Care ---
Author Name Unknown Organization [facility] Address [address] [place] [address] Phone [phone] Care Team Providers Care Auto Service Dispatcher Name Role Phone Nima Erickson MD Primary Care Provider [phone] Encounter Details Date Type Department Care Team (Latest Contact Info) Description 03/24/2024 1:37 PM EDT - 03/24/2024 11:59 PM EDT Hospital Encounter Radiology Film File [address] [place] [address] Arrived Discharge Disposition: Home - Self Care Allergies Active Allergy Reactions Criticality Noted Date Comments Adhesive Tape Other (Please comment) 10/04/2012 Pt reports "it took some skin off" Bee Venom 03/13/2022 Lisinopril Cough Low 03/27/2009 Morphine 08/29/2020 Other reaction(s): vomiting Guaifenesin Er Diarrhea,Nausea/vomi ti ng,Neuro complications (Please comment) 09/08/2017 Oxycodone 08/29/2020 Other reaction(s): STRANGE DREAMS Oxycodone-Acetaminoph en Other (Please comment) 05/28/2010 [place] funny on medication documented as of this encounter (statuses as of 03/25/2024) Medications Medication Sig Dispensed Refills Start Date [...] Active Benzonatate 100 MG Oral Capsule (Tessalon Perles)Indications: History of viral pneumonia Take 1 Capsule by mouth 3 times a day as needed for Cough. Do not cut, crush, or chew. 50 Capsule 1 01/19/2024 Active Carvedilol 6.25 MG Oral Tablet (Coreg)Indications: HTN, goal below 150/90,Chronic heart failure with preserved ejection fraction (HCC) TAKE 1 TABLET BY MOUTH ONCE A DAY IN THE MORNING, AND HALF A TABLET BY MOUTH IN THE EVENING 135 Tablet 3 02/01/2024 Active Pravastatin Sodium 40 MG Oral Tablet (Pravachol)Indicati ons:Dyslipidemia, goal to be determined Take 1 tablet by mouth once daily 90 Tablet 3 03/15/2024 Active Fluorouracil 5 % External Cream (Efudex)Indications :Actinic keratosis Start fall/winter time, apply thin layer to forehead/cheeks/no se (not chin) 2x daily for 3 weeks and then after treatment, apply Vaseline over entire areas throughout the day for next 1-2 weeks until healed. 40 g 1 03/24/2024 Active documented as of this encounter (statuses as of 03/25/2024) Active Problems Problem Noted Date Diagnosed Date [...] as of this encounter (statuses as of 03/25/2024) Resolved Problems Problem Noted Date Diagnosed Date [...] and stage 3b chronic kidney disease 05/28/2020 10/10/2020 Overview: Per CKD protocol COPD, group C, by GOLD 2017 classification 09/26/2019 04/22/2021 Overview: Per COPD GOLD Classification COPD, mild 09/07/2019 09/29/2019 Overview: Per COPD GOLD Classification Primary open-angle glaucoma, bilateral, stage unspecified 07/27/2019 10/06/2022 History of colon polyps 12/15/2018 02/2 12/2019 Hypertensive heart and kidne y disease with [...] as of this encounter (statuses as of 03/25/2024) Immunizations Name Administration Dates Next Due COVID-19 mRNA, LNP-s, No Pre serve, 2-Dose Series (Moderna) 09/22/2020,08/18/2020 COVID-19, MRNA-LNP, 23-24, P F, 30 MCG/0.3 mL, 12 YRS AND ABOVE, IM [facility] 04/22/2023 COVID-19, mRNA, LNP-s, PF, B ooster, [...] Preserve, IM 04/02/2017,04/18/2016 Seasonal Influenza, Trivalen t, (IIV3), with Preserv, (Fluzone) 04/02/2015,03/27/2014,04/27/2013,04/22,04/17/2011,04/16/2010,03/28/2009 ,05/18/2008,04/26/2007,05/12/2006 Seasonal Influenza, Trivalen t, Adjuvanted, 65+ YRS, [...] No 01/26/2023 Does the household have a veterans affairs medical centerr source of income? (Household - for ages [...] 11:00 AM EST Cardiac Studies Cardiac Studies, [facility] [address] [facility] [place] [address] 08/19/2024 11:30 AM EST Office Visit Cardiology, [facility] [address] [facility] [place] [address] Robert Young MD [address] [place] [address] 09/19/2024 11:40 AM EST Office Visit Family Practice [facility] [address] [facility] [place] [address] Nima Erickson MD [address] [facility] [address] [place] [address] 02/01/2025 11:00 AM EDT Nurse Only Ancillary [facility] [address] [facility] [place] [address] [facility], Nurse Annual Wellness [facility] [address] [facility] [place] [address] 04/18/2025 11:00 AM EDT Office Visit Dermatology[address] [place] [address] Blanca Iyer, [place] [address] [place] [address] [place] [address] Health Maintenance Due Date Last Done Comments Albumin/Creatinine Ratio 02/06/2024 023, 04/03/2021, 02/19/2017, Additional history exists Influenza Vaccine (FLU shot) (#1) 2024 04/10/2023, 04/07/2022, 04/03/2021, Additional history exists CKD PHOS USE SMARTSET 30699 04/10/202403/21, 04/07/2022, 04/03/2021, Additional history exists CKD HGB USE SMARTSET 69707 01/10/202501/10, 02/05/2023, 02/05/2023, Additional history exists Adult [...] Procedure Name Priority Date/Time Associated Diagnosis Comments DERM EXAM - DERM (IMAGES ONLY, NO REPORT) Routine 03/24/2024 1:37 PM EDT History of malignant melanoma of skin Scar conditions and fibrosis of skin Skin exam, screening for cancer Actinic keratosis Lentigines Seborrheic keratosis Multiple nevi documented in this encounter Results * DERM EXAM - DERM (IMAGES ONLY, NO REPORT) (03/24/2024 1:37 PM EDT) Narrative Scheduling, Silent - 03/24/2024 1:37 PM EDT This is an imaging study not interpreted or resulted by a [facility] or [facility] contracted radiologist. Blanca Iyer PA-C RADIOLOGY (RAD GENERAL) documented in this encounter Care Teams Auto Service Dispatcher Relationship Specialty Start Date End Date Nima Erickson MD [address] [place] [address] PCP - General Family Medicine 09/16/19 documented as of this encounter
--- OUTSIDE RECORDS SUMMARY | 2024-04-23 09:23 | External Medical Summary | Summary of Care ---
Author Name Unknown Organization [facility] Address [address] [place] [facility] [place] [address] Phone [phone] Care Team Providers Care Lap Winding Machine Operator Name Role Phone Nima Erickson MD Primary Care Provider [phone] [phone] Reason for Visit * Reason Comments Follow Up 1 year skin exam, sp ots on face Encounter Details Date Type Department Care Team (Late st Contact Info) Description 03/24/2024 1:20 PM EDT Office Visit Dermatology[address] [address] Blanca Iyer PA-C [address] [place] [address] [place] [address] History of malignant melanoma of skin*; Scar conditions and fibrosis of skin; Skin exam, screening for cancer; Actinic keratosis; Lentigines; Seborrheic keratosis; Multiple nevi Allergies Active Allergy Reactions Criticality Noted Date Comments Adhesive Tape Other (Please comment) 10/04/2012 Pt reports "it took some skin off" Bee Venom 03/13/2022 Lisinopril Cough Low 03/27/2009 Morphine 08/29/2020 Other reaction(s): vomiting Guaifenesin Er Diarrhea,Nausea/vomi ti ng,Neuro complications (Please comment) 09/08/2017 Oxycodone 08/29/2020 Other reaction(s): STRANGE DREAMS Oxycodone-Acetaminoph en Other (Please comment) 05/28/2010 [place] funny on medication documented as of this encounter (statuses as of 03/24/2024) Medications Medication Sig Dispensed Refills Start Date [...] Active Benzonatate 100 MG Oral Capsule (Tessalon Perlharoon)Indications: History of viral pneumonia Take 1 Capsule [...] as of this encounter (statuses as of 03/24/2024) Active Problems Problem Noted Date Diagnosed Date [...] as of this encounter (statuses as of 03/24/2024) Resolved Problems Problem Noted Date Diagnosed Date [...] as of this encounter (statuses as of 03/24/2024) Immunizations Name Administration Dates Next Due COVID-19 mRNA, LNP-s, No Pre serve, 2-Dose Series (Moderna) 09/22/2020,08/18/2020 COVID-19, MRNA-LNP, 23-24, P F, 30 MCG/0.3 mL, 12 YRS AND ABOVE, IM ([facility]) 04/22/2023 COVID-19, mRNA, LNP-s, PF, B ooster, [...] this encounter Patient Instructions * Patient Instructions* Blanca Iyer PA-C - 03/24/2024 1:23 PM EDT SUNSCREEN USE AND SUN PROTECTION: 1. The best protection is sun avoidance. Seek shade if you can, especially between 10am to 4pm (peak sun hours). 2. Use sunscreen with an SPF (Sun Protection Factor - the number on most sunscreen bottles) of 30 or more that protects from Ultraviolet A (UVA) and Ultraviolet B (UVB) wavelength light (strongly recommend SPF 50). This is referred to as broad spectrum sun protection because it protects from most wa velengths in both spectrums of UVA and UVB light. Unfortunately, even though the protection is broad it is not complete, therefore making sun avoidance the best protection. UVB and UVA have both beenimplicated in causing skin cancers. Older sunscreens only protected from UVB and sunscreens with added UVA protection should contain Titanium dioxide, Zinc oxide, or Avobenzone. Other oil free, non-comedogenic lotion with SPF 30 or greater is fine. 3. Use sun protection if outside for 15 minutes or more. Apply 20-30 minutes before going out and reapply every 1-2 hours. No sunscreen is truly water ''proof'' and it will wash away with sweat, swimming and rubbing. 4. Wear tightly woven, loose fitting (cooler) long sleeved clothing, UV-blocking sun glasses (eyes need protection as well) and wide-brimmed hatwear (no straw hats with holes because light still getsthrough). Strongly recommended *Neutrogena Pure and Free Baby SPF 60 (have separate face and body lotions) orCeraVe AM facial lotion (with SPF 30). If looking for non toxic alternatives-look for non-shital particle zinc. Product examples; Think sport, Think baby, Tanvir, [employer] botanicals, [employer], [place] baby. "Baby" products can be used for all ages. documented in this encounter Progress Notes * Blanca Iyer PA-C - 03/24/2024 1:20 PM EDT SUBJECTIVE: HPI: Katarina Peacock is a 88 year old female seen at the request of Self for evaluation and treatment of MMhx/full skin exam. No vulvar exams performed, no vulvar discoloration and/or lesions to be assessed per pt. - Tanning bed history. - Blistering sunburns. Rough spots on face, itchy at times. Some prescription cream with improvement. Cryo completed at a previous visit without improvement, per pt. Previous Drs. Laura/Tc/Nancy/Aung patient. Business Line Manager Documentation Patient offered health program director and declined. REVIEW OF SYSTEMS: SKIN: No other new or changing moles. HEME/LYMPH: No new or enlarging lumps or bumps. CONSTITUTIONAL: No nausea, vomiting, fevers, chills, diarrhea. No recent unintended weight loss, night sweats, appetite or malaise. 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 Dermatology lab work(s)/pathology report(s) as well as those sent by referring provider prior to seeing pt. Past Medical History: Diagnosis Date Aortic valve insufficiency BENIGN NEOPLASM LG BOWEL 04/03/2003 Dyslipidemia, goal to be determined Essential and other specified forms of tremor JUAN MANUEL (generalized anxiety disorder) 04/21/2023 History of colon polyps 12/15/2018 HTN, goal below 140/90 Hx of basal cell carcinoma 05/19/2011 L upper cutaneous lip - BCC, 09/2010 Mitral and aortic incompetence moderate 205/26 Overweight (BMI 25.0-29.9) 10/06/2022 FAMILY HISTORY: Skin CA: None Skin Disorders: none SOCIAL HISTORY: Social History Tobacco Use Smoking status: Never Smokeless tobacco: Never Substance Use Topics Alcohol use: No Vaping/E-Cigarette Use Vaping/E-Cigarette Use Never User Vaping/E-Cigarette Substances Vaping/E-Cigarette Devices MEDICA TIONS: Current Outpatient Medications Medication Sig Dispense Refill CORAL CALCIUM 1000 (390 CA) MG PO TABS 1200 mg 1 tab daily Multiple Vitamins-Minerals (PRESERVISION AREDS) Tablet Take 2 Tablets by mouth in the morning. hydroCHLOROthiazide 12.5 MG Oral Capsule (Hydrodiuril) Take one tab 5 days/week 90 Capsule 3 Doxazosin Mesylate 2 MG Oral Tablet (Cardura) TAKE 2 TABLETS BY MOUTH AT BEDTIME 180 Tablet 3 Losartan Potassium 50 MG Oral Tablet (Cozaar) Take 1 Tablet by mouth in the morning. 90 Tablet 3 Ventolin HFA 108 (90 Base) MCG/ACT Inhalation Aerosol Solution Inhale 2 Puffs by mouth every 4 hours as needed for Wheezing. Benzonatate 100 MG Oral Capsule (Tessalon Perles) Take 1 Capsule by mouth 3 times a day as needed for Cough. Do not cut, crush, or chew. 50 Capsule 1 Carvedilol 6.25 MG Oral Tablet (Coreg) TAKE 1 TABLET BY MOUTH ONCE A DAY IN THE MORNING, AND HALF ATABLET BY MOUTH IN THE EVENING 135 Tablet 3 Pravastatin Sodium 40 MG Oral Tablet (Pravachol) Take 1 tablet by mouth once daily 90 Tablet 3 No current facility-administered medications for this visit. ALLERGY: Adhesive tape, Bee venom, Morphine, Mucinex [guaifenesin er], Oxycodone, Percocet [oxycodone-acetaminophen], and Lisinopril OBJECT RAYO: GEN: alert, no distress, appears oriented, pleasant, and cooperative. SKIN: Detailed exam of hair, face including lids and lips, oral cavity, neck, chest, abdomen, back,bilateral upper ext. (arm, hand, fingers), bilateral lower ext. (leg, foot, toes), palpation of scalp, fingernails, toenails, inguinal areas, groin (mons pubis), buttocks, and anus completed: No bilat pre or post auricular, no bilat anterior or posterior cervical chain, no submental, no bilat supraclavicular, no bilat axillary, no bilat antecubital, no bilat inguinal, no bilat popliteal fossae lymphadenopathy. No hepatosplenomegaly. 1. L upper arm, near antecubital space-No discrete scar present. 2. Face- Some ill defined hyperkeratotic brown and white scaly papules and plaques, non indurated. 3. Trunk/bilat arms and legs-About 25 total; 2-4mm light and light-medium brown macules mostly. 4. Face/neck/trunk/bilat arms and legs-well defined light to medium brown homogenous stellate macules. 5. Face/trunk/bilat arms and legs-Few sharply defined, variegated brown, waxy flat papules with velvety to finely verrucous surfaces. ASSESS MENT/PLAN: 1. Hx of Malignant Melanoma on L upper arm, near antecubital region-No discrete scar visualized. -Patient recommended to get yearly eye exams from Opthalmologist and any age/gender appropriate screenings to include but not limited to; breast exam, pap smear, mammography, colonoscopy. The signs and symptoms of skin cancer were reviewed and the patient was advised to practice sun protection and sun avoidance, use daily sunscreen, and perform regular self-skin and lymph node exams on a monthly basis. 2. Actinic keratoses on face-Plan on field therapy over cryotherapy as treatment for lesions. Explained in office and pt given written sheet with information on medication, instructions on treatment,appropriate response to medication, and tips on symptom relief and post treatment instructions given. 3. Nevi on trunk/bilat arms and legs-no tx needed, pt given reassurance and written education aboutdiagnosis. Skin cancer brochure given and ABCDE's discussed with patient. Annual full body skin examination (unless I recommended otherwise), self-examination, and sun protection (SPF 30+ daily to sun exposed areas, with reapplication every 1-2 hours when out in sun for long periods of time) advised and discussed. Recommended sooner follow up for new or changing lesions. These changes include rapid enlargement, changes in color or shape or symptoms, bleeding, or other concerns. The common features and behavior of non-melanoma skin cancers (e.g. BCC/SCC) as well as the ABCDEs and ugly duckling features of melanoma were also reviewed. 4. Lentigines on face/neck/trunk/bilat arms and legs-No treatment needed, pt given reassurance. 5. Seborrheic/Benign Keratosis(-es) on face/trunk/bilat arms and legs-no tx needed, pt given reassurance and written education about diagnosis. Patient alone today. Photo(s) of #1-5 taken, pt verbally consented to having photo(s) taken. Follow-up: 1 year for full skin exam/MM hx Photos and chart reviewed by Dr. Preet Laura. Presum ed diagnoses, expected natural histories, and management options discussed with the patient at length. Questions were addressed and anticipatory guidance provided. They were instructed to contact me if additional questions, concerns, or problems develop in the interim. -There were no barriers to learning and no other pain was related to today's visit. The patient and/or person accompanying patient demonstrates understanding of the visit and treatment. Blanca Iyer PA-C 03/24/2024 1:[address] [address] documented in this encounter Nursing Notes * Elin Marvin LPN - 03/24/2024 1:10 PM EDT Patient identified by full name and date of . Chief Complaint Patient presents with Follow Up 1 year skin exam, spots on face documented in this encounter Plan of Treatment Upcoming Encounters Date Type Department Care Team (Late st Contact Info) Description 07/22/2024 11:00 AM EST Cardiac Studies Cardiac Studies, [facility] [address] [place] [address] 08/19/2024 11:30 AM EST Office Visit Cardiology, [facility] [address] [facility] [place] [address] Robert Young MD [address] [place] [address] 09/19/2024 11:40 AM EST Office Visit Family Practice [facility] [address] [place] [address] Nima Erickson MD [address] [place] [address] 02/01/2025 11:00 AM EDT Nurse Only Ancillary [facility] [address] [facility] [place] [address] [facility], Nurse Annual Wellness [facility] [address] [facility] [place] [address] 04/18/2025 11:00 AM EDT Office Visit Dermatology[address], [place] [address] Blanca Iyer, PA-Vitor [address] [place] [address] [place] [address] Health Maintenance Due Date Last Done Comments Albumin/Creatinine Ratio 02/06/2024 023, 04/03/2021, 02/19/2017, Additional history exists Influenza Vaccine (FLU shot) (#1) 2024 04/10/2023, 04/07/2022, 04/03/2021, Additional history exists CKD PHOS USE SMARTSET 16610 04/10/202403/21, 04/07/2022, 04/03/2021, Additional history exists CKD HGB USE SMARTSET 43535 01/10/202501/10, 02/05/2023, 02/05/2023, Additional history exists Adult [...] interpreted or resulted by a [facility] or [employer]er contracted radiologist. Blanca Iyer PA-C RADIOLOGY ([facility]) documented in this encounter Visit Diagnoses Diagnosis History of malignant melanoma of skin- Primary Personal history of malignant melanoma of skin Scar conditions and fibrosis of skin Scar condition and fibrosis of skin Skin exam, screening for cancer Screening for malignant neoplasm of the skin Actinic keratosis Lentigines Other dyschromia Seborrheic keratosis Other seborrheic keratosis Multiple nevi Benign neoplasm of skin, site unspecified documented in this encounter Care Teams Lap Winding Machine Operator Relationship Specialty Start Date End Date Nima Erickson MD [address] [facility] [place] [address] PCP - General Family Medicine 09/16/19 documented as of this encounter
--- OUTSIDE RECORDS SUMMARY | 2024-04-23 09:23 | External Medical Summary | Summary of Care ---
Author Name Unknown Organization [facility] Address [address] [place] [facility] [place] [address] Phone [phone] Care Team Providers Care Car Repairer Helper Name Role Phone Nima Erickson MD Primary Care Provider [phone] Encounter Details Date Type Department Care Team (Late st Contact Info) Description 03/22/2024 Orders Only PATIENT PORTAL DO NOT DELETE THIS DEPT USED BY [place] [id number] Allergies Active Allergy Reactions Criticality Noted Date Comments Adhesive Tape Other (Please comment) 10/04/2012 Pt reports "it took some skin off" Bee Venom 03/13/2022 Lisinopril Cough Low 03/27/2009 Morphine 08/29/2020 Other reaction(s): vomiting Guaifenesin Er Diarrhea,Nausea/vomi ti ng,Neuro complications (Please comment) 09/08/2017 Oxycodone 08/29/2020 Other reaction(s): STRANGE DREAMS Oxycodone-Acetaminoph en Other (Please comment) 05/28/2010 [place] funny on medication documented as of this encounter (statuses as of 03/22/2024) Medications Medication Sig Dispensed Refills Start Date [...] 01/19/2024 Active Carvedilol 6.25 MG Oral Tablet (Coreg)Indications:H TN, goal below 150/90,Chronic heart failure with preserved ejection fraction (HCC) TAKE 1 TABLET BY MOUTH ONCE A DAY IN THE MORNING, AND HALF A TABLET BY MOUTH IN THE EVENING 135 Tablet 3 02/01/2024 Active Pravastatin Sodium 40 MG Oral Tablet (Pravachol)Indicatio ns:Dyslipidemia, goal to be determined Take 1 tablet by mouth once daily 90 Tablet 3 03/15/2024 Active documented as of this encounter (statuses as of 03/22/2024) Active Problems Problem Noted Date Diagnosed Date [...] as of this encounter (statuses as of 03/22/2024) Resolved Problems Problem Noted Date Diagnosed Date [...] as of this encounter (statuses as of 03/22/2024) Immunizations Name Administration Dates Next Due COVID-19 mRNA, LNP-s, No Pre serve, 2-Dose Series (Moderna) 09/22/2020,08/18/2020 COVID-19, MRNA-LNP, 23-24, P F, 30 MCG/0.3 mL, 12 YRS AND ABOVE, IM (PFIZER-Comirnaty) 04/22/2023 COVID-19, mRNA, LNP-s, PF, B ooster, [...] Description 03/24/2024 1:20 PM EDT [place] [address] [address] [facility] [place] [address] Blanca Iyer PA-C [address] [place] [address] [place] [address] 07/22/2024 11:00 AM EST Cardiac Studies Cardiac Studies, [facility] [address] [place] [address] 08/19/2024 11:30 AM EST Office Visit Cardiology, [facility] [address] [facility] [place] [address] Robert Young MD [address] [place] [address] 09/19/2024 11:40 AM EST Office Visit Family Practice [facility] [address] [place] [address] Nima Erickson MD [address] [place] [address] 02/01/2025 11:00 AM EDT Nurse Only Ancillary [facility] [place] [address] [place], Nurse Annual Wellness [facility] [place] [address] Health Maintenance Due Date Last Done Comments Albumin/Creatinine Ratio 02/06/2024 023, 04/03/2021, 02/19/2017, Additional history exists Influenza Vaccine (FLU shot) (#1) 2024 04/10/2023, 04/07/2022, 04/03/2021, Additional history exists CKD PHOS USE SMARTSET 28050 04/10/202403/21, 04/07/2022, 04/03/2021, Additional history exists CKD HGB USE SMARTSET 70480 01/10/202501/10, 02/05/2023, 02/05/2023, Additional history exists Adult [...] filedocumented as of this encounter Care Teams Car Repairer Helper Relationship Specialty Start Date End Date Nima Erickson MD [address] [place] [address] PCP - General Family Medicine 09/16/19 documented as of this encounter
--- OUTSIDE RECORDS SUMMARY | 2024-04-23 09:23 | External Medical Summary | Summary of Care ---
Author Name Unknown Organization [facility] Address [address] [place] [place] [place] [address] Phone [phone] Care Team Providers Care Voice Network Engineer Name Role Phone Nima Erickson MD Primary Care Provider [phone] Reason for Visit * Reason Comments Follow Up 1 year skin exam, sp ots on face Encounter Details Date Type Department Care Team (Late st Contact Info) Description 03/24/2024 1:20 PM EDT Office Visit Dermatology[address] [address] Blanca Iyer PA-C [address] [place] [address] [place] [address] History of malignant melanoma of skin*; Scar [...] DREAMS Oxycodone-Acetaminoph en Other (Please comment) 05/28/2010 [place] funny on medication documented as of this [...] MCG/0.3 mL, 12 YRS AND ABOVE, [facility] 04/22/2023 COVID-19, mRNA, LNP-s, PF, [...] Trivalen t, (IIV3), with Preserv, (Fluzone) 04/02/2015,03/27/2014,04/27/2013,04/22,04/17/2011,04/16/2010,03/28/2009 ,05/18/2008,04/26/2007,05/12/2006,04/20,05/07/2004,05/04/2003, 2,05/18/2001,04/19/2000 Seasonal Influenza, Trivalen t, Adjuvanted, 65+ YRS, [...] Product examples; Think sport, Think baby, Tanvir, [employer]o botanicals, [employer], [place] baby. "Baby" products can be used for all ages. documented in this encounter Progress Notes * Preet Laura MD - 03/24/2024 2:11 PM EDT I have seen and examined the patient via teledermatology review of chart note and photos with Blanca Iyer PA-C. I have reviewed and agree with the assessment and plan. * Blanca Iyer PA-C - 03/24/2024 1:20 [...] improvement, per pt. Previous Drs. Laura/Tc/Nancy/Aung patient. Test Grader Documentation Patient offered top lift trimmer and declined. REVIEW OF SYSTEMS: SKIN: No [...] keratoses Reviewed, same day as visit, 0 [facility] Dermatology lab work(s)/pathology report(s) as well as [...] moderate 2+ 05/26 Overweight (BMI 25.0-29.9) 10/06/2022 FAMILY HISTORY: Skin [...] treatment. Blanca Iyer PA-C 03/24/2024 1:23 PM Dermatology, [address] [place] [address] documented in this encounter Nursing Notes * [...] Studies Cardiac Studies, [facility] [address] [place] [address] 08/19/2024 11:30 AM EST Office Visit Cardiology, [facility] [address] [place] [address] Robert Young MD [address] [place] [address] 09/19/2024 11:40 AM EST Office Visit Family Practice [facility] [address] [place] [address] Nima Erickson MD [address] [place] [address] 02/01/2025 11:00 AM EDT Nurse Only Ancillary [facility] [address] [place] [address] [place], Nurse Annual Wellness [facility] [address] [place] [address] 04/18/2025 11:00 AM EDT [place] [address] [facility] [place] [address] Blanca Iyer PA-C [address] [place] [address] [place] [address] Health Maintenance Due Date Last Done Comments Albumin/Creatinine Ratio 02/06/2024 023, 04/03/2021, 02/19/2017, Additional history exists Influenza Vaccine (FLU shot) (#1) 2024 04/10/2023, 04/07/2022, 04/03/2021, Additional history exists CKD PHOS USE SMARTSET 19117 04/10/202403/21, 04/07/2022, 04/03/2021, Additional history exists CKD HGB USE SMARTSET 11782 01/10/202501/10, 02/05/2023, 02/05/2023, Additional history exists Adult [...] study not interpreted or resulted by a [employer] or [employer] contracted radiologist. Blanca Iyer PA-C RADIOLOGY ([facility]) documented in this encounter Visit [...] unspecified documented in this encounter Care Teams Voice Network Engineer Relationship Specialty Start Date End Date Nima Erickson MD [address] [facility] [place] [address] PCP - General Family Medicine 09/16/19 documented as of this encounter
--- OUTSIDE RECORDS SUMMARY | 2024-04-23 09:23 | External Medical Summary | Summary of Care ---
Author Name Unknown Organization [facility] Address [address] [facility] [place] [address] Phone [phone] Care Team Providers Care Steam Conditioning Operator Name Role Phone Nima Erickson MD Primary Care Provider [phone] [phone] Reason for Visit * Reason Comments Follow Up Pt here to follow up on face and memory issues. Pt also noticed a lump on R side of collar bone in the last couple days Encounter Details Date Type Department Care Team (Late st Contact Info) Description 04/01/2024 3:20 PM EDT Office Visit Family Practice [facility] [address] [place] [address] Nima Erickson MD [address] [place] [address] Memory changes* Allergies Active Allergy Reactions Criticality Noted Date Comments Adhesive Tape Other (Please comment) 10/04/2012 Pt reports "it took some skin off" Bee Venom 03/13/2022 Lisinopril Cough Low 03/27/2009 Morphine 08/29/2020 Other reaction(s): vomiting Guaifenesin Er Diarrhea,Nausea/vomi ti ng,Neuro complications (Please comment) 09/08/2017 Oxycodone 08/29/2020 Other reaction(s): STRANGE DREAMS Oxycodone-Acetaminoph en Other (Please comment) 05/28/2010 [place] funny on medication documented as of this encounter (statuses as of 04/03/2024) Medications Medication Sig Dispensed Refills Start Date [...] as of this encounter (statuses as of 04/03/2024) Active Problems Problem Noted Date Diagnosed Date [...] as of this encounter (statuses as of 04/03/2024) Resolved Problems Problem Noted Date Diagnosed Date [...] as of this encounter (statuses as of 04/03/2024) Immunizations Name Administration Dates Next Due COVID-19 [...] Sign Reading Time Taken Comments Blood Pressure 126/64 04/01/2024 3:40 PM EDT Pulse 60 04/01/2024 3:40 PM EDT Temperature 37.6 C (99.6 F) 04/01/2024 3:40 PM E DT Respiratory Rate 18 04/01/2024 3:40 PM EDT Oxygen Saturation - - Inhaled Oxygen Concentration - - Weight 75.8 kg (167 lb) 04/01/2024 3:40 PM EDT Height 162.6 cm (5' 4") 04/01/2024 3:40 PM EDT Body Mass Index 28.67 04/01/2024 3:40 PM EDT documented in this encounter Progress Notes * Nima Erickson MD - 04/03/2024 3:29 PM EDT SUBJECTIVE: Katarina Peacock is a 88 year old female. Chief Complaint Patient presents with Follow Up Pt here to follow up on face and memory issues. Pt also noticed a lump on R side of collar bone in the last couple days HPI: Katarina is a very kindly 88 year old female who I saw for her routine visit two weeks ago. Since that visit, she saw dermatology. She noticed a small lump near her collar bone which appears to be a simple cyst. She was also urged by her daughter who lives in [place] to talk to me about her memory. Katarina has no signs of dementia at all, and she has some normal memory loss for her age. I am not concerned at all and patient really isn't either, but was just doing what her daughter told her to do on the phone. Exam unchanged from two weeks ago. Patient Active Problem List Diagnosis HTN, goal below 150/90 Essential tremor Dyslipidemia Hx of nonmelanoma skin cancer Hx of malignant melanoma (HFpEF) heart failure with preserved ejection fraction [...] by mouth once daily 90 Tablet 3 Fluorouracil 5 % External Cream (Efudex) Start fall/winter time, apply thin layer to forehead/cheeks/nose (not chin) 2x daily for 3 weeks and then after treatment, apply Vaseline over entire areas throughout the day for next 1-2 weeks until healed. 40 g 1 No current facility-administered medications for this visit. Allergy: Review of patient's allergies indicates: Allergen Reactions Adhesive Tape Other (Please comment) Pt reports "it took some skin off" Bee Venom Morphine Other reaction(s): vomiting Mucinex [Guaifenesin Er] Diarrhea, Nausea/vomiting and Neuro complications (Please comment) Oxycodone Other reaction(s): STRANGE DREAMS Percocet [Oxycodone-Acetaminophen] Other (Please comment) [place] funny on medication Lisinopril Cough OBJECTIVE: BP 126/64 | Pulse 60 | Temp 37.6 C (99.6 F) (Tympanic) | Resp 18 | Ht 1.626 m (5' 4") | Wt 75.8kg (167 lb) | BMI 28.67 kg/m | BSA 1.85 m Exam unchanged from visit two weeks ago ASSESSMENT AND PLAN: (R41.3) Memory changes (primary encounter diagnosis) Plan: reassurance as per HPI Follow up as needed. No other complaints were offered at this time. Nima Erickson MD documented in this encounter Plan of Treatment Upcoming Encounters Date Type Department Care Team (Late st Contact Info) Description 07/22/2024 11:00 AM EST Cardiac Studies Cardiac Studies, [facility] [address] [facility] [place] [address] 08/19/2024 11:30 AM EST Office Visit Cardiology, [address] [place] [address] Robert Young MD 132 [facility] [place] [address] 09/19/2024 11:40 AM EST Office Visit Family Practice [facility] [address] [facility] [place] [address] Nima Erickson MD 132 [facility] [place] [address] 02/01/2025 11:00 AM EDT Nurse Only Ancillary [address] [place] [address] [facility], Nurse Annual Wellness [address] [place] [address] 04/18/2025 11:00 AM EDT Office Visit Dermatology[address] [place] [address] Blanca Iyer PA-C [address] [place] [address] [place] [address] Health Maintenance Due Date Last Done Comments Albumin/Creatinine Ratio 02/06/2024 023, 04/03/2021, 02/19/2017, Additional history exists Influenza Vaccine (FLU shot) (#1) 2024 04/10/2023, 04/07/2022, 04/03/2021, Additional history exists CKD PHOS USE SMARTSET 96177 04/10/202403/21, 04/07/2022, 04/03/2021, Additional history exists CKD HGB USE SMARTSET 40082 01/10/202501/10, 02/05/2023, 02/05/2023, Additional history exists Adult [...] as of this encounter Visit Diagnoses Diagnosis Memory changes- Primary Memory loss documented in this encounter Care Teams Steam Conditioning Operator Relationship Specialty Start Date End Date Nima Erickson MD [address] [place] [address] PCP - General Family Medicine 09/16/19 documented as of this encounter
--- OUTSIDE RECORDS SUMMARY | 2024-04-23 09:24 | External Medical Summary | Summary of Care ---
Author Name Unknown Organization [facility] Address [address] [facility] [place] [address] Phone [phone] Care Team Providers Care Fire Safety Manager Name Role Phone Nima Erickson MD Primary Care Provider [phone] Reason for Visit * Reason Comments eRx-Medication Refill Encounter Details Date Type Department Care Team (Late st Contact Info) Description 01/30/2024 Refill Cardiology, [facility] [address] [place] [address] Robert Young MD [address] [place] [address] HTN, goal below 150/90*; Chronic heart failure with preserved ejection fraction (HCC) Allergies Active Allergy Reactions Criticality Noted Date Comments Adhesive Tape Other (Please comment) 10/04/2012 Pt reports "it took some skin off" Bee Venom 03/13/2022 Lisinopril Cough Low 03/27/2009 Morphine 08/29/2020 Other reaction(s): vomiting Guaifenesin Er Diarrhea,Nausea/vomi ti ng,Neuro complications (Please comment) 09/08/2017 Oxycodone 08/29/2020 Other reaction(s): STRANGE DREAMS Oxycodone-Acetaminoph en Other (Please comment) 05/28/2010 [place] funny on medication documented as of this encounter (statuses as of 02/01/2024) Medications Medication Sig Dispensed Refills Start Date [...] once daily 90 Tablet 3 06/04/2023 Active Ventolin HFA 108 (90 Base) MCG/ACT Inhalation Aerosol Solution Inhale 2 Puffs by mouth every 4 hours as needed for Wheezing. 01/19/2024 Active Benzonatate 100 MG Oral Capsule (Tessalon Perlharoon)Indication s:History of viral pneumonia Take 1 Capsule by mouth 3 times a day as needed for Cough. Do not cut, crush, or chew. 50 Capsule 1 01/19/2024 Active Carvedilol 6.25 MG Oral Tablet (Coreg)Indication s:HTN, goal below 150/90,Chronic heart failure with preserved ejection fraction (HCC) TAKE 1 TABLET BY MOUTH ONCE A DAY IN THE MORNING, AND HALF A TABLET BY MOUTH IN THE EVENING 135 Tablet 3 02/01/2024 Active Carvedilol 6.25 MG Oral Tablet (Coreg) Take one in the morning, 1/2 in the evening 135 Tablet 11 11/05/2022 02/01/2024 Discontinued documented as of this encounter (statuses as of 02/01/2024) Active Problems Problem Noted Date Diagnosed Date [...] as of this encounter (statuses as of 02/01/2024) Resolved Problems Problem Noted Date Diagnosed Date [...] as of this encounter (statuses as of 02/01/2024) Immunizations Name Administration Dates Next Due COVID-19 [...] encounter Miscellaneous Notes * Telephone Encounter - Doug Sheth DO - 02/01/2024 12:14 PM EDT Signed Prescriptions: Disp Refills Carvedilol 6.25 MG Oral Tablet (Coreg) 135 Ta*3 Sig: TAKE 1 TABLET BY MOUTH ONCE A DAY IN THE MORNING, AND HALF A TABLET BY MOUTH IN THE EVENING Authorizing Provider: DOUG SHETH * Telephone Encounter - Paty Perez CMA - 02/01/2024 12:03 PM EDTPending Prescriptions: Disp Refills Carvedilol 6.25 MG Oral Tablet (Coreg) 135 Ta*3 Sig: TAKE 1 TABLET BY MOUTH ONCE A DAY IN THE MORNING, AND HALF A TABLET BY MOUTH IN THE EVENING * Telephone Encounter - aPty Perez CMA - 02/01/2024 12:03 PM EDT Did you pend patient's preferred pharmacy and medication before forwarding?yes Pharmacy: [facility] Pending Prescriptions: Disp Refills Carvedilol 6.25 MG Oral Tablet (Coreg) [P*135 Ta*3 Sig: TAKE 1 TABLET BY MOUTH ONCE A DAY IN THE MORNING, AND HALF A TABLET BY MOUTH IN THE EVENING Last Visit: 01/20/2024 (in office), Visit date not found (telemedicine) Next Visit: 08/19/2024 If no future appointments scheduled, and last appointment is greater than a year ago, please schedule patient for a follow-up appointment Last date the medication was ordered: 11-05-2022 Is this request for a controlled substance?No [...] Care Team (Late st Contact Info) Description 03/18/2024 11:40 AM EDT Office Visit Family Practice [facility] [address] [place] [address] Nima Erickson MD [address] [place] [address] 03/24/2024 1:20 PM EDT [address] [address] Blanca Iyer, PA-Vitor [address] [place] [address] [place] [address] 07/22/2024 11:00 AM EST Cardiac Studies Cardiac Studies, [facility] [address] [place] [address] 08/19/2024 11:30 AM EST Office Visit Cardiology, [facility] [address] [place] [place] [address] Robert Young MD [address] [place] [address] 02/01/2025 11:00 AM EDT Nurse Only Ancillary [facility] [address] [place] [address] [place], Nurse Annual Wellness [facility] [address] [place] [address] Health Maintenance Due Date Last Done Comments Albumin/Creatinine Ratio 02/06/2024 023, 04/03/2021, 02/19/2017, Additional history exists CKD HGB USE SMARTSET 54261 02/06/202402/05, 02/05/2023, 11/13/2021, Additional history exists Influenza Vaccine (FLU shot) (#1) 2024 04/10/2023, 04/07/2022, 04/03/2021, Additional history exists CKD PHOS USE SMARTSET 70104 04/10/202403/21, 04/07/2022, 04/03/2021, Additional history exists Depression Screening 01/28/2025 01/29/2024 DTaP,Tdap,and Td Vaccines (2 - Td or [...] (HCC) documented in this encounter Care Teams Fire Safety Manager Relationship Specialty Start Date End Date Nima Erickson MD [address] [place] [address] PCP - General Family Medicine 09/16/19 documented as of this encounter
--- OUTSIDE RECORDS SUMMARY | 2024-04-23 09:24 | External Medical Summary | Summary of Care ---
Author Name Unknown Organization [facility] Address [address] [place] [place] [address] Phone [phone] Care Team Providers Care Tool Room Attendant Name Role Phone Nima Erickson MD Primary Care Provider [phone] Reason for Visit * Reason Onset Date Comments Medication Pre-auth 01/19/2024 BENZONATATE 100 MG CAPSULE Encounter Details Date Type Department Care Team (Late st Contact Info) Description 01/19/2024 Telephone Family Practice [facility] [address] [place] [address] Nima Erickson MD [address] [place] [address] Medication Pre-auth (BENZONATATE 100 MG CA... Allergies Active Allergy Reactions Criticality Noted Date Comments Adhesive Tape Other (Please comment) 10/04/2012 Pt reports "it took some skin off" Bee Venom 03/13/2022 Lisinopril Cough Low 03/27/2009 Morphine 08/29/2020 Other reaction(s): vomiting Guaifenesin Er Diarrhea,Nausea/vomi ti ng,Neuro complications (Please comment) 09/08/2017 Oxycodone 08/29/2020 Other reaction(s): STRANGE DREAMS Oxycodone-Acetaminoph en Other (Please comment) 05/28/2010 [place] funny on medication documented as of this encounter (statuses as of 01/20/2024) Medications Medication Sig Dispensed Refills Start Date [...] Active Benzonatate 100 MG Oral Capsule (Tessalon Perlharoon)Indications:H istory of viral pneumonia Take 1 Capsule by mouth 3 times a day as needed for Cough. Do not cut, crush, or chew. 50 Capsule 1 01/19/2024 Active documented as of this encounter (statuses as of 01/20/2024) Active Problems Problem Noted Date Diagnosed Date [...] as of this encounter (statuses as of 01/20/2024) Resolved Problems Problem Noted Date Diagnosed Date [...] as of this encounter (statuses as of 01/20/2024) Immunizations Name Administration Dates Next Due COVID-19 [...] No 01/26/2023 Does the household have a [facility] source [facility] income? (Household - for ages [...] encounter Miscellaneous Notes * Telephone Encounter - Bibi Tompkins CPhT - 01/19/2024 11:59 AM EDT Patients insurance would like to inform the office that BENZONATATE 100 MG CAPSULE is denied because Not Covered Under Part D Law. Exclusion letters sent. . They will fax this info to the office, please review and resubmit if appropriate. Thank you, Bibi Tompkins [facility] 01/19/2024,11:59 AM documented in this encounter Plan of Treatment Upcoming Encounters Date Type Department Care Team (Late st Contact Info) Description 01/29/2024 11:00 AM EDT Nurse Only Ancillary [facility] [address] [place] [address] [place] Nurse Annual Wellness [facility] [address] [place] [address] 03/18/2024 11:40 AM EDT Office Visit Family Practice [facility] [address] [place] [address] Nima Erickson MD [address] [place] [address] 03/24/2024 1:20 PM EDT Office Visit Dermatology[address], [place] [address] Blanca Iyer PA-C [address] [place] [address] [place] [address] Health Maintenance Due Date Last Done Comments Depression Screening 01/27/2024 01/26/2023 Albumin/Creatinine Ratio 02/06/2024 023, 04/03/2021, 02/19/2017, Additional history exists CKD HGB USE SMARTSET 45062 02/06/202402/05, 02/05/2023, 11/13/2021, Additional history exists Influenza Vaccine (FLU shot) (#1) 2024 04/10/2023, 04/07/2022, 04/03/2021, Additional history exists CKD PHOS USE SMARTSET 70739 04/10/202403/21, 04/07/2022, 04/03/2021, Additional history exists DTaP,Tdap,and Td Vaccines (2 - Td or Tdap) 05/14/2028 05/14/2018, 09/29/2011 Zoster Vaccines Completed 06/25/2018, 01/2018, 09/29/2011 Pneumococcal Vaccine: 65+ Years Completed 01/17/2020, 08/03/2014, 12/08/2006, Additional history exists COVID-19 Vaccine Discontinued 09/30/2021, 10/2020, 09/22/2020, Additional history exists HPV (Gardasil) Vaccine Aged [...] filedocumented as of this encounter Care Teams Tool Room Attendant Relationship Specialty Start Date End Date Nima Erickson MD [address] [place] [address] PCP - General Family Medicine 09/16/19 documented as of this encounter
--- OUTSIDE RECORDS SUMMARY | 2024-04-23 09:24 | External Medical Summary | Summary of Care ---
Author Name Unknown Organization [facility] Address [address] [place] [address] Phone [phone] Care Team Providers Care It Help Desk Associate Name Role Phone Nagi Morillo MD Primary Care Provider [phone] [phone] Reason for Referral * Precert (Within 10 days (routine)) - Authorized Specialty Diagnoses / Procedures Referred By Contac t Referred To Contact Cardiac Studies Diagnoses Stage 3b chronic kidney disease (HCC) Procedures ECHO, COMPLETE (2D), TRANS-THORACIC Robert Young MD [address] [place] [address] Referral ID Status Reason Start Date Expiration Date V isits Requested Visits Authorized [id number] Authorized Precert 07/22/2024 999 999 Reason for Visit * Reason Comments Follow Up Encounter Details Date Type Department Care Team (Late st Contact Info) Description 01/20/2024 11:30 AM EDT Office Visit Cardiology, [facility] [address] [place] [address] Robert Young MD [address] [place] [address] Stage 3b chronic kidney disease (HCC)* Allergies Active Allergy Reactions Criticality Noted Date Comments Adhesive Tape Other (Please comment) 10/04/2012 Pt reports "it took some skin off" Bee Venom 03/13/2022 Lisinopril Cough Low 03/27/2009 Morphine 08/29/2020 Other reaction(s): vomiting Guaifenesin Er Diarrhea,Nausea/vomi ti ng,Neuro complications (Please comment) 09/08/2017 Oxycodone 08/29/2020 Other reaction(s): STRANGE DREAMS Oxycodone-Acetaminoph en Other (Please comment) 05/28/2010 [place] funny on medication documented as of this [...] Sign Reading Time Taken Comments Blood Pressure 154/90 01/20/2024 11:53 AM EDT Pulse 52 01/20/2024 11:53 AM EDT Temperature - - Respiratory Rate 16 01/20/2024 11:5 3 AM EDT Oxygen Saturation - - Inhaled Oxygen Concentration - - Weight 72.1 kg (158 lb 14.4 oz) 024 11:53 AM EDT Height - - Body Mass Index 27.28 01/19/2024 11:00 AM EDT documented in this encounter Progress Notes * Robert Young MD - 01/20/2024 12:00 PM EDT January 20, 2024 Cardiology Follow Up PCP: NAGI MORILLO [address] [place] [address] [place] [address] [phone] Chief Complaint: Follow up valvular heart disease, hypertension SUBJECTIVE: Katarina Peacock is a 88 year old year old female with ongoing cardiac issues 1. Longstanding hypertension. 2. 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 3. Hypertensive urgency without recent recurrence. 4. Stage 3 chronic kidney disease 5. Chronic obstructive lung disease Patient presents today in routine followup. She continues to be very active, walks 2 miles a day . She overall does well while exercising. No chest pains, dizziness, lightheadedness. Recent hospitalization January 11, 2024 with exacerbation of asthmatic lung disease secondary to rhinovirus. Treated with azithromycin and prednisone. Symptoms mostly resolved still with occasional cough nonproductive. No fevers or chills currently. Chest CTA in-hospital revealed no pulmonary emboli are chest consolidation, no edema BNP and troponins normal No orthopnea worsening shortness of breath No edema. No tachy palpitations syncope or near syncope A Complete Review of Systems is as stated above or negative. Patient Active Problem List Diagnosis HTN, goal below 150/90 Essential tremor Dyslipidemia (HFpEF) heart failure with preserved ejection fraction (HCC) Gastroesophageal reflux disease with esophagitis Exudative age-related macular degeneration, left eye, with active choroidal neovascularization (HCC) Stage 3b chronic kidney disease (HCC) Overweight (BMI 25.0-29.9) JUAN MANUEL (generalized anxiety disorder) Exudative age-related macular degeneration of left eye (HCC) Review of patient's allergies indicates: Allergen Reactions Adhesive Tape Other (Please comment) Pt reports "it took some skin off" Bee Venom Morphine Other reaction(s): vomiting Mucinex [Guaifenesin Er] Diarrhea, Nausea/vomiting and Neuro complications (Please comment) Oxycodone Other reaction(s): STRANGE DREAMS Percocet [Oxycodone-Acetaminophen] Other (Please comment) [place] funny on medication Lisinopril Cough Current Outpatient Medications Medication Sig Dispense Refill [...] by mouth once daily 90 Tablet 3 Ventolin HFA 108 (90 Base) MCG/ACT Inhalation Aerosol Solution Inhale 2 Puffs by mouth every 4 hours as needed for Wheezing. Benzonatate 100 MG Oral Capsule (Tessalon Perles) Take 1 Capsule by mouth 3 times a day as needed for Cough. Do not cut, crush, or chew. 50 Capsule 1 No current facility-administered medications for this visit. OBJECTIVE/PHYSICAL EXAMINATION: BP 154/90 (BP Site: Left Arm, BP Position: Sitting, BP Cuff Size: Large) | Pulse 52 | Resp 16 | Wt 72.1 kg (158 lb 14.4 oz) | BMI 27.28 kg/m | BSA 1.8 m Repeat blood pressure 134/82 equal in both arms General: Pleasant age-appropriate (youthful) no acute distress Head: normocephalic, no masses, lesions, tenderness or abnormalities Eyes: conjunctiva are pink and non-injected, sclera clear Throat: clear Nares: without discharge Neck: supple, no adenopathy, no bruits, normal jugular venous pulse, no hepatojugular reflux, no carotid bruits Chest: normal shape and normal respiratory effort Lungs: clear to auscultation and percussion no rhonchi rales or wheeze Cardiac Exam: - regular rate & rhythm, grade 1 systolic murmur, no diastolic murmur, no gallop or rub - normal S-1, normal S-2 Abdomen: abdomen soft, non-tender, no abnormal masses, no hepatosplenomegaly, no abdominal bruit, no femoral bruit Musculoskeletal: no gait disturbance, no joint inflammation, no deforming arthritis Extremities: no edema, no cyanosis, pulses intact 2+/4 Neuro: grossly normal exam Data: EKG performed January 11, 2024 and reviewed personally : Sinus bradycardia, rate 55 beats per minute with normal tracing Echocardiogram June 05, 2023 [facility] The left ventricular cavity size is normal. The LV wall thickness is mildly increased (concentric). The left ventricular wall motion is normal. The qualitative LV ejection fraction is 60-64% (normal). The left ventricular diastolic function is mildly abnormal (grade I). The left atrium is normal sized (< 35 ml/m^2). Sclerosis involves primarily the non-coronary cusp. Aortic stenosis is absent. [id number] aortic valve regurgitation is present. The mitral valve anatomy is normal. Mild mitral regurgitation is present. Moderate tricuspid regurgitation is present. The estimated pulmonary artery systolic pressure is 39mm Hg ASSESSMENT: 86 year old year old female with 1. Longstanding hypertension with hypertensive heart disease 2. Chronic diastolic dysfunction with preserved ejection fraction 3. Mixed valvular disease with moderate aortic insufficiency, moderate mitral insufficiency and moderate tricuspid insufficiency 4. Hyperlipidemia with good lipid control PLAN: Patient remains clinically stable on appropriate medical therapies. No arrhythmias orvolume overload /fluid retention. Blood pressure controlled. Will repeat echocardiogram at 1 year interval in May 2024 Patient to report any new symptoms and be mindful of rapid or irregular heart rhythms DISPOSITION: Return 6 months Robert Young MD [facility], [place] [address] documented in this encounter Nursing Notes * Peace Sheridan CMA - 01/20/2024 11:50 AM EDT Examination Room: 13 Name: Katarina Peacock Date of : (1935). Reason for Visit: Overdue f/u Interim Hospitalization(s): [facility] d/c 01/14 rhinovirus, bronchitis Problems/Concerns: denies Chest Pain/SOB: denies [facility] Discussed: No [facility] is a way you can talk to your provider online through e-mail. Would you like to sign up? I can activate it for you? ALREADY ACTIVE Patient was instructed to not get up on the exam table until directed and assisted by their provider; patient is to remain seated in the chair/ wheelchair/ exam table for fall prevention and safety reasons. Patient is aware to have assistance to step down off exam table with personnel. Patient voiced full comprehension of instructions. documented in this encounter Plan of Treatment Upcoming Encounters Date Type Department Care Team (Late st Contact Info) Description 01/29/2024 11:00 AM EDT Nurse Only Ancillary [facility] [address] [address] [place], Nurse Annual Wellness [facility] [address] [address] 03/18/2024 11:40 AM EDT Office Visit Family Practice [facility] [address] [address] Nagi Morillo MD [address] [place] [address] 03/24/2024 1:20 PM EDT Office Visit Dermatology[address] [address] Blanca Iyer PA-C [address] [place] [address] [place] [address] 07/22/2024 11:00 AM EST Cardiac Studies Cardiac Studies, [facility] [address] [address] 08/19/2024 11:30 AM EST Office Visit Cardiology, [facility] [address] [address] Robert Young MD [address] [address] Scheduled Orders Name Type Priority Associated Diagnoses Orde r Schedule ECHO, COMPLETE (2D), TRANS-THORACIC Echocardiology Routine Stage 3b chronic kidney disease (HCC) Expected: 07/22/2024 (Approximate), Expires: 02/19/2026 Health Maintenance Due Date Last Done Comments Depression Screening 01/27/2024 01/26/2023 Albumin/Creatinine Ratio 02/06/2024 023, 04/03/2021, 02/19/2017, Additional history exists CKD HGB USE SMARTSET 35938 02/06/202402/05, 02/05/2023, 11/13/2021, Additional history exists Influenza Vaccine (FLU shot) (#1) 2024 04/10/2023, 04/07/2022, 04/03/2021, Additional history exists CKD PHOS USE SMARTSET 19248 04/10/202403/21, 04/07/2022, 04/03/2021, Additional history exists DTaP,Tdap,and [...] Primary documented in this encounter Care Teams It Help Desk Associate Relationship Specialty Start Date End Date Nagi Morillo MD [address] [place] [address] PCP - General Family Medicine 09/16/19 documented as of this encounter
--- OUTSIDE RECORDS SUMMARY | 2024-04-23 09:24 | External Medical Summary | Summary of Care ---
Author Name Unknown Organization [facility] Address [address] [place] [address] Phone [phone] Care Team Providers Care Legal Records Manager Name Role Phone Nima Erickson MD Primary Care Provider [phone] Encounter Details Date Type Department Care Team (Late st Contact Info) Description 01/14/2024 Population Health External Data Unspecified Department Allergies Active Allergy Reactions Criticality Noted Date Comments Adhesive Tape Other (Please comment) 10/04/2012 Pt reports "it took some skin off" Bee Venom 03/13/2022 Lisinopril Cough Low 03/27/2009 Morphine 08/29/2020 Other reaction(s): vomiting Guaifenesin Er Diarrhea,Nausea/vomi ti ng,Neuro complications (Please comment) 09/08/2017 Oxycodone 08/29/2020 Other reaction(s): STRANGE DREAMS Oxycodone-Acetaminoph en Other (Please comment) 05/28/2010 [place] funny on medication documented as of this encounter (statuses as of 01/14/2024) Medications Medication Sig Dispensed Refills Start Date [...] or chew. 50 Capsule 1 01/06/2024 Active documented as of this encounter (statuses as of 01/14/2024) Active Problems Problem Noted Date Diagnosed Date [...] as of this encounter (statuses as of 01/14/2024) Resolved Problems Problem Noted Date Diagnosed Date [...] as of this encounter (statuses as of 01/14/2024) Immunizations Name Administration Dates Next Due COVID-19 [...] Team (Late st Contact Info) Description 01/19/2024 11:00 AM EDT Office Visit Family [facility] [address] [place] [address] Nima Erickson MD [address] [place] [address] 01/20/2024 11:30 AM EDT Office Visit Cardiology, [facility] [address] [place] [address] Robert Young MD [address] [place] [address] 01/29/2024 11:00 AM EDT Nurse Only Ancillary [facility] [place] [address] [facility], Nurse Annual Wellness [facility] [address] [place] [address] 03/18/2024 11:40 AM EDT Office Visit Family [facility] [address] [place] [address] Nima Erickson MD [address] [place] [address] 03/24/2024 1:20 PM EDT Office Visit Dermatology, [place] [address] [facility] [address] [place] [id number] Blanca Iyer PA-C [address] [place] [address] [place] [address] Health Maintenance Due Date Last Done Comments COVID-19 Vaccine ( season) 2023 09/30/2021, 05/23/2021, 09/22/2020, Additional history exists Depression Screening 01/27/2024 01/26/2023 Albumin/Creatinine Ratio 02/06/2024 023, 04/03/2021, 02/19/2017, Additional history exists CKD HGB USE SMARTSET 50225 02/06/202402/05, 02/05/2023, 11/13/2021, Additional history exists CKD PHOS USE SMARTSET 41185 04/10/202403/21, 04/07/2022, 04/03/2021, Additional history exists DTaP,Tdap,and [...] filedocumented as of this encounter Care Teams Legal Records Manager Relationship Specialty Start Date End Date Nima Erickson MD [address] [place] [address] PCP - General Family Medicine 09/16/19 documented as of this encounter
--- OUTSIDE RECORDS SUMMARY | 2024-04-23 09:24 | External Medical Summary | Summary of Care ---
Author Name Unknown Organization [facility] Address [address] [place] [address] Phone [phone] Care Team Providers Care Lubricator Granulator Name Role Phone Nima Erickson MD Primary Care Provider [phone] [phone] Encounter Details Date Type Department Care Team (Late st Contact Info) Description 03/17/2024 Population Health External Data Unspecified Department Allergies Active Allergy Reactions Criticality Noted Date Comments Adhesive Tape Other (Please comment) 10/04/2012 Pt reports "it took some skin off" Bee Venom 03/13/2022 Lisinopril Cough Low 03/27/2009 Morphine 08/29/2020 Other reaction(s): vomiting Guaifenesin Er Diarrhea,Nausea/vomi ti ng,Neuro complications (Please comment) 09/08/2017 Oxycodone 08/29/2020 Other reaction(s): STRANGE DREAMS Oxycodone-Acetaminoph en Other (Please comment) 05/28/2010 [place] funny on medication documented as of this encounter (statuses as of 03/17/2024) Medications Medication Sig Dispensed Refills Start Date [...] as of this encounter (statuses as of 03/17/2024) Active Problems Problem Noted Date Diagnosed Date [...] as of this encounter (statuses as of 03/17/2024) Resolved Problems Problem Noted Date Diagnosed Date [...] as of this encounter (statuses as of 03/17/2024) Immunizations Name Administration Dates Next Due COVID-19 [...] 18 years and over) Not on file 3 Are you (or your family) levy eless [...] 11:40 AM EDT Office Visit Family Practice [facility] [address] [address] Nima Erickson MD [address] [facility] [place] [address] 03/24/2024 1:20 PM EDT [address] [address] Blanca Iyer PA-C [address] [place] [address] [place] [address] 07/22/2024 11:00 AM EST Cardiac Studies Cardiac Studies, [facility] [place] [address] 08/19/2024 11:30 AM EST Office Visit Cardiology, [facility] [address] [place] [place] [address] Robert Young MD [address] [place] [place] [address] 02/01/2025 11:00 AM EDT Nurse Only Ancillary [facility] [address] [facility] [address] [place] [address] [facility], Nurse Annual Wellness [facility] [place] [place] [address] Health Maintenance Due Date Last Done Comments Albumin/Creatinine Ratio 02/06/2024 023, 04/03/2021, 02/19/2017, Additional history exists Influenza Vaccine (FLU shot) (#1) 2024 04/10/2023, 04/07/2022, 04/03/2021, Additional history exists CKD PHOS USE SMARTSET 13466 04/10/202403/21, 04/07/2022, 04/03/2021, Additional history exists CKD HGB USE SMARTSET 38171 01/10/202501/10, 02/05/2023, 02/05/2023, Additional history exists Adult [...] filedocumented as of this encounter Care Teams Lubricator Granulator Relationship Specialty Start Date End Date Nima Erickson MD [address] [address] PCP - General Family Medicine 09/16/19 documented as of this encounter
--- OUTSIDE RECORDS SUMMARY | 2024-04-23 09:24 | External Medical Summary | Summary of Care ---
Author Name Unknown Organization [facility] Address [address] [facility] [place] [address] Phone [phone] Care Team Providers Care Audio/Visual Manager Name Role Phone Nima Erickson MD Primary Care Provider [phone] Reason for Visit * Reason Comments Physical-Exam Pt here for cpe, has 2 areas on face she would like looked at Encounter Details Date Type Department Care Team (Latest Contact Info) Description 03/18/2024 11:40 AM EDT Office Visit [facility] [address] [place] [address] Nima Erickson MD [address] [place] [address] HTN, goal below 150/90*; Exudative age-related macular degeneration, left eye, with active choroidal neovascularization (HCC); Chronic heart failure with preserved ejection fraction (HCC); Gastroesophageal reflux disease with esophagitis without hemorrhage; Dyslipidemia; Stage 3b chronic kidney disease (HCC); Essential tremor; Overweight (BMI 25.0-29.9); JUAN MANUEL (generalized anxiety disorder) Allergies Active Allergy Reactions Criticality Noted Date Comments Adhesive Tape Other (Please comment) 10/04/2012 Pt reports "it took some skin off" Bee Venom 03/13/2022 Lisinopril Cough Low 03/27/2009 Morphine 08/29/2020 Other reaction(s): vomiting Guaifenesin Er Diarrhea,Nausea/vomi ti ng,Neuro complications (Please comment) 09/08/2017 Oxycodone 08/29/2020 Other reaction(s): STRANGE DREAMS Oxycodone-Acetaminoph en Other (Please comment) 05/28/2010 [place] funny on medication documented as of this encounter (statuses as of 03/21/2024) Medications Medication Sig Dispensed Refills Start Date [...] as of this encounter (statuses as of 03/21/2024) Active Problems Problem Noted Date Diagnosed Date [...] as of this encounter (statuses as of 03/21/2024) Resolved Problems Problem Noted Date Diagnosed Date [...] as of this encounter (statuses as of 03/21/2024) Immunizations Name Administration Dates Next Due COVID-19 [...] Sign Reading Time Taken Comments Blood Pressure 120/62 03/18/2024 11:54 AM EDT Pulse 60 03/18/2024 11:54 AM EDT Temperature 37.2 C (99 F) 03/18/2024 11:54 AM EDT Respiratory Rate 18 03/18/2024 11:54 AM EDT Oxygen Saturation - - Inhaled Oxygen Concentration - - Weight 73.5 kg (162 lb) 03/18/2024 11:54 AM EDT Height 162.6 cm (5' 4") 03/18/2024 11:54 AM EDT Body Mass Index 27.81 03/18/2024 11:54 AM EDT documented in this encounter Progress Notes * Nima Erickson MD - 03/21/2024 1:29 PM EDT SUBJECTIVE: Katarina Peacock is a 88 year old female. Chief Complaint Patient presents with Physical-Exam Pt here for cpe, has 2 areas on face she would like looked at HPI: Katarina is a medically complex but very stable 88 year old female here for a routine follow up. She hasn't had any further hospitalizations since she had viral pneumonia earlier this year. She feels well. She continues to walk a few miles daily. Medications reviewed. Her exam is reassuring today. She does have a couple of small spots on her face she wants me to look at. She sees dermatology next week. Patient Active Problem List Diagnosis HTN, goal [...] STRANGE DREAMS Percocet [Oxycodone-Acetaminophen] Other (Please comment) [place] funny on medication Lisinopril Cough OBJECTIVE: BP 120/62 | Pulse 60 | Temp 37.2 C (99 F) (Tympanic) | Resp 18 | Ht 1.626 m (5' 4") | Wt 73.5 kg (162 lb) | BMI 27.81 kg/m | BSA 1.82 m General: alert, [...] reflexes normal and symmetric ASSESSMENT AND PLAN: (I10) HTN, goal below 150/90 (primary encounter diagnosis) Plan: BASIC METABOLIC PANEL -at goal (H35.3221) Exudative age-related macular degeneration, left eye, with active choroidal neovascularization (HCC) Plan: stable; follows with ophthalmology (I50.32) Chronic heart failure with preserved ejection fraction (HCC) Plan: continue medical mgmt (K21.00) Gastroesophageal reflux disease with esophagitis without hemorrhage Plan: quiescent (E78.5) Dyslipidemia Plan: continue rx (N18.32) Stage 3b chronic kidney disease (HCC) Plan: stable (G25.0) Essential tremor Plan: stable (E66.3) Overweight (BMI 25.0-29.9) Plan: continue regular exercise (F41.1) JUAN MANUEL (generalized anxiety disorder) Plan: stable Follow up in 6 month(s). No other complaints were offered at this time. Nima Erickson MD documented in this encounter Nursing Notes * Katherin Narayan LPN - 03/18/2024 11:54 AM EDT The patient has been properly identified by confirmation of name and date of . Chief Complaint Patient presents with Physical-Exam Pt here for cpe, has 2 areas on face she would like looked at documented in this encounter Plan of Treatment Upcoming Encounters Date Type Department Care Team (Late st Contact Info) Description 03/24/2024 1:20 PM EDT Office Visit Dermatology[address] [address] Blanca Iyer PA-C [address] [place] [address] [place] [address] 07/22/2024 11:00 AM EST Cardiac Studies Cardiac Studies, [facility] [address] [facility] [place] [address] 08/19/2024 11:30 AM EST Office Visit Cardiology, [facility] [address] [facility] [place] [place] [address] Robert Young MD [address] [facility] [place] [address] 09/19/2024 11:40 AM EST Office Visit Family Practice [facility] [address] [place] [address] Nima Erickson MD [address] [place] [address] 02/01/2025 11:00 AM EDT Nurse Only Ancillary [facility] [place] [address] [facility], Nurse Annual Wellness [facility] [place] [address] Scheduled Orders Name Type Priority Associated Diagnoses Orde r Schedule BASIC METABOLIC PANEL Lab Routine HTN, goal below 150/90 Expected: 03/18/2024 (Approximate), Expires: 03/18/2025 Health Maintenance Due Date Last Done Comments Albumin/Creatinine Ratio 02/06/2024 023, 04/03/2021, 02/19/2017, Additional history exists Influenza Vaccine (FLU shot) (#1) 2024 04/10/2023, 04/07/2022, 04/03/2021, Additional history exists CKD PHOS USE SMARTSET 71260 04/10/202403/21, 04/07/2022, 04/03/2021, Additional history exists CKD HGB USE SMARTSET 28804 01/10/202501/10, 02/05/2023, 02/05/2023, Additional history exists Adult [...] Diagnoses Diagnosis HTN, goal below 150/90- Primary Exudative age-related macular degeneration, left eye, with active choroidal neovascularization (HCC) Chronic heart failure with preserved ejection fraction (HCC) Gastroesophageal reflux disease with esophagitis without hemorrhage Dyslipidemia Other and unspecified hyperlipidemia Stage 3b chronic kidney disease (HCC) Essential tremor Essential and other specified forms of tremor Overweight (BMI 25.0-29.9) Overweight JUAN MANUEL (generalized anxiety disorder) Generalized anxiety disorder documented in this encounter Care Teams Audio/Visual Manager Relationship Specialty Start Date End Date Nima Erickson MD [address] [place] [place] [address] PCP - General Family Medicine 09/16/19 documented as of this encounter
--- OUTSIDE RECORDS SUMMARY | 2024-04-23 09:24 | External Medical Summary | Summary of Care ---
Author Name Unknown Organization [facility] Address [address] [place] [address] Phone [phone] Care Team Providers Care Retail Center Receptionist Name Role Phone Nima Erickson MD Primary Care Provider [phone] [phone] Encounter Details Date Type Department Care Team (Late st Contact Info) Description 02/23/2024 Orders Only Family Practice [facility] [address] [facility] [place] [address] Nima Erickson MD [address] [place] [facility] [place] [address] Allergies Active Allergy Reactions Criticality Noted Date Comments Adhesive Tape Other (Please comment) 10/04/2012 Pt reports "it took some skin off" Bee Venom 03/13/2022 Lisinopril Cough Low 03/27/2009 Morphine 08/29/2020 Other reaction(s): vomiting Guaifenesin Er Diarrhea,Nausea/vomi ti ng,Neuro complications (Please comment) 09/08/2017 Oxycodone 08/29/2020 Other reaction(s): STRANGE DREAMS Oxycodone-Acetaminoph en Other (Please comment) 05/28/2010 [place] funny on medication documented as of this encounter (statuses as of 02/23/2024) Medications Medication Sig Dispensed Refills Start Date [...] THE EVENING 135 Tablet 3 02/01/2024 Active documented as of this encounter (statuses as of 02/23/2024) Active Problems Problem Noted Date Diagnosed Date [...] as of this encounter (statuses as of 02/23/2024) Resolved Problems Problem Noted Date Diagnosed Date [...] as of this encounter (statuses as of 02/23/2024) Immunizations Name Administration Dates Next Due COVID-19 mRNA, LNP-s, No Pre serve, 2-Dose Series (Moderna) 09/22/2020,08/18/2020 COVID-19, MRNA-LNP, 23-24, P F, 30 MCG/0.3 mL, 12 YRS AND ABOVE, IM (tenKsolar-Comirnaty) 04/22/2023 COVID-19, mRNA, LNP-s, PF, B ooster, [...] 11:40 AM EDT Office Visit Family Practice [facility] [address] [place] [address] Nima Erickson MD [address] [place] [address] 03/24/2024 1:20 PM EDT Office Visit [address] [place] [id number] Blanca Iyer PA-C [address] [place] [address] [place] [address] 07/22/2024 11:00 AM EST Cardiac Studies Cardiac Studies, [facility] [address] [facility] [place] [address] 08/19/2024 11:30 AM EST Office Visit Cardiology, [facility] [address] [facility] [place] [address] Robert Young MD 132 [facility] [place] [address] 02/01/2025 11:00 AM EDT Nurse Only Ancillary [facility] [address] [facility] [place] [address] [facility], Nurse Annual Wellness [facility] [address] [facility] [place] [address] Health Maintenance Due Date Last Done Comments Albumin/Creatinine Ratio 02/06/2024 023, 04/03/2021, 02/19/2017, Additional history exists CKD HGB USE SMARTSET 09625 02/06/202401/10, 02/05/2023, 02/05/2023, Additional history exists Influenza Vaccine (FLU shot) (#1) 2024 04/10/2023, 04/07/2022, 04/03/2021, Additional history exists CKD PHOS USE SMARTSET 49296 04/10/202403/21, 04/07/2022, 04/03/2021, Additional history exists Adult Wellness Visit 01/28/2025 01/29/2024, 01/26/2023, 01/13/2022 Depression Screening 01/28/2025 01/29/2024 DTaP,Tdap,and Td Vaccines [...] Procedure Name Priority Date/Time Associated Diagnosis Comments CHEMISTRY-OUTSIDE Routine 01/11/2024 documented in this encounter Results * (ABNORMAL) CHEMISTRY-OUTSIDE (01/11/2024) Not all results display below - see scan for full detail OUTSIDE LAB (SEE SCANNED REPORT) CREATININE-OUTSID E LAB 1.22(A) 0.6 - 1.2 OUTSIDE LAB (SEE SCANNED REPORT) EGFR-OUTSIDE LAB OUT SIDE LAB (SEE SCANNED REPORT) POTASSIUM-OUTSIDE LAB 4.3 3.5 - 5.1 OUTSIDE LAB (SEE SCANNED REPORT) GLUCOSE-OUTSIDE LAB 96 70 - 99 OUTSIDE LAB (SEE SCANNED REPORT) HOURS FASTING OUTSID E LAB (SEE SCANNED REPORT) TRIGLYCERIDES-OUT SIDE LAB OUTSIDE LAB (SEE SCANNED REPORT) CHOLESTEROL-OUTSI DE LAB OUTSIDE LAB (SEE SCANNED REPORT) HDL-OUTSIDE LAB OUTS [facility] (SEE SCANNED REPORT) CHOL/HDL RATIO-OUTSIDE LAB OUTSIDE LA B (SEE SCANNED REPORT) LDL (CALCULATED)-OUTS [facility] OUTSIDE LAB (SEE SCANNED REPORT) LDL (DIRECT MEASURE)-OUTSIDE LAB OUTSIDE LAB (SEE SCANNED REPORT) HEMOGLOBIN, I9R-[facility] OUTSIDE LAB (SEE SCANNED REPORT) PHOSPHORUS-OUTSID E LAB OUTSIDE LAB (SEE SCANNED REPORT) PTH-OUTSIDE LAB OUTS [facility] (SEE SCANNED REPORT) MICROALBUMIN RATIO-OUTSIDE LAB OUTSIDE LA B (SEE SCANNED REPORT) PROTEIN, UA-OUTSIDE LAB trace neg OUTSIDE LAB (SEE SCANNED REPORT) HGB 13.1 12.0 - 16.0 OUTSIDE LAB (SEE SCANNED REPORT) 01/11/2024 Ronnie Jose MD LABORATORY OUTSIDE LAB (SEE SCANNED REPORT) documented in this encounter Care Teams Retail Center Receptionist Relationship Specialty Start Date End Date Nima Erickson MD [address] [place] [address] PCP - General Family Medicine 09/16/19 documented as of this encounter
--- OUTSIDE RECORDS SUMMARY | 2024-04-23 09:24 | External Medical Summary | Summary of Care ---
Author Name Unknown Organization [facility] Address [address] [facility] [place] [address] Phone [phone] Care Team Providers Care Rn Hemodialysis Charge Name Role Phone Nima Erickson MD Primary Care Provider [phone] Reason for Visit * Reason Onset Date Comments Health Maintenance 02/22/2024 Encounter Details Date Type Department Care Team (Late st Contact Info) Description 02/22/2024 Telephone Family Practice [facility] [address] [place] [address] Nima Erickson MD [address] [place] [address] Health Maintenance Allergies Active Allergy Reactions Criticality Noted Date Comments Adhesive Tape Other (Please comment) 10/04/2012 Pt reports "it took some skin off" Bee Venom 03/13/2022 Lisinopril Cough Low 03/27/2009 Morphine 08/29/2020 Other reaction(s): vomiting Guaifenesin Er Diarrhea,Nausea/vomi ti ng,Neuro complications (Please comment) 09/08/2017 Oxycodone 08/29/2020 Other reaction(s): STRANGE DREAMS Oxycodone-Acetaminoph en Other (Please comment) 05/28/2010 [place] funny on medication documented as of this encounter (statuses as of 02/22/2024) Medications Medication Sig Dispensed Refills Start Date [...] as of this encounter (statuses as of 02/22/2024) Active Problems Problem Noted Date Diagnosed Date [...] as of this encounter (statuses as of 02/22/2024) Resolved Problems Problem Noted Date Diagnosed Date [...] as of this encounter (statuses as of 02/22/2024) Immunizations Name Administration Dates Next Due COVID-19 mRNA, LNP-s, No Pre serve, 2-Dose Series (Moderna) 09/22/2020,08/18/2020 COVID-19, MRNA-LNP, 23-24, P F, 30 MCG/0.3 mL, 12 YRS AND ABOVE, IM (PFIZER-Comirnat) 04/22/2023 COVID-19, mRNA, LNP-s, PF, B ooster, [...] No 01/26/2023 Does the household have a [facility] source of income? (Household - for [...] encounter Miscellaneous Notes * Telephone Encounter - Jennifer Serrano LPN - 02/22/2024 9:00 AM EDT Care Gaps Comprehensive Care Outreach Last Office/Telemedicine Visit: 01/19/2024 (in office), 10/26/2019 (telemedicine) Next Office Visit: 03/18/2024 Hemoglobin AIC Results: No results found for: "HEMOGLOBIN A1C" BP Readings from Last 1 Encounters: 01/29/24 130/54 Reviewed Health Maintenance below: Health Maintenance Topic Date Due Albumin/Creatinine Ratio 02/06/2024 CKD HGB USE SMARTSET 10997 02/06/2024 Influenza Vaccine (FLU shot) (1) 03/20/2024 CKD PHOS USE SMARTSET 10844 04/10/2024 Labs was in [facility] will request Care Gap Outreach Action Taken: Outside records requested documented in this encounter Plan of Treatment Upcoming Encounters Date Type Department Care Team (Late st Contact Info) Description 03/18/2024 11:40 AM EDT Office Visit Family Practice [facility] [address] [place] [address] Nima Erickson MD [address] [address] 03/24/2024 1:20 PM EDT Office Visit [address] [address] Blanca Iyer PA-Vitor [address] [place] [address] [place] [address] 07/22/2024 11:00 AM EST Cardiac Studies Cardiac Studies, [facility] [address] [place] [place] [address] 08/19/2024 11:30 AM EST Office Visit Cardiology, [facility] [address] [place] [address] Robert Young MD [address] [address] 02/01/2025 11:00 AM EDT Nurse Only Ancillary [facility] [place] [address] [place], Nurse Annual Wellness [facility] [address] [place] [address] Health Maintenance Due Date Last Done Comments Albumin/Creatinine Ratio 02/06/2024 023, 04/03/2021, 02/19/2017, Additional history exists CKD HGB USE SMARTSET 75040 02/06/202402/05, 02/05/2023, 11/13/2021, Additional history exists Influenza Vaccine (FLU shot) (#1) 2024 04/10/2023, 04/07/2022, 04/03/2021, Additional history exists CKD PHOS USE SMARTSET 32095 04/10/202403/21, 04/07/2022, 04/03/2021, Additional history exists Depression [...] filedocumented as of this encounter Care Teams Rn Hemodialysis Charge Relationship Specialty Start Date End Date Nima Erickson MD [address] [place] [address] PCP - General Family Medicine 09/16/19 documented as of this encounter
--- OUTSIDE RECORDS SUMMARY | 2024-04-23 09:24 | External Medical Summary | Summary of Care ---
Author Name Unknown Organization [facility] Address [address] [place] [address] Phone [phone] Care Team Providers Care Train Control Electronic Technician Name Role Phone Nima Erickson MD Primary Care Provider [phone] [phone] Reason for Referral * Medication Prior Authorization - Pending Review Specialty Diagnoses / Procedures Referred By Controxie t Referred To Contact Diagnoses History of viral pneumonia Nima Erickson MD [address] [place] [address] Referral ID Status Reason Start Date Expiration Date V isits Requested Visits Authorized [id number] Pending Review 999 999 Reason for Visit * Reason Onset Date Comments Hospital Follow-Up Pt here for a hospital f/u from 01/14 for rhinovirus Hospital Follow-Up 01/19/2024 Encounter Details Date Type Department Care Team (Late st Contact Info) Description 01/19/2024 11:00 AM EDT Office Visit [facility] [address] [place] [address] Nima Erickson MD [address] [place] [place] [id number] Hospital discharge follow-up*; History of viral pneumonia; Chronic heart failure with preserved ejection fraction (HCC); Essential tremor; Stage 3b chronic kidney disease (HCC); JUAN MANUEL (generalized anxiety disorder); Overweight (BMI 25.0-29.9); HTN, goal below 150/90 Allergies Active Allergy Reactions Criticality Noted Date Comments Adhesive Tape Other (Please comment) 10/04/2012 Pt reports "it took some skin off" Bee Venom 03/13/2022 Lisinopril Cough Low 03/27/2009 Morphine 08/29/2020 Other reaction(s): vomiting Guaifenesin Er Diarrhea,Nausea/vomi ti ng,Neuro complications (Please comment) 09/08/2017 Oxycodone 08/29/2020 Other reaction(s): STRANGE DREAMS Oxycodone-Acetaminoph en Other (Please comment) 05/28/2010 [place] funny on medication documented as of this encounter (statuses as of 01/19/2024) Medications Medication Sig Dispensed Refills Start Date [...] or chew. 50 Capsule 1 01/19/2024 Active prednisoLONE Acetate 1 % Ophthalmic Suspension (Pred Forte) INSTILL 1 DROP INTO LEFT EYE 4 TIMES DAILY FOR 7 DAYS 12/07/2023 01/19/2024 Discontinued (Medication List Clean Up) Benzonatate 100 MG Oral Capsule (Tesli Reynolds) Take 1 Capsule by mouth 3 times a day as needed for Cough. Do not cut, crush, or chew. 50 Capsule 1 01/06/2024 01/19/2024 Discontinued (Refill) documented as of this encounter (statuses as of 01/19/2024) Active Problems Problem Noted Date Diagnosed Date [...] as of this encounter (statuses as of 01/19/2024) Resolved Problems Problem Noted Date Diagnosed Date [...] as of this encounter (statuses as of 01/19/2024) Immunizations Name Administration Dates Next Due COVID-19 [...] Sign Reading Time Taken Comments Blood Pressure 126/50 01/19/2024 11:00 AM EDT Pulse 51 01/19/2024 11:00 AM EDT Temperature 37.2 C (98.9 F) 01/19/2024 11:00 AM E DT Respiratory Rate 16 01/19/2024 11:00 AM EDT Oxygen Saturation 98% 01/19/2024 11:00 AM EDT Inhaled Oxygen Concentration - - Weight 72.8 kg (160 lb 6.4 oz) 01/19/2024 11:00 AM EDT Height 162.6 cm (5' 4") 01/19/2024 11:00 AM EDT Body Mass Index 27.53 01/19/2024 11:00 AM EDT documented in this encounter Patient Instructions * Patient Instructions* Nima Erickson MD - 01/19/2024 11:03 AM EDT Taking Medicine Safely Medicine is given to help treat or prevent illness. But if you don't take it correctly, it might not help. It might even harm you. Your doctor or pharmacist can help you learn the right way to take your medicine. Listed below are some tips to help you take medicine safely. Safety Tips Have a routine for taking each medicine. Make it part of something you do each day, such as brushing your teeth or eating a meal. When you go to the hospital or your doctor's office, bring all your current medicines in their original boxes or bottles. If you can't do that, bring an up-to-date list of your medicines. Do not stop taking a prescription medicine unless your doctor tells you to. Doing so could make your condition worse. Do not share medicines. Let your doctor and pharmacist know of any allergies you have. Taking prescription medicines with alcohol, street drugs, herbs, supplements, or even some mvgu-ajq-pqocxfh medicines can be harmful. Talk to your doctor or pharmacist before using any of these things while taking a prescription medicine. When filling your prescriptions, try using the same pharmacy for all your medicines. If not, let the pharmacist know what medicines you are already on. Keep medicines out of the reach of children and pets. Do not use medicine that has or that doesn't look or smell right. Get rid of it properly. To find out the right way to get rid of medicine: Call your [facility] or [facility]'s household trash and recycling service and ask if a drug take-back program is available in your community. Call your local pharmacy and ask the right way to get rid of the medicine. Go to http://www.fda.gov/ForConsumers/ConsumerUpdates/dez951439 to learn how to get rid of medicines safely. Using Generic Medicines Medicines have brand names and generic (chemical) names. When a medicine is first made, it is sold only under its brand name. Later, it can be made and sold as a generic. Generic medicines cost less than brand-name medicines and most work just as well. Most people can use the generic medicine instead of the brand-name medicine, unless their doctor says otherwise. 0213-[address] [place] [address]. All rights reserved. This information is not intended as a substitute for professional medical care. Always follow your healthcare professional's instructions. Coping with Your Diagnosis of a Chronic Health Condition If you have a chronic health condition, you have a problem that may not go away over time. Heart disease, asthma, arthritis, and diabetes are just a few of the chronic conditions that exist. Right now, these conditions have no known cure. But you can take an active role in managing your health. Coping with Your Diagnosis If you've just learned about your health condition, you may be angry, depressed, or afraid. Or you might feel relieved just to know what's wrong. Even if you've known about your health problem for a while, adjusting to it can be hard. But learning about your condition can help you cope. Look for books at your local library. If you have access to a computer, check the Internet. Or contact a group that focuses on your specific problem. Accepting Change Change is hard for most people. Yet right now you may be facing many changes. What you eat or the way you work may change. Your moods, and even your symptoms, might vary from day to day. Although it isn't easy, learning to accept change can help you feel more in control. Taking Control Feeling you have control can make living with your condition easier. Discuss treatment options withyour health care provider. The more you know, the more active you can be in your care. Moving Forward You may wonder whether you will be able to do the things you've always done. That depends on your age, the condition you have, and your goals. To make the most of each day, try to build caring relationships, be active, and eat right. Also, do your best to keep a sense of humor. Ana Goodwin, [address] [place] [address], [place] [address]. All rights reserved. This information is not intended as a substitute for professional medical care. Always follow your healthcare professional's instructions. Taking an Active Role in Your Medicines Take the time to learn about your medicine. For instance, why are you taking it? What does it do? Work with your doctor or other health care providers to get the answers you need. Talk to your pharmacist about how to take each medicine, and ask for a fact sheet on each one. Ask Questions About Your Medicine What is the name of the medicine? Why do I need to take it? When should I take it? How should I take it: with water? with food? on an empty stomach? How much do I take? What do I do if I miss a dose? What side effects could it cause and which ones should I call the doctor about? Are there any foods or medicines I should avoid while taking this medicine? Keeping track of your medications? Name of medicine: Taken for: Dose: Time(s) to take it: Take an Active Role Fill all your prescriptions at the same pharmacy. This keeps your medicine history in one place. Talk to the pharmacist. Make sure you understand how to take each medicine. Ask for a fact sheet about each one. Tell your doctor and pharmacist about all the prescription and aixg-shs-thqxmdv medicines you take.This includes vitamins and herbal remedies. Tell your doctor and pharmacist if you have any medical conditions or allergies to any medicine or food, or if you are or . Keep a list of all your medicines. Use the sample to the right as a guide for the type of information needed. Ana Goodwin, [address] [place] [address]. All rights reserved. This information is not intended as a substitute for professional medical care. Always follow your healthcare professional's instructions. documented in this encounter Progress Notes * Nima Erickson MD - 01/19/2024 11:03 AM EDT SUBJECTIVE: Katarina Peacock is a 88 year old female. Chief Complaint Patient presents with Hospital Follow-Up Pt here for a hospital f/u from 01/14 for rhinovirus Hospital Follow-Up Recent Admission: Patient was recently admitted to [facility]. The date of discharge was 01/15/24. Discharge report receivedand reviewed. HPI: Katarina was admitted to [facility] last week for what turned out to be rhinovirus bronchiolitis/pneumonia. She was treated inpatient for a few days and did well. She has mostly returned to her baselinebut still has a cough. She is not taking anything for cough right now, but is using an inhaler. Patient Active Problem List Diagnosis HTN, goal [...] current facility-administered medications for this visit. Current and discharge medications have been reconciled. Review of patient's allergies indicates: Allergen Reactions Adhesive Tape Other (Please comment) Pt reports "it took some skin off" Bee Venom Morphine Other reaction(s): vomiting Mucinex [Guaifenesin Er] Diarrhea, Nausea/vomiting and Neuro complications (Please comment) Oxycodone Other reaction(s): STRANGE DREAMS Percocet [Oxycodone-Acetaminophen] Other (Please comment) [place] funny on medication Lisinopril Cough OBJECTIVE: BP 126/50 (BP Site: Left Arm, BP Position: Sitting, BP Cuff Size: Regular) | Pulse 51 | Temp 37.2 C (98.9 F) (Tympanic) | Resp 16 | Ht 1.626 m (5' 4") | Wt 72.8 kg (160 lb 6.4 oz) | SpO2 98% | BMI 27.53 kg/m | BSA 1.81 m PHYSICAL EXAM: General: alert, healthy, and no distress Head: Normocephalic, No masses, lesions, tenderness or abnormalities Neck: supple, no adenopathy, no bruits, thyroid normal size, non-tender, without nodularity Heart: regular rate & rhythm, no murmur, and no gallops Lungs: chest symmetric with normal AP diameter, no chest deformities noted, no chest wall tenderness, lungs clear to auscultation Extremities: less than 2 second capillary refill, no joint deformities, effusion, or inflammation ASSESSMENT: Hospital discharge follow-up (Primary) - DISCH MED RECON CUR MED LIS History of viral pneumonia - Benzonatate 100 MG Oral Capsule (Tessalon Perles); Take 1 Capsule by mouth 3 times a day as needed for Cough. Do not cut, crush, or chew. Chronic heart failure with preserved ejection fraction (HCC) Essential tremor Stage 3b chronic kidney disease (HCC) JUAN MANUEL (generalized anxiety disorder) Overweight (BMI 25.0-29.9) HTN, goal below 150/90 PLAN: Continue present medication(s): Follow up as needed. I spent a total of 20-29 minutes (exact time 21 mins) minutes on the date of service in preparation, delivery, and documentation of the care provided to Katarina Peacock excluding any time spent in performance of separately billed services. Nima Erickson MD documented in this encounter Plan of Treatment Upcoming Encounters Date Type Department Care Team (Late st Contact Info) Description 01/20/2024 11:30 AM EDT Office Visit Cardiology, [facility] [address] [facility] [place] [address] Robert Young MD [address] [facility] [place] [address] 01/29/2024 11:00 AM EDT Nurse Only Ancillary [facility] [address] [facility] [place] [address] [facility], Nurse Annual Wellness [facility] [address] [facility] [place] [address] 03/18/2024 11:40 AM EDT Office Visit Family Practice [facility] [address] [facility] [place] [address] Nima [facility]kson MD [facility] [place] [address] 03/24/2024 1:20 PM EDT [address] [address] Blanca Iyer PA-Vitor [address] [place] [address] [place] [address] Health Maintenance Due Date Last Done Comments Depression Screening 01/27/2024 01/26/2023 Albumin/Creatinine Ratio 02/06/2024 023, 04/03/2021, 02/19/2017, Additional history exists CKD HGB USE SMARTSET 52263 02/06/202402/05, 02/05/2023, 11/13/2021, Additional history exists Influenza Vaccine (FLU shot) (#1) 2024 04/10/2023, 04/07/2022, 04/03/2021, Additional history exists CKD PHOS USE SMARTSET 75735 04/10/202403/21, 04/07/2022, 04/03/2021, Additional history exists DTaP,Tdap,and Td Vaccines (2 - Td or Tdap) 05/14/2028 05/14/2018, 09/29/2011 Zoster Vaccines Completed 06/25/2018, 01/2018, 09/29/2011 Pneumococcal Vaccine: 65+ Years Completed 01/17/2020, 08/03/2014, 12/08/2006, Additional history exists COVID-19 Vaccine Discontinued 09/30/2021, 10/2020, 09/22/2020, Additional history exists GARDASIL-HPV IMMUNIZATION SERIES Aged [...] as of this encounter Visit Diagnoses Diagnosis Hospital discharge follow-up- Primary Other follow-up examination History of viral pneumonia Personal history of pneumonia (recurrent) Chronic heart failure with preserved ejection fraction (HCC) Essential tremor Essential and other specified forms of tremor Stage 3b chronic kidney disease (HCC) JUAN MANUEL (generalized anxiety disorder) Generalized anxiety disorder Overweight (BMI 25.0-29.9) Overweight HTN, goal below 150/90 documented in this encounter Care Teams Train Control Electronic Technician Relationship Specialty Start Date End Date iNma Erickson MD [address] [address] PCP - General Family Medicine 09/16/19 documented as of this encounter
--- OUTSIDE RECORDS SUMMARY | 2024-04-23 09:24 | External Medical Summary | Summary of Care ---
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 Name Role Phone Nima Erickson MD Primary Care Provider [phone] Reason for Visit * Reason Onset Date Comments Adult Annual Wellness Visit, Subsequent Visit Encounter Details Date Type Department Care Team (Late st Contact Info) Description 01/29/2024 11:00 AM EDT Nurse Only Ancillary [facility] [address] [place] [address] [facility] Nurse Annual Wellness [facility] [address] [place] [address] Adult Annual Wellness Visit, Subsequent Visit Allergies Active Allergy Reactions Criticality Noted Date Comments Adhesive Tape Other (Please comment) 10/04/2012 Pt reports "it took some skin off" Bee Venom 03/13/2022 Lisinopril Cough Low 03/27/2009 Morphine 08/29/2020 Other reaction(s): vomiting Guaifenesin Er Diarrhea,Nausea/vomi ti ng,Neuro complications (Please comment) 09/08/2017 Oxycodone 08/29/2020 Other reaction(s): STRANGE DREAMS Oxycodone-Acetaminoph en Other (Please comment) 05/28/2010 [place] funny on medication documented as of this encounter (statuses as of 01/29/2024) Medications Medication Sig Dispensed Refills Start Date [...] 01/19/2024 Active Benzonatate 100 MG Oral Capsule (Tessaljessica Reynolds)Indications:H istory of viral pneumonia Take 1 Capsule by mouth 3 times a day as needed for Cough. Do not cut, crush, or chew. 50 Capsule 1 01/19/2024 Active documented as of this encounter (statuses as of 01/29/2024) Active Problems Problem Noted Date Diagnosed Date [...] as of this encounter (statuses as of 01/29/2024) Resolved Problems Problem Noted Date Diagnosed Date [...] as of this encounter (statuses as of 01/29/2024) Immunizations Name Administration Dates Next Due COVID-19 [...] No 01/26/2023 Does the household have a [facility] source of income? (Household - for ages [...] Sign Reading Time Taken Comments Blood Pressure 130/54 01/29/2024 10:54 AM EDT Pulse 60 01/29/2024 10:54 AM EDT Temperature 37.2 C (98.9 F) 01/29/2024 10:54 AM E DT Respiratory Rate - - Oxygen Saturation - - Inhaled Oxygen Concentration - - Weight 73.5 kg (162 lb) 01/29/2024 10:54 AM EDT Height 162.6 cm (5' 4") 01/29/2024 10:54 AM EDT Body Mass Index 27.81 01/29/2024 10:54 AM EDT documented in this encounter Patient Instructions * Patient Instructions* Emily Padilla RN - 01/29/2024 10:51 AM EDT Hi Ms. Peacock, As your [...] Due: Health Maintenance Due Topic Date Due Depression Screening 01/27/2024 Albumin/Creatinine Ratio 02/06/2024 CKD HGB USE SMARTSET 35236 02/06/2024 Current Medication List: (as of Visit date [...] STRANGE DREAMS Percocet [Oxycodone-Acetaminophen] Other (Please comment) [place] funny on medication Lisinopril Cough Most Recent [...] in Results Review. Sincerely, Nima Erickson MD 01/29/2024 [facility] Calendar (as of Visit date not found (in office), Visit date not found (telemedicine) ) Care needs Care needs Last completed Due next Urine albumin/creatinine test 02/05/2023 02/06/2024 Flu vaccine (recommended) (1) 04/10/2023 03/20/2024 Diphtheria, tetanus & pertussis vaccines (2 - Td or Tdap) 05/14/2018 05/14/2028 As you look over the recommended services, be sure to check with your insurance company to determine what's covered. [employer] is a great tool that helps you review your medical record online, including test results, doctor notes and your health summary. You can also schedule appointments with me and other members of your care team, request prescription refills and ask for advice related to your medical conditions at [email or web address]. Patient Instructions - Fall Prevention (This education [...] and the bathroom Ana Patient Education Copyright 2008 - 2010 Ana except where otherwise noted [...] Progress Notes * Emily Padilla RN - 01/29/2024 10:50 AM EDT Adult Annual Wellness Visit: Katarina Peacock is a 88 year old female who presents for an [...] Good Ht Readings from Last 1 Encounters: 01/29/24 1.626 m (5' 4") Wt Readings from Last 1 Encounters: 01/29/24 73.5 kg (162 lb) Body Mass Index: BMI Less than 30 Body mass index is 27.81 kg/m. BP Readings from Last 1 Encounters: 01/29/24 130/54 Medical/Surgical/Family History Reviewed: Yes Past Medical History: [...] moderate 2+ 05/26 Overweight (BMI 25.0-29.9) 10/06/2022 Past Surgical History: Procedure Laterality Date CARPAL TUNNEL SURGERY Left 11/28/2020 NEUROPLASTY MEDIAN NERVE AT CARPAL TUNNEL performed by Reg Elaine MD at [facility] COLONOSCOPY W/ BIOPSY (RECTUM) 08/15/08 repeat in 10 yrs EGD, FLEXIBLE, DIAGNOSTIC 11/07/2014 normal/ESOPHAGOGASTRODUODENOSCOPY (EGD), FLEXIBLE, TRANSORAL, DIAGNOSTIC performed by Precious Lobato MD at [facility] EGD, FLEXIBLE, DIAGNOSTIC 10/08/2017 Richardson's esophagitis/ESOPHAGOGASTRODUODENOSCOPY (EGD), FLEXIBLE, TRANSORAL, DIAGNOSTIC performed by Zak Barber MD at ENDOSCOPY [facility] EXPLORATION OF ABDOMEN 12/01/12 Laparoscopy exploratory lap, removal atrium mesh, lysis of adhesive loop down the right lwoer quadrant, repair recurrent incisional hernia 12/01/12 Dr. Madrigal at [facility] [employer] Jonah Monreal PA-C INCISIONAL HERNIA REPAIR, LAP, REDUCIBLE 11/23/12 Laparoscopic repair of hernia 11/23/12 Dr. Madrigal at [facility] [employer] Jonah Monreal PA-C REPAIR INITIAL INCISIONAL OR VENTRAL HERNIA; REDUCIBLE 05/05/08 Resection of incarcerated fat and incisional hernia 05/05/[address] Madrigal TENDON SHEATH INCISION, FINGER Left 11/28/2020 TRIGGER FINGER RELEASE performed by Reg Elaine MD at [facility] Family History Problem Relation Name Age of Onset Heart Disorder Mother No Known Problems Father Lung Disorder Sister Scarlett Allergies Sister from anaphylactic rxn Cancer Sister Blood Disorder Sister Heart Disorder Sister Diabetes Brother Has patient ever had cancer? History of cancer, type: Hx MM date 09/29, Depth 0.35mm, Location L upper arm near antecubital Social History Tobacco Use Smoking status: Never Smokeless tobacco: Never Substance Use Topics Alcohol use: No Vaping/E-Cigarette Use Vaping/E-Cigarette Use Never User Vaping/E-Cigarette Substances Vaping/E-Cigarette Devices Tobacco/Alcohol screening completed today? Yes Hospital Care: Admissions (within the last year): Hospital, Location: [facility] Date of Admission: 06/04- 06/06/23 and 01/10 -01/15/24 ER within 30 days: Yes, when: [facility] and where: 01/11/24 Does the patient have an Advance Directives/Living Will? Yes Last Physical Exam: Last physical exam: 04/10/2023 Does patient see primary provider regularly? Yes [...] STRANGE DREAMS Percocet [Oxycodone-Acetaminophen] Other (Please comment) [place] funny on medication Lisinopril Cough Immunization History Administered Date(s) Administered COVID-19 mRNA, LNP-s, No Preserve, 2-Dose Series (Moderna) 08/18/2020, 09/22/2020 COVID-19, MRNA-LNP, 23-24, PF, 30 MCG/0.3 mL, 12 YRS AND ABOVE, IM (PFIZER- Comirnaty) 04/22/2023 COVID-19, mRNA, LNP-s, PF, Booster, 100mcg/0.5mg (Moderna) 05/23/2021, 09/30/2021 Pneumococcal Conjugate Vacc, 13 Valent (Prevnar) 08/03/2014, 01/17/2020 Pneumococcal Polysaccharide PPV23 (Pneumovax) 05/18/2001, 12/08/2006 Season Influenza, Quad, PF, Adjuvanted, 65+ Yrs, IM (FLUAD) 04/03/2020 Seasonal Influenza, PF, 6 M & above, IM , (FluLaval or Fluzone) 03/26/2018 Seasonal Influenza, Quadrivalent Hd (Fluzone Hd) 04/03/2021, 04/07/2022, 04/10/2023 Seasonal Influenza, Quadrivalent, No Preserve, IM 04/18/2016, 04/02/2017 Seasonal Influenza, Split, IIV3, With Preserve, Inj 04/19/2000, 05/18/2001, 05/04/2002, 05/04/2003,05/07/2004, 05/14/2005, 05/12/2006, 04/26/2007, 05/18/2008, 03/28/2009, 04/16/2010, 04/17/2011, 04/22/2012, 04/27/2013, 03/27/2014, 04/02/2015 Seasonal Influenza, Trivalent, Adjuvanted, [...] this visit. Patient Active Problem List Diagnosis HTN, goal below 150/90 Essential tremor Dyslipidemia (HFpEF) heart failure with preserved ejection fraction (HCC) Gastroesophageal reflux disease with esophagitis Exudative age-related macular degeneration, left eye, with active choroidal neovascularization (HCC) Stage 3b chronic kidney disease (HCC) Overweight (BMI 25.0-29.9) JUAN MANUEL (generalized anxiety disorder) Exudative age-related macular degeneration of left eye (HCC) Medication Compliance: Patient is able to obtain all of her medications? Yes Patient takes medications as prescribed? Yes Patient manages own medications: Yes Patient uses a pill box? Yes, refill(s) completed by self Dental Exam: Not Applicable Eye Screening: Yes: Every every 6 months Are you having trouble with hearing? Yes Do you use an assistive device to help your hearing? Yes Exercise Screening: daily excercise Nutrition Assessment: Eats a balanced diet and Eats three meals a day Pain Screening: Are you having any pain? No Sleep Screening Tool 'STOP': Do you snore? No Do you feel fatigued during the day? No Do you wake up feeling like you haven't slept? No Have you been told you stop breathing at night? No Do you gasp for air or choke while sleeping? No Have you been told you have Sleep Apnea? No Do you have high blood pressure or are on medication(s) to control high blood pressure? Yes SCORE: If you check YES to two or more questions, make a referral for Obstructive Sleep Apnea Patient and Caregiver Support System: Patient lives alone Means of Transportation: Drives. Not a concern. Patient lives in Two Story - How many stairs: 12 stairs with railing Community Resources: Not Applicable Functional Status and ADL Skills: Has patient ever had an amputation? No Functional Assessment: 100- Normal, no complaints, no evidence of disease Ambulation: Patient ambulates without assistive [...] continent of bowel Feeding: Self Bathing: Self; tub with shower and grab bars installed Requires none assistance with ADLs. Instrumental ADL's: [...] than 4 medications Older than age 70 Wyi-Qh-opo-Go Test: Time began at 1100. Patient stood from sitting position and walked approximately 10 feet, returned and sat down. Total time for ijs-zu-xcq-go test was 10 seconds. Uaw-El-apn-Go Test completed? Yes Gender Specific Preventative Plan: Health Maintenance Topic Date Due Albumin/Creatinine Ratio 02/06/2024 CKD HGB USE SMARTSET 04715 02/06/2024 Influenza Vaccine (FLU shot) (1) 03/20/2024 CKD PHOS USE SMARTSET 62908 04/10/2024 Depression Screening 01/28/2025 DTaP,Tdap,and Td Vaccines (2 - Td or Tdap) 05/14/2028 Zoster Vaccines Completed Pneumococcal Vaccine: 65+ Years Completed Hepatitis B Vaccine Aged Out MENINGOCOCCAL (MENACTRA/MENVEO) Aged Out HPV (Gardasil) Vaccine Aged Out COVID-19 Vaccine Discontinued Follow Up/ Referrals/Handouts: No further action needed Routine general medical examination at a health care facility (Primary) Risk and functional assessment AWV Completed Chronic heart failure with preserved ejection fraction (HCC) - Med reconciliation completed and compliance discussed. - pt to continue present medications. Dyslipidemia - Med reconciliation completed and compliance [...] <=159 mg/dL LDL Cholesterol 77 <=129 mg/dL Exudative age-related macular degeneration, left eye, with active choroidal neovascularization (HCC) Continue following with ophthalmology HTN, goal below 150/90 - Med reconciliation completed and compliance discussed. - pt to continue present medications. BP Readings from Last 3 Encounters: 01/29/24 130/54 01/20/24 154/90 01/19/24 126/50 Stage 3b chronic kidney disease (HCC) - Med reconciliation completed and compliance discussed. - pt to continue present medications. Creatinine Results: Lab Results Component Value Date/Time CREATININE - [facility] 1.4 (H) 04/10/2023 10:32 AM CREATININE - [facility] 1.5 (H) 04/07/2022 11:49 AM CREATININE - [facility] 1.4 (H) 11/13/2021 10:19 AM CREATININE - [facility] 1.2 (H) 04/19/2020 09:55 AM CREATININE - [facility] 1.2 (H) 06/27/2019 04:25 PM CREATININE - [facility] 1.2 (H) 12/22/2018 09:44 AM CREATININE, RANDOM URINE - [facility] 199 02/05/2023 10:46 AM CREATININE, RANDOM URINE - [facility] 132 04/03/2021 11:26 AM CREATININE, RANDOM URINE - [facility] 134 02/19/2017 01:17 PM CREATININE, RANDOM URINE - [facility] 126 09/04/2011 12:32 PM CREATININE, RANDOM URINE - [facility] 154 08/16/2007 10:08 AM Follow Up: Return in 1 year (on 01/28/2025) for 12 month Subsequent Adult Wellness Visit. [...] (on AVS) - Emily Padilla RN - 01/29/2024 11:16 AM EDT 94356 Preventing Falls: How to Prepare and What [...] right away, call 911. Last Reviewed Date: 06/19/[id number] [employer]. All rights reserved. This information is not intended as a substitute for professional medical care. Always follow your healthcare professional's instructions. * Pt Handout (on AVS) - Emily Padilla RN - 01/29/2024 11:16 AM EDT Images from the original note were not included. 02217 Exercises to Prevent Falls Certain types of [...] this throughout the day. Last Reviewed Date: 05/20/[id number] [employer]. All rights reserved. This information is not intended as a substitute for professional medical care. Always follow your healthcare professional's instructions. * Pt Handout (on AVS) - Emily Padilla RN - 01/29/2024 11:16 AM EDT Images from the original note were not included. 33997 5 Steps for Eating Healthier Changing the way you eat can improve your health. It can lower your cholesterol and blood pressure,and help you stay at a healthy weight. Your diet doesn?t have to be bland and boring to be healthy.Just watch your calories and follow these steps: Step 1. Eat fewer unhealthy fats Choose more fish and lean meats instead of fatty cuts of meat. Skip butter and lard, and use less margarine. Replace these with healthier fats, such as olive, canola, or avocado oils. Pass on foods that have palm, coconut, or partially hydrogenated oils. Eat fewer high-fat dairy foods like cheese, ice cream, and whole milk. Get a heart-healthy cookbook and try some new recipes. Step 2. Go light on salt Keep the saltshaker off the table. Limit high-salt ingredients, such as soy sauce, bouillon, and garlic salt. Instead of adding salt when cooking, season your food with herbs, spices, and other flavorings. Try lemon, garlic, onion, vinegar, or salt-free herb seasonings. Limit convenience foods, such as boxed or canned foods and restaurant food. Read food labels and choose lower-sodium options. Buy fresh, frozen, or canned vegetables that don't have added salt. Step 3. Limit sugar Pause before you add sugars to pancakes, cereal, coffee, or tea. This includes white and brown table sugar, syrup, honey, and molasses. Cut your usual amount by half. Swap out sugar-filled soda and other drinks. Buy sugar-free or low-calorie beverages. Remember, water is always the best choice. Try adding lemon juice to water for extra flavor. Read labels and choose foods with less added sugar. Keep in mind that dairy foods and foods withfruit will have some natural sugar. Cut the sugar in recipes by 1/3 to 1/2. Boost the flavor with extracts like almond, vanilla, or orange. Or add spices such as cinnamon or nutmeg. Step 4. Eat more fiber Eat fresh fruits and vegetables every day. Boost your diet with whole grains. Go for oats, whole-grain rice, and bran. Add beans and lentils to your meals. Drink more water to match your fiber increase to help prevent constipation. Step 5. Pay attention to serving sizes Remember that a serving size is a standard measurement. It will let you track the amount of fat,calories, and other nutrients in the food you eat. Read the Nutrition Facts label on packaged foods to learn their serving sizes. Use serving sizes to assess how much food you put on your plate. Pay attention to your portions.How many servings are you eating? Keep in mind that your needs may change if you?re more active or less active, or if you have other factors that change your calorie needs. Use your hand to help you measure serving sizes. For example: o 1 teaspoon: This is about the size of the first joint of your thumb. o 1 tablespoon: This is about the size of the first 2 joints of your thumb. o 1 ounce: This is about what you can fit in your cupped hand. o 2 to 3 ounces: This is about the size of the palm of your hand. o cup: This is also about what you can fit in your cupped hand. o 1 cup: This is about the size of your fist. Last Reviewed Date: 06/19/[id number] [employer]. All rights reserved. This information is not intended as a substitute for professional medical care. Always follow your healthcare professional's instructions. * Pt Handout (on AVS) - Emily Padilla RN - 01/29/2024 11:14 AM EDT VISRSV RSV (Respiratory Syncytial Virus) Vaccine: What You Need to Know This is a Vaccine Information Statement from the CDC. Many vaccine information statements are available in Sinhala and other languages. See www.immunize.org/vis Hojas de informacin sobre vacunas estn disponibles en espaol y en muchos otros idiomas. Visite www.immunize.org/vis 1. Why get vaccinated? RSV vaccine can prevent lower respiratory tract disease caused by respiratory syncytial virus (RSV). RSV is a common respiratory virus that usually causes mild, cold-like symptoms. RSV can cause illness in people of all ages but may be especially serious for infants and older adults. Infants up to 12 months of age (especially those 6 months and younger) and children who were born prematurely, or who have chronic lung or heart disease or a weakened immune system, are at increased risk of severe RSV disease. Adults at highest risk for severe RSV disease include older adults, adults with chronic medical conditions such as heart or lung disease, weakened immune systems, or certain other underlying medical conditions, or who live in nursing homes or long-term care facilities. RSV spreads through direct contact with the virus, such as droplets from another person?s cough or sneeze contacting your eyes, nose, or mouth. It can also be spread by touching a surface that has the virus on it, like a doorknob, and then touching your face before washing your hands. Symptoms of RSV infection may include runny nose, decrease in appetite, coughing, sneezing, fever, or wheezing. In very young infants, symptoms of RSV may also include irritability (fussiness), decreased activity, or apnea (pauses in breathing for more than 10 seconds). Most people recover in a week or two, but RSV can be serious, resulting in shortness of breath and low oxygen levels. RSV can cause bronchiolitis (inflammation of the small airways in the lung) and pneumonia (infection of the lungs). RSV can sometimes lead to worsening of other medical conditions such as asthma, chronic obstructive pulmonary disease (a chronic disease of the lungs that makes it hard to breathe), or congestive heart failure (when the heart can?t pump enough blood and oxygen throughout the body). Older adults and infants who get very sick from RSV may need to be hospitalized. Some may even . 2. RSV vaccine CDC recommends adults 60 years of age and older have the option to receive a single dose of RSV vaccine, based on discussions between the patient and their health care provider. There are two options for protection of infants against RSV: maternal vaccine for the person and preventive antibodies given to the baby. Only one of these options is needed for most babies to be protected. CDC recommends a single dose of RSV vaccine for people from week 32 through week 36 of for the prevention of RSV disease in infants under 6 months of age. This vaccine is recommended to be given from March through July for most of the [place]. However, in some locations ([facility], [place], [place], and parts of [place]), the timing of vaccination may vary as RSV circulating in these locations differs from the timing of the RSV season in the rest of the [place] RSV vaccine may be given at the same time as other vaccines. 3. Talk with your health care provider Tell your vaccination provider if the person getting the vaccine: Has had an allergic reaction after a previous dose of RSV vaccine, or has any severe, life-threatening allergies In some cases, your health care provider may decide to postpone RSV vaccination until a future visit. People with minor illnesses, such as a cold, may be vaccinated. People who are moderately or severely ill should usually wait until they recover before getting RSV vaccine. Your health care provider can give you more information. 4. Risks of a vaccine reaction Pain, redness, and swelling where the shot is given, fatigue (feeling tired), fever, headache, nausea, diarrhea, and muscle or joint pain can happen after RSV vaccination. Serious neurologic conditions, including Guillain- Nguyễn syndrome (GBS), have been reported after RSV vaccination in clinical trials of older adults. It is unclear whether the vaccine caused these events. and high blood pressure during , including pre-eclampsia, have been reportedamong people who received RSV vaccine during clinical trials. It is unclear whether these events were caused by the vaccine. People sometimes faint after medical procedures, including vaccination. Tell your provider if you feel dizzy or have vision changes or ringing in the ears. As with any medicine, there is a very remote chance of a vaccine causing a severe allergic reaction, other serious injury, or . 5. What if there is a serious problem? An allergic reaction could occur after the vaccinated person leaves the clinic. If you see signs ofa severe allergic reaction (hives, swelling of the face and throat, difficulty breathing, a fast heartbeat, dizziness, or weakness), call and get the person to the nearest hospital. For other signs that concern you, call your health care provider. Adverse reactions should be reported to the Vaccine Adverse Event Reporting System (VAERS). Your health care provider will usually file this report, or you can do it yourself. Visit the VAERS websiteat www.vaers.[facility].gov or call . V AERS is only for reporting reactions, and VAERS staff members do not give medical advice. 6. How can I learn more? Ask your health care provider. Call your local or state health department. Visit the website of the Food and Drug Administration (FDA) for vaccine package inserts and additional information at www.fda.gov/jvtyboya-aqgho-dggtaatpt/vaccines Contact the Centers for Disease Control and Prevention (CDC): Call ( 4-276-ZZZ-INFO) or visit CDC?s website at www.cdc.gov/vaccines. 05/07/2023 Vaccine Information Statement RSV Vaccine 9266-8512 [employer]. All rights reserved. This information is not intended as a substitute for professional medical care. Always follow your healthcare professional's instructions. documented in this encounter Plan of Treatment Upcoming Encounters Date Type Department Care Team (Late st Contact Info) Description 03/18/2024 11:40 AM EDT Office Visit Family [facility] [address] [place] [address] Nima Erickson MD [address] [place] [id number] 03/24/2024 1:20 PM EDT Office Visit Dermatology[address] [place] [address] Blanca Iyer PA-C [address] [place] [address] [place] [id number] 07/22/2024 11:00 AM EST Cardiac Studies Cardiac Studies, [facility] [address] [facility] [place] [address] 08/19/2024 11:30 AM EST Office Visit Cardiology, [facility] [address] [facility] [place] [address] Robert Young MD [address] [facility] [place] [address] 02/01/2025 11:00 AM EDT Nurse Only Ancillary [facility] [address] [facility] [place] [address] [facility], Nurse Annual Wellness [address] [place] [address] Health Maintenance Due Date Last Done Comments Albumin/Creatinine Ratio 02/06/2024 023, 04/03/2021, 02/19/2017, Additional history exists CKD HGB USE SMARTSET 35498 02/06/202402/05, 02/05/2023, 11/13/2021, Additional history exists Influenza Vaccine (FLU shot) (#1) 2024 04/10/2023, 04/07/2022, 04/03/2021, Additional history exists CKD PHOS USE SMARTSET 18209 04/10/202403/21, 04/07/2022, 04/03/2021, Additional history exists Depression [...] fraction (HCC) Dyslipidemia Other and unspecified hyperlipidemia Exudative age-related macular degeneration, left eye, with active choroidal neovascularization (HCC) HTN, goal below 150/90 Stage 3b chronic kidney disease (HCC) documented in this encounter 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
--- OUTSIDE RECORDS SUMMARY | 2024-04-23 09:24 | External Medical Summary | Summary of Care ---
Author Name Unknown Organization [facility] Address [address] [facility] [place] [address] Phone [phone] Care Team Providers Care Ep Specialist Name Role Phone Nima Erickson MD Primary Care Provider [phone] Reason for Visit * Reason Comments eRx-Medication Refill Encounter Details Date Type Department Care Team (Late st Contact Info) Description 03/14/2024 Refill Cardiology, [facility] [address] [place] [address] Pat Perez MD [address] [place] [address] Dyslipidemia, goal to be determined Allergies Active Allergy Reactions Criticality Noted Date Comments Adhesive Tape Other (Please comment) 10/04/2012 Pt reports "it took some skin off" Bee Venom 03/13/2022 Lisinopril Cough Low 03/27/2009 Morphine 08/29/2020 Other reaction(s): vomiting Guaifenesin Er Diarrhea,Nausea/vomi ti ng,Neuro complications (Please comment) 09/08/2017 Oxycodone 08/29/2020 Other reaction(s): STRANGE DREAMS Oxycodone-Acetaminoph en Other (Please comment) 05/28/2010 [place] funny on medication documented as of this encounter (statuses as of 03/15/2024) Medications Medication Sig Dispensed Refills Start Date [...] Active Benzonatate 100 MG Oral Capsule (Tessalon Perles)Indication s:History of viral pneumonia Take 1 Capsule [...] once daily 90 Tablet 3 03/15/2024 Active Pravastatin Sodium 40 MG Oral Tablet (Pravachol)Indica tions:Dyslipidemi a, goal to be determined Take 1 tablet by mouth once daily 90 Tablet 3 06/04/2023 03/15/2024 Discontinued documented as of this encounter (statuses as of 03/15/2024) Active Problems Problem Noted Date Diagnosed Date [...] as of this encounter (statuses as of 03/15/2024) Resolved Problems Problem Noted Date Diagnosed Date [...] as of this encounter (statuses as of 03/15/2024) Immunizations Name Administration Dates Next Due COVID-19 [...] Miscellaneous Notes * Telephone Encounter - Pat Perez MD - 03/15/2024 1:47 PM EDTSigned Prescriptions: Disp Refills Pravastatin Sodium 40 MG Oral Tablet (Prav*90 Tab*3 Sig: Take 1 tablet by mouth once daily Authorizing Provider: PAT PEREZ * Telephone Encounter - Cyrus Severino LPN - 03/15/2024 1:32 PM EDTPending Prescriptions: Disp Refills Pravastatin Sodium 40 MG Oral Tablet (Prav*90 Tab*3 Sig: Take 1 tablet by mouth once daily * Telephone Encounter - Cyrus Severino LPN - 03/15/2024 1:31 PM EDT Did you pend patient's preferred pharmacy and medication before forwarding?yes Pharmacy: [facility] [address] [address] Pending Prescriptions: Disp Refills Pravastatin Sodium 40 MG Oral Tablet (Pra*90 Tab*3 Sig: Take 1 tablet by mouth once daily Last Visit: 01/20/2024 (in office), Visit date not found (telemedicine) Next Visit: 08/19/2024 If no future appointments scheduled, and last appointment is greater than a year ago, please schedule patient for a follow-up appointment Last date the medication was ordered: 06/04/23 Is this request for a controlled substance?No Urine Drug Screen:No results found. However, due to the size of the patient record, not all encounters were searched. Please check Results Review for a complete set of results. Patient Phone Numbers Labs: Lab Results Component Value Date/Time CREAT 1.22 (A) 01/11/2024 12:00 AM CREAT 1.2 (H) 04/19/2020 09:55 AM POTASSIUM 4.3 01/11/2024 12:00 AM POTASSIUM 3.9 04/19/2020 09:55 AM TSH [...] 11:40 AM EDT Office Visit Family Practice [facility] [address] [id number] Nima Erickson MD [address] [address] 03/24/2024 1:20 PM EDT Office Visit [address] [address] Blanca Iyer PA-C [address] [place] [address] [place] [address] 07/22/2024 11:00 AM EST Cardiac Studies Cardiac Studies, [facility] [address] [address] 08/19/2024 11:30 AM EST Office Visit Cardiology, [facility] [address] [address] Pat Perez MD [address] [address] 02/01/2025 11:00 AM EDT Nurse Only Ancillary [facility] [address] [address] [facility], Nurse Annual Wellness Dima [address] [place] [address] Health Maintenance Due Date Last Done Comments Albumin/Creatinine Ratio 02/06/2024 023, 04/03/2021, 02/19/2017, Additional history exists Influenza Vaccine (FLU shot) (#1) 2024 04/10/2023, 04/07/2022, 04/03/2021, Additional history exists CKD PHOS USE SMARTSET 56140 04/10/202403/21, 04/07/2022, 04/03/2021, Additional history exists CKD HGB USE SMARTSET 77211 01/10/202501/10, 02/05/2023, 02/05/2023, Additional history exists Adult [...] hyperlipidemia documented in this encounter Care Teams Ep Specialist Relationship Specialty Start Date End Date Nima Erickson MD [address] [id number] PCP - General Family Medicine 09/16/19 documented as of this encounter
--- NOTE | 2024-04-23 09:34 | Emergency Department Note ---
Impression & Plan Rhinovirus, Dyspnea, Weakness ED Provider Note Provider: Reg Mesa MD DATE OF SERVICE: 04/23/2024 CHIEF COMPLAINT: Short of breath HISTORY OF PRESENT ILLNESS: Patient is a 88-year-old female past medical history including bronchitis and hypertension presenting here today via ambulance from her home where she lives by herself. Began to feel ill a day or 2 ago but really yesterday. Worsening shortness of breath overnight. Denies pain. Reports short of breath feeling in her mid chest. Denies any nausea vomiting or diarrhea. Denies significant congestion or fever. No falls. Did feel a bit weak and short of breath when trying to ambulate earlier but again did not fall. States she has a history of similar episodes in the past. No sick contacts to her knowledge. Denies sore throat. Patient did receive a nebulizer and 125 mg of Solu-Medrol prior to arrival for EMS. 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 EOMI. NECK: Trachea midline. Supple with good range of motion ENT: Mucous membranes pink and moist. Pharynx without erythema or exudate. LUNGS: Airway patent. No retractions. Breath sounds with some transmitted upper airway sounds but no stridor. HEART: Regular rate and rhythm. No chest wall tenderness ABDOMEN: Soft and non-tender, without guarding or rebound. SKIN: Acyanotic, warm, dry, without rashes EXTREMITIES: Without swelling, tenderness or deformity NEUROLOGICAL: No focal deficits. No aphasia. No facial droop or slurred speech. EK beats per minute. Normal sinus with no signs arrhythmia. No PVC or PAC. Left axis. No acute ST segment elevation or depression with a borderline interventricular conduction delay. CONTINUOUS CARDIAC MONITORING: was ordered and showed a heart rate of 50s to 60s bpm in normal sinus rhythm to sinus bradycardia Patient's laboratory studies and imaging reviewed. Differential includes Reactive airway disease, pneumonia, pneumothorax, COPD, CHF, infections, cardiac ischemia, pulmonary embolism, musculoskeletal, gastrointestinal, as well as other pathologies. IMPRESSION/MEDICAL DECISION MAKING: Patient is complaining of some shortness of breath and chest congestion yesterday and today. Not hypoxic here. Little bit of transmitted upper airway sounds but does not appear stridulous. Chest x-ray obtained report reviewed and interpreted by myself as well without findings significant fluid overload, pneumothorax, or pneumonia. Respiratory viral panel sent. Blood work obtained but not having active chest pain. EKG without findings of STEMI. No significant arrhythmia. Does not appear clinically fluid overloaded. No clinical evidence of DVT on physical exam. Doubt PE given lack of tachycardia and hypoxia. Respiratory viral panel does return positive for entero/rhinovirus likely explaining symptoms. Negative COVID flu RSV. No significant leuko-cytosis or anemia. Chronic CKD is stable. No severe electrolyte abnormalities. Troponin 17 similar to previous and doubt ACS at this time. No significant LFT abnormalities. Reassessment discussed the patient findings. Seems similar to prior episode in December and given her age and difficulty with breathing discussed further observation here. Will cover with atypical coverage with azithromycin. Discussed with hospitalist team. DIAGNOSIS: Entero-/rhinovirus, URI, dyspnea, weakness DISPOSITION: Hospitalist will evaluate Patient was agreeable with this plan. Past Med/Surg History Problem List (Updated 04/23/24 @ 12:34 by Cody Patterson MD) CKD stage 3a, GFR 45-59 ml/min Weakness (Acute) Dyspnea (Acute) Rhinovirus (Acute) Elevated troponin COVID-19 Acute hypoxic respiratory failure Essential tremor Ground glass opacity present on imaging of lung Medical History (Updated 04/23/24 @ 12:34 by Cody Patterson MD) HLD (hyperlipidemia) HTN (hypertension) Chronic heart failure with preserved ejection fraction (HFpEF) Chronic renal disease, stage 3, moderately decreased glomerular filtration rate between 30-59 mL/min/1.73 square meter Indeterminate pulmonary nodules Chronic renal disease Hypertensive cardiovascular disease Diastolic dysfunction Aortic regurgitation Mitral regurgitation Surgical History Hx of hernia repair Hx of colonoscopy History of carpal tunnel surgery Family History Other Cancer Diabetes Social History Smoking Status: Never smoker Second Hand Exposure: Yes ( smoked); Hx Alcohol Use: No Hx Substance Use: No Preferred Language: Malagasy Communication Ability: Effective 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 Beliefs That Will Affect Care: None marital status: / Current Living Situation: Alone Feels Safe at Home: Yes Assistive Devices: None Allergies Allergies Allergy/AdvReac Type Severity Reaction Status Date / Time adhesive Allergy Unknown SKIN TEAR Verified 04/23/24 10:41 bee venom protein (honey bee) Allergy Unknown Verified 04/23/24 10:41 lisinopril AdvReac Unknown DRY MOUTH Verified 04/23/24 10:41 morphine AdvReac Unknown vomiting Verified 04/23/24 10:41 oxycodone AdvReac Unknown STRANGE Verified 04/23/24 10:41 DREAMS guaifenesin [From Mucinex] AdvReac vomiting, Verified 04/23/24 10:41 diarrhea Home Meds Home Medications Medication Instructions Recorded Confirmed carvedilol 6.25 mg tablet 3.125 mg PO QPM 06/04/23 04/23/24 carvedilol 6.25 mg tablet 6.25 mg PO QAM 06/04/23 04/23/24 losartan 50 mg tablet 50 mg PO QAM 06/04/23 04/23/24 pravastatin 40 mg tablet 40 mg PO DAILY 06/04/23 04/23/24 vitamins A,C,X-[id number] 2,148 2 tab PO QAM 06/04/23 04/23/24 mcg-113 mg-45 mg-17.4 mg tablet (PreserVision AREDS) benzonatate 100 mg capsule 100 mg PO TID PRN cough 01/11/24 04/23/24 calcium carbonate 1,200 mg PO DAILY 01/11/24 04/23/24 Previous Rx's Medication Instructions Recorded albuterol sulfate 90 mcg/actuation 2 puff inhalation Q4H PRN 01/15/24 aerosol inhaler (Ventolin HFA) shortness of breath or wheezing #8.5 grams docusate sodium 100 mg capsule 100 mg PO BID #30 caps 01/15/24 Results & Data (ED) Vital Signs Vital Signs - 24 hr 04/23/24 09:26 04/23/24 09:26 04/23/24 09:26 Temperature 36.6 C Temperature Source Oral Pulse Rate 56 L Pulse Rate [Apical] Pulse Rate from SpO2 Sensor Pulse Rhythm Regular Pulse Rhythm [Apical] Pulse Strength Normal Pulse Strength [Apical] Respiratory Rate 22 Respiratory Effort / Characteristics Spontaneous Labored Spontaneous Labored Respiratory Depth Normal Normal Respiratory Pattern Regular Regular Blood Pressure 182/84 H Blood Pressure [Left Arm] Blood Pressure Mean 116 Blood Pressure Mean [Left Arm] Blood Pressure Position Lying Blood Pressure Position [Left Arm] Pulse Oximetry 98 99 Oxygen Delivery Method Room Air Room Air Room Air Sepsis Recent Fever Within 48 Hours No Sepsis New/Unexplained Change in Mental Status No Sepsis Action Taken by Nursing No Action Required 04/23/24 09:26 04/23/24 09:37 04/23/24 09:43 Temperature 36.6 C Temperature Source Oral Pulse Rate 60 60 Pulse Rate [Apical] 58 L Pulse Rate from SpO2 Sensor Pulse Rhythm Regular Pulse Rhythm [Apical] Regular Pulse Strength Pulse Strength [Apical] Normal Respiratory Rate 22 22 Respiratory Effort / Characteristics Spontaneous Labored Respiratory Depth Normal Respiratory Pattern Regular Blood Pressure Blood Pressure [Left Arm] 168/68 H Blood Pressure Mean Blood Pressure Mean [Left Arm] 101 Blood Pressure Position Blood Pressure Position [Left Arm] Lying Pulse Oximetry 99 99 Oxygen Delivery Method Room Air Room Air Sepsis Recent Fever Within 48 Hours Sepsis New/Unexplained Change in Mental Status Sepsis Action Taken by Nursing 04/23/24 09:45 04/23/24 10:00 04/23/24 10:21 Temperature Temperature Source Pulse Rate 59 L 57 L 57 L Pulse Rate [Apical] Pulse Rate from SpO2 Sensor 57 L 60 58 L Pulse Rhythm Pulse Rhythm [Apical] Pulse Strength Pulse Strength [Apical] Respiratory Rate 20 20 16 Respiratory Effort / Characteristics Respiratory Depth Respiratory Pattern Blood Pressure 169/74 H Blood Pressure [Left Arm] Blood Pressure Mean 105 Blood Pressure Mean [Left Arm] Blood Pressure Position Blood Pressure Position [Left Arm] Pulse Oximetry 99 99 93 Oxygen Delivery Method Sepsis Recent Fever Within 48 Hours Sepsis New/Unexplained Change in Mental Status Sepsis Action Taken by Nursing 04/23/24 10:30 04/23/24 10:42 Temperature Temperature Source Pulse Rate 56 L Pulse Rate [Apical] Pulse Rate from SpO2 Sensor 56 L Pulse Rhythm Pulse Rhythm [Apical] Pulse Strength Pulse Strength [Apical] Respiratory Rate 17 Respiratory Effort / Characteristics Respiratory Depth Respiratory Pattern Blood Pressure 160/76 H Blood Pressure [Left Arm] Blood Pressure Mean 119 Blood Pressure Mean [Left Arm] Blood Pressure Position Blood Pressure Position [Left Arm] Pulse Oximetry 93 Oxygen Delivery Method Sepsis Recent Fever Within 48 Hours Sepsis New/Unexplained Change in Mental Status Sepsis Action Taken by Nursing Laboratory Data 10/05/24 10:30 04/23/24 10:30 Lab Results 04/23/24 04/23/24 04/23/24 Range/Units 09:40 10:01 10:30 WBC Cancelled 7.93 RBC Cancelled 4.60 Hgb Cancelled 13.7 Hct Cancelled 39.7 MCV Cancelled 86.3 MCH Cancelled 29.8 MCHC Cancelled 34.5 RDW Std Deviation Cancelled 40.9 RDW Coeff of Meggan Cancelled 13.1 Plt Count Cancelled 189 MPV Cancelled 9.2 L Immature Gran % (Auto) Cancelled 0.4 Neut % (Auto) Cancelled 81.2 Lymph % (Auto) Cancelled 12.2 [place] % (Auto) Cancelled 5.3 Eos % (Auto) Cancelled 0.8 Baso % (Auto) Cancelled 0.1 Neut # (Auto) Cancelled 6.44 Lymph # (Auto) Cancelled 0.97 L [place] # (Auto) Cancelled 0.42 Eos # (Auto) Cancelled 0.06 Baso # (Auto) Cancelled 0.01 Immature Gran # (Auto) Cancelled 0.03 Absolute Nucleated RBC Cancelled Nucleated RBC % (auto) Cancelled Neutrophils % (Manual) Cancelled Band Neutrophils % Cancelled Lymphocytes % (Manual) Cancelled Prolymphocyte % Cancelled Reactive Lymphs % (Man) Cancelled Monocytes % (Manual) Cancelled Eosinophils % (Manual) Cancelled Basophils % (Manual) Cancelled Metamyelocytes % (Man) Cancelled Myelocytes % (Man) Cancelled Promyelocytes % (Man) Cancelled Blast Cells % (Manual) Cancelled Plasma Cell % (Manual) Cancelled Other Cells % Cancelled Nucleated RBC % Cancelled Neutrophils # (Manual) Cancelled Band Neutrophils # Cancelled Total Absolute Neuts Cancelled Lymphocytes # (Manual) Cancelled Prolymphocyte # Cancelled Reactive Lymphs # Cancelled Total Abs Lymphocytes Cancelled Monocytes # (Manual) Cancelled Eosinophils # (Manual) Cancelled Basophils # (Manual) Cancelled Metamyelocytes # (Man) Cancelled Myelocytes # (Manual) Cancelled Promyelocytes # (Man) Cancelled Blast Cells # (Man) Cancelled Plasma Cell # (Manual) Cancelled Other Cells # Cancelled Nucleated RBCs # (Man) Cancelled Hypersegmented Neuts Cancelled Hyposegmented Neuts Cancelled Hypogranular Neuts Cancelled Large Granular Lymphs Cancelled # Lrg Granular Lymphs Cancelled Hairy Cells Cancelled Smudge Cells Cancelled Toxic Granulation Cancelled Toxic Vacuolation Cancelled Dohle Bodies Cancelled Helen Rods Cancelled Platelet Estimate Cancelled Hypogranular Platelets Cancelled Giant Platelets Cancelled Platelet Satelliting Cancelled RBC Morphology Cancelled Polychromasia Cancelled Hypochromasia Cancelled Poikilocytosis Cancelled Basophilic Stippling Cancelled Anisocytosis Cancelled Microcytosis Cancelled Macrocytosis Cancelled Spherocytes Cancelled Pappenheimer Bodies Cancelled Sickle Cells Cancelled Target Cells Cancelled Tear Drop Cells Cancelled Ovalocytes Cancelled Stomatocytes Cancelled [place] Bodies Cancelled Echinocytes Cancelled Acanthocytes (Spur) Cancelled Rouleaux Cancelled RBC Agglutinates Cancelled Schistocytes Cancelled Sezary Cell Cancelled PT 10.4 (9.0-12.0) Seconds INR 1.0 (0.9-1.1) APTT 29 (21-31) Seconds PTT Ratio 1.1 Sodium Cancelled 140 Potassium Cancelled 4.2 Chloride Cancelled 109 H Carbon Dioxide Cancelled 24 Anion Gap Cancelled 7 BUN Cancelled 24 H Creatinine Cancelled 1.28 H Est Cr Clr Drug Dosing Cancelled 31.7 eGFR Cancelled 40.55 BUN/Creatinine Ratio Cancelled 18.8 Glucose Cancelled 99 Calcium Cancelled 9.3 Magnesium Cancelled 1.9 Total Bilirubin Cancelled 0.6 AST Cancelled 15 ALT Cancelled 10 Alkaline Phosphatase Cancelled 56 Troponin I High Sens Cancelled 17.2 H Total Protein Cancelled 6.4 Albumin Cancelled 3.9 Globulin Cancelled 2.5 Albumin/Globulin Ratio Cancelled 1.6 Adenovirus (PCR) Not Detected (NotDetected) B. pertussis DNA (PCR) Not Detected (NotDetected) B.parapertussis DNA PCR Not Detected (NotDetected) C. pneumoniae DNA (PCR) Not Detected (NotDetected) Coronavirus OC43 (PCR) Not Detected (NotDetected) Coronavirus HKU1 (PCR) Not Detected (NotDetected) Coronavirus 229E (PCR) Not Detected (NotDetected) SARS-CoV-2 (PCR) Not Detected (NotDetected) Coronavirus NL63 (PCR) Not Detected (NotDetected) Human Metapneumovir PCR Not Detected (NotDetected) Influenza Type A (PCR) Not Detected (NotDetected) Influenza Type B (PCR) Not Detected (NotDetected) M. pneumoniae (PCR) Not Detected (NotDetected) Parainfluenza 1 (PCR) Not Detected (NotDetected) Parainfluenza 2 (PCR) Not Detected (NotDetected) Parainfluenza 3 (PCR) Not Detected (NotDetected) Parainfluenza 4 (PCR) Not Detected (NotDetected) RSV (PCR) Not Detected (NotDetected) Entero/Rhino (PCR) DETECTED A (NotDetected) Blood Parasites ID Cancelled Administered Medications Discontinued Medications Albuterol (Albut/Ipratrop 3mg/0.5mg Neb 3 Ml Vial) 3 ml NEB NOW STA; Protocol Stop: 04/23/24 11:11 Last Admin: 04/23/24 11:22 Dose: 3 ml Documented By: Azithromycin (Azithromycin 250 Mg Tab) 500 mg PO NOW ONE Stop: 04/23/24 11:40 Last Admin: 04/23/24 12:06 Dose: 500 mg Documented By: Imaging Data Radiologist's Impression: Chest X-Ray 04/23/24 09:29 XR chest 1V portable CLINICAL HISTORY: Dyspnea COMPARISON STUDY: Chest radiograph and chest CT January 11, 2024 FINDINGS: Lung volumes are normal. Lungs are clear. There is no pneumothorax or pleural effusion. Cardiomegaly is unchanged. Mediastinal contours are normal. There is no evidence for pulmonary edema. IMPRESSION: No acute cardiopulmonary findings. Cardiomegaly. ACT 112: Negative or not required by law. Electronically signed by: Billy Christensen M.D. 04/23/2024 10:05 AM Discharge Plan Visit Data Chief Complaint: Shortness of Breath/Dyspnea Stated Complaint: SOB ED Provider: Reg Mesa Discharge Problem: Rhinovirus, Dyspnea, Weakness Patient Disposition: Being Evaluated by Hospitalist Forms Stand Alone Forms: My [facility] Prescriptions Prescriptions: No Action losartan 50 mg tablet 50 mg PO QAM carvedilol 6.25 mg tablet 6.25 mg PO QAM carvedilol 6.25 mg tablet 3.125 mg PO QPM pravastatin 40 mg tablet 40 mg PO DAILY PreserVision AREDS 2,148 mcg-113 mg-45 mg-17.4mg Tablet 2 tab PO QAM Rx Instructions: Unable to verify OTC meds at this date/time. benzonatate 100 mg capsule 100 mg PO TID PRN (Reason: cough) calcium carbonate 390 mg calcium (1,000 mg) Tablet 1,200 mg PO DAILY Rx Instructions: Unable to verify OTC meds at this date/time. docusate sodium 100 mg Capsule 100 mg PO BID Qty: 30 0RF Rx Instructions: Unable to verify OTC meds at this date/time. albuterol sulfate [Ventolin HFA] 90 mcg/actuation Hfa Aerosol Inhaler 2 puff inhalation Q4H PRN (Reason: shortness of breath or wheezing) Qty: 8.5 0RF Referrals Referrals: Nima Erickson MD [Primary Care Provider] -
--- NOTE | 2024-04-23 10:07 | XRay Report ---
XR chest 1V portable CLINICAL HISTORY: Dyspnea COMPARISON STUDY: Chest radiograph and chest CT January 11, 2024 FINDINGS: Lung volumes are normal. Lungs are clear. There is no pneumothorax or pleural effusion. Car diomegaly is unchanged. Mediastinal contours are normal. There is no evidence for pulmonary edema. IMPRESSION: No acute cardiopulmonary findings. Cardiomegaly. ACT 112: Negative or not required by law. Electronically signed by: Billy Christensen M.D. 04/23/2024 10:05 AM
[2024-04-23 10:38] LABS: Adenovirus PCR Not Detected (NotDetected); Bordetella parapertussis PCR Not Detected (NotDetected); Bordetella pertussis PCR Not Detected (NotDetected); Chlamydia pneumoniae PCR Not Detected (NotDetected); Coronavirus 229E PCR Not Detected (NotDetected); Coronavirus CoV-2 (COVID19)PCR Not Detected (NotDetected); Coronavirus HKU1 PCR Not Detected (NotDetected); Coronavirus NL63 PCR Not Detected (NotDetected); Coronavirus OC43PCR Not Detected (NotDetected); Human Metapneumovirus PCR Not Detected (NotDetected); Influenza A PCR Not Detected (NotDetected); Influenza B PCR Not Detected (NotDetected); Mycoplasma pneumoniae PCR Not Detected (NotDetected); Parainfluenza Virus 1 PCR Not Detected (NotDetected); Parainfluenza Virus 2 PCR Not Detected (NotDetected); Parainfluenza Virus 3 PCR Not Detected (NotDetected); Parainfluenza Virus 4 PCR Not Detected (NotDetected); Respiratory Syncytial VirusPCR Not Detected (NotDetected); Rhinovirus/Enterovirus PCR DETECTED (NotDetected)
[2024-04-23 10:53] LABS: Partial Thromboplastin Ratio 1.1; Partial Thromboplastin Time 29 Seconds (21-31); Prothrombin Time 10.4 Seconds (9.0-12.0)
[2024-04-23 10:54] LABS: Basophils # (auto) 0.01 K/uL (0.00-0.20); Basophils % (auto) 0.1 %; Eosinophils # (auto) 0.06 K/uL (0.00-0.50); Eosinophils % (auto) 0.8 %; Hematocrit (blood only) 39.7 % (37.0-47.0); Hemoglobin 13.7 g/dl (12.0-16.0); Immature Granulocytes # (auto) 0.03 K/uL (0.01-0.20); Immature Granulocytes % (auto) 0.4 %; Lymphocytes # (auto) 0.97 K/uL (1.20-3.40); Lymphocytes % (auto) 12.2 %; Mean Corpuscular Hemoglobin 29.8 pg (25.0-34.0); Mean Corpuscular Hgb Conc 34.5 g/dL (32.0-36.0); Mean Corpuscular Volume 86.3 fL (80.0-100.0); Mean Platelet Volume 9.2 fL (9.4-12.4); Monocytes # (auto) 0.42 K/uL (0.11-0.59); Monocytes % (auto) 5.3 %; Neutrophils # (auto) 6.44 K/uL (1.40-6.50); Neutrophils % (auto) 81.2 %; Platelet Count 189 K/uL (130-400); RDW Coefficient of Variation 13.1 % (11.5-14.5); RDW Standard Deviation 40.9 fL (36.4-46.3); White Blood Count 7.93 K/ul (4.8-10.8)
[2024-04-23 11:11] LABS: Albumin Globulin Ratio 1.6 (0.9-2); Albumin Level 3.9 gm/dl (3.4-5.0); BUN Creatinine Ratio 18.8 (10-20); Bilirubin,Total 0.6 mg/dl (0.2-1.0); Calcium 9.3 mg/dl (8.6-10.3); Creatinine Clr Calc Pharmacy 31.7 ml/min; Globulin 2.5 gm/dl (2.5-4.0); Magnesium 1.9 mg/dl (1.7-2.4); Potassium 4.2 mmol/L (3.5-5.1); Total Protein 6.4 gm/dl (6.0-8.3)
[2024-04-23 11:16] LABS: Troponin I High Sensitivity 17.2 pg/ml (0-14)
[2024-04-23] MEDS: ALBUT/IPRATROP 3MG/0.5MG NEB 3 ML VIAL NEB STA (11:22)
[2024-04-23] MEDS: AZITHROMYCIN 250 MG TAB PO ONE (12:06)
--- NOTE | 2024-04-23 12:36 | History & Physical Report ---
Date of Service April 23, 2024 Assessment & Plan (1) Rhinovirus: (2) Dyspnea: (3) Weakness: (4) HTN (hypertension): (5) CKD stage 3a, GFR 45-59 ml/min: (6) Chronic heart failure with preserved ejection fraction (HFpEF): Plan: 88-year-old female with history of heart failure with preserved ejection fraction, hypertension, CKD stage III, dyslipidemia, other problems noted below presented with shortness of breath which started yesterday. Acute bronchitis secondary to rhinovirus Currently on room air, no signs of sepsis Chest x-ray: No pneumonia BioFire: Positive rhinovirus Received Solu-Medrol 125 mg IV at the ER, albuterol neb, azithromycin 500 mg Azithromycin 500 mg daily x 2 more days Prednisone 40 mg p.o. daily Albuterol every 6 hours Incentive spirometry, flutter valve Patient allergic to guaifenesin-vomiting Droplet precaution PT OT evaluation Hypertension Elevated during admission Likely secondary to stress Continue usual losartan, carvedilol As needed hydralazine Heart failure with preserved ejection fraction Euvolemic Not on diuretics Continue carvedilol, losartan CKD stage III Stable DVT prophylaxis Lovenox daily CODE STATUS Full code Disposition Lives alone at home Will order PT OT evaluation History of Present Illness Chief Complaint: Cough, shortness of breath x 2 days Primary Care Provider: Nima Erickson MD 88-year-old female with history of heart failure with preserved ejection fraction, hypertension, CKD stage III, dyslipidemia, other problems noted below presented with shortness of breath which started yesterday. Patient reports cough with shortness of breath that started 2 days ago. Denies fever chills, nausea vomiting, diarrhea. Shortness of breath progressed as well as weakness prompting ER visit. At the ER, patient received hypertensive blood pressure of 182/84, on room air. Chest x-ray: No pneumonia BioFire positive for rhinovirus Allergies Allergy/AdvReac Type Severity Reaction Status Date / Time adhesive Allergy Unknown SKIN TEAR Verified 04/23/24 10:41 bee venom protein (honey bee) Allergy Unknown Verified 04/23/24 10:41 lisinopril AdvReac Unknown DRY MOUTH Verified 04/23/24 10:41 morphine AdvReac Unknown vomiting Verified 04/23/24 10:41 oxycodone AdvReac Unknown STRANGE Verified 04/23/24 10:41 DREAMS guaifenesin [From Mucinex] AdvReac vomiting, Verified 04/23/24 10:41 diarrhea Home Medications Medication Instructions Recorded Confirmed Type carvedilol 6.25 mg tablet 3.125 mg PO QPM 06/04/23 04/23/24 History carvedilol 6.25 mg tablet 6.25 mg PO QAM 06/04/23 04/23/24 History losartan 50 mg tablet 50 mg PO QAM 06/04/23 04/23/24 History pravastatin 40 mg tablet 40 mg PO DAILY 06/04/23 04/23/24 History vitamins A,C,N-lqkl-fzpfgu 2,148 2 tab PO QAM 06/04/23 04/23/24 History mcg-113 mg-45 mg-17.4 mg tablet (PreserVision AREDS) benzonatate 100 mg capsule 100 mg PO TID PRN cough 01/11/24 04/23/24 History calcium carbonate 1,200 mg PO DAILY 01/11/24 04/23/24 History albuterol sulfate 90 mcg/actuation 2 puff inhalation Q4H PRN 01/15/24 04/23/24 Rx aerosol inhaler (Ventolin HFA) shortness of breath or wheezing #8.5 grams docusate sodium 100 mg capsule 100 mg PO BID #30 caps 01/15/24 04/23/24 Rx Past Med/Surg History Problem List (Updated 04/23/24 @ 12:34 by Cody Patterson MD) CKD stage 3a, GFR 45-59 ml/min Weakness (Acute) Dyspnea (Acute) Rhinovirus (Acute) Elevated troponin COVID-19 Acute hypoxic respiratory failure Essential tremor Ground glass opacity present on imaging of lung Medical History (Updated 04/23/24 @ 12:34 by Cody Patterson MD) HLD (hyperlipidemia) HTN (hypertension) Chronic heart failure with preserved ejection fraction (HFpEF) Chronic renal disease, stage 3, moderately decreased glomerular filtration rate between 30-59 mL/min/1.73 square meter Indeterminate pulmonary nodules Chronic renal disease Hypertensive cardiovascular disease Diastolic dysfunction Aortic regurgitation Mitral regurgitation Surgical History Hx of hernia repair Hx of colonoscopy History of carpal tunnel surgery Family History Other Cancer Diabetes Social History Smoking Status: Never smoker Second Hand Exposure: Yes ( smoked); Hx Alcohol Use: No Hx Substance Use: No Preferred Language: Palauan Communication Ability: Effective Midlevel Provider Required: No Beliefs That Will Affect Care: None marital status: / Current Living Situation: Alone Feels Safe at Home: Yes Assistive Devices: None Review of Systems Review of Systems: all noted and negative except for above Physical Exam Physical Exam: General- oriented x 3, not in distress, speaks in sentences with no effort or accessory muscle use Eyes- anicteric Neck- no JVD Lungs- clear breath sounds bilaterally, no rales/wheezes Heart- normal rate, regular rhythm; no murmurs Abdomen- normal bowel sounds, nondistended, soft, nontender Extremities- no pretibial edema, no calf tenderness Neuro- alert, oriented x 3; no gross focal neurologic deficits Skin- warm & dry Results & Data Results & Data Vital Signs (Past 12 Hours) Vital Signs Temp Pulse Pulse Resp BP BP Pulse Ox 04/23/24 10:42 56 L 17 93 04/23/24 10:30 160/76 H 04/23/24 10:21 57 L 16 93 04/23/24 10:00 57 L 20 169/74 H 99 04/23/24 09:45 59 L 20 99 04/23/24 09:43 60 22 99 04/23/24 09:37 60 04/23/24 09:26 36.6 C 58 L 22 168/68 H 99 04/23/24 09:26 99 04/23/24 09:26 04/23/24 09:26 36.6 C 56 L 22 182/84 H 98 O2 Del Method 04/23/24 10:42 04/23/24 10:30 04/23/24 10:21 04/23/24 10:00 04/23/24 09:45 04/23/24 09:43 Room Air 04/23/24 09:37 04/23/24 09:26 Room Air 04/23/24 09:26 Room Air 04/23/24 09:26 Room Air 04/23/24 09:26 Room Air all noted and reviewed including below
[2024-04-23 12:39] LABS: Appearance Urine Clear (Clear); Bilirubin Urine Negative (Negative); Blood Urine Negative (Negative); Color Urine Yellow; Glucose Urine UA Negative (Negative); Ketones Urine Negative (Negative); Leukocyte Esterase Urine Negative (Negative); Nitrite Urine Negative (Negative); Protein Urine Negative (Negative); Specific Gravity Urine 1.017 (1.000-1.030); Urobilinogen Urine Negative (Negative)
[2024-04-23] MEDS ORDERED: BENZONATATE 100 MG CAPSULE PO PRN (15:01)
[2024-04-23] MEDS ORDERED: hydrALAZINE HCL 20 MG/ML VIAL IV PRN (15:16)
[2024-04-23] MEDS: LEVALBUTEROL 1.25 MG/3 ML NEB NEB SCH (15:39)
[2024-04-23] MEDS: SODIUM CHLOR 7% 4 ML NEB NEB SCH (15:40)
[2024-04-23] MEDS: LOSARTAN POTASSIUM 50 MG TAB PO SCH (15:55)
[2024-04-23] MEDS: PANTOprazole 40 MG TAB PO SCH (15:56)
[2024-04-23] MEDS: carvediloL 6.25 MG TAB PO SCH (15:56)
[2024-04-23] MEDS: ADVANCED PROBIOTIC 625 MG CAPSULE PO SCH (15:57)
[2024-04-23] MEDS: HEPARIN SOD 5,000 UNIT/0.5 ML VIAL SQ SCH (20:46)
[2024-04-23] MEDS: DOCUSATE SODIUM 100 MG CAP PO SCH (20:46)
[2024-04-23] MEDS: carvediloL 3.125 MG TAB PO SCH (20:46)
[2024-04-23] MEDS: MELATONIN 3 MG TAB PO PRN (21:34)
[2024-04-24 04:54] LABS: Basophils # (auto) 0.01 K/uL (0.00-0.20); Basophils % (auto) 0.1 %; Eosinophils # (auto) 0.11 K/uL (0.00-0.50); Eosinophils % (auto) 1.5 %; Hematocrit (blood only) 39.3 % (37.0-47.0); Hemoglobin 13.1 g/dl (12.0-16.0); Immature Granulocytes # (auto) 0.02 K/uL (0.01-0.20); Immature Granulocytes % (auto) 0.3 %; Lymphocytes # (auto) 1.98 K/uL (1.20-3.40); Lymphocytes % (auto) 27.5 %; Mean Corpuscular Hgb Conc 33.3 g/dL (32.0-36.0); Mean Corpuscular Volume 87.1 fL (80.0-100.0); Mean Platelet Volume 9.3 fL (9.4-12.4); Monocytes # (auto) 0.78 K/uL (0.11-0.59); Monocytes % (auto) 10.8 %; Neutrophils # (auto) 4.29 K/uL (1.40-6.50); Neutrophils % (auto) 59.8 %; Platelet Count 187 K/uL (130-400); RDW Standard Deviation 41.4 fL (36.4-46.3); Red Blood Count 4.51 M/uL (4.20-5.40); White Blood Count 7.19 K/ul (4.8-10.8)
[2024-04-24 05:10] LABS: BUN Creatinine Ratio 18.4 (10-20); Calcium 9.2 mg/dl (8.6-10.3); Creatinine Clr Calc Pharmacy 32.4 ml/min; Potassium 3.8 mmol/L (3.5-5.1)
[2024-04-24] MEDS: hydrALAZINE HCL 20 MG/ML VIAL IV PRN (09:50)
[2024-04-24] MEDS: AZITHROMYCIN 250 MG TAB PO SCH (09:51)
[2024-04-24] MEDS: predniSONE 20 MG TAB PO SCH (09:51)
[2024-04-24] MEDS: CEROVITE ADV FORMULA TAB PO SCH (09:51)
[2024-04-24] MEDS: CALCIUM CARBONATE 1250MG TAB PO SCH (09:52)
[2024-04-24] MEDS: PRAVASTATIN SOD 40 MG TAB PO SCH (12:43)
--- NOTE | 2024-04-24 14:35 | Hospitalist Progress Note ---
Date of Service April 24, 2024 Assessment & Plan (1) Rhinovirus: (2) Dyspnea: (3) Weakness: (4) HTN (hypertension): (5) CKD stage 3a, GFR 45-59 ml/min: (6) Chronic heart failure with preserved ejection fraction (HFpEF): Plan: 88-year-old female with history of heart failure with preserved ejection fraction, hypertension, CKD stage III, dyslipidemia, other problems noted below presented with shortness of breath which started 1 day prior to admission. Acute bronchitis secondary to rhinovirus CXR: No acute cardiopulmonary findings. Cardiomegaly. BioFire positive for enterorhinovirus Check procalcitonin Continue azithromycin, prednisone Aggressive pulmonary hygiene Aspiration precautions Continue nebs Saturating well on room air Hypertension BP Elevated Continue usual losartan, carvedilol IV hydralazine as needed Monitor blood pressure HFpEF No signs of volume overload Not on diuretics Continue carvedilol, losartan Monitor CKD stage III Stable DVT Px: Lovenox SQ CODE STATUS Full code Disposition Lives alone at home PT OT prior to discharge Admission and Anticipated Discharge Date Admission Date: April 23, 2024 Subjective Patient is seen and examined at bedside States having chest congestion associated with cough and minimal expectoration Also reports some dyspnea today Denies any chest pain, nausea, vomiting, abdominal pain Saturating well on room air Review of Systems Review of Systems: All systems reviewed & are unremarkable except as noted in Subjective Physical Exam Physical Exam: Physical Exam: Vitals signs as noted above General Appearance:Moderately built and nourished, no apparent distress Head: normocephalic, Atraumatic Eyes: normal inspection, EOMI Neck: supple, Trachea midline Respiratory/Chest: Decreased coarse breath sounds, No accessory muscle use Cardiovascular: S1, S2, No murmur Abdomen/GI:Soft, Non tender, Bowel sounds present Extremities/Musculoskeletal:normal inspection, no edema Neurologic/Psych:AAOX3, grossly no focal neurological deficits,+ decreased hearing Skin: normal color, warm Results & Data Results & Data Vital Signs (Past 12 Hours) Vital Signs Temp Pulse Pulse Pulse Resp BP BP 04/24/24 12:34 67 15 04/24/24 10:50 58 L 146/72 H 04/24/24 08:45 04/24/24 08:44 36.4 C L 51 L 16 183/67 H 04/24/24 08:17 04/24/24 07:38 59 L 04/24/24 07:26 61 18 04/24/24 07:00 63 12 174/73 H 04/24/24 04:03 62 20 174/69 H 04/24/24 03:05 53 L 21 174/69 H Pulse Ox O2 Del Method FiO2 04/24/24 12:34 97 Room Air 21 04/24/24 10:50 98 Room Air 04/24/24 08:45 Room Air 04/24/24 08:44 97 Room Air 04/24/24 08:17 Room Air 04/24/24 07:38 04/24/24 07:26 97 Room Air 21 04/24/24 07:00 97 Room Air 04/24/24 04:03 96 04/24/24 03:05 98 Room Air Laboratory Results Short CBC 04/24/24 Range/Units 04:35 WBC 7.19 (4.8-10.8) K/ul Hgb 13.1 (12.0-16.0) g/dl Hct 39.3 (37.0-47.0) % Plt Count 187 (130-400) K/uL BMP 04/24/24 04:35 Sodium 141 Potassium 3.8 Chloride 109 H Carbon Dioxide 26 BUN 23 Creatinine 1.25 H Glucose 86 Calcium 9.2
--- NOTE | 2024-04-24 14:58 | Electrocardiogram Report ---
Test Reason : Blood Pressure : */* mmHG Vent. Rate : 61 BPM Atrial Rate : 61 BPM P-R Int : 162 ms QRS Dur : 72 ms QT Int : 412 ms P-R-T Axes : 87 -37 41 degrees QTcB Int : 414 ms Normal sinus rhythm Premature atrial complexes Left axis deviation Borderline ECG When compared with ECG of 11-Jan-2024 15:25, No significant change was found Confirmed by Dalton Shelby ([id number]) on 04/24/2024 2:57:49 PM Referred By: REFERRED SELF Confirmed By: Dalton Shelby
--- NOTE | 2024-04-24 20:18 | Communication Note ---
Date of Service: April 24, 2024 Made aware by RN of uncontrolled blood pressure. SBP 140-180s since a.m. Heart rate 50 to 60s Patient asymptomatic as per RN. AP Hypertensive urgency Add amlodipine to current regimen Will relay to AM provider.
[2024-04-24] MEDS: amLODIPine BESYLATE 5 MG TAB PO SCH (21:18)
[2024-04-25 08:33] LABS: Hematocrit (blood only) 40.3 % (37.0-47.0); Hemoglobin 14.4 g/dl (12.0-16.0); Mean Corpuscular Hemoglobin 30.3 pg (25.0-34.0); Mean Corpuscular Hgb Conc 35.7 g/dL (32.0-36.0); Mean Corpuscular Volume 84.7 fL (80.0-100.0); Mean Platelet Volume 9.5 fL (9.4-12.4); Platelet Count 215 K/uL (130-400); RDW Standard Deviation 40.8 fL (36.4-46.3); Red Blood Count 4.76 M/uL (4.20-5.40); White Blood Count 9.92 K/ul (4.8-10.8)
[2024-04-25 08:48] LABS: BUN Creatinine Ratio 16.9 (10-20); Calcium 9.7 mg/dl (8.6-10.3); Creatinine Clr Calc Pharmacy 31.2 ml/min; Potassium 4.1 mmol/L (3.5-5.1)
[2024-04-25] MEDS ORDERED: ALBUTEROL HFA 8 GM INHALER INH PRN (09:22)
--- NOTE | 2024-04-25 10:30 | XRay Report ---
SINGLE VIEW CHEST CLINICAL HISTORY: Dyspnea FINDINGS: An AP, portable, upright chest radiograph is compared to study dated 04/23/2024 and correlat ed with chest CT dated 01/11/2024. The heart is mildly enlarged noting atherosclerotic calcification o f the thoracic aorta. The pulmonary vasculature is noncongested. Chronic interstitial thickening is s imilar to previous. There is bibasilar scarring/atelectasis. No airspace consolidation or pleural eff usion is identified. No pneumothorax is seen. The skeletal structures are osteopenic. The bony thorax is grossly intact. Calcific tendinopathy is seen in both shoulders. IMPRESSION: No active disease in the chest. ACT 112: Negative or not required by law. Electronically signed by: Mauricio Bui M.D. 04/25/2024 10:28 AM
--- NOTE | 2024-04-25 15:42 | Hospitalist Progress Note ---
Date of Service April 25, 2024 Assessment & Plan (1) Rhinovirus: (2) Dyspnea: (3) Weakness: (4) HTN (hypertension): (5) CKD stage 3a, GFR 45-59 ml/min: (6) Chronic heart failure with preserved ejection fraction (HFpEF): Plan: 88-year-old female with history of heart failure with preserved ejection fraction, hypertension, CKD stage III, dyslipidemia, other problems noted below presented with shortness of breath which started 1 day prior to admission. Acute bronchitis secondary to rhinovirus CXR: No acute cardiopulmonary findings. Cardiomegaly. BioFire positive for enterorhinovirus Normal procalcitonin Continue azithromycin, prednisone Aggressive pulmonary hygiene Aspiration precautions Intolerant to nebs Saturating well on room air Added chest PT Inhalers as needed Hypertension BP better today Continue losartan, carvedilol IV hydralazine as needed Monitor blood pressure HFpEF No signs of volume overload Not on diuretics Continue carvedilol, losartan Monitor CKD stage III Stable DVT Px: Lovenox SQ CODE STATUS Full code Disposition Lives alone at home PT OT recommends to return home Admission and Anticipated Discharge Date Admission Date: April 23, 2024 Subjective Patient is seen and examined at bedside Reports having worsening shortness of breath after neb treatments today Also states having minimal cough with expectoration Chest congestion improving Denies any chest pain, nausea, vomiting, abdominal pain Saturating well on room air Review of Systems Review of Systems: All systems reviewed & are unremarkable except as noted in Subjective Physical Exam Physical Exam: Physical Exam: Vitals signs as noted above General Appearance:Moderately built and nourished, no apparent distress Head: normocephalic, Atraumatic Eyes: normal inspection, EOMI Neck: supple, Trachea midline Respiratory/Chest: Decreased coarse breath sounds, No accessory muscle use Cardiovascular: S1, S2, No murmur Abdomen/GI:Soft, Non tender, Bowel sounds present Extremities/Musculoskeletal:normal inspection, no edema Neurologic/Psych:AAOX3, grossly no focal neurological deficits,+ decreased hearing Skin: normal color, warm Results & Data Results & Data Vital Signs (Past 12 Hours) Vital Signs Temp Pulse Resp BP Pulse Ox Pulse Ox O2 Del Method 04/25/24 13:01 124/68 04/25/24 11:09 98 04/25/24 08:05 Room Air 04/25/24 07:45 70 16 98 Room Air 04/25/24 07:27 36.6 C 70 18 174/71 H 98 Room Air O2 Flow Rate 04/25/24 13:01 04/25/24 11:09 0 04/25/24 08:05 04/25/24 07:45 04/25/24 07:27 Laboratory Results Short CBC 04/25/24 Range/Units 07:48 WBC 9.92 (4.8-10.8) K/ul Hgb 14.4 (12.0-16.0) g/dl Hct 40.3 (37.0-47.0) % Plt Count 215 (130-400) K/uL BMP 04/25/24 07:48 Sodium 142 Potassium 4.1 Chloride 107 Carbon Dioxide 27 BUN 22 Creatinine 1.30 H Glucose 89 Calcium 9.7
[2024-04-26 00:12] VITALS: RESP 18
[2024-04-26 06:15] LABS: BUN Creatinine Ratio 19.9 (10-20); Calcium 9.2 mg/dl (8.6-10.3); Creatinine Clr Calc Pharmacy 27.7 ml/min
[2024-04-26 07:58] VITALS: BP 166/79; PULSE 64; TEMP 98.2; O2SAT 94
--- NOTE | 2024-04-26 11:58 | Hospitalist Progress Note ---
Date of Service April 26, 2024 Assessment & Plan (1) Rhinovirus: (2) Dyspnea: (3) Weakness: (4) HTN (hypertension): (5) CKD stage 3a, GFR 45-59 ml/min: (6) Chronic heart failure with preserved ejection fraction (HFpEF): Plan: 88-year-old female with history of heart failure with preserved ejection fraction, hypertension, CKD stage III, dyslipidemia, other problems noted below presented with shortness of breath which started 1 day prior to admission. Acute bronchitis secondary to rhinovirus CXR: No acute cardiopulmonary findings. Cardiomegaly. BioFire positive for enterorhinovirus Normal procalcitonin Continue azithromycin, prednisone Aggressive pulmonary hygiene Aspiration precautions Intolerant to nebs Saturating well on room air Inhalers as needed Clinical improvement Plan to be discharged home today Hypertension BP variable Continue losartan, carvedilol IV hydralazine as needed Monitor blood pressure Steroids likely contributing to elevated blood pressure HFpEF No signs of volume overload Not on diuretics Continue carvedilol, losartan Monitor CKD stage III Stable DVT Px: Lovenox SQ CODE STATUS Full code Disposition PT OT recommends to return home Home Admission and Anticipated Discharge Date Admission Date: April 23, 2024 Subjective Patient is seen and examined at bedside States feeling a lot better today Cough much improved Denies any dyspnea, nausea, vomiting, abdominal pain Saturating well on room air Plan to be discharged home today Review of Systems Review of Systems: All systems reviewed & are unremarkable except as noted in Subjective Physical Exam Physical Exam: Physical Exam: Vitals signs as noted above General Appearance:Moderately built and nourished, no apparent distress Head: normocephalic, Atraumatic Eyes: normal inspection, EOMI Neck: supple, Trachea midline Respiratory/Chest: Decreased breath sounds, No accessory muscle use Cardiovascular: S1, S2, No murmur Abdomen/GI:Soft, Non tender, Bowel sounds present Extremities/Musculoskeletal:normal inspection, no edema Neurologic/Psych:AAOX3, grossly no focal neurological deficits,+ decreased hearing Skin: normal color, warm Results & Data Results & Data Vital Signs (Past 12 Hours) Vital Signs Temp Pulse Resp BP Pulse Ox O2 Del Method 04/26/24 07:56 36.8 C 64 18 166/79 H 94 Room Air 04/26/24 07:45 Room Air Laboratory Results [facility] 04/26/24 05:29 Sodium 140 Potassium 4.0 Chloride 109 H Carbon Dioxide 25 BUN 29 H Creatinine 1.46 H Glucose 87 Calcium 9.2
--- NOTE | 2024-04-26 12:07 | Discharge Summary ---
Date of Service April 26, 2024 Admission HPI Per Admitting Provider 88-year-old female with history of heart failure with preserved ejection fraction, hypertension, CKD stage III, dyslipidemia, other problems noted below presented with shortness of breath which started yesterday. Patient reports cough with shortness of breath that started 2 days ago. Denies fever chills, nausea vomiting, diarrhea. Shortness of breath progressed as well as weakness prompting ER visit. At the ER, patient received hypertensive blood pressure of 182/84, on room air. Chest x-ray: No pneumonia BioFire positive for rhinovirus Admission Exam Per Admitting Provider General- oriented x 3, not in distress, speaks in sentences with no effort or accessory muscle use Eyes- anicteric Neck- no JVD Lungs- clear breath sounds bilaterally, no rales/wheezes Heart- normal rate, regular rhythm; no murmurs Abdomen- normal bowel sounds, nondistended, soft, nontender Extremities- no pretibial edema, no calf tenderness Neuro- alert, oriented x 3; no gross focal neurologic deficits Skin- warm & dry Principal Diagnosis Acute bronchitis Rhinovirus infection Hypertension Discharge Data Allergies Allergy/AdvReac Type Severity Reaction Status Date / Time adhesive Allergy Unknown SKIN TEAR Verified 04/23/24 10:41 bee venom protein (honey bee) Allergy Unknown Verified 04/23/24 10:41 lisinopril AdvReac Unknown DRY MOUTH Verified 04/23/24 10:41 morphine AdvReac Unknown vomiting Verified 04/23/24 10:41 oxycodone AdvReac Unknown STRANGE Verified 04/23/24 10:41 DREAMS guaifenesin [From Mucinex] AdvReac vomiting, Verified 04/23/24 10:41 diarrhea Consultations 04/23/24 12:03 ED Decision to Admit Stat Procedures Performed Laboratory Results WBC 9.92 K/ul (4.8-10.8) 04/25/24 07:48 RBC 4.76 M/uL (4.20-5.40) 04/25/24 07:48 Hgb 14.4 g/dl (12.0-16.0) 04/25/24 07:48 Hct 40.3 % (37.0-47.0) 04/25/24 07:48 MCV 84.7 fL (80.0-100.0) 04/25/24 07:48 MCH 30.3 pg (25.0-34.0) 04/25/24 07:48 MCHC 35.7 g/dL (32.0-36.0) 04/25/24 07:48 RDW Std Deviation 40.8 fL (36.4-46.3) 04/25/24 07:48 RDW Coeff of [place]gan 13.0 % (11.5-14.5) 04/25/24 07:48 Plt Count 215 K/uL (130-400) 04/25/24 07:48 MPV 9.5 fL (9.4-12.4) 04/25/24 07:48 Immature Gran % (Auto) 0.3 % 04/24/24 04:35 Neut % (Auto) 59.8 % 04/24/24 04:35 Lymph % (Auto) 27.5 % 04/24/24 04:35 [place] % (Auto) 10.8 % 04/24/24 04:35 Eos % (Auto) 1.5 % 04/24/24 04:35 Baso % (Auto) 0.1 % 04/24/24 04:35 Neut # (Auto) 4.29 K/uL (1.40-6.50) 04/24/24 04:35 Lymph # (Auto) 1.98 K/uL (1.20-3.40) 04/24/24 04:35 [place] # (Auto) 0.78 K/uL (0.11-0.59) H 04/24/24 04:35 Eos # (Auto) 0.11 K/uL (0.00-0.50) 04/24/24 04:35 Baso # (Auto) 0.01 K/uL (0.00-0.20) 04/24/24 04:35 Immature Gran # (Auto) 0.02 K/uL (0.01-0.20) 04/24/24 04:35 Absolute Nucleated RBC Cancelled 04/23/24 09:40 Nucleated RBC % (auto) Cancelled 04/23/24 09:40 Neutrophils % (Manual) Cancelled 04/23/24 09:40 Band Neutrophils % Cancelled 04/23/24 09:40 Lymphocytes % (Manual) Cancelled 04/23/24 09:40 Prolymphocyte % Cancelled 04/23/24 09:40 Reactive Lymphs % (Man) Cancelled 04/23/24 09:40 Monocytes % (Manual) Cancelled 04/23/24 09:40 Eosinophils % (Manual) Cancelled 04/23/24 09:40 Basophils % (Manual) Cancelled 04/23/24 09:40 Metamyelocytes % (Man) Cancelled 04/23/24 09:40 Myelocytes % (Man) Cancelled 04/23/24 09:40 Promyelocytes % (Man) Cancelled 04/23/24 09:40 Blast Cells % (Manual) Cancelled 04/23/24 09:40 Plasma Cell % (Manual) Cancelled 04/23/24 09:40 Other Cells % Cancelled 04/23/24 09:40 Nucleated RBC % Cancelled 04/23/24 09:40 Neutrophils # (Manual) Cancelled 04/23/24 09:40 Band Neutrophils # Cancelled 04/23/24 09:40 Total Absolute Neuts Cancelled 04/23/24 09:40 Lymphocytes # (Manual) Cancelled 04/23/24 09:40 Prolymphocyte # Cancelled 04/23/24 09:40 Reactive Lymphs # Cancelled 04/23/24 09:40 Total Abs Lymphocytes Cancelled 04/23/24 09:40 Monocytes # (Manual) Cancelled 04/23/24 09:40 Eosinophils # (Manual) Cancelled 04/23/24 09:40 Basophils # (Manual) Cancelled 04/23/24 09:40 Metamyelocytes # (Man) Cancelled 04/23/24 09:40 Myelocytes # (Manual) Cancelled 04/23/24 09:40 Promyelocytes # (Man) Cancelled 04/23/24 09:40 Blast Cells # (Man) Cancelled 04/23/24 09:40 Plasma Cell # (Manual) Cancelled 04/23/24 09:40 Other Cells # Cancelled 04/23/24 09:40 Nucleated RBCs # (Man) Cancelled 04/23/24 09:40 Hypersegmented Neuts Cancelled 04/23/24 09:40 Hyposegmented Neuts Cancelled 04/23/24 09:40 Hypogranular Neuts Cancelled 04/23/24 09:40 Large Granular Lymphs Cancelled 04/23/24 09:40 # Lrg Granular Lymphs Cancelled 04/23/24 09:40 Hairy Cells Cancelled 04/23/24 09:40 Smudge Cells Cancelled 04/23/24 09:40 Toxic Granulation Cancelled 04/23/24 09:40 Toxic Vacuolation Cancelled 04/23/24 09:40 Dohle Bodies Cancelled 04/23/24 09:40 Helen Rods Cancelled 04/23/24 09:40 Platelet Estimate Cancelled 04/23/24 09:40 Hypogranular Platelets Cancelled 04/23/24 09:40 Giant Platelets Cancelled 04/23/24 09:40 Platelet Satelliting Cancelled 04/23/24 09:40 RBC Morphology Cancelled 04/23/24 09:40 Polychromasia Cancelled 04/23/24 09:40 Hypochromasia Cancelled 04/23/24 09:40 Poikilocytosis Cancelled 04/23/24 09:40 Basophilic Stippling Cancelled 04/23/24 09:40 Anisocytosis Cancelled 04/23/24 09:40 Microcytosis Cancelled 04/23/24 09:40 Macrocytosis Cancelled 04/23/24 09:40 Spherocytes Cancelled 04/23/24 09:40 Pappenheimer Bodies Cancelled 04/23/24 09:40 Sickle Cells Cancelled 04/23/24 09:40 Target Cells Cancelled 04/23/24 09:40 Tear Drop Cells Cancelled 04/23/24 09:40 Ovalocytes Cancelled 04/23/24 09:40 Stomatocytes Cancelled 04/23/24 09:40 [place] Bodies Cancelled 04/23/24 09:40 Echinocytes Cancelled 04/23/24 09:40 Acanthocytes (Spur) Cancelled 04/23/24 09:40 Rouleaux Cancelled 04/23/24 09:40 RBC Agglutinates Cancelled 04/23/24 09:40 Schistocytes Cancelled 04/23/24 09:40 Sezary Cell Cancelled 04/23/24 09:40 PT 10.4 Seconds (9.0-12.0) 04/23/24 10:01 INR 1.0 (0.9-1.1) 04/23/24 10:01 APTT 29 Seconds (21-31) 04/23/24 10:01 PTT Ratio 1.1 04/23/24 10:01 Sodium 140 mmol/L (136-145) 04/26/24 05:29 Potassium 4.0 mmol/L (3.5-5.1) 04/26/24 05:29 Chloride 109 mmol/L (98-107) H 04/26/24 05:29 Carbon Dioxide 25 mmol/L (21-32) 04/26/24 05:29 Anion Gap 6 (3-11) 04/26/24 05:29 BUN 29 mg/dl (6-23) H 04/26/24 05:29 Creatinine 1.46 mg/dl (0.6-1.2) H 04/26/24 05:29 Est Cr Clr Drug Dosing 27.7 ml/min 04/26/24 05:29 eGFR 34.62 04/26/24 05:29 BUN/Creatinine Ratio 19.9 (10-20) 04/26/24 05:29 Glucose 87 mg/dl (70-99(Fasting)) 04/26/24 05:29 Calcium 9.2 mg/dl (8.6-10.3) 04/26/24 05:29 Magnesium 2.0 mg/dl (1.7-2.4) 04/25/24 07:48 Total Bilirubin 0.6 mg/dl (0.2-1.0) 04/23/24 10:30 AST 15 U/L (13-39) 04/23/24 10:30 ALT 10 U/L (7-52) 04/23/24 10:30 Alkaline Phosphatase 56 U/L (34-104) 04/23/24 10:30 Troponin I High Sens 17.2 pg/ml (0-14) H 04/23/24 10:30 Total Protein 6.4 gm/dl (6.0-8.3) 04/23/24 10:30 Albumin 3.9 gm/dl (3.4-5.0) 04/23/24 10:30 Globulin 2.5 gm/dl (2.5-4.0) 04/23/24 10:30 Albumin/Globulin Ratio 1.6 (0.9-2) 04/23/24 10:30 Procalcitonin 0.03 ng/ml (0-0.5) 04/25/24 07:48 Urine Color Yellow 04/23/24 12:00 Urine Appearance Clear (Clear) 04/23/24 12:00 Urine pH 5.0 (4.5-7.5) 04/23/24 12:00 Ur Specific [place] 1.017 (1.000-1.030) 04/23/24 12:00 Urine Protein Negative (Negative) 04/23/24 12:00 Urine Glucose (UA) Negative (Negative) 04/23/24 12:00 Urine Ketones Negative (Negative) 04/23/24 12:00 Urine Blood Negative (Negative) 04/23/24 12:00 Urine Nitrite Negative (Negative) 04/23/24 12:00 Urine Bilirubin Negative (Negative) 04/23/24 12:00 Urine Urobilinogen Negative (Negative) 04/23/24 12:00 Ur Leukocyte Esterase Negative (Negative) 04/23/24 12:00 Adenovirus (PCR) Not Detected (NotDetected) 04/23/24 09:40 B. pertussis DNA (PCR) Not Detected (NotDetected) 04/23/24 09:40 B.parapertussis DNA PCR Not Detected (NotDetected) 04/23/24 09:40 C. pneumoniae DNA (PCR) Not Detected (NotDetected) 04/23/24 09:40 Coronavirus OC43 (PCR) Not Detected (NotDetected) 04/23/24 09:40 Coronavirus HKU1 (PCR) Not Detected (NotDetected) 04/23/24 09:40 Coronavirus 229E (PCR) Not Detected (NotDetected) 04/23/24 09:40 SARS-CoV-2 (PCR) Not Detected (NotDetected) 04/23/24 09:40 Coronavirus NL63 (PCR) Not Detected (NotDetected) 04/23/24 09:40 Human Metapneumovir PCR Not Detected (NotDetected) 04/23/24 09:40 Influenza Type A (PCR) Not Detected (NotDetected) 04/23/24 09:40 Influenza Type B (PCR) Not Detected (NotDetected) 04/23/24 09:40 M. pneumoniae (PCR) Not Detected (NotDetected) 04/23/24 09:40 Parainfluenza 1 (PCR) Not Detected (NotDetected) 04/23/24 09:40 Parainfluenza 2 (PCR) Not Detected (NotDetected) 04/23/24 09:40 Parainfluenza 3 (PCR) Not Detected (NotDetected) 04/23/24 09:40 Parainfluenza 4 (PCR) Not Detected (NotDetected) 04/23/24 09:40 RSV (PCR) Not Detected (NotDetected) 04/23/24 09:40 Entero/Rhino (PCR) DETECTED (NotDetected) A 04/23/24 09:40 Blood Parasites ID Cancelled 04/23/24 09:40 Impressions Chest X-Ray 04/25/24 09:23 SINGLE VIEW CHEST CLINICAL HISTORY: Dyspnea FINDINGS: An AP, portable, upright chest radiograph is compared to study dated 04/23/2024 and correlated with chest CT dated 01/11/2024. The heart is mildly enlarged noting atherosclerotic calcification of the thoracic aorta. The pulmonary vasculature is noncongested. Chronic interstitial thickening is similar to previous. There is bibasilar scarring/atelectasis. No airspace consolidation or pleural effusion is identified. No pneumothorax is seen. The skeletal structures are osteopenic. The bony thorax is grossly intact. Calcific tendinopathy is seen in both shoulders. IMPRESSION: No active disease in the chest. ACT 112: Negative or not required by law. Electronically signed by: Mauricio Bui M.D. 04/25/2024 10:28 AM Hospital Course (1) Rhinovirus: (2) Dyspnea: (3) Weakness: (4) HTN (hypertension): (5) CKD stage 3a, GFR 45-59 ml/min: (6) Chronic heart failure with preserved ejection fraction (HFpEF): 88-year-old female with history of heart failure with preserved ejection fraction, hypertension, CKD stage III, dyslipidemia, other problems noted below presented with shortness of breath which started 1 day prior to admission. Acute bronchitis secondary to rhinovirus CXR: No acute cardiopulmonary findings. Cardiomegaly. BioFire positive for enterorhinovirus Normal procalcitonin Continue azithromycin, prednisone Aggressive pulmonary hygiene Aspiration precautions Intolerant to nebs Saturating well on room air Inhalers as needed Clinical improvement Plan to be discharged home today Hypertension BP variable Continue losartan, carvedilol IV hydralazine as needed Monitor blood pressure Steroids likely contributing to elevated blood pressure HFpEF No signs of volume overload Not on diuretics Continue carvedilol, losartan Monitor CKD stage III Stable DVT Px: Lovenox SQ CODE STATUS Full code Disposition PT OT recommends to return home Home Total Time Total Time Spent Total Time Spent (In Minutes): 46 minutes Discharge Plan Discharge Items Patient Disposition: Home - Self-Care Reason For Visit: ACUTE BRONCHITIS Discharge Diagnosis: Acute bronchitis Rhinovirus infection Hypertension Activity: Per Instructions section Exercise/Sports: Wait until after follow-up appointment Non-emergency contact: Primary Care Provider Call non-emergency contact if: you have any medication questions, your symptoms worsen, your pain is concerning for you and you have a fever Follow-up/Referrals: Nima Erickson MD [Primary Care Provider] - (Date & Time 05/03/2024 11:00 AM Provider Nima Erickson MD Department [facility] ) Diet: Heart Healthy Diet Texture: Easy to Chew Addtl Attending Provider Instructions: Follow-up with your primary care physician on 05/03/2024 11:00 AM --Complete the azithromycin, prednisone course as prescribed. --Monitor your blood pressure regularly at home. Discuss with your physician for further adjustment of medications as needed. Seek immediate medical attention if your symptoms reoccur or worsen Please take all medications as instructed on discharge list below. Please call if you have any questions or problems. You can reach a [facility] hospitalist on duty at [facility] 24 hours a day by calling [phone] Pending Studies at Discharge: No Stand-Alone Forms: My [facility], Smoking Cessation Medications and DC Order Prescriptions: New amlodipine [Norvasc] 5 mg Tablet 2.5 mg PO HS Qty: 30 0RF pantoprazole 40 mg Tablet,Delayed Release (Dr/Ec) 40 mg PO DAILY Qty: 5 0RF prednisone 20 mg tablet 20 mg PO DAILY 3 Days Qty: 3 0RF azithromycin 250 mg tablet 250 mg PO DAILY Qty: 3 0RF Continued losartan 50 mg tablet 50 mg PO QAM carvedilol 6.25 mg tablet 6.25 mg PO QAM carvedilol 6.25 mg tablet 3.125 mg PO QPM pravastatin 40 mg tablet 40 mg PO DAILY PreserVision AREDS 2,148 mcg-113 mg-45 mg-17.4mg Tablet 2 tab PO QAM Rx Instructions: Unable to verify OTC meds at this date/time. benzonatate 100 mg capsule 100 mg PO TID PRN (Reason: cough) calcium carbonate 390 mg calcium (1,000 mg) Tablet 1,200 mg PO DAILY Rx Instructions: Unable to verify OTC meds at this date/time. docusate sodium 100 mg Capsule 100 mg PO BID Qty: 30 0RF Rx Instructions: Unable to verify OTC meds at this date/time. albuterol sulfate [Ventolin HFA] 90 mcg/actuation Hfa Aerosol Inhaler 2 puff inhalation Q4H PRN (Reason: shortness of breath or wheezing) Qty: 8.5 0RF Discharge Orders: Discharge Order (Routine); Ordered 04/26/24 Ordered By: Chuck Chau Admission Data Admit Date/Time: 04/23/24 12:58 Attending Provider: Chuck Chau Admit Provider: Cody Patterson Primary Care Provider: Nima Erickson Other Providers: Cody Patterson
== END 2024-04-26 13:19 | disposition home or self-care (01) | DRG 202 ==
LOC: ED 09:19 → EDINP 12:58 → SUATTDRO 12:58 → 3E 04-24 08:17